=== PATIENT | male | born 1950 | race Caucasian/White ===

== ENCOUNTER 2017-02-22 11:18 | Observation (INO) | payer MEDICARE ==
[2017-02-22] MEDS ORDERED: NITROGLYCERIN SL TABS 0.4 MG TAB SUBLINGUAL PRN ×2 (11:30→20:31)
[2017-02-22] MEDS ORDERED: ASPIRIN 81 MG CHEW PO STA (11:30)
--- NOTE | 2017-02-22 11:31 | ED ---
General Adult HPI - General Chief complaint: Chest Pain Stated complaint: DIZZINESS, CHEST PAIN Time Seen by Provider: 02/22/17 11:29 Source: patient, RN notes reviewed, old records reviewed Mode of arrival: wheelchair Limitations: no limitations - History of Present Illness Initial comments: This is a 67-year-old male yesterday with chest pain. Patient does have a history of chest pain, history of heart disease and history of cardiac disease with stent placement. Patient has high blood pressure cholesterol. Blood pressure severely elevated this morning, patient also has not been feeling well. Patient having chest pain shortness of breath no diaphoresis. Continued chest pain at this time. Testred prior MS. - Related Data Home Medications Medication Instructions Recorded Confirmed Atorvastatin [Lipitor] 40 mg PO HS 02/22/17 02/22/17 Lisinopril [Prinivil] 10 mg PO DAILY 02/22/17 02/22/17 Metoprolol Tartrate [Lopressor] 50 mg PO BID 02/22/17 02/22/17 Minocycline HCl [Minocin] 50 mg PO DAILY 02/22/17 02/22/17 Nitroglycerin Sl Tabs [Nitrostat] 0.4 mg SUBLINGUAL Q5M PRN 02/22/17 02/22/17 traMADol HCL [Ultram] 50 mg PO Q6H PRN 02/22/17 02/22/17 Allergies Allergy/AdvReac Type Severity Reaction Status Date / Time No Known Allergies Allergy Verified 02/22/17 12:09 Review of Systems ROS Statement: Those systems with pertinent positive or pertinent negative responses have been documented in the HPI. ROS Other: All systems not noted in ROS Statement are negative. Past Medical History Past Medical History: Coronary Artery Disease (CAD), Hyperlipidemia, Hypertension History of Any Multi-Drug Resistant Organisms: None Reported Past Surgical History: Cholecystectomy, Coronary Bypass/CABG, Heart Catheterization With Stent Past Psychological History: No Psychological Hx Reported Smoking Status: Never smoker Past Alcohol Use History: Rare Past Drug Use History: None Reported General Exam Limitations: no limitations General appearance: alert, in no apparent distress Head exam: Present: atraumatic, normocephalic, normal inspection Eye exam: Present: normal appearance, PERRL, EOMI. Absent: scleral icterus, conjunctival injection, periorbital swelling ENT exam: Present: normal exam, mucous membranes moist Neck exam: Present: normal inspection. Absent: tenderness, meningismus, lymphadenopathy Respiratory exam: Present: normal lung sounds bilaterally. Absent: respiratory distress, wheezes, rales, rhonchi, stridor Cardiovascular Exam: Present: normal rhythm, bradycardia, normal heart sounds. Absent: systolic murmur, diastolic murmur, rubs, gallop, clicks GI/Abdominal exam: Present: soft, normal bowel sounds. Absent: distended, tenderness, guarding, rebound, rigid Extremities exam: Present: normal inspection, full ROM, normal capillary refill. Absent: tenderness, pedal edema, joint swelling, calf tenderness Back exam: Present: normal inspection Neurological exam: Present: alert, oriented X3, CN II-XII intact Psychiatric exam: Present: normal affect, normal mood Skin exam: Present: warm, dry, intact, normal color. Absent: rash Course Vital Signs 02/22/17 02/22/17 02/22/17 11:20 11:43 12:23 Temperature 98.7 F Pulse Rate 54 L 52 L Pulse Rate [ 565 H Right Radial] Respiratory 18 18 Rate Blood Pressure 207/93 151/72 O2 Sat by Pulse 100 96 Oximetry - Reevaluation(s) Reevaluation #1: 02/22/17 13:03 Patient still with chest pain, vital signs remained bradycardic with mildly elevated blood pressure EKG Findings - EKG Comments: EKG Findings:: EKG shows sinus bradycardia rate of 55, SC 138, QRS 80, QTC 394 Medical Decision Making - Medical Decision Making 67 mL the ER for evaluation of chest pain. History of heart disease with stent placement, patient be admitted for cardiac observation initial EKG and troponin are negative - Lab Data Result diagrams: 02/22/17 11:39 02/22/17 11:42 Lab Results 02/22/17 02/22/17 02/22/17 Range/Units 11:39 11:39 11:39 WBC 5.5 (3.8-10.6) k/uL RBC 5.49 (4.30-5.90) m/uL Hgb 16.8 (13.0-17.5) gm/dL Hct 49.3 (39.0-53.0) % MCV 89.8 (80.0-100.0) fL MCH 30.5 (25.0-35.0) pg MCHC 34.0 (31.0-37.0) g/dL RDW 15.5 (11.5-15.5) % Plt Count 183 (150-450) k/uL Neutrophils % 78 % Lymphocytes % 12 % Monocytes % 6 % Eosinophils % 2 % Basophils % 1 % Neutrophils # 4.3 (1.3-7.7) k/uL Lymphocytes # 0.7 L (1.0-4.8) k/uL Monocytes # 0.4 (0-1.0) k/uL Eosinophils # 0.1 (0-0.7) k/uL Basophils # 0.0 (0-0.2) k/uL PT 10.3 (9.0-12.0) sec INR 1.0 (<1.2) APTT 24.7 (22.0-30.0) sec Sodium (137-145) mmol/L Potassium (3.5-5.1) mmol/L Chloride (98-107) mmol/L Carbon Dioxide (22-30) mmol/L Anion Gap mmol/L BUN (9-20) mg/dL Creatinine (0.66-1.25) mg/dL Est GFR (MDRD) Af Amer (>60 ml/min/1.73 sqM) Est GFR (MDRD) Non-Af (>60 ml/min/1.73 sqM) Glucose (74-99) mg/dL Calcium (8.4-10.2) mg/dL Magnesium (1.6-2.3) mg/dL Total Bilirubin (0.2-1.3) mg/dL AST (17-59) U/L ALT (21-72) U/L Alkaline Phosphatase (38-126) U/L Total Creatine Kinase 114 (55-170) U/L CK-MB (CK-2) 1.1 (0.0-2.4) ng/mL CK-MB (CK-2) Rel Index 1.0 Troponin I <0.012 (0.000-0.034) ng/mL Total Protein (6.3-8.2) g/dL Albumin (3.5-5.0) g/dL 02/22/17 Range/Units 11:42 WBC (3.8-10.6) k/uL RBC (4.30-5.90) m/uL Hgb (13.0-17.5) gm/dL Hct (39.0-53.0) % MCV (80.0-100.0) fL MCH (25.0-35.0) pg MCHC (31.0-37.0) g/dL RDW (11.5-15.5) % Plt Count (150-450) k/uL Neutrophils % % Lymphocytes % % Monocytes % % Eosinophils % % Basophils % % Neutrophils # (1.3-7.7) k/uL Lymphocytes # (1.0-4.8) k/uL Monocytes # (0-1.0) k/uL Eosinophils # (0-0.7) k/uL Basophils # (0-0.2) k/uL PT (9.0-12.0) sec INR (<1.2) APTT (22.0-30.0) sec Sodium 139 (137-145) mmol/L Potassium 4.0 (3.5-5.1) mmol/L Chloride 107 (98-107) mmol/L Carbon Dioxide 21 L (22-30) mmol/L Anion Gap 11 mmol/L BUN 14 (9-20) mg/dL Creatinine 0.94 (0.66-1.25) mg/dL Est GFR (MDRD) Af Amer >60 (>60 ml/min/1.73 sqM) Est GFR (MDRD) Non-Af >60 (>60 ml/min/1.73 sqM) Glucose 124 H (74-99) mg/dL Calcium 8.8 (8.4-10.2) mg/dL Magnesium 2.1 (1.6-2.3) mg/dL Total Bilirubin 0.6 (0.2-1.3) mg/dL AST 26 (17-59) U/L ALT 40 (21-72) U/L Alkaline Phosphatase 77 (38-126) U/L Total Creatine Kinase (55-170) U/L CK-MB (CK-2) (0.0-2.4) ng/mL CK-MB (CK-2) Rel Index Troponin I (0.000-0.034) ng/mL Total Protein 7.4 (6.3-8.2) g/dL Albumin 4.2 (3.5-5.0) g/dL - Radiology Data Radiology results: report reviewed (Chest x-ray is negative for acute disease), image reviewed Critical Care Time Critical Care Time: Yes Total Critical Care Time: 31 Disposition Clinical Impression: Chest pain Disposition: ADMITTED IP TO THIS HOSP Condition: Undetermined Instructions: Chest Pain (ED) Referrals: Nonstaff,Physician [Primary Care Provider] - 1-2 days
[2017-02-22 11:57] LABS: Basophils % (A) 1 %; CH 30.9; CHCM 34.6; Eosinophils # (A) 0.1 k/uL (0-0.7); Eosinophils % (A) 2 %; HCT 49.3 % (39.0-53.0); HDW 2.98; HGB 16.8 gm/dL (13.0-17.5); Luc # (Auto) 0.08; Luc % (Auto) 2; Lymphocytes # (A) 0.7 k/uL (1.0-4.8); Lymphocytes % (A) 12 %; MCH 30.5 pg (25.0-35.0); MCV 89.8 fL (80.0-100.0); Mean Platelet Volume 7.5; Monocytes # (A) 0.4 k/uL (0-1.0); Monocytes % (A) 6 %; Neutrophils # (A) 4.3 k/uL (1.3-7.7); Neutrophils % (A) 78 %; RBC 5.49 m/uL (4.30-5.90); RDW 15.5 % (11.5-15.5); WBC 5.5 k/uL (3.8-10.6); WBC (Perox) 5.45
--- NOTE | 2017-02-22 12:05 | XR ---
EXAMINATION TYPE: XR chest 2V DATE OF EXAM: 02/22/2017 COMPARISON: NONE HISTORY: Shortness of breath TECHNIQUE: Frontal and lateral views of the chest are obtained. FINDINGS: Scattered senescent parenchymal changes noted. Hyperinflation compatible with COPD. No evidence for infiltrate. No evidence for atelectasis. Heart size is stable. Mediastinal structures are stable and grossly unremarkable. No evidence for hilar prominence. Degenerative changes dorsal spine. IMPRESSION: 1. No evidence for acute pulmonary disease.
[2017-02-22 12:06] LABS: ALT 40 U/L (21-72); AST 26 U/L (17-59); Alkaline Phosphatase 77 U/L (38-126); Anion Gap 11 mmol/L; Blood Urea Nitrogen 14 mg/dL (9-20); Calcium 8.8 mg/dL (8.4-10.2); Carbon Dioxide 21 mmol/L (22-30); Chloride 107 mmol/L (98-107); Glucose 124 mg/dL (74-99); Magnesium 2.1 mg/dL (1.6-2.3); Non-African American GFR(MDRD) >60 (>60 ml/min/1.73 sqM); Sodium 139 mmol/L (137-145); Total Bilirubin 0.6 mg/dL (0.2-1.3); Total Protein 7.4 g/dL (6.3-8.2)
[2017-02-22 12:20] LABS: Partial Thromboplastin Time 24.7 sec (22.0-30.0); Prothrombin Time 10.3 sec (9.0-12.0)
[2017-02-22 12:21] LABS: Creatine Kinase 114 U/L (55-170)
[2017-02-22 12:31] LABS: Creatine Kinase MB 1.1 ng/mL (0.0-2.4); Troponin I <0.012 ng/mL (0.000-0.034)
[2017-02-22 16:26] VITALS: BMI 29.8
[2017-02-22 18:48] LABS: Creatine Kinase 98 U/L (55-170)
[2017-02-22 19:01] LABS: Creatine Kinase MB 0.9 ng/mL (0.0-2.4); Troponin I <0.012 ng/mL (0.000-0.034)
[2017-02-22] MEDS ORDERED: traMADol 50 MG TAB PO PRN (20:31)
[2017-02-22] MEDS: MINOCYCLINE 50 MG CAP PO SCH (20:57)
[2017-02-22] MEDS ORDERED: ATORVASTATIN 40 MG TAB PO SCH (21:00)
[2017-02-22] MEDS ORDERED: METOPROLOL TARTRATE 50 MG TAB PO SCH (21:00)
[2017-02-23 00:25] LABS: Creatine Kinase 96 U/L (55-170)
[2017-02-23 00:38] LABS: Creatine Kinase MB 0.9 ng/mL (0.0-2.4); Troponin I <0.012 ng/mL (0.000-0.034)
[2017-02-23 06:10] LABS: Glucose,Whole Blood 110 mg/dL (75-99)
[2017-02-23 06:37] LABS: Cholesterol 208 mg/dL (<200); HDL Cholesterol 31 mg/dL (40-60)
--- NOTE | 2017-02-23 08:34 | P.CRDCN ---
History of Present Illness Consult date: 02/23/17 Requesting physician: Fidel Lopez Consult reason: chest pain Chief complaint: Chest pain History of present illness: This is a pleasant 67-year-old gentleman with history of hypertension , hyperlipidemia, coronary artery disease with prior stent placements, prior myocardial infarction, patient also underwent coronary artery bypass grafting surgery in [facility] in 2010. He has recently moved to this area. Patient presents to the hospital with symptoms of chest tightness with associated diaphoresis and dizziness. He states that he has been dizzy for the past few days, yesterday patient developed a chest tightness with associated diaphoresis. Patient states he did not try sublingual nitroglycerin because it gave him a headache in the past and he did have a headache already. At the time of my examination this morning, he is currently chest pain-free. EKG on arrival here showed a sinus bradycardia with inferior Q waves, anterior repeat EKG this morning shows a sinus bradycardia with inferior Q waves and anterior lateral ST-T wave changes. lateral ST T-wave changes. Chest x-ray does not reveal any evidence of acute pulmonary disease. CBC normal. Potassium 4.0, BUN 14, creatinine 0.9. Troponins have been negative 3. Cholesterol 208, LDL 148, HDL 31, triglycerides 143. I pressure on arrival to the emergency room 207 /93, heart rate in the 50s, 100% on room air. Let pressure this morning 150/80 , heart rate in the 40s to 50s, no orthostatics noted. Patient has not been taking statin or beta regla for approximately 6 weeks. Past Medical History Past Medical History: Coronary Artery Disease (CAD), Hyperlipidemia, Hypertension History of Any Multi-Drug Resistant Organisms: None Reported Past Surgical History: Cholecystectomy, Coronary Bypass/CABG, Heart Catheterization With Stent Date of Last Stent Placement:: 2005/2006? Past Psychological History: No Psychological Hx Reported Smoking Status: Former smoker Past Alcohol Use History: Rare Past Drug Use History: None Reported Medications and Allergies Home Medications Medication Instructions Recorded Confirmed Type Atorvastatin [Lipitor] 40 mg PO HS 02/22/17 02/22/17 History Lisinopril [Prinivil] 10 mg PO DAILY 02/22/17 02/22/17 History Metoprolol Tartrate [Lopressor] 50 mg PO BID 02/22/17 02/22/17 History Minocycline HCl [Minocin] 50 mg PO DAILY 02/22/17 02/22/17 History Nitroglycerin Sl Tabs [Nitrostat] 0.4 mg SUBLINGUAL Q5M PRN 02/22/17 02/22/17 History traMADol HCL [Ultram] 50 mg PO Q6H PRN 02/22/17 02/22/17 History Allergies Allergy/AdvReac Type Severity Reaction Status Date / Time No Known Allergies Allergy Verified 02/22/17 12:09 Physical Exam Vitals: Vital Signs Temp Pulse Pulse Resp BP BP BP 02/23/17 08:15 150/85 148/96 02/23/17 08:00 97.2 F L 45 L 16 02/23/17 04:00 57 L 16 02/23/17 00:00 97.4 F L 50 L 16 02/22/17 20:00 97.9 F 54 L 16 02/22/17 16:37 97.8 F 50 L 16 02/22/17 16:33 50 L 18 02/22/17 16:04 97.6 F 56 L 18 152/75 02/22/17 14:42 52 L 16 174/83 02/22/17 14:00 50 L 18 158/82 02/22/17 13:09 97.8 F 50 L 16 02/22/17 13:00 48 L 18 139/73 02/22/17 12:23 52 L 18 151/72 02/22/17 11:43 565 H 02/22/17 11:20 98.7 F 54 L 18 207/93 BP BP Pulse Ox 02/23/17 08:15 145/74 02/23/17 08:00 145/74 98 02/23/17 04:00 147/81 97 02/23/17 00:00 133/64 99 02/22/17 20:00 151/74 98 02/22/17 16:37 151/77 98 02/22/17 16:33 02/22/17 16:04 96 02/22/17 14:42 97 02/22/17 14:00 97 02/22/17 13:09 151/77 98 02/22/17 13:00 98 02/22/17 12:23 96 02/22/17 11:43 02/22/17 11:20 100 Intake and Output 02/22/17 02/23/17 02/23/17 22:59 06:59 14:59 Intake Total 480 Output Total 200 250 Balance 280 -250 Intake: Oral 480 Output: Urine 200 250 Other: Voiding Method Toilet Toilet # Voids 1 2 1 Weight 80.5 kg PHYSICAL EXAMINATION: HEENT: Head is atraumatic, normocephalic. Pupils equal, round. Neck is supple. There is no elevated jugular venous pressure. HEART EXAMINATION: Heart S1 and S2 with systolic murmur is heard. CHEST EXAMINATION: Lungs are clear to auscultation and precussion. No chest wall tenderness is noted on palpation or with deep breathing. ABDOMEN: Soft, nontender. Bowel sounds are heard. No organomegaly noted. EXTREMITIES: 2+ peripheral pulses with no evidence of peripheral edema and no calf tenderness noted. NEUROLOGIC patient is awake, alert and oriented -3. . Results 02/22/17 11:39 02/22/17 11:42 Cardiac Enzymes 02/22/17 02/22/17 02/22/17 Range/Units 11:39 11:42 18:04 AST 26 (17-59) U/L CK-MB (CK-2) 1.1 0.9 (0.0-2.4) ng/mL Troponin I <0.012 <0.012 (0.000-0.034) ng/mL 02/22/17 Range/Units 23:43 AST (17-59) U/L CK-MB (CK-2) 0.9 (0.0-2.4) ng/mL Troponin I <0.012 (0.000-0.034) ng/mL Coagulation 02/22/17 Range/Units 11:39 PT 10.3 (9.0-12.0) sec APTT 24.7 (22.0-30.0) sec Lipids 02/23/17 Range/Units 05:49 Triglycerides 143 (<150) mg/dL Cholesterol 208 H (<200) mg/dL HDL Cholesterol 31 L (40-60) mg/dL CBC 02/22/17 Range/Units 11:39 WBC 5.5 (3.8-10.6) k/uL RBC 5.49 (4.30-5.90) m/uL Hgb 16.8 (13.0-17.5) gm/dL Hct 49.3 (39.0-53.0) % Plt Count 183 (150-450) k/uL Comprehensive Metabolic Panel 02/22/17 Range/Units 11:42 Sodium 139 (137-145) mmol/L Potassium 4.0 (3.5-5.1) mmol/L Chloride 107 (98-107) mmol/L Carbon Dioxide 21 L (22-30) mmol/L BUN 14 (9-20) mg/dL Creatinine 0.94 (0.66-1.25) mg/dL Glucose 124 H (74-99) mg/dL Calcium 8.8 (8.4-10.2) mg/dL AST 26 (17-59) U/L ALT 40 (21-72) U/L Alkaline Phosphatase 77 (38-126) U/L Total Protein 7.4 (6.3-8.2) g/dL Albumin 4.2 (3.5-5.0) g/dL Current Medications Generic Name Dose Route Start Last Admin Trade Name Freq PRN Reason Stop Dose Admin Aspirin 325 mg 02/23/17 09:00 Aspirin PO DAILY [facility] Atorvastatin Calcium 40 mg 02/22/17 21:00 02/22/17 20:57 Lipitor PO 40 mg HS DEON Administration Lisinopril 10 mg 02/23/17 09:00 Zestril PO DAILY [facility] Metoprolol Tartrate 50 mg 02/22/17 21:00 02/22/17 20:57 Lopressor PO 50 mg BID DEON Administration Minocycline HCl 50 mg 02/22/17 20:45 02/22/17 20:57 Minocin PO 50 mg DAILY DEON Administration Nitroglycerin 0.4 mg 02/22/17 11:30 Nitrostat SUBLINGUAL Q5M PRN Chest Pain Tramadol HCl 50 mg 02/22/17 20:31 Ultram PO Q6H PRN Pain Intake and Output 02/22/17 02/23/17 02/23/17 22:59 06:59 14:59 Intake Total 480 Output Total 200 250 Balance 280 -250 Intake: Oral 480 Output: Urine 200 250 Other: Voiding Method Toilet Toilet # Voids 1 2 1 Weight 80.5 kg 02/22/17 11:39 02/22/17 11:42 EKG Interpretations (text) EKG shows a sinus bradycardia with inferior Q waves and anterior lateral ST-T wave changes Assessment and Plan Plan: Assessment and plan #1 chest tightness with associated diaphoresis and dizziness troponins negative 3. EKG shows a sinus bradycardia with inferior Q waves and anterior lateral/ ST T-wave changes. #2 accelerated hypertension #3 history of hypertension #4 hyperlipidemia #5 prior history of smoking #6 Coronary artery disease with prior stent placements subsequent to that, patient underwent coronary artery bypass grafting surgery in 2010 Plan We will obtain an echocardiogram with Doppler study. We will also obtain records of patient's prior bypass surgery, prior EKG and prior echocardiogram. 's heart rate is noted to be in the 40s to 50s, he was resumed here on metoprolol tartrate 50 twice a day and patient has not taken his beta regla for a minimum of 6 weeks. We will decrease the dose of metoprolol tartrate 12-1 /2 mg one tablet by mouth twice a day. Continue an aspirin daily, and initiate Lipitor 80 mg 1 tablet daily. Obtain free T4 and TSH level. Further recommendations to follow. DNP note has been reviewed, I agree with a documented findings and plan of care. Patient was seen and examined.
[2017-02-23] MEDS: METOPROLOL TARTRATE 12.5 MG TAB PO SCH ×2 (09:53→19:33)
[2017-02-23] MEDS: LISINOPRIL 10 MG TAB PO SCH (09:53)
[2017-02-23] MEDS: ASPIRIN 325 MG TAB PO SCH (09:54)
[2017-02-23] MEDS: MINOCYCLINE 50 MG CAP PO SCH (09:54)
[2017-02-23 11:47] LABS: Glucose,Whole Blood 223 mg/dL (75-99)
[2017-02-23] MEDS: ATORVASTATIN 80 MG TAB PO SCH (19:33)
[2017-02-24 06:14] LABS: Basophils # (A) 0.1 k/uL (0-0.2); Basophils % (A) 1 %; CH 30.7; CHCM 34.2; Eosinophils # (A) 0.4 k/uL (0-0.7); Eosinophils % (A) 6 %; HCT 50.9 % (39.0-53.0); HDW 2.93; HGB 17.1 gm/dL (13.0-17.5); Luc # (Auto) 0.13; Luc % (Auto) 2; Lymphocytes # (A) 0.9 k/uL (1.0-4.8); Lymphocytes % (A) 14 %; MCH 30.3 pg (25.0-35.0); MCHC 33.7 g/dL (31.0-37.0); MCV 90.1 fL (80.0-100.0); Mean Platelet Volume 7.3; Monocytes # (A) 0.4 k/uL (0-1.0); Monocytes % (A) 7 %; Neutrophils # (A) 4.2 k/uL (1.3-7.7); Neutrophils % (A) 70 %; RBC 5.65 m/uL (4.30-5.90); RDW 15.9 % (11.5-15.5); WBC (Perox) 5.88
[2017-02-24 06:32] LABS: Anion Gap 11 mmol/L; Blood Urea Nitrogen 16 mg/dL (9-20); Calcium 8.7 mg/dL (8.4-10.2); Carbon Dioxide 26 mmol/L (22-30); Chloride 104 mmol/L (98-107); Glucose 102 mg/dL (74-99); Non-African American GFR(MDRD) >60 (>60 ml/min/1.73 sqM); Potassium 4.4 mmol/L (3.5-5.1); Sodium 141 mmol/L (137-145)
[2017-02-24] MEDS: LISINOPRIL 10 MG TAB PO SCH (09:02)
[2017-02-24] MEDS: METOPROLOL TARTRATE 12.5 MG TAB PO SCH ×2 (09:02→19:55)
[2017-02-24] MEDS: MINOCYCLINE 50 MG CAP PO SCH (09:02)
[2017-02-24] MEDS: ASPIRIN 325 MG TAB PO SCH (09:02)
--- NOTE | 2017-02-24 10:12 | PN ---
SUBJECTIVE: 67 year old white male admitted with chest pain, echocardiogram has been ordered by superintendent [employer]. Hypertension acceleration with dizziness is improving as we restarted his medications, albeit in lower doses from beta blockers standpoint as he has had bradycardia without beta blockers. Other medicines will be adjusted to home medications. he has been off for six weeks. Vital signs stable as mentioned except for bradycardia into the 40s without beta blockers. Lungs are clear. Psych: Fair mood and affect. Neurological: Alert and oriented times three. GI: Soft. Hematology: Negative Homans. ASSESSMENT: 1. Dizziness secondary to hypertension acceleration. 2. Atypical chest pain. 3. History of coronary artery disease. 4. Obesity. 5. Continue to monitor for bradycardia. Continue risk factor modifications. Await superintendent [employer] is looking at old cardiac cath records from another hospital. Echo will be done in the meantime. DEAN
--- NOTE | 2017-02-24 10:33 | US ---
EXAMINATION TYPE: US carotid duplex BILAT DATE OF EXAM: 02/24/2017 COMPARISON: NONE CLINICAL HISTORY: HYPERLIPIDEMIA-DIZZINESS. Dizziness EXAM MEASUREMENTS: RIGHT: Peak Systolic Velocity (PSV) cm/sec ----- Right CCA: 50.2 ----- Right ICA: 75.4 ----- Right ECA: 85.6 ICA/CCA ratio: 1.5 RIGHT: End Diastole cm/sec ----- Right CCA: 10.2 ----- Right ICA: 19.3 ----- Right ECA: 9.9 LEFT: Peak Systolic Velocity (PSV) cm/sec ----- Left CCA: 56.5 ----- Left ICA: 77.3 ----- Left ECA: 63.9 ICA/CCA ratio: 1.4 LEFT: End Diastole cm/sec ----- Left CCA: 8.7 ----- Left ICA: 16.6 ----- Left ECA: 5.9 VERTEBRALS (direction of flow): Right Vertebral: Antegrade Left Vertebral: Antegrade No elevated velocities, no significant stenosis Left thyroid: 1.3 x 1.0 x 1.4cm nodule seen IMPRESSION: 1. No evidence for hemodynamically significant stenosis. Criteria for Assigning % of Stenosis / Diameter reduction (Estimation based on the indirect measurements of the internal carotid artery velocities (ICA PSV). 1. Normal (no stenosis)=ICA PSV < 125 cm/s: ratio < 2.0: ICA EDV<40 cm/s. 2. Less than 50% stenosis=ICA PSV < 125 cm/s: ratio < 2.0: ICA EDV<40 cm/s. 3. 50 to 69% stenosis=ICA PSV of 125 to 230 cm/s: ration 2.0 ? 4.0: ICA EDV 40-100 cm/s. 4. Greater than 70% stenosis to near occlusion= ICA PSV > 230 cm/s: ratio > 4.0: ICA EDV > 100 cm/s. 5. Near occlusion= ICA PSV velocities may be low or undetectable: variable ratio and ICA EDV. 6. Total occlusion=unable to detect flow.
[2017-02-24] MEDS: ATORVASTATIN 80 MG TAB PO SCH (19:56)
[2017-02-25] MEDS ORDERED: REGADENOSON 0.4 MG/5 ML SYRINGE IV ONE (05:00)
[2017-02-25] MEDS ORDERED: AMINOPHYLLINE 500 MG/20 ML VIAL IV PRN (05:00)
[2017-02-25 06:51] LABS: CH 30.4; CHCM 33.8; HCT 51.6 % (39.0-53.0); HGB 17.2 gm/dL (13.0-17.5); MCH 30.1 pg (25.0-35.0); MCHC 33.3 g/dL (31.0-37.0); MCV 90.5 fL (80.0-100.0); Mean Platelet Volume 7.6; RDW 15.4 % (11.5-15.5); WBC 6.8 k/uL (3.8-10.6)
[2017-02-25 07:13] LABS: Anion Gap 10 mmol/L; Blood Urea Nitrogen 13 mg/dL (9-20); Calcium 8.7 mg/dL (8.4-10.2); Carbon Dioxide 24 mmol/L (22-30); Chloride 106 mmol/L (98-107); Glucose 92 mg/dL (74-99); Non-African American GFR(MDRD) >60 (>60 ml/min/1.73 sqM); Potassium 4.3 mmol/L (3.5-5.1); Sodium 140 mmol/L (137-145)
--- NOTE | 2017-02-25 08:00 | ECHOF ---
Referral Reason:chest pain MEASUREMENTS -------- HEIGHT: 167.6 cm WEIGHT: 80.3 kg BP: 145/74 RVIDd: 3.4 cm (< 3.3) IVSd: 1.4 cm (0.6 - 1.1) LVIDd: 4.5 cm (3.9 - 5.3) LVPWd: 1.5 cm (0.6 - 1.1) IVSs: 1.7 cm LVIDs: 3.4 cm LVPWs: 2.0 cm LA Diam: 4.4 cm (2.7 - 3.8) LAESV Index (A-L): 30.26 ml/m Ao Diam: 4.0 cm (2.0 - 3.7) AV Cusp: 2.5 cm (1.5 - 2.6) MV EXCURSION: 12.842 mm (> 18.000) MV EF SLOPE: 40 mm/s (70 - 150) EPSS: 0.9 cm MV E Ezra: 0.77 m/s MV DecT: 293 ms MV A Ezra: 0.63 m/s MV E/A Ratio: 1.23 AR PHT: 818 ms FINDINGS -------- Resting bradycardia (HR<60bpm). This was a technically good study. The left ventricular size is normal. There is moderate concentric left ventricular hypertrophy. Overall left ventricular systolic function is normal with, an EF between 55 - 60 %. The right ventricle is mildly enlarged. LA is midly dilated 29-33ml/m2. The right atrium is normal in size. The aortic valve is trileaflet and appears structurally normal. There is mild aortic regurgitation. Mild mitral annular calcification present. The tricuspid valve appears structurally normal. Trace/mild (physiologic) pulmonic regurgitation. 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 The inferior vena cava is mildly dilated. There is no pericardial effusion. CONCLUSIONS -------- 1. Resting bradycardia (HR<60bpm). 2. There is mild aortic regurgitation. 3. Mild mitral annular calcification present. 4. The tricuspid valve appears structurally normal. 5. Trace/mild (physiologic) pulmonic regurgitation. 6. 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 7. The inferior vena cava is mildly dilated. 8. There is no pericardial effusion. 9. This was a technically good study. 10. The left ventricular size is normal. 11. There is moderate concentric left ventricular hypertrophy. 12. Overall left ventricular systolic function is normal with, an EF between 55 - 60 %. 13. The right ventricle is mildly enlarged. 14. LA is midly dilated 29-33ml/m2. 15. The right atrium is normal in size. 16. The aortic valve is trileaflet and appears structurally normal. VENUE ATTENDANT: Lluvia Nguyen RDCS
[2017-02-25 09:18] VITALS: RESP 16
[2017-02-25] MEDS: METOPROLOL TARTRATE 12.5 MG TAB PO SCH (10:12)
[2017-02-25] MEDS: LISINOPRIL 10 MG TAB PO SCH (10:13)
[2017-02-25] MEDS: ASPIRIN 325 MG TAB PO SCH (10:13)
[2017-02-25] MEDS: MINOCYCLINE 50 MG CAP PO SCH (10:13)
--- NOTE | 2017-02-25 11:28 | PN ---
Mr. Moody is a 67-year-old gentleman with history of hypertension, hyperlipidemia, coronary artery disease with a prior stent placement and also myocardial infarction and previous bypass surgery who moved recently to this area. The patient is admitted to the hospital with chest tightness, dizziness and also diaphoresis. The patient's blood pressure has been running high. Since admission the patient's blood pressure has been stable. His blood pressure today is 120-140/69. Pulse rate is 60's, respirations 16. Patient is feeling better. His troponin values are negative. We are still awaiting the reports from [facility] regarding his previous history. He is being scheduled for a stress test tomorrow. If there is no inducible ischemia the patient could be discharged home. PHYSICAL EXAMINATION: Reveals a gentleman who is alert and oriented, does not appear in acute distress. LUNGS: Clear. HEART: Regular. No JVD, no peripheral edema. His lab values today show normal electrolytes. His CBCs are normal. His cholesterol level is 208, HDL is 31, LDL is 148. The patient has been taking lipid lowering agents. FINAL IMPRESSION: 1. Chest pain, rule out unstable angina. 2. Uncontrolled hypertension. 3. Dizziness has resolved. PLAN: Nuclear stress test tomorrow. If that is negative patient could be discharged home. If it is positive the patient may need cardiac catheterization. DEAN
--- NOTE | 2017-02-25 11:38 | NM ---
EXAMINATION TYPE: NM stress lexiscan cardiolite DATE OF EXAM: 02/25/2017 COMPARISON: NONE HISTORY: History of hypertension, tobacco use quit 1997, family history of heart attack, hypercholest eremia, prior heart attack, and prior angioplasty as well as three-vessel CABG procedure presents wit h chest pain. TECHNIQUE: After the intravenous administration of 11 mCi Tc 99m Sestamibi - Cardiolite resting SPEC T images acquired 40 minutes post injection. The patient received 0.4mg Lexiscan, 27.3 mCi Tc 99m Sestamibi - Stress images obtained [address] injection FINDINGS: Review of stress and rest SPECT images demonstrates no distinct perfusion abnormality. Gated analysi s shows normal wall motion with an estimated left ventricular ejection fraction of 52 %. IMPRESSION: No scintigraphic evidence for reversible ischemia.
--- NOTE | 2017-02-25 12:18 | PN ---
67 -year-old white male admitted to the hospital with atypical chest pain. He will have a stress test tomorrow. His blood pressure and dizziness are improved as he has been off his blood pressure medications for six weeks. He will have a stress test tomorrow and he will be discharged home afterwards. Cardiovascular: S1, S2. Lungs are clear. GI: Soft. Hematological: Negative Homans. Psych: Fair mood and affect. ASSESSMENT: 1. Hypertension acceleration. 2. Dizziness secondary to hypertension acceleration. 3. Atypical chest pain. 4. History of coronary artery disease. Continue current medical therapy, including blood pressure control, stress thallium in the morning and then discharge if clear. MTDD
[2017-02-25 13:03] VITALS: BP 141/75; PULSE 64; TEMP 98.1
--- NOTE | 2017-02-25 15:08 | P.PN ---
Subjective This is a pleasant 67-year-old gentleman with history of hypertension , hyperlipidemia, coronary artery disease with prior stent placements, prior myocardial infarction, patient also underwent coronary artery bypass grafting surgery in [facility] in 2010. He has recently moved to this area. Patient presents to the hospital with symptoms of chest tightness with associated diaphoresis and dizziness. He states that he has been dizzy for the past few days, yesterday patient developed a chest tightness with associated diaphoresis. Patient states he did not try sublingual nitroglycerin because it gave him a headache in the past and he did have a headache already. At the time of my examination this morning, he is currently chest pain-free. EKG on arrival here showed a sinus bradycardia with inferior Q waves, anterior repeat EKG this morning shows a sinus bradycardia with inferior Q waves and anterior lateral ST-T wave changes. lateral ST T-wave changes. 02/25/2017 Lexiscan stress test today that was negative for any reversible ischemia. He has been up ambulating in the hallway without any difficulty, denies chest pain. Echocardiogram with Doppler study was performed which revealed an ejection fraction of 55-60%. From cardiology's perspective he may be able to be discharged home today. We will make him a follow-up appointment in the office post discharge. Objective - Vital Signs Vital signs: Vital Signs Temp 98.1 F 02/25/17 12:00 Pulse 64 02/25/17 12:00 Resp 16 02/25/17 12:00 BP 141/75 02/25/17 12:00 Pulse Ox 98 02/25/17 12:00 Intake & Output 02/24/17 02/25/17 02/25/17 18:59 06:59 18:59 Intake Total 1120 480 180 Output Total 800 750 Balance 320 -270 180 Weight 80.5 kg Intake: Oral 1120 480 180 Output: Urine 800 750 Other: Voiding Method Toilet Toilet # Voids 1 1 # Bowel Movements 1 - Exam PHYSICAL EXAMINATION: HEENT: Head is atraumatic, normocephalic. Pupils equal, round. Neck is supple. There is no elevated jugular venous pressure. HEART EXAMINATION: Heart S1 and S2 with systolic murmur is heard. CHEST EXAMINATION: Lungs are clear to auscultation and precussion. No chest wall tenderness is noted on palpation or with deep breathing. ABDOMEN: Soft, nontender. Bowel sounds are heard. No organomegaly noted. EXTREMITIES: 2+ peripheral pulses with no evidence of peripheral edema and no calf tenderness noted. NEUROLOGIC patient is awake, alert and oriented -3. . - Labs CBC & Chem 7: 02/25/17 06:02 02/25/17 06:02 Assessment and Plan Plan: Assessment and plan #1 chest tightness with associated diaphoresis and dizziness troponins negative 3. EKG shows a sinus bradycardia with inferior Q waves and anterior lateral/ ST T-wave changes. Ashtyn scan stress test negative for any reversible ischemia. Echocardiogram with Doppler study reveals an ejection fraction of 55-60%. #2 accelerated hypertension #3 history of hypertension #4 hyperlipidemia #5 prior history of smoking #6 Coronary artery disease with prior stent placements subsequent to that, patient underwent coronary artery bypass grafting surgery in 2010 Plan Cardiology's perspective, patient may be able to be discharged home today. We will make him a follow-up appointment in the office post discharge. DNP note has been reviewed, I agree with a documented findings and plan of care. Patient was seen and examined.
--- NOTE | 2017-02-26 14:31 | EST ---
DATE OF SERVICE: 02/25/2017 LEXISCAN CARDIOLITE STUDY INDICATION: Chest pain. BASELINE HEART RATE: 61 BASELINE BLOOD PRESSURE: 135/75 MAXIMUM HEART RATE: 75 MAXIMUM BLOOD PRESSURE: 139/75 85% MPHR: 130 100% MPHR: 153 METS: - MAXIMUM STAGE REACHED: - TOTAL EXERCISE TIME: - Patient was given Lexiscan injection over a period of 15 seconds. A peak heart rate of 75 was achieved. Maximum blood pressure of 139/75 mmHg was noted. Resting EKG shows normal sinus rhythm with normal GA interval and QRS duration and normal ST-T waves. No ST segment depression suggestive of ischemia was noted. The results of the nuclear study will follow. [facility]
== END 2017-02-25 15:14 | disposition home or self-care (01) ==
LOC: EC 11:18 → 3OBS 11:30 → 6SEL 16:09
PROVIDERS: ADMIT Family Medicine; ATTEND Family Medicine
DX: R07.89 Other chest pain (principal); R61 Generalized hyperhidrosis; R06.02 Shortness of breath; R00.1 Bradycardia, unspecified; I10 Essential (primary) hypertension; E78.5 Hyperlipidemia, unspecified; E66.9 Obesity, unspecified; I25.10 Atherosclerotic heart disease of native coronary artery without angina pectoris; I25.2 Old myocardial infarction; Z79.899 Other long term (current) drug therapy; Z95.1 Presence of aortocoronary bypass graft; Z95.5 Presence of coronary angioplasty implant and graft; Z87.891 Personal history of nicotine dependence; Z79.2 Long term (current) use of antibiotics
CPT/HCPCS: 99291; 36415; 93005; 93017; 93306; 84439; 84481; 80061; 80053; 80048 ×2; 84443; 82550; 82553; 83735; 84484; 85025 ×2; 85027; 85610; 85730; 71020; 93880; 78452; G0378 ×4; A9500; J2785

== ENCOUNTER → 2017-08-22 | Outpatient (CLI) | payer MEDICARE, OTHER ==
--- NOTE | 2017-08-22 09:00 | US ---
EXAMINATION TYPE: US thyroid st tissue head/neck DATE OF EXAM: 08/22/2017 COMPARISON: Carotid US 02/24/2017 CLINICAL HISTORY: 67-year-old male E04.1 THYROID NODULE. Follow up thyroid nodule from previous ultra sound TECHNIQUE: Multiple sonographic images of the thyroid gland are obtained. FINDINGS: Right Lobe: 4.3 x 1.7 x 1.7 cm Overall Parenchyma: heterogenous Left Lobe: 3.8 x 1.6 x 1.9 cm Overall Parenchyma: heterogeneous Isthmus Thickness: 0.6 cm NODULES RIGHT: # of nodules measured on right: 3 1. 0.8 X 0.7 x 0.7 cm cyst at the mid pole with well-defined margins. This nodule is wider than usha l and shows no intranodular vascularity. Prior size: no previous 2. 1.2 X 0.6 x 1.1 cm mixed solid cystic nodule at the mid pole with well-defined margins. This nodu le is wider than tall and shows no intranodular vascularity. Prior size: no previous 3. 0.5 X 0.4 x 0.5 cm hypoechoic solid nodule at the posterior mid pole with well-defined margins. T his nodule is wider than tall and shows no intranodular vascularity. Prior size: no previous LEFT: # of nodules measured on left: 1 1. 1.2 X 0.8 x 1.4 cm isoechoic solid nodule at the lower pole with well-defined margins. This nodu le is wider than tall and shows . Prior size: 1.3 x 1.0 x 1.4 cm by previous carotid ultrasound ISTHMUS: # of nodules measured in the isthmus: 1 1. 0.6 X 0.5 x 0.8 cm calcified nodule at the mid portion of the isthmus. This nodule is wider than tall and shows no intranodular vascularity. Prior size: no previous Bilateral neck scanned, no evidence of lymphadenopathy. IMPRESSION: 1. 3 nodules on the right, one in the isthmus and one on the left. 2. The dominant nodule is solid measuring 1.4 cm on the left, relatively unchanged from 02/24/2017. 3. The second dominant nodule is mixed solid and cystic measuring 1.2 cm at the right midpole. 4. FNA can be considered.
== END | disposition home or self-care (01) ==
LOC: RADUSWWP 08:14
PROVIDERS: ATTEND Internal Medicine Geriatric Medicine
DX: E04.2 Nontoxic multinodular goiter (principal)
CPT/HCPCS: 76536

== ENCOUNTER 2017-10-01 12:16 | Day surgery (SDC) | payer MEDICARE, OTHER ==
[2017-10-01 12:34] VITALS: RESP 20; TEMP 99
[2017-10-01 13:08] VITALS: BP 136/77; PULSE 71
--- NOTE | 2017-10-01 13:43 | US ---
ULTRASOUND GUIDED FNA THYROID BIOPSY: CLINICAL HISTORY: Request for FNA of a right thyroid nodule which is mixed measuring 1.2 cm on the pr evious exam. FINDINGS: The procedure was explained to the patient. The risks, complications, benefits and alternatives were discussed and any questions were answered. Informed consent was obtained. Patient was placed supin e on the ultrasound table and prepped and draped in the usual sterile fashion. Utilizing a 25 gauge needle, five passes were made into the requested right thyroid nodule. Patient was stable throughout the procedure. Pathology is pending. All elements of maximal barrier technique were utilized. IMPRESSION: 1. Successful ultrasound guided FNA thyroid biopsy.
== END 2017-10-01 13:40 | disposition home or self-care (01) ==
LOC: RADPROMAIN 12:16
PROVIDERS: ATTEND Internal Medicine Geriatric Medicine
DX: E04.1 Nontoxic single thyroid nodule (principal)
CPT/HCPCS: 10022; 76942; 88173; 88305

== ENCOUNTER 2017-10-27 10:31 | Observation (INO) | payer MEDICARE, OTHER ==
[2017-10-27] MEDS ORDERED: ASPIRIN 81 MG PO STA (11:01)
[2017-10-27] MEDS ORDERED: NITROGLYCERIN OINT 1 INCH/GM PACKET TOPICAL STA (11:01)
--- NOTE | 2017-10-27 11:09 | ED ---
General Adult HPI - General Chief complaint: Chest Pain Stated complaint: Chest pain Time Seen by Provider: 10/27/17 10:35 Source: patient, RN notes reviewed Mode of arrival: ambulatory Limitations: no limitations - History of Present Illness Initial comments: This is a 67-year-old male who presents emergency Department complaining of chest pain since 1019. Patient states the pain was in the left side of his chest that radiated to his back. Patient states this is a same type of pain he had when he had a heart attack in the past. Patient's had multiple stents and bypass surgery in the past. Patient states he is a diabetic does have high blood pressure high cholesterol. Patient denies any smoking. Patient states he took a couple nitroglycerin over did not help but the pain has since subsided. Patient states she was mildly short of breath denies any sweating or nausea. - Related Data Home Medications Medication Instructions Recorded Confirmed Lisinopril [Prinivil] 10 mg PO DAILY 02/22/17 10/27/17 Minocycline HCl [Minocin] 50 mg PO HS 02/22/17 10/27/17 Nitroglycerin Sl Tabs [Nitrostat] 0.4 mg SUBLINGUAL Q5M PRN 02/22/17 10/27/17 traMADol HCL [Ultram] 50 mg PO Q6H PRN 02/22/17 10/27/17 ALPRAZolam [Xanax] 0.25 mg PO DAILY PRN 09/05/17 10/27/17 Metoprolol Tartrate [Lopressor] 50 mg PO BID 09/05/17 10/27/17 Atorvastatin [Lipitor] 40 mg PO HS 10/27/17 10/27/17 Allergies Allergy/AdvReac Type Severity Reaction Status Date / Time No Known Allergies Allergy Verified 10/27/17 11:42 Review of Systems ROS Statement: Those systems with pertinent positive or pertinent negative responses have been documented in the HPI. ROS Other: All systems not noted in ROS Statement are negative. Past Medical History Past Medical History: Coronary Artery Disease (CAD), Hyperlipidemia, Hypertension, Skin Disorder, Thyroid Disorder Additional Past Medical History / Comment(s): rosacea, thyroid nodules History of Any Multi-Drug Resistant Organisms: None Reported Past Surgical History: Cholecystectomy, Coronary Bypass/CABG, Heart Catheterization With Stent Additional Past Surgical History / Comment(s): CABG 2010 Past Anesthesia/Blood Transfusion Reactions: No Reported Reaction Additional Past Anesthesia/Blood Transfusion Reaction / Comment(s): no previous blood transfusions Date of Last Stent Placement:: 2005/2006? Past Psychological History: Anxiety Smoking Status: Former smoker Past Alcohol Use History: Rare Past Drug Use History: None Reported General Exam - General Exam Comments Initial Comments: GENERAL: Patient is well-developed and well-nourished. Patient is nontoxic and well- hydrated and is in mild distress. ENT: Neck is soft and supple. No significant lymphadenopathy is noted. Oropharynx is clear. Moist mucous membranes. Neck has full range of motion without eliciting any pain. EYES: The sclera were anicteric and conjunctiva were pink and moist. Extraocular movements were intact and pupils were equal round and reactive to light. Eyelids were unremarkable. PULMONARY: Unlabored respirations. Good breath sounds bilaterally. No audible rales rhonchi or wheezing was noted. CARDIOVASCULAR: There is a regular rate and rhythm without any murmurs gallops or rubs. ABDOMEN: Soft and nontender with normal bowel sounds. No palpable organomegaly was noted. There is no palpable pulsatile mass. SKIN: Skin is clear with no lesions or rashes and otherwise unremarkable. NEUROLOGIC: Patient is alert and oriented x3. Cranial nerves II through XII are grossly intact. Motor and sensory are also intact. Normal speech, volume and content. Symmetrical smile. MUSCULOSKELETAL: Normal extremities with adequate strength and full range of motion. LYMPHATICS: No significant lymphadenopathy is noted PSYCHIATRIC: Normal psychiatric evaluation. Limitations: no limitations Course Vital Signs 10/27/17 10/27/17 10:34 11:25 Temperature 99.1 F Pulse Rate 96 69 Respiratory 24 18 Rate Blood Pressure 139/79 124/72 O2 Sat by Pulse 98 98 Oximetry Medical Decision Making - Medical Decision Making EKG shows normal sinus rhythm at 84 bpm MT interval is 158 QRSs 82 QT interval 350 QTC is 423 per patient's EKG shows Q waves in the inferior leads. No ST segment elevation or depression were noted. Chest x-ray shows no acute abnormality. Because the symptoms were similar to his previous symptoms when he had an OH. I started the patient on heparin. I spoke with and admitted the patient and wrote admitting orders consult cardiology continue the heparin Nitropaste and aspirin floor [facility] - Lab Data Result diagrams: 10/27/17 11:15 10/27/17 11:15 Lab Results 10/27/17 10/27/17 10/27/17 Range/Units 11:15 11:15 11:15 WBC 6.7 (3.8-10.6) k/uL RBC 5.36 (4.30-5.90) m/uL Hgb 15.7 (13.0-17.5) gm/dL Hct 44.5 (39.0-53.0) % MCV 83.0 (80.0-100.0) fL MCH 29.4 (25.0-35.0) pg MCHC 35.3 (31.0-37.0) g/dL RDW 14.4 (11.5-15.5) % Plt Count 216 (150-450) k/uL Neutrophils % 77 % Lymphocytes % 14 % Monocytes % 4 % Eosinophils % 3 % Basophils % 1 % Neutrophils # 5.1 (1.3-7.7) k/uL Lymphocytes # 1.0 (1.0-4.8) k/uL Monocytes # 0.3 (0-1.0) k/uL Eosinophils # 0.2 (0-0.7) k/uL Basophils # 0.0 (0-0.2) k/uL PT (9.0-12.0) sec INR (<1.2) APTT (22.0-30.0) sec Sodium 140 (137-145) mmol/L Potassium 4.0 (3.5-5.1) mmol/L Chloride 104 (98-107) mmol/L Carbon Dioxide 23 (22-30) mmol/L Anion Gap 13 mmol/L BUN 12 (9-20) mg/dL Creatinine 0.87 (0.66-1.25) mg/dL Est GFR (CKD-EPI)AfAm >90 (>60 ml/min/1.73 sqM) Est GFR (CKD-EPI)NonAf 90 (>60 ml/min/1.73 sqM) Glucose 129 H (74-99) mg/dL Calcium 8.8 (8.4-10.2) mg/dL Magnesium 2.0 (1.6-2.3) mg/dL Total Bilirubin 0.8 (0.2-1.3) mg/dL AST 22 (17-59) U/L ALT 31 (21-72) U/L Alkaline Phosphatase 126 (38-126) U/L Total Creatine Kinase 100 (55-170) U/L CK-MB (CK-2) 0.9 (0.0-2.4) ng/mL CK-MB (CK-2) Rel Index 0.9 Troponin I <0.012 (0.000-0.034) ng/mL Total Protein 6.7 (6.3-8.2) g/dL Albumin 3.6 (3.5-5.0) g/dL 10/27/17 Range/Units 11:15 WBC (3.8-10.6) k/uL RBC (4.30-5.90) m/uL Hgb (13.0-17.5) gm/dL Hct (39.0-53.0) % MCV (80.0-100.0) fL MCH (25.0-35.0) pg MCHC (31.0-37.0) g/dL RDW (11.5-15.5) % Plt Count (150-450) k/uL Neutrophils % % Lymphocytes % % Monocytes % % Eosinophils % % Basophils % % Neutrophils # (1.3-7.7) k/uL Lymphocytes # (1.0-4.8) k/uL Monocytes # (0-1.0) k/uL Eosinophils # (0-0.7) k/uL Basophils # (0-0.2) k/uL PT 10.6 (9.0-12.0) sec INR 1.1 (<1.2) APTT 24.9 (22.0-30.0) sec Sodium (137-145) mmol/L Potassium (3.5-5.1) mmol/L Chloride (98-107) mmol/L Carbon Dioxide (22-30) mmol/L Anion Gap mmol/L BUN (9-20) mg/dL Creatinine (0.66-1.25) mg/dL Est GFR (CKD-EPI)AfAm (>60 ml/min/1.73 sqM) Est GFR (CKD-EPI)NonAf (>60 ml/min/1.73 sqM) Glucose (74-99) mg/dL Calcium (8.4-10.2) mg/dL Magnesium (1.6-2.3) mg/dL Total Bilirubin (0.2-1.3) mg/dL AST (17-59) U/L ALT (21-72) U/L Alkaline Phosphatase (38-126) U/L Total Creatine Kinase (55-170) U/L CK-MB (CK-2) (0.0-2.4) ng/mL CK-MB (CK-2) Rel Index Troponin I (0.000-0.034) ng/mL Total Protein (6.3-8.2) g/dL Albumin (3.5-5.0) g/dL Disposition Clinical Impression: Unstable angina pectoris Disposition: ADMITTED IP TO THIS HOSP Referrals: Sabine Cavazos MD [Primary Care Provider] - 1-2 days Time of Disposition: 12:08
[2017-10-27 11:24] LABS: Basophils % (A) 1 %; Eosinophils # (A) 0.2 k/uL (0-0.7); Eosinophils % (A) 3 %; HCT 44.5 % (39.0-53.0); HGB 15.7 gm/dL (13.0-17.5); Lymphocytes % (A) 14 %; MCH 29.4 pg (25.0-35.0); MCHC 35.3 g/dL (31.0-37.0); Mean Platelet Volume 6.5; Monocytes # (A) 0.3 k/uL (0-1.0); Monocytes % (A) 4 %; Neutrophils # (A) 5.1 k/uL (1.3-7.7); Neutrophils % (A) 77 %; Platelet Count 216 k/uL (150-450); RBC 5.36 m/uL (4.30-5.90); RDW 14.4 % (11.5-15.5); WBC 6.7 k/uL (3.8-10.6)
[2017-10-27 11:43] LABS: INR 1.1 (<1.2); Partial Thromboplastin Time 24.9 sec (22.0-30.0); Prothrombin Time 10.6 sec (9.0-12.0)
[2017-10-27 11:45] LABS: ALT 31 U/L (21-72); AST 22 U/L (17-59); Albumin 3.6 g/dL (3.5-5.0); Alkaline Phosphatase 126 U/L (38-126); Anion Gap 13 mmol/L; Blood Urea Nitrogen 12 mg/dL (9-20); Calcium 8.8 mg/dL (8.4-10.2); Carbon Dioxide 23 mmol/L (22-30); Chloride 104 mmol/L (98-107); Glucose 129 mg/dL (74-99); Sodium 140 mmol/L (137-145); Total Bilirubin 0.8 mg/dL (0.2-1.3); Total Protein 6.7 g/dL (6.3-8.2)
[2017-10-27 11:47] LABS: Creatine Kinase 100 U/L (55-170)
--- NOTE | 2017-10-27 11:50 | XR ---
EXAMINATION TYPE: XR chest 2V DATE OF EXAM: 10/27/2017 HISTORY: Chest Pain. REFERENCE: Previous study dated 02/22/2017. FINDINGS: There has been a midline sternotomy. The lungs are clear. Pleural space are clear. The heart is not enlarged. IMPRESSION: NO ACUTE INTRATHORACIC ABNORMALITY.
[2017-10-27 12:00] LABS: Creatine Kinase MB 0.9 ng/mL (0.0-2.4); Troponin I <0.012 ng/mL (0.000-0.034)
[2017-10-27] MEDS ORDERED: HEPARIN SODIUM,PORCINE 5,000 UNIT/ML 1 ML VIAL IV ONE (12:06)
[2017-10-27] MEDS ORDERED: NITROGLYCERIN SL TABS 0.4 MG TAB SUBLINGUAL PRN ×2 (12:09→16:13)
[2017-10-27] MEDS ORDERED: HEPARIN SOD,PORK IN 0.45% NACL 25,000 UNIT in 0.45% NACL 1 500ML.BAG IV SCH (12:15)
--- NOTE | 2017-10-27 15:37 | CONS ---
CONSULTATION CHIEF COMPLAINT: Chest pain. HISTORY OF PRESENT ILLNESS: This is a 67-year-old gentleman with history of coronary artery disease, status post CABG in 2010, who has moved to [place] from another part of [facility] last year and his was quite sick who he lost her in July. He comes in complaining of chest pain. He describes it as a sharp precordial pain unrelated to exertion associated with diaphoresis. The patient was in the hospital in February of last year and at that time underwent a stress test that revealed a normal myocardial perfusion function with an ejection fraction of 50%. He was supposed to follow up with Dr. Butler who had seen him at that time, but never did. The patient had an echocardiogram that revealed normal LV function with mildly dilated aortic root. At the time of my evaluation, patient appears comfortable at rest and is free of symptoms. He had one set of troponin that is negative. EKG shows sinus rhythm with evidence of prior inferior wall myocardial infarction. PAST MEDICAL HISTORY: Significant for coronary artery disease, status post CABG, hypertension, dyslipidemia. CURRENT MEDICATIONS: Include Lopressor 50 b.i.d., Prinivil 10 daily, Lipitor and Xanax. ALLERGIES: There are no known drug allergies. FAMILY HISTORY: Negative for premature coronary artery disease. SOCIAL HISTORY: Negative for smoking, EtOH abuse, or drug abuse. REVIEW OF SYSTEMS: HEENT is unremarkable. Cardiac as described above. Respiratory negative. GI negative. negative. Allergy/Immunology: Negative. Musculoskeletal: Significant for arthritis. Psychosocial: Negative. Endocrine: Negative. Derm: Negative. Constitutional: Negative. Oncological negative. Rest of the system review is not relevant. PHYSICAL EXAM: Comfortable at rest. Vital signs are stable. There is no jugular venous distention. Carotid upstroke is normal. There is no bruit. Chest exam reveals good air entry bilaterally. Heart exam reveals first and second heart sounds. No gallop. No murmur. No rub. Abdomen is soft, nontender. Exam of the extremities did not reveal edema. Peripheral pulses are felt. LABORATORY: Hemoglobin of 15.7. Potassium is 4, creatinine is 0.8. Troponin is normal. ASSESSMENT: 1. Precardial chest pain. 2. Coronary artery disease, status post coronary artery bypass grafting. 3. Hypertension. PLAN: We will obtain serial CPKs and EKGs. Rule out myocardial infarction. Once the MN is ruled out, I will obtain a dobutamine echo on him tomorrow. If this is abnormal, he will need a cardiac catheterization. If not, he can be discharged home and outpatient followup arranged. JENNY / TORSTEN: [id number] /
[2017-10-27] MEDS ORDERED: traMADol 50 MG TAB PO PRN (16:13)
--- NOTE | 2017-10-27 16:33 | P.HPIM ---
History of Present Illness H&P Date: 10/27/17 67 years old male patient of Dr. johnson with past history hypertension , hyperlipidemia, coronary artery disease with prior stent placement with history of myocardial infarction status post coronary artery bypass grafting surgery in [facility] in 2010. Patient was admitted last with similar presentation of chest pain in February 2017, underwent Lexiscan stress test which was negative for any reversible extremity. Patient was last seen by me in July as his was admitted in the hospital and eventually on hospice. Patient has been under a lot of stress and is experiencing grief. He comes in today to the emergency department with acute chest pain that started after patient went for walk. He was sitting when he was experiencing chest pain that was radiating to his back. Since the patient's chest pain persisted and it felt like previous heart attacks patient decided to come to the ER. EKG negative for any ST or T-wave changes but patient does have Q waves in the lead 3 and a vf , and interior leads. No previous EKGs to compare Troponin 3 negative patient initiated on heparin drip will be evaluated by cardiology. Echo ordered. Review of Systems Constitutional: Denies chills, Denies fever, Denies lethargy, Denies malaise, Denies poor appetite, Denies weakness, Denies weight loss Eyes: denies decreased vision, denies diplopia, denies discharge, denies pain Ears: deny: decreased hearing Ears, nose, mouth and throat: Denies dental pain, Denies headache, Denies nasal discharge, Denies nose pain Cardiovascular: endorses chest pain, Denies decreased exercise tolerance, Denies edema, Denies high blood pressure, Denies irregular heart beat, Denies palpitations, Denies paroxysmal nocturnal dyspnea, Denies rapid heart beat, Denies shortness of breath Respiratory: Denies congestion, Denies cough, Denies cough with sputum, Denies dyspnea, Denies home oxygen, Denies wheezing Gastrointestinal: Denies abdominal pain, Denies change in bowel habits, Denies coffee ground emesis, Denies early satiety, Denies excessive gas, Denies heartburn, Denies hematemesis, Denies hematochezia, Denies loss of appetite, Denies nausea, Denies vomiting Genitourinary: Denies dysuria, Denies flank pain, Denies kidney stones, Denies menorrhagia, Denies urgency, Denies urinary frequency Musculoskeletal: Denies gait dysfunction, Denies limitation of motion, Denies morning stiffness, Denies muscle cramps Integumentary: Denies rash, Denies wounds, Denies brittle nails, Denies change in hair/nails, Denies darkening of skin Neurological: Denies balance difficulties, Denies change in speech, Denies double vision, Denies gait dysfunction, Denies loss of vision, Denies motor disturbance, Denies numbness, Denies paralysis, Denies paresthesias, Denies seizures Psychiatric: Denies anxiety, Denies depression Endocrine: Denies excessive sweating, Denies excessive thirst, Denies high blood sugars, Denies palpitations Hematologic/Lymphatic: Denies easy bruising, Denies lymphadenopathy Past Medical History Past Medical History: Coronary Artery Disease (CAD), Hyperlipidemia, Hypertension, Skin Disorder, Thyroid Disorder Additional Past Medical History / Comment(s): rosacea, thyroid nodules History of Any Multi-Drug Resistant Organisms: None Reported Past Surgical History: Cholecystectomy, Coronary Bypass/CABG, Heart Catheterization With Stent Additional Past Surgical History / Comment(s): CABG 2010 Past Anesthesia/Blood Transfusion Reactions: No Reported Reaction Additional Past Anesthesia/Blood Transfusion Reaction / Comment(s): no previous blood transfusions Date of Last Stent Placement:: ? Past Psychological History: Anxiety Smoking Status: Former smoker Past Alcohol Use History: Rare Past Drug Use History: None Reported Additional Drug Use History / Comment(s): smoked1 ppd for 30 years - Past Family History Mother Family Medical History: Coronary Artery Disease (CAD), Diabetes Mellitus Father Family Medical History: No Reported History Sister(s) Family Medical History: Coronary Artery Disease (CAD), Diabetes Mellitus Medications and Allergies Home Medications Medication Instructions Recorded Confirmed Type Lisinopril [Prinivil] 10 mg PO DAILY 02/22/17 10/27/17 History Minocycline HCl [Minocin] 50 mg PO HS 02/22/17 10/27/17 History Nitroglycerin Sl Tabs [Nitrostat] 0.4 mg SUBLINGUAL Q5M PRN 02/22/17 10/27/17 History traMADol HCL [Ultram] 50 mg PO Q6H PRN 02/22/17 10/27/17 History ALPRAZolam [Xanax] 0.25 mg PO DAILY PRN 09/05/17 10/27/17 History Metoprolol Tartrate [Lopressor] 50 mg PO BID 09/05/17 10/27/17 History Atorvastatin [Lipitor] 40 mg PO HS 10/27/17 10/27/17 History Allergies Allergy/AdvReac Type Severity Reaction Status Date / Time No Known Allergies Allergy Verified 10/27/17 11:42 Physical Exam Vitals: Vital Signs Temp Pulse Pulse Resp BP BP Pulse Ox 10/27/17 13:05 98.0 F 62 16 138/71 99 10/27/17 12:51 98.5 F 63 16 119/72 98 10/27/17 12:09 95 10/27/17 11:25 69 18 124/72 98 10/27/17 10:34 99.1 F 96 24 139/79 98 Intake and Output 10/27/17 10/27/17 10/27/17 06:59 14:59 22:59 Other: Weight 79.7 kg - Constitutional General appearance: cooperative, no acute distress, obese - EENT Eyes: anicteric sclerae, PERRLA, normal appearance ENT: hearing grossly normal - Neck Neck: no lymphadenopathy, normal ROM, no other, no rigidity, no stridor, no thyromegaly - Respiratory Respiratory: bilateral: CTA, negative: diminished, dullness, rales, rhonchi - Cardiovascular Rhythm: regular Heart sounds: normal: S1, S2 Abnormal Heart Sounds: no systolic murmur, no diastolic murmur, no rub, no S3 Gallop, no S4 Gallop, no click, no other - Gastrointestinal General gastrointestinal: normal bowel sounds, soft - Integumentary Integumentary: no rash - Neurologic Neurologic: CNII-XII intact - Musculoskeletal Musculoskeletal: gait normal, strength equal bilaterally - Psychiatric Psychiatric: A&O x's 3, appears depressed due to loss of his Results CBC & Chem 7: 10/27/17 11:15 10/27/17 11:15 Labs: Abnormal Lab Results - Last 24 Hours (Table) 10/27/17 Range/Units 11:15 Glucose 129 H (74-99) mg/dL Thrombosis Risk Factor Assmnt - DVT/VTE Prophylaxis DVT/VTE Prophylaxis: Pharmacologic Prophylaxis ordered - Choose All That Apply Each Risk Factor Represents 2 Points: Age 61-74 years Thrombosis Risk Factor Assessment Total Risk Factor Score: 2 Thrombosis Risk Factor Assessment Level: Low Risk Assessment and Plan Plan: #1 acute chest pain with history of coronary artery disease status post coronary artery bypass graft in 2010. Patient is currently not on aspirin and was discharged on aspirin and the previous admission. Continue metoprolol, lisinopril, and Lipitor. Echo to be obtained. Continue heparin drip. EKG in a.m. stop cardiology evaluation pending #2 hypertension continue metoprolol and lisinopril #3 Anxiety/ depression - Patient is teary during conversationa nd is having hard time coping with his . It is been 3 months since she and patient feels depressed, with loss of appetitie, denies suicidal ideation or loss of weight. Will initiate patient celexa for depression at 10 mg po daily . #4 DVT prophylaxis on heparin drip #5 disposition. discharge tomorrow post Cardiology evaluation
[2017-10-27] MEDS: NITROGLYCERIN OINT 1 INCH/GM PACKET TOPICAL SCH (17:37)
[2017-10-27 18:33] LABS: Creatine Kinase 94 U/L (55-170)
[2017-10-27 18:45] LABS: Creatine Kinase MB 0.9 ng/mL (0.0-2.4); Troponin I <0.012 ng/mL (0.000-0.034)
[2017-10-27] MEDS: METOPROLOL TARTRATE 50 MG TAB PO SCH (20:05)
[2017-10-27] MEDS: ALPRAZolam 0.25 MG TAB PO SCH (20:05)
[2017-10-27] MEDS ORDERED: MINOCYCLINE 50 MG CAP PO SCH (21:00)
[2017-10-27] MEDS ORDERED: ATORVASTATIN 40 MG TAB PO SCH (21:00)
[2017-10-27 23:42] LABS: Creatine Kinase 86 U/L (55-170)
[2017-10-27 23:53] LABS: Creatine Kinase MB 0.9 ng/mL (0.0-2.4); Troponin I <0.012 ng/mL (0.000-0.034)
[2017-10-28] MEDS: NITROGLYCERIN OINT 1 INCH/GM PACKET TOPICAL SCH ×2 (01:36→05:00)
[2017-10-28 07:25] LABS: Basophils # (A) 0.1 k/uL (0-0.2); Basophils % (A) 1 %; Eosinophils # (A) 0.2 k/uL (0-0.7); Eosinophils % (A) 3 %; HCT 45.5 % (39.0-53.0); HGB 14.3 gm/dL (13.0-17.5); Lymphocytes % (A) 13 %; MCHC 31.5 g/dL (31.0-37.0); MCV 85.7 fL (80.0-100.0); Mean Platelet Volume 6.9; Monocytes # (A) 0.5 k/uL (0-1.0); Monocytes % (A) 6 %; Neutrophils # (A) 5.7 k/uL (1.3-7.7); Neutrophils % (A) 76 %; Platelet Count 221 k/uL (150-450); RDW 14.6 % (11.5-15.5); WBC 7.5 k/uL (3.8-10.6)
[2017-10-28 07:51] LABS: ALT 30 U/L (21-72); AST 21 U/L (17-59); Albumin 3.5 g/dL (3.5-5.0); Alkaline Phosphatase 118 U/L (38-126); Anion Gap 9 mmol/L; Calcium 8.9 mg/dL (8.4-10.2); Carbon Dioxide 27 mmol/L (22-30); Chloride 104 mmol/L (98-107); Cholesterol 89 mg/dL (<200); HDL Cholesterol 31 mg/dL (40-60); LDL Cholesterol,Calculated 42 mg/dL (0-99); Potassium 4.1 mmol/L (3.5-5.1); Sodium 140 mmol/L (137-145); Total Bilirubin 0.5 mg/dL (0.2-1.3); Total Protein 6.5 g/dL (6.3-8.2); Triglycerides 78 mg/dL (<150)
[2017-10-28 08:08] LABS: Blood Urea Nitrogen 14 mg/dL (9-20); Glucose 100 mg/dL (74-99)
[2017-10-28] MEDS ORDERED: DOBUTamine DRIP for NUC MED 250 MG in DEXTROSE/WATER 1 250ML.BAG IV ONE (08:08)
[2017-10-28] MEDS ORDERED: LISINOPRIL 10 MG TAB PO SCH (09:00)
[2017-10-28] MEDS ORDERED: ASPIRIN 325 MG TAB PO SCH (09:00)
[2017-10-28] MEDS ORDERED: ASPIRIN 81 MG PO SCH (10:06)
--- NOTE | 2017-10-28 10:10 | P.PN ---
Subjective Progress Note Date: 10/28/17 Mr. Moody is seen and examined this morning. He is resting comfortably in bed in no acute distress. He denies having any further symptoms of chest pain since admission. Cardiac enzymes are negative x3. Blood pressure 133/76 with heart rate 58. Sodium 140, potassium 4.1, LDL 42. Telemetry tracings have been unremarkable. Objective - Vital Signs Vital signs: Vital Signs Temp 98 F 10/28/17 08:00 Pulse 58 L 10/28/17 08:00 Resp 16 10/28/17 08:00 BP 133/76 10/28/17 08:00 Pulse Ox 97 10/28/17 08:00 Intake & Output 10/27/17 10/28/17 10/28/17 18:59 06:59 18:59 Weight 79.7 kg Other: Voiding Method Toilet Toilet # Voids 3 - Exam GENERAL: Well-appearing, well-nourished and in no acute distress. NECK: Supple without JVD or thyromegaly. LUNGS: Breath sounds clear to auscultation bilaterally. Respiration equal and unlabored. No wheezes, rales or rhonchi. HEART: Regular rate and rhythm without murmurs, rubs or gallops. S1 and S2 heard. EXTREMITIES: Normal range of motion, no edema. No clubbing or cyanosis. Peripheral pulses intact and strong. - Labs CBC & Chem 7: 10/28/17 06:51 10/28/17 06:51 Labs: Abnormal Lab Results - Last 24 Hours (Table) 10/27/17 10/27/17 10/28/17 Range/Units 11:15 20:47 06:51 APTT 48.5 H (22.0-30.0) sec Glucose 129 H 100 H (74-99) mg/dL HDL Cholesterol 31 L (40-60) mg/dL 10/28/17 Range/Units 06:51 APTT 50.8 H (22.0-30.0) sec Glucose (74-99) mg/dL HDL Cholesterol (40-60) mg/dL Assessment and Plan Assessment: ASSESSMENT 1. Precordial chest pain, an acute coronary event has been ruled out with negative cardiac enzymes. 2. History of coronary artery disease s/p bypass grafting 3. Hypertension 4. Dyslipidemia PLAN Proceed with dobutamine stress echocardiogram as recommended per Dr. Rosado. If stress test is negative he is stable from cardiac perspective to follow-up with Dr. Rosado in 2-3 weeks. Nurse Practitioner note has been reviewed, I agree with a documented findings and plan of care. Patient was seen and examined.
[2017-10-28 12:17] VITALS: BP 147/70; PULSE 73; RESP 17; TEMP 98.2
[2017-10-28] MEDS: ALPRAZolam 0.25 MG TAB PO SCH (12:20)
[2017-10-28] MEDS: METOPROLOL TARTRATE 50 MG TAB PO SCH (12:20)
--- NOTE | 2017-10-28 12:33 | ECHOF ---
Referral Reason:chest pain MEASUREMENTS -------- HEIGHT: 167.6 cm WEIGHT: 79.4 kg BP: 133/76 IVSd: 1.3 cm (0.6 - 1.1) LVIDd: 4.7 cm (3.9 - 5.3) LVPWd: 1.3 cm (0.6 - 1.1) IVSs: 1.8 cm LVIDs: 2.9 cm LVPWs: 2.4 cm LAESV Index (A-L): 23.09 ml/m Ao Diam: 3.1 cm (2.0 - 3.7) AV Cusp: 2.1 cm (1.5 - 2.6) LA Diam: 4.6 cm (2.7 - 3.8) MV EXCURSION: 16.659 mm (> 18.000) MV EF SLOPE: 39 mm/s (70 - 150) EPSS: 0.9 cm MV E Ezra: 0.60 m/s MV DecT: 228 ms MV A Ezra: 0.79 m/s MV E/A Ratio: 0.76 AR PHT: 546 ms RAP: 5.00 mmHg RVSP: 22.91 mmHg FINDINGS -------- Sinus rhythm. This was a technically good study. The left ventricular size is normal. There is mild concentric left ventricular hypertrophy. Overa ll left ventricular systolic function is normal with, an EF between 55 - 60 %. There is paradoxical /dysynergic septal motion consistent with post-operative status. The right ventricle is normal in size and function. The left atrium is mildly dilated. The right atrium is normal in size. There is mild aortic regurgitation. The mitral valve leaflets are mildly thickened. Mild mitral annular calcification present. There is trace mitral regurgitation. Mild tricuspid regurgitation present. The right ventricular systolic pressure, as measured by Doppl er, is 22.91mmHg. Pulmonic valve appears structurally normal. The aortic root size is normal. The pericardium is normal. CONCLUSIONS -------- 1. Sinus rhythm. 2. This was a technically good study. 3. The left ventricular size is normal. 4. There is mild concentric left ventricular hypertrophy. 5. Overall left ventricular systolic function is normal with, an EF between 55 - 60 %. 6. There is paradoxical/dysynergic septal motion consistent with post-operative status. 7. The right ventricle is normal in size and function. 8. The left atrium is mildly dilated. 9. The right atrium is normal in size. 10. There is mild aortic regurgitation. 11. The mitral valve leaflets are mildly thickened. 12. Mild mitral annular calcification present. 13. There is trace mitral regurgitation. 14. Mild tricuspid regurgitation present. 15. The right ventricular systolic pressure, as measured by Doppler, is 22.91mmHg. 16. Pulmonic valve appears structurally normal. 17. The aortic root size is normal. 18. The pericardium is normal. SUPERVISOR BILLPOSTING: Amada Clemons RDCS
--- NOTE | 2017-10-28 13:35 | ECHOS ---
STRESS ECHOCARDIOGRAM DATE OF SERVICE: 10/28/2017 DOBUTAMINE ECHO INDICATIONS: Chest pain. MEDICATIONS: BASELINE HEART RATE: 56 BASELINE BLOOD PRESSURE: 112/52 MAXIMUM HEART RATE: 130 MAXIMUM BLOOD PRESSURE: 191/75 85% MPHR: 130 100% MPHR: 153 METS: MAXIMUM STAGE REACHED: TOTAL EXERCISE TIME: CLINICAL INFORMATION: Baseline EKG revealed normal sinus rhythm with evidence of poor R-wave progression and some baseline artifact. The patient was administered dobutamine as per protocol. With the dobutamine administration his heart rate went up to 130 beats per minute which is 85% of predicted maximal. EKG remained inconclusive because of some resting EKG changes. There was no angina or arrhythmia. Baseline echo images revealed normal wall motion and wall thickening with atypical septal motion. With the dobutamine administration, the quality of images were suboptimal. However, there is no clear-cut evidence to suggest ischemia on this dobutamine echocardiogram which demonstrates increased wall motion and wall thickening of all segments. IMPRESSION: 1. By EKG criteria, this is an inconclusive dobutamine stress test because of resting EKG changes. 2. The dobutamine echo was technically difficult and suboptimal with somewhat inadequate images, but grossly no evidence to suggest ischemia on this study. MMODL / IJN: [id number] /
--- NOTE | 2017-10-28 16:42 | P.DS ---
Providers Date of admission: 10/27/17 12:11 Attending physician: Mike Madrigal MD Consults: 10/27/17 12:09 Consult Physician Urgent Consulting Provider: [facility] Consult Reason/Comments: Unstable angina Do you want consulting provider notified?: Yes Primary care physician: Sabine Cavazos Hospital Course: 67 years old male patient of Dr. cavazos with past history hypertension , hyperlipidemia, coronary artery disease with prior stent placement with history of myocardial infarction status post coronary artery bypass grafting surgery in [facility] in 2010. Patient was admitted last with similar presentation of chest pain in February 2017, underwent Lexiscan stress test which was negative for any reversible extremity. Patient was last seen by me in July as his was admitted in the hospital and eventually on hospice. Patient has been under a lot of stress and is experiencing grief. He comes in today to the emergency department with acute chest pain that started after patient went for walk. He was sitting when he was experiencing chest pain that was radiating to his back. Since the patient's chest pain persisted and it felt like previous heart attacks patient decided to come to the ER. EKG negative for any ST or T-wave changes but patient does have Q waves in the lead 3 and a vf , and interior leads. No previous EKGs to compare Troponin 3 negative patient initiated on heparin drip will be evaluated by cardiology. Echo ordered. 10/28 patient is chest pain-free. Underwent stress test which was negative for acute coronary syndrome. Patient will follow with cardiology as outpatient and will initiate patient on Celexa for depression Discharge diagnoses #1 acute atypical chest pain with history of coronary artery disease status post coronary artery bypass graft in 2010 #2 hypertension #3 Anxiety/ depression Disposition with home with self-care CC a copy of discharge to Dr. cavazos Plan - Discharge Summary Discharge Rx Participant: No New Discharge Prescriptions: New Aspirin 81 mg PO DAILY #30 chew Citalopram Hydrobromide [CeleXA] 10 mg PO DAILY #30 tab Continue Nitroglycerin Sl Tabs [Nitrostat] 0.4 mg SUBLINGUAL Q5M PRN PRN Reason: Chest Pain traMADol HCL [Ultram] 50 mg PO Q6H PRN PRN Reason: Pain Minocycline HCl [Minocin] 50 mg PO HS Lisinopril [Prinivil] 10 mg PO DAILY Metoprolol Tartrate [Lopressor] 50 mg PO BID ALPRAZolam [Xanax] 0.25 mg PO DAILY PRN PRN Reason: Anxiety Atorvastatin [Lipitor] 40 mg PO HS Discharge Medication List Lisinopril [Prinivil] 10 mg PO DAILY 02/22/17 [History] Minocycline HCl [Minocin] 50 mg PO HS 02/22/17 [History] Nitroglycerin Sl Tabs [Nitrostat] 0.4 mg SUBLINGUAL Q5M PRN 02/22/17 [History] traMADol HCL [Ultram] 50 mg PO Q6H PRN 02/22/17 [History] ALPRAZolam [Xanax] 0.25 mg PO DAILY PRN 09/05/17 [History] Metoprolol Tartrate [Lopressor] 50 mg PO BID 09/05/17 [History] Atorvastatin [Lipitor] 40 mg PO HS 10/27/17 [History] Aspirin 81 mg PO DAILY #30 chew 10/28/17 [Rx] Citalopram Hydrobromide [CeleXA] 10 mg PO DAILY #30 tab 10/28/17 [Rx] Follow up Appointment(s)/Referral(s): Leny Ng MD [STAFF PHYSICIAN] - 1 Week (office will call patient with appointment ) Sabine Cavazos MD [Primary Care Provider] - 1-2 days Discharge Disposition: HOME SELF-CARE
== END 2017-10-28 15:30 | disposition home or self-care (01) ==
LOC: EC 10:31 → 3SUR 12:11 → 3OBS 10-28 07:16
PROVIDERS: ADMIT Internal Medicine; ATTEND Internal Medicine
DX: R07.89 Other chest pain (principal); R07.2 Precordial pain; R06.02 Shortness of breath; R61 Generalized hyperhidrosis; E11.9 Type 2 diabetes mellitus without complications; I10 Essential (primary) hypertension; F32.9 Major depressive disorder, single episode, unspecified; F41.9 Anxiety disorder, unspecified; E78.00 Pure hypercholesterolemia, unspecified; E78.5 Hyperlipidemia, unspecified; L71.9 Rosacea, unspecified; E04.1 Nontoxic single thyroid nodule; I25.10 Atherosclerotic heart disease of native coronary artery without angina pectoris; Z79.899 Other long term (current) drug therapy; Z79.2 Long term (current) use of antibiotics; Z95.5 Presence of coronary angioplasty implant and graft; Z95.1 Presence of aortocoronary bypass graft; Z87.891 Personal history of nicotine dependence; I25.2 Old myocardial infarction
CPT/HCPCS: 99285; 96376; 96365; 36415; 93017; 93306; 80061; 80053 ×2; 82550; 82553; 83735; 84484; 85025 ×2; 85610; 85730 ×2; 71046; G0378 ×2; C8928; J1644 ×2; Q9950; J1250; 93350; 96366

== ENCOUNTER 2017-11-18 12:52 | Observation (INO) | payer MEDICARE, OTHER ==
--- NOTE | 2017-11-18 13:42 | XR ---
EXAMINATION TYPE: XR chest 2V DATE OF EXAM: 11/18/2017 COMPARISON: Prior chest x-ray October 27, 2017. HISTORY: Chest pain. TECHNIQUE: Frontal and lateral views of the chest are obtained. FINDINGS: Sternal wires and mediastinal clips are redemonstrated. Some eventration anterior aspect ri ght hemidiaphragm is again seen. There is no focal air space opacity, pleural effusion, or pneumotho rax seen. The cardiac silhouette size is within normal limits. The osseous structures are intact. IMPRESSION: No acute cardiopulmonary process. No significant change from prior.
[2017-11-18 13:54] LABS: Basophils % (A) 0 %; Eosinophils # (A) 0.1 k/uL (0-0.7); Eosinophils % (A) 1 %; HCT 47.1 % (39.0-53.0); HGB 15.6 gm/dL (13.0-17.5); Lymphocytes # (A) 0.8 k/uL (1.0-4.8); Lymphocytes % (A) 10 %; MCH 27.7 pg (25.0-35.0); MCHC 33.1 g/dL (31.0-37.0); MCV 83.7 fL (80.0-100.0); Mean Platelet Volume 6.7; Monocytes # (A) 0.4 k/uL (0-1.0); Monocytes % (A) 5 %; Neutrophils # (A) 6.4 k/uL (1.3-7.7); Neutrophils % (A) 82 %; Platelet Count 214 k/uL (150-450); RBC 5.63 m/uL (4.30-5.90); RDW 14.7 % (11.5-15.5); WBC 7.8 k/uL (3.8-10.6)
[2017-11-18 14:06] LABS: Partial Thromboplastin Time 24.8 sec (22.0-30.0); Prothrombin Time 9.8 sec (9.0-12.0)
[2017-11-18 14:13] LABS: ALT 52 U/L (21-72); AST 30 U/L (17-59); Albumin 3.9 g/dL (3.5-5.0); Alkaline Phosphatase 123 U/L (38-126); Anion Gap 14 mmol/L; Blood Urea Nitrogen 12 mg/dL (9-20); Carbon Dioxide 23 mmol/L (22-30); Chloride 100 mmol/L (98-107); Glucose 102 mg/dL (74-99); Potassium 4.2 mmol/L (3.5-5.1); Sodium 137 mmol/L (137-145); Total Bilirubin 0.5 mg/dL (0.2-1.3); Total Protein 6.8 g/dL (6.3-8.2)
--- NOTE | 2017-11-18 14:13 | ED ---
General Adult HPI - General Chief complaint: Chest Pain Stated complaint: chest pain Time Seen by Provider: 11/18/17 13:59 Source: patient, RN notes reviewed, old records reviewed Mode of arrival: wheelchair Limitations: no limitations - History of Present Illness Initial comments: This is a 67-year-old male to the ER for evaluation. Patient presents today for evaluation regards to chest pain. Patient has history of chest pain history of heart disease. Patient states he started with nausea and chest pain last night, pressure is chest and abdomen area. Patient has no recent cardiac catheterization or evaluation. Patient states he did take nitro last night 2 with mild help. Nausea persists or shortness of breath. No significant diaphoresis. Patient currently sober chest pain - Related Data Home Medications Medication Instructions Recorded Confirmed Lisinopril [Prinivil] 10 mg PO DAILY 02/22/17 10/27/17 Minocycline HCl [Minocin] 50 mg PO HS 02/22/17 10/27/17 Nitroglycerin Sl Tabs [Nitrostat] 0.4 mg SUBLINGUAL Q5M PRN 02/22/17 10/27/17 traMADol HCL [Ultram] 50 mg PO Q6H PRN 02/22/17 10/27/17 ALPRAZolam [Xanax] 0.25 mg PO DAILY PRN 09/05/17 10/27/17 Metoprolol Tartrate [Lopressor] 50 mg PO BID 09/05/17 10/27/17 Atorvastatin [Lipitor] 40 mg PO HS 10/27/17 10/27/17 Previous Rx's Medication Instructions Recorded Aspirin 81 mg PO DAILY #30 chew 10/28/17 Citalopram Hydrobromide [CeleXA] 10 mg PO DAILY #30 tab 10/28/17 Allergies Allergy/AdvReac Type Severity Reaction Status Date / Time No Known Allergies Allergy Verified 11/18/17 13:06 Review of Systems ROS Statement: Those systems with pertinent positive or pertinent negative responses have been documented in the HPI. ROS Other: All systems not noted in ROS Statement are negative. Past Medical History Past Medical History: Coronary Artery Disease (CAD), Hyperlipidemia, Hypertension, Skin Disorder, Thyroid Disorder Additional Past Medical History / Comment(s): rosacea, thyroid nodules History of Any Multi-Drug Resistant Organisms: None Reported Past Surgical History: Cholecystectomy, Coronary Bypass/CABG, Heart Catheterization With Stent Additional Past Surgical History / Comment(s): CABG 2010 Past Anesthesia/Blood Transfusion Reactions: No Reported Reaction Additional Past Anesthesia/Blood Transfusion Reaction / Comment(s): no previous blood transfusions Date of Last Stent Placement:: ? Past Psychological History: Anxiety Smoking Status: Former smoker Past Alcohol Use History: Rare Past Drug Use History: None Reported - Past Family History Mother Family Medical History: Coronary Artery Disease (CAD), Diabetes Mellitus Father Family Medical History: No Reported History Sister(s) Family Medical History: Coronary Artery Disease (CAD), Diabetes Mellitus General Exam Limitations: no limitations General appearance: alert, in no apparent distress Head exam: Present: atraumatic, normocephalic, normal inspection Eye exam: Present: normal appearance, PERRL, EOMI. Absent: scleral icterus, conjunctival injection, periorbital swelling ENT exam: Present: normal exam, mucous membranes moist Neck exam: Present: normal inspection. Absent: tenderness, meningismus, lymphadenopathy Respiratory exam: Present: normal lung sounds bilaterally. Absent: respiratory distress, wheezes, rales, rhonchi, stridor Cardiovascular Exam: Present: regular rate, normal rhythm, normal heart sounds. Absent: systolic murmur, diastolic murmur, rubs, gallop, clicks GI/Abdominal exam: Present: soft, normal bowel sounds. Absent: distended, tenderness, guarding, rebound, rigid Extremities exam: Present: normal inspection, full ROM, normal capillary refill. Absent: tenderness, pedal edema, joint swelling, calf tenderness Back exam: Present: normal inspection Neurological exam: Present: alert, oriented X3, CN II-XII intact Psychiatric exam: Present: normal affect, normal mood Skin exam: Present: warm, dry, intact, normal color. Absent: rash Course Vital Signs 11/18/17 11/18/17 13:03 14:24 Temperature 99.7 F H Pulse Rate 73 59 L Respiratory 18 18 Rate Blood Pressure 121/65 140/63 O2 Sat by Pulse 99 98 Oximetry - Reevaluation(s) Reevaluation #1: 11/18/17 14:32 Patient has persistent chest pain Medical Decision Making - Medical Decision Making 67 male the ER for evasive chest pain nausea shortness of breath. History of significant heart disease. Patient to be admitted for cardiac observation, anticoagulation telemetry and 0 troponins - Lab Data Result diagrams: 11/18/17 13:31 11/18/17 13:31 Lab Results 11/18/17 11/18/17 11/18/17 Range/Units 13:31 13:31 13:31 WBC 7.8 (3.8-10.6) k/uL RBC 5.63 (4.30-5.90) m/uL Hgb 15.6 (13.0-17.5) gm/dL Hct 47.1 (39.0-53.0) % MCV 83.7 (80.0-100.0) fL MCH 27.7 (25.0-35.0) pg MCHC 33.1 (31.0-37.0) g/dL RDW 14.7 (11.5-15.5) % Plt Count 214 (150-450) k/uL Neutrophils % 82 % Lymphocytes % 10 % Monocytes % 5 % Eosinophils % 1 % Basophils % 0 % Neutrophils # 6.4 (1.3-7.7) k/uL Lymphocytes # 0.8 L (1.0-4.8) k/uL Monocytes # 0.4 (0-1.0) k/uL Eosinophils # 0.1 (0-0.7) k/uL Basophils # 0.0 (0-0.2) k/uL PT 9.8 (9.0-12.0) sec INR 1.0 (<1.2) APTT 24.8 (22.0-30.0) sec Sodium 137 (137-145) mmol/L Potassium 4.2 (3.5-5.1) mmol/L Chloride 100 (98-107) mmol/L Carbon Dioxide 23 (22-30) mmol/L Anion Gap 14 mmol/L BUN 12 (9-20) mg/dL Creatinine 0.92 (0.66-1.25) mg/dL Est GFR (CKD-EPI)AfAm >90 (>60 ml/min/1.73 sqM) Est GFR (CKD-EPI)NonAf 86 (>60 ml/min/1.73 sqM) Glucose 102 H (74-99) mg/dL Calcium 9.0 (8.4-10.2) mg/dL Magnesium 2.0 (1.6-2.3) mg/dL Total Bilirubin 0.5 (0.2-1.3) mg/dL AST 30 (17-59) U/L ALT 52 (21-72) U/L Alkaline Phosphatase 123 (38-126) U/L Total Protein 6.8 (6.3-8.2) g/dL Albumin 3.9 (3.5-5.0) g/dL - Radiology Data Radiology results: report reviewed (Chest x-rays negative), image reviewed Critical Care Time Critical Care Time: Yes Total Critical Care Time: 31 Disposition Clinical Impression: Chest pain, Unstable angina pectoris Disposition: ADMITTED IP TO THIS [facility] Condition: Undetermined Is patient prescribed a controlled substance at discharge?: No If prescribed controlled substance>3 days was MAPS reviewed?: No When asked, does pt state using other controlled substances?: Yes Referrals: Sabine Cavazos MD [Primary Care Provider] - 1-2 days
[2017-11-18 14:18] LABS: Creatine Kinase 85 U/L (55-170)
[2017-11-18] MEDS ORDERED: HEPARIN SODIUM,PORCINE 5,000 UNIT/ML 1 ML VIAL IV ONE (14:31)
[2017-11-18] MEDS ORDERED: HEPARIN SODIUM,PORCINE 5,000 UNIT/ML 1 ML VIAL IV PRN (14:31)
[2017-11-18] MEDS ORDERED: ASPIRIN 81 MG PO STA (14:31)
[2017-11-18] MEDS ORDERED: NITROGLYCERIN SL TABS 0.4 MG TAB SUBLINGUAL PRN (14:31)
[2017-11-18 14:32] LABS: Creatine Kinase MB 0.9 ng/mL (0.0-2.4); Troponin I <0.012 ng/mL (0.000-0.034)
[2017-11-18] MEDS ORDERED: HEPARIN SOD,PORK IN 0.45% NACL 25,000 UNIT in 0.45% NACL 1 500ML.BAG IV SCH (14:45)
[2017-11-18] MEDS ORDERED: SODIUM CHLORIDE 0.9% 1,000 ML IV SCH (14:45)
--- NOTE | 2017-11-18 17:56 | P.HPIM ---
History of Present Illness H&P Date: 11/18/17 Chief Complaint: Heat Sensation anterior posterior chest, anteroposterior thighs 67 years old male patient one of my patient and Dr. JINA Ng with past history hypertension, hyperlipidemia, coronary artery disease with prior stent placement with history of myocardial infarction status post coronary artery bypass grafting surgery in [facility] in 2010. Patient was admitted last with similar presentation of chest pain in February 2017, underwent Lexiscan stress test which was negative for any reversible ischemia. Patient was recently admitted and discharged 10/27/2017, after chest discomfort episode , and patient underwent a stress dobutamine at that time which was inconclusive secondary to abnormal EKG at baseline, it was a technically difficult dobutamine echo with suboptimal images, however there is no gross evidence to suggest ischemia. Patient was discharged to home with outpatient follow-up, he was started on Ciprolipram 10 mg daily 4 acute grief persistent anxiety, and aspirin 81 mg daily. He presents to the emergency room with 12 hour episode of heat sensation in anterior and posterior chest, as well as heat sensation in the anterior and posterior thigh area, occurred at resting as the patient was getting ready to lay down in bed last night., patient is not sclerosis as chest pressure or chest discomfort, he mentions that this is clammy also, patient was concerned that this might be an angina issue, patient took some nitroglycerin which did not relieve the pain. Patient woke up this morning, and was walking the dog he did fine, when he went home and rested reading a book, the discomfort again started, again with heat sensation anteroposterior, and anteroposterior thigh as well. This is described as a burning sensation without paresthesias, at lunchtime, patient had another episode, subsequent to that, patient decided to go to emergency room. He denies any dyspepsia [place] Some nausea, no hematuria no melena, patient does not have any headache, she does have some local eye pain without any significant worsening of blurred vision he does have some local blurred vision. Next On my examination, in the emergency room he does have hyperactive DTRs, concerning for a possibly multiple sclerosis, he was admitted for 23 hour observation for unstable angina with cardiology consultation. Emergency room labs include INR of 1.0, hematology is normal, glucose of 102, liver function test is normal, troponin is negative at 0.012 and below, normal albumin, LDL 42 Patient mentions that when he had his last cardiac stents several years ago, this is his presentation at that time with heat sensation rather than chest pressure he required 2 stents with cardiac catheterization Review of Systems Constitutional: Reports as per HPI, Denies anorexia, Denies chills, Denies chronic headaches, Denies chronic pain, Denies daytime sleepiness, Denies fatigue, Denies fever, Denies lethargy, Denies malaise, Denies night sweats, Denies poor appetite, Denies sweats, Denies weakness, Denies weight gain, Denies weight loss Ears, nose, mouth and throat: Reports as per HPI, Denies ant. neck pain, Denies bleeding gums, Denies dental pain, Denies dysphagia, Denies epistaxis, Denies headache, Denies hoarseness, Denies mouth pain, Denies nasal congestion, Denies nasal discharge, Denies neck fullness/pressure, Denies neck lump, Denies nose pain, Denies odynophagia, Denies post-nasal drip, Denies sinus pain, Denies sinus pressure, Denies swelling in mouth, Denies swelling in throat, Denies sore throat, Denies vertigo, Denies voice changes Cardiovascular: Reports as per HPI, Denies chest pain, Denies claudication, Denies decreased exercise tolerance, Denies dyspnea on exertion, Denies edema, Denies high blood pressure, Denies irregular heart beat, Denies leg edema, Denies lightheadedness, Denies orthopnea, Denies palpitations, Denies paroxysmal nocturnal dyspnea, Denies phlebitis, Denies rapid heart beat, Denies shortness of breath, Denies syncope Respiratory: Reports as per HPI, Denies congestion, Denies cough, Denies cough with sputum, Denies dyspnea, Denies excessive sputum, Denies hemoptysis, Denies home oxygen, Denies pain, Denies pain on inspiration, Denies pleurisy, Denies respiratory infections, Denies sleep apnea, Denies snoring, Denies wheezing Gastrointestinal: Reports as per HPI, Denies abdominal pain, Denies belching, Denies bloating, Denies BRBPR, Denies change in bowel habits, Denies coffee ground emesis, Denies constipation, Denies diarrhea, Denies dyspepsia, Denies early satiety, Denies excessive gas, Denies heartburn, Denies hematemesis, Denies hematochezia, Denies indigestion, Denies jaundice, Denies lactose intolerance, Denies loss of appetite, Denies melena, Denies nausea, Denies vomiting Genitourinary: Reports as per HPI, Denies decreased libido, Denies difficulties fathering child, Denies discharge, Denies dysuria, Denies erectile dysfunction, Denies flank pain, Denies genital pain, Denies genital sores, Denies hematuria, Denies impotence, Denies incontinence, Denies kidney stones, Denies nocturia, Denies polyuria, Denies testicular lump, Denies testicular pain, Denies urinary frequency, Denies urinary hesitancy, Denies urinary retention Musculoskeletal: Reports as per HPI, Denies arm numbness/tingling, Denies atrophy, Denies fractures, Denies frequent falls, Denies gait dysfunction, Denies hot joints, Denies leg numbness/tingling, Denies limitation of motion, Denies loss of height, Denies low back pain, Denies morning stiffness, Denies muscle cramps, Denies muscle weakness, Denies myalgias, Denies neck pain, Denies neck stiffness, Denies prior amputations, Denies redness of joints, Denies shooting arm pain, Denies shooting leg pain Integumentary: Reports as per HPI, Denies acne, Denies boils, Denies brittle nails, Denies change in hair/nails, Denies color changes, Denies darkening of skin, Denies depigmentation, Denies dryness, Denies foot/leg ulcers, Denies growths, Denies hirsutism, Denies lesions, Denies onychomycosis, Denies pruritus , Denies rash, Denies sores, Denies striae, Denies unusual bruising, Denies wounds Neurological: Reports as per HPI, Denies aphasia, Denies ataxia, Denies balance difficulties, Denies burning pain, Denies change in mentation, Denies change in smell/taste, Denies change in speech, Denies confusion, Denies convulsions, Denies double vision, Denies gait dysfunction, Denies head injury, Denies headaches, Denies hearing difficulties, Denies lack of coordination, Denies loss of vision, Denies memory loss, Denies migraines, Denies motor disturbance, Denies numbness, Denies paralysis, Denies paresthesias, Denies seizures, Denies sensory deficit, Denies spasticity, Denies syncope, Denies tic, Denies tingling , Denies transient paralysis, Denies tremors, Denies vertigo, Denies weakness, Denies visual changes Psychiatric: Reports as per HPI, Denies anhedonia, Denies anxiety, Denies anxiety attacks, Denies change in appetite, Denies change in libido, Denies change in sleep habits, Denies confusion, Denies depression, Denies difficulty concentrating, Denies disorientation, Denies hallucinations, Denies hopelessness , Denies hypersomnia, Denies insomnia, Denies irritability, Denies memory loss, Denies mood swings, Denies paranoia, Denies sadness/tearfulness, Denies sleep disturbances, Denies suicidal ideation Endocrine: Reports as per HPI, Denies cold intolerance, Denies deepening of the voice, Denies excessive sweating, Denies excessive thirst, Denies fatigue, Denies flushing, Denies heat intolerance, Denies high blood sugars, Denies increase in ring/shoe/hat size, Denies low blood sugars, Denies nocturia, Denies palpitations, Denies polydipsia, Denies polyphagia, Denies polyuria, Denies proptosis, Denies recent glucocorticoid use, Denies thyroid mass, Denies weight change Hematologic/Lymphatic: Reports as per HPI, Denies easy bleeding, Denies easy bruising, Denies lymphadenopathy, Denies lymphedema, Denies thrombophilia Past Medical History Past Medical History: Coronary Artery Disease (CAD), Hyperlipidemia, Hypertension, Skin Disorder, Thyroid Disorder Additional Past Medical History / Comment(s): rosacea, thyroid nodules History of Any Multi-Drug Resistant Organisms: None Reported Past Surgical History: Cholecystectomy, Coronary Bypass/CABG, Heart Catheterization With Stent Additional Past Surgical History / Comment(s): CABG 2010 Past Anesthesia/Blood Transfusion Reactions: No Reported Reaction Additional Past Anesthesia/Blood Transfusion Reaction / Comment(s): no previous blood transfusions Date of Last Stent Placement:: 2005/2006? Past Psychological History: Anxiety Smoking Status: Former smoker Past Alcohol Use History: Rare Past Drug Use History: None Reported - Past Family History Mother Family Medical History: Coronary Artery Disease (CAD), Diabetes Mellitus Father Family Medical History: No Reported History Sister(s) Family Medical History: Coronary Artery Disease (CAD), Diabetes Mellitus Medications and Allergies Home Medications Medication Instructions Recorded Confirmed Type Lisinopril [Prinivil] 10 mg PO DAILY 02/22/17 11/18/17 History Minocycline HCl [Minocin] 50 mg PO HS 02/22/17 11/18/17 History Nitroglycerin Sl Tabs [Nitrostat] 0.4 mg SUBLINGUAL Q5M PRN 02/22/17 11/18/17 History traMADol HCL [Ultram] 50 mg PO Q6H PRN 02/22/17 11/18/17 History ALPRAZolam [Xanax] 0.25 mg PO DAILY PRN 09/05/17 11/18/17 History Metoprolol Tartrate [Lopressor] 50 mg PO BID 09/05/17 11/18/17 History Aspirin 81 mg PO DAILY #30 chew 10/28/17 11/18/17 Rx Citalopram Hydrobromide [CeleXA] 10 mg PO DAILY #30 tab 10/28/17 11/18/17 Rx Atorvastatin [Lipitor] 80 mg PO HS 11/18/17 11/18/17 History Allergies Allergy/AdvReac Type Severity Reaction Status Date / Time No Known Allergies Allergy Verified 11/18/17 14:38 Physical Exam Vitals: Vital Signs Temp Pulse Resp BP Pulse Ox 11/18/17 16:30 61 18 140/79 98 11/18/17 15:41 61 16 139/78 98 11/18/17 14:24 59 L 18 140/63 98 11/18/17 13:03 99.7 F H 73 18 121/65 99 Intake and Output 11/18/17 11/18/17 11/18/17 06:59 14:59 22:59 Other: Weight 79.379 kg - Constitutional General appearance: average body habitus, cooperative - EENT Eyes: anicteric sclerae, PERRLA, dentition normal ENT: NA/AT, normal oropharynx - Neck Neck: normal ROM - Respiratory Respiratory: bilateral: CTA - Cardiovascular Rhythm: regular Heart sounds: normal: S1, S2 Abnormal Heart Sounds: no systolic murmur, no diastolic murmur, no rub, no S3 Gallop, no S4 Gallop, no click, no other - Gastrointestinal General gastrointestinal: soft - Integumentary Integumentary: decreased turgor, normal - Neurologic Neurologic: CNII-XII intact - Musculoskeletal Musculoskeletal: gait normal, no generalized weakness, strength equal bilaterally, no right sided weakness, no left sided weakness - Psychiatric Psychiatric: A&O x's 3, appropriate affect, intact judgment & insight Results CBC & Chem 7: 11/18/17 13:31 11/18/17 13:31 Labs: Abnormal Lab Results - Last 24 Hours (Table) 11/18/17 11/18/17 Range/Units 13: 13:31 Lymphocytes # 0.8 L (1.0-4.8) k/uL Glucose 102 H (74-99) mg/dL Laboratory Results WBC 7.8 k/uL (3.8-10.6) 11/18/17 13:31 RBC 5.63 m/uL (4.30-5.90) 11/18/17 13:31 Hgb 15.6 gm/dL (13.0-17.5) 11/18/17 13:31 Hct 47.1 % (39.0-53.0) 11/18/17 13:31 MCV 83.7 fL (80.0-100.0) 11/18/17 13:31 MCH 27.7 pg (25.0-35.0) 11/18/17 13:31 MCHC 33.1 g/dL (31.0-37.0) 11/18/17 13:31 RDW 14.7 % (11.5-15.5) 11/18/17 13:31 Plt Count 214 k/uL (150-450) 11/18/17 13:31 Neutrophils % 82 % 11/18/17 13:31 Lymphocytes % 10 % 11/18/17 13:31 Monocytes % 5 % 11/18/17 13:31 Eosinophils % 1 % 11/18/17 13:31 Basophils % 0 % 11/18/17 13:31 Neutrophils # 6.4 k/uL (1.3-7.7) 11/18/17 13:31 Lymphocytes # 0.8 k/uL (1.0-4.8) L 11/18/17 13:31 Monocytes # 0.4 k/uL (0-1.0) 11/18/17 13:31 Eosinophils # 0.1 k/uL (0-0.7) 11/18/17 13:31 Basophils # 0.0 k/uL (0-0.2) 11/18/17 13:31 PT 9.8 sec (9.0-12.0) 11/18/17 13:31 INR 1.0 (<1.2) 11/18/17 13:31 APTT 24.8 sec (22.0-30.0) 11/18/17 13:31 Sodium 137 mmol/L (137-145) 11/18/17 13:31 Potassium 4.2 mmol/L (3.5-5.1) 11/18/17 13:31 Chloride 100 mmol/L (98-107) 11/18/17 13:31 Carbon Dioxide 23 mmol/L (22-30) 11/18/17 13:31 Anion Gap 14 mmol/L 11/18/17 13:31 BUN 12 mg/dL (9-20) 11/18/17 13:31 Creatinine 0.92 mg/dL (0.66-1.25) 11/18/17 13:31 Est GFR (CKD-EPI)AfAm >90 (>60 ml/min/1.73 sqM) 11/18/17 13:31 Est GFR (CKD-EPI)NonAf 86 (>60 ml/min/1.73 sqM) 11/18/17 13:31 Glucose 102 mg/dL (74-99) H 11/18/17 13:31 Calcium 9.0 mg/dL (8.4-10.2) 11/18/17 13:31 Magnesium 2.0 mg/dL (1.6-2.3) 11/18/17 13:31 Total Bilirubin 0.5 mg/dL (0.2-1.3) 11/18/17 13:31 AST 30 U/L (17-59) 11/18/17 13:31 ALT 52 U/L (21-72) 11/18/17 13:31 Alkaline Phosphatase 123 U/L (38-126) 11/18/17 13:31 Total Creatine Kinase 85 U/L (55-170) 11/18/17 13:31 CK-MB (CK-2) 0.9 ng/mL (0.0-2.4) 11/18/17 13:31 CK-MB (CK-2) Rel Index 1.1 11/18/17 13:31 Troponin I <0.012 ng/mL (0.000-0.034) 11/18/17 13:31 Total Protein 6.8 g/dL (6.3-8.2) 11/18/17 13:31 Albumin 3.9 g/dL (3.5-5.0) 11/18/17 13:31 Thrombosis Risk Factor Assmnt - DVT/VTE Prophylaxis DVT/VTE Prophylaxis: Mechanical Prophylaxis ordered - Choose All That Apply Each Factor Represents 1 point: Obesity (BMI >25) Each Risk Factor Represents 2 Points: Age 61-74 years Thrombosis Risk Factor Assessment Total Risk Factor Score: 3 Thrombosis Risk Factor Assessment Level: Moderate Risk Assessment and Plan Plan: 1 sensory perception of heat or burning sensation {Disturbance in skin condition} Dysesthesia, anterior posterior chest and bilateral thighs, with hyperactive DTRs, rule out the possibility off the demyelinating iseases, patient would have an MRI of the brain with and without contrast., this could be done either inpatient or outpatient, CATRACHITO to be done as well as serum protein electrophoresis, sed rate CRP hemoglobin A1c vitamin B12 levels TSH 2 hypertensive cardiovascular disease with prior history of cardiac stents, recent dobutamine stress test is inconclusive secondary to suboptimal images, and baseline EKG changes ontinue metoprolol and lisinopril cardiology is on consult and monitor for troponins, patient had recently had blood work and laboratory workup, 10/27/2017 3 Anxiety/ depression - Stable, with good coping skills, citalopram 10 mg continued 4. Hyperlipidemia, on Lipitor 80 5. Rosacea, stable on maintenance doxycycline 50 mg daily 6. Thyroid nodule stable GI prophylaxis DVT prophylaxis 5.
[2017-11-18] MEDS: methylPREDNISolone SOD SUCCI 125 MG/2 ML VIAL IV SCH ×2 (18:49→23:36)
[2017-11-18] MEDS ORDERED: ALPRAZolam 0.25 MG TAB PO PRN (19:04)
[2017-11-18] MEDS ORDERED: traMADol 50 MG TAB PO PRN (19:04)
[2017-11-18] MEDS: METOPROLOL TARTRATE 50 MG TAB PO SCH (20:42)
[2017-11-18 20:45] LABS: Glucose,Whole Blood 107 mg/dL (75-99)
[2017-11-18] MEDS ORDERED: METOPROLOL TARTRATE 25 MG TAB PO SCH (21:00)
[2017-11-18] MEDS ORDERED: MINOCYCLINE 50 MG CAP PO SCH (21:00)
[2017-11-18 21:26] LABS: Creatine Kinase 82 U/L (55-170)
[2017-11-18 21:37] LABS: Creatine Kinase MB 0.9 ng/mL (0.0-2.4); Troponin I <0.012 ng/mL (0.000-0.034)
[2017-11-19 01:43] LABS: Mean Platelet Volume 6.3; Platelet Count 192 k/uL (150-450)
[2017-11-19 02:11] LABS: Creatine Kinase 78 U/L (55-170)
[2017-11-19 02:22] LABS: Creatine Kinase MB 0.8 ng/mL (0.0-2.4); Troponin I <0.012 ng/mL (0.000-0.034)
[2017-11-19 03:36] LABS: Hemoglobin A1C 5.9 % (4.0-6.0)
[2017-11-19 04:17] VITALS: PULSE 66
[2017-11-19 07:01] LABS: Glucose,Whole Blood 134 mg/dL (75-99)
[2017-11-19 07:51] VITALS: RESP 18
[2017-11-19] MEDS ORDERED: ASPIRIN 81 MG PO SCH (09:00)
[2017-11-19] MEDS ORDERED: ATORVASTATIN 80 MG TAB PO SCH (09:00)
[2017-11-19] MEDS ORDERED: LISINOPRIL 10 MG TAB PO SCH (09:00)
[2017-11-19] MEDS ORDERED: ASPIRIN 325 MG TAB PO SCH (09:00)
[2017-11-19] MEDS ORDERED: CITALOPRAM HYDROBROMIDE 10 MG TAB PO SCH (09:00)
[2017-11-19 11:14] LABS: Protein, Total 6.6 g/dL (6.2-8.2)
[2017-11-19] MEDS: methylPREDNISolone SOD SUCCI 125 MG/2 ML VIAL IV SCH (11:22)
[2017-11-19] MEDS: METOPROLOL TARTRATE 50 MG TAB PO SCH (11:23)
[2017-11-19 11:33] VITALS: BP 145/78; TEMP 98.5
--- NOTE | 2017-11-19 11:43 | MR ---
EXAMINATION TYPE: MR brain wo/w con DATE OF EXAM: 11/19/2017 COMPARISON: NONE HISTORY: dysesthesia, r/o demyelinating dse TECHNIQUE: Multiplanar, multisequence images of the brain and brainstem is performed without and with IV contras t, utilizing 7.5 mL intravenous Gadavist . FINDINGS: Diffusion weighted images demonstrate no evidence of a recent infarct or other diffusion ab normality. There is no extra-axial fluid collection. The ventricular system and cisternal spaces ar e normal in size and appearance. The brain volume is age appropriate. Scattered hyperintensities are present on inversion recovery and T2-weighted sequences within the per icallosal, periventricular, subclavian juxtacortical brain. There are approximately greater than 50 l esions present. The largest in the left frontal region measures approximately 8 mm in greatest dimens ion on sagittal image 16, axial image 21 of the inversion recovery dataset, largest on the right fron usha region measures approximately 9 mm on the sagittal image 27, axial image 18. Possible confluent a bnormal signal in the external capsule on the left measures approximately 19 mm in anterior to metal casket maker ior dimension on axial image 17, 7 mm the craniocaudal dimension on sagittal image 13 and 4 mm in tra nsverse dimension Corresponding hypointensity present on T1-weighted images. There is no significant enhancement following contrast administration. Midline structures demonstrate normal morphology. The craniocervical junction appears within normal limits. The dural venous sinuses appear patent. The visualized sinuses are remarkable for mucoperios teal thickening within the maxillary sinuses, ethmoid air cells and the globes are intact. IMPRESSION: Extensive demyelination present within the brain is described, correlate for possible mul tiple sclerosis, chronic small vessel ischemic change.
--- NOTE | 2017-11-19 12:14 | P.CRDCN ---
History of Present Illness Consult date: 11/19/17 History of present illness: Mr. Moody is a pleasant 67-year-old male past medical history significant for coronary artery disease s/p 3-vessel bypass grafting 2010, hypertension, dyslipidemia and former tobacco use. He underwent his cardiac care in [place] and then moved to [place] where he followed with someone as well. Since moving to [place] last year he has not seen a insurance actuary other than in the hospital. We have been asked to see him in consultation for chest pain. He states he has had a warm sensation across his chest from shoulder to shoulder associated with clammy warm sensation in his lower legs as well. He states he first noticed this on Saturday night while laying in bed getting ready to sleep. It came on all of a sudden with no specific aggravating factor. He took a sublingual nitroglycerin and felt some relief so he went to sleep. Woke up in the morning chest pain free and proceeded with his typical daily tasks. While he was sitting down doing a puzzle he felt the same sensation again that was a warm across his chest with b/l lower extremity clammy feeling. He again took another nitro and achieved mild relief. About 2 hours later while making lunch he felt the same feeling again only this time he felt mildly nauseated and his legs were not hot not just clammy. At this time he decided to take another nitro and come to the hospital for evaluation. He denies symptoms of shortness of breath, palpitations, vomiting or dizziness. He also denies cough, fever/ chills, PND or orthopnea. He has been seen in the hospital twice for chest pain in the last 9 months and has had a negative Lexiscan stress test in 02/2017 and a negative dobutamine stress test 10/2017. He has been recommended to follow up with Dr. Ng and has yet to do so. EKG reveals sinus mechanism with poor R-wave progression. No acute ST or T-wave abnormalities noted when compared to previous EKG's. Chest xray is negative for an acute cardiopulmonary process. Laboratory data reviewed, hgb 15.6, platelets 192, potassium 4.2, magnesium 2.0 , creatinine 0.92, cardiac enzymes negative 3, HDL 39, LDL 45, TSH 2.92 with a free T4 of 1.00. Current cardiac medications include aspirin 81 mg daily, atorvastatin 80 mg daily, lisinopril 10 mg daily, Lopressor 50 mg twice a day. Most recent echocardiogram performed October 2017 reveals preserved left ventricular systolic function with ejection fraction 55-60%, mildly dilated left atrium and mild aortic regurgitation. Review of Systems At this time my exam: CONSTITUTIONAL: Denies fever. Denies chills. EYES: Denies blurred vision. Denies vision changes. Denies eye pain. EARS, NOSE, MOUTH & THROAT: Denies headache. Denies sore throat. Denies ear pain. CARDIOVASCULAR: Denies chest pain. Denies shortness of breath. Denies orthopnea. Denies PND. Denies palpitations. RESPIRATORY: Denies cough. GASTROINTESTINAL: Denies abdominal pain. Denies diarrhea. Denies constipation. Denies nausea. Denies vomiting. MUSCULOSKELETAL: Denies myalgias. INTEGUMENTARY: Denies pruitis. Denies rash. NEUROLOGIC: Denies numbness. Denies tingling. Denies weakness. PSYCHIATRIC: Denies anxiety. Denies depression. ENDOCRINE: Denies fatigue. Denies weight change. Denies polydipsia. Denies polyurina. GENITOURINARY: Denies burning, hematuria or urgency with micturation. HEMATOLOGIC: Denies history of anemia. Denies bleeding. Past Medical History Past Medical History: Coronary Artery Disease (CAD), Chest Pain / Angina, Hyperlipidemia, Hypertension, Myocardial Infarction ([place]), Skin Disorder, Thyroid Disorder Additional Past Medical History / Comment(s): rosacea, thyroid nodules-bx neg, stress test october 2017. stated he had a pne vaccine approx 2 years ago-unable to verify date w/ dr office at time of admit. Last Myocardial Infarction Date:: 1997 History of Any Multi-Drug Resistant Organisms: None Reported Past Surgical History: Cholecystectomy, Coronary Bypass/CABG, Heart Catheterization With Stent Additional Past Surgical History / Comment(s): pt thinks he's had 3 heart caths and 6 stents then in 2010 triple vessel CABG (done in [place]). thyroid bx Past Anesthesia/Blood Transfusion Reactions: No Reported Reaction Additional Past Anesthesia/Blood Transfusion Reaction / Comment(s): no previous blood transfusions that he is aware of. hx of clausterphobia. Date of Last Stent Placement:: 2005/2006? Smoking Status: Former smoker - Past Family History Mother Family Medical History: Coronary Artery Disease (CAD), Diabetes Mellitus Father Family Medical History: No Reported History Sister(s) Family Medical History: Coronary Artery Disease (CAD), Diabetes Mellitus Medications and Allergies Home Medications Medication Instructions Recorded Confirmed Type Lisinopril [Prinivil] 10 mg PO DAILY 02/22/17 11/18/17 History Minocycline HCl [Minocin] 50 mg PO HS 02/22/17 11/18/17 History Nitroglycerin Sl Tabs [Nitrostat] 0.4 mg SUBLINGUAL Q5M PRN 02/22/17 11/18/17 History traMADol HCL [Ultram] 50 mg PO Q6H PRN 02/22/17 11/18/17 History ALPRAZolam [Xanax] 0.25 mg PO DAILY PRN 09/05/17 11/18/17 History Metoprolol Tartrate [Lopressor] 50 mg PO BID 09/05/17 11/18/17 History Aspirin 81 mg PO DAILY #30 chew 10/28/17 11/18/17 Rx Citalopram Hydrobromide [CeleXA] 10 mg PO DAILY #30 tab 10/28/17 11/18/17 Rx Atorvastatin [Lipitor] 80 mg PO HS 11/18/17 11/18/17 History predniSONE 20 mg PO DAILY #31 tab 11/19/17 Rx Allergies Allergy/AdvReac Type Severity Reaction Status Date / Time No Known Allergies Allergy Verified 11/18/17 14:38 Physical Exam Vitals: Vital Signs Temp Pulse Pulse Resp BP BP BP 11/19/17 07:20 98.2 F 66 18 117/67 11/19/17 04:00 97.9 F 66 16 136/76 11/19/17 03:49 61 16 11/18/17 23:40 98.4 F 60 16 134/71 11/18/17 23:30 82 16 11/18/17 20:00 68 16 11/18/17 18:34 98 F 71 16 172/81 11/18/17 17:31 98.7 F 61 18 137/79 11/18/17 16:30 61 18 140/79 11/18/17 15:41 61 16 139/78 11/18/17 14:24 59 L 18 140/63 11/18/17 13:03 99.7 F H 73 18 121/65 Pulse Ox 11/19/17 07:20 97 04/17/18 04:00 98 11/19/17 03:49 11/18/17 23:40 97 11/18/17 23:30 11/18/17 20:00 11/18/17 18:34 99 11/18/17 17:31 98 11/18/17 16:30 98 11/18/17 15:41 98 11/18/17 14:24 98 11/18/17 13:03 99 Intake and Output 11/18/17 11/19/17 11/19/17 22:59 06:59 14:59 Other: # Voids 2 Weight 79.379 kg Blood pressure 117/67 heart rate 66 afebrile maintaining oxygen saturation on room air GENERAL: This is a 67-year-old female in no apparent distress at the time of my examination. HEENT: Head is atraumatic, normocephalic. Pupils are equal, round. Sclerae anicteric. Conjunctivae are clear. Mucous membranes of the mouth are moist. Neck is supple. There is no jugular venous distention. No carotid bruit is heard. LUNGS: Clear to auscultation no wheezes, rales or rhonchi. No chest wall tenderness is noted on palpation or with deep breathing. HEART: Regular rate and rhythm without murmurs, rubs or gallops. S1 and S2 heard. ABDOMEN: Soft, nontender. Bowel sounds are heard. No organomegaly noted. EXTREMITIES: No evidence of peripheral edema and no calf tenderness noted. VASCULAR: Radial and dorsalis pedis pulses palpated, no evidence of clubbing. NEUROLOGIC: Patient is awake, alert and oriented x3. Results 11/18/17 13:31 11/18/17 13:31 Cardiac Enzymes 11/18/17 11/18/17 11/18/17 Range/Units 13:31 13:31 20:26 AST 30 (17-59) U/L CK-MB (CK-2) 0.9 0.9 (0.0-2.4) ng/mL Troponin I <0.012 <0.012 (0.000-0.034) ng/mL 11/19/17 Range/Units 01:28 AST (17-59) U/L CK-MB (CK-2) 0.8 (0.0-2.4) ng/mL Troponin I <0.012 (0.000-0.034) ng/mL Coagulation 11/18/17 11/18/17 11/19/17 Range/Units 13:31 20:26 06:16 PT 9.8 (9.0-12.0) sec APTT 24.8 48.3 H 50.2 H (22.0-30.0) sec Lipids 11/19/17 Range/Units 06:00 Triglycerides 41 (<150) mg/dL Cholesterol 92 (<200) mg/dL HDL Cholesterol 39 L (40-60) mg/dL CBC 11/18/17 11/19/17 Range/Units 13:31 01:28 WBC 7.8 (3.8-10.6) k/uL RBC 5.63 (4.30-5.90) m/uL Hgb 15.6 (13.0-17.5) gm/dL Hct 47.1 (39.0-53.0) % Plt Count 214 192 (150-450) k/uL Comprehensive Metabolic Panel 11/18/17 Range/Units 13:31 Sodium 137 (137-145) mmol/L Potassium 4.2 (3.5-5.1) mmol/L Chloride 100 (98-107) mmol/L Carbon Dioxide 23 (22-30) mmol/L BUN 12 (9-20) mg/dL Creatinine 0.92 (0.66-1.25) mg/dL Glucose 102 H (74-99) mg/dL Calcium 9.0 (8.4-10.2) mg/dL AST 30 (17-59) U/L ALT 52 (21-72) U/L Alkaline Phosphatase 123 (38-126) U/L Total Protein 6.8 (6.3-8.2) g/dL Albumin 3.9 (3.5-5.0) g/dL Current Medications Generic Name Dose Route Start Last Admin Trade Name Freq PRN Reason Stop Dose Admin Alprazolam 0.25 mg 11/18/17 19:04 Xanax PO DAILY PRN Anxiety Aspirin 81 mg 11/19/17 09:00 Aspirin PO DAILY [facility] Atorvastatin Calcium 80 mg 11/19/17 09:00 Lipitor PO DAILY [facility] Citalopram Hydrobromide 10 mg 11/19/17 09:00 Celexa PO DAILY [facility]ON Heparin Sodium (Porcine) 0 unit 11/18/17 14:31 Heparin IV Q6HR PRN Low PTT Protocol Heparin Sodium/Sodium Chloride 500 mls @ 19.05 mls/hr 11/18/17 14:45 15:34 25,000 unit/ Sodium Chloride IV 12 units/kg/hr .Q24H DEON 19.05 mls/hr Protocol Administration 12 UNITS/KG/HR Sodium Chloride 1,000 mls @ 20 mls/hr 11/18/17 14:45 11/18/17 15:28 Saline 0.9% IV 20 mls/hr .Q24H DEON Administration Lisinopril 10 mg 11/19/17 09:00 Zestril PO DAILY [facility] Methylprednisolone Sodium Succinate 125 mg 11/18/17 18:15 11/18/17 23:36 Solu-Medrol IV 125 mg Q8HR DEON Administration Metoprolol Tartrate 50 mg 11/18/17 21:00 11/18/17 20:42 Lopressor PO 50 mg BID [facility]ON Administration Minocycline HCl 50 mg 11/18/17 21:00 11/18/17 20:42 Minocin PO 50 mg HS DEON Administration Nitroglycerin 0.4 mg 11/18/17 14:31 Nitrostat SUBLINGUAL Q5M PRN Chest Pain Tramadol HCl 50 mg 11/18/17 19:04 Ultram PO Q6H PRN Pain Intake and Output 11/18/17 11/19/17 11/19/17 22:59 06:59 14:59 Other: # Voids 2 Weight 79.379 kg 11/19/17 01:28 11/18/17 13:31 Assessment and Plan Assessment: ASSESSMENT 1. Precordial chest pain, atypical for angina. An acute coronary event has been ruled out. 2. History of coronary artery disease s/p bypass grafting 2010 in [place], does not follow with any insurance actuary for the last year since moving to [place] and losing his . 3. Hypertension 4. Dyslipidemia 5. Former tobacco use, quit 1996 6. History of non-compliance PLAN An acute coronary event has been ruled out. Pain is very atypical for cardiac etiology with 2 negative stress tests in the last 9 months. Medication compliance discussed. Continue with ongoing medical management and work-up. Follow up with Dr. JINA Ng in 2 weeks. Thank you kindly for this consultation. Nurse Practitioner note has been reviewed, I agree with a documented findings and plan of care. Patient was seen and examined.
--- NOTE | 2017-11-19 14:14 | P.DS ---
Providers Date of admission: 11/18/17 14:31 Attending physician: Sabine Cavazos Consults: 11/18/17 14:31 Consult Physician Urgent Consulting Provider: Yanelis Charles Consult Reason/Comments: cp Do you want consulting provider notified?: Yes Primary care physician: Sabine Cavazos [facility] Hospital Course: 67 years old male patient one of my patient and Dr. JINA Ng with past history hypertension, hyperlipidemia, coronary artery disease with prior stent placement with history of myocardial infarction status post coronary artery bypass grafting surgery in [facility] in 2010. Patient was admitted last with similar presentation of chest pain in February 2017, underwent Lexiscan stress test which was negative for any reversible ischemia. Patient was recently admitted and discharged 10/27/2017, after chest discomfort episode , and patient underwent a stress dobutamine at that time which was inconclusive secondary to abnormal EKG at baseline, it was a technically difficult dobutamine echo with suboptimal images, however there is no gross evidence to suggest ischemia. Patient was discharged to home with outpatient follow-up, he was started on Ciprolipram 10 mg daily 4 acute grief persistent anxiety, and aspirin 81 mg daily. He presents to the emergency room with 12 hour episode of heat sensation in anterior and posterior chest, as well as heat sensation in the anterior and posterior thigh area, occurred at resting as the patient was getting ready to lay down in bed last night., patient is not sclerosis as chest pressure or chest discomfort, he mentions that this is clammy also, patient was concerned that this might be an angina issue, patient took some nitroglycerin which did not relieve the pain. Patient woke up this morning, and was walking the dog he did fine, when he went home and rested reading a book, the discomfort again started, again with heat sensation anteroposterior, and anteroposterior thigh as well. This is described as a burning sensation without paresthesias, at lunchtime, patient had another episode, subsequent to that, patient decided to go to emergency room. He denies any dyspepsia or nausea, no hematuria no melena , patient does not have any headache, she does have some local eye pain without any significant worsening of blurred vision he does have some local blurred vision. On my examination, in the emergency room he does have hyperactive DTRs, concerning for a possibly multiple sclerosis, he was admitted for 23 hour observation for unstable angina with cardiology consultation. Emergency room labs include INR of 1.0, hematology is normal, glucose of 102, liver function test is normal, troponin is negative at 0.012 and below, normal albumin, LDL 42 Patient mentions that when he had his last cardiac stents several years ago, this is his presentation at that time with heat sensation rather than chest pressure he required 2 stents with cardiac catheterization 11/19: Patient was evaluated today, reports he has not had any further episodes of feeling a heat sensation. He denies any dizziness, he was cleared by cardiology acute coronary event has been ruled out. Patient did undergo a MRI of the brain showed extensive demyelination within the brain, concerning for multiple sclerosis. His also noted to have small chronic small vessel ischemic changes. Patient will be discharged on a prednisone taper, he'll need follow- up with neurology and cardiology as outpatient. Discharge diagnoses 1 sensory perception of heat or burning sensation, Dysesthesia, MRI showed extensive demyelination within the brain. 2 hypertensive cardiovascular disease 3 Anxiety/ depression 4. Hyperlipidemia 5. Rosacea 6. Thyroid nodule stable The above impression and plan of care have been discussed and directed by signing physician. Karine Cruz nurse practitioner acting as scribe for signing physician. Patient Condition at Discharge: Fair Plan - Discharge Summary Discharge Rx Participant: Yes New Discharge Prescriptions: New predniSONE 20 mg PO DAILY #31 tab Continue Nitroglycerin Sl Tabs [Nitrostat] 0.4 mg SUBLINGUAL Q5M PRN PRN Reason: Chest Pain traMADol HCL [Ultram] 50 mg PO Q6H PRN PRN Reason: Pain Minocycline HCl [Minocin] 50 mg PO HS Lisinopril [Prinivil] 10 mg PO DAILY Metoprolol Tartrate [Lopressor] 50 mg PO BID ALPRAZolam [Xanax] 0.25 mg PO DAILY PRN PRN Reason: Anxiety Aspirin 81 mg PO DAILY #30 chew Citalopram Hydrobromide [CeleXA] 10 mg PO DAILY #30 tab Atorvastatin [Lipitor] 80 mg PO HS Discharge Medication List Lisinopril [Prinivil] 10 mg PO DAILY 02/22/17 [History] Minocycline HCl [Minocin] 50 mg PO HS 02/22/17 [History] Nitroglycerin Sl Tabs [Nitrostat] 0.4 mg SUBLINGUAL Q5M PRN 02/22/17 [History] traMADol HCL [Ultram] 50 mg PO Q6H PRN 02/22/17 [History] ALPRAZolam [Xanax] 0.25 mg PO DAILY PRN 09/05/17 [History] Metoprolol Tartrate [Lopressor] 50 mg PO BID 09/05/17 [History] Aspirin 81 mg PO DAILY #30 chew 10/28/17 [Rx] Citalopram Hydrobromide [CeleXA] 10 mg PO DAILY #30 tab 10/28/17 [Rx] Atorvastatin [Lipitor] 80 mg PO HS 11/18/17 [History] predniSONE 20 mg PO DAILY #31 tab 11/19/17 [Rx] Follow up Appointment(s)/Referral(s): Leny Ng MD [STAFF PHYSICIAN] - 1 Week (office will call you at home.) Sabine Cavazos MD [Primary Care Provider] - 1 Week Richard Sethi MD [STAFF PHYSICIAN] - 1 Week (Appointment made for @ 9:30am.) Patient Instructions/Handouts: Chest Pain (DC) Discharge Disposition: HOME SELF-CARE
[2017-11-21 07:28] LABS: Albumin 3.89 g/dL (3.80-4.90); Gamma Globulin 1.03 g/dL (0.70-1.50)
== END 2017-11-19 13:05 | disposition home or self-care (01) ==
LOC: EC 12:52 → 3OBS 14:31
PROVIDERS: ADMIT Family Medicine; ATTEND Family Medicine
DX: R20.8 Other disturbances of skin sensation (principal); R07.89 Other chest pain; I11.9 Hypertensive heart disease without heart failure; F41.8 Other specified anxiety disorders; F32.9 Major depressive disorder, single episode, unspecified; E78.5 Hyperlipidemia, unspecified; L71.9 Rosacea, unspecified; E04.1 Nontoxic single thyroid nodule; I25.10 Atherosclerotic heart disease of native coronary artery without angina pectoris; R11.0 Nausea; R07.2 Precordial pain; R06.02 Shortness of breath; E66.9 Obesity, unspecified; Z68.28 Body mass index [BMI] 28.0-28.9, adult; H57.10 Ocular pain, unspecified eye; I25.2 Old myocardial infarction; Z79.899 Other long term (current) drug therapy; Z79.2 Long term (current) use of antibiotics; Z79.82 Long term (current) use of aspirin; Z79.52 Long term (current) use of systemic steroids; Z95.1 Presence of aortocoronary bypass graft; Z95.5 Presence of coronary angioplasty implant and graft; Z87.891 Personal history of nicotine dependence; Z83.3 Family history of diabetes mellitus; Z91.19 Patient's noncompliance with other medical treatment and regimen
CPT/HCPCS: 96365 ×2; 96366 ×4; 96376 ×4; 93005 ×2; 96375; 99291; 36415; 84207; 85379; 84439; 80061; 80053; 85652; 84443; 82607; 82550 ×2; 82553 ×2; 83735; 84484 ×2; 85025; 85049; 85610; 85730 ×2; 86140; 84165; 86038; 83036; 71046; 70553; G0378 ×2; J1644 ×2; J2930 ×2; A9581

== ENCOUNTER 2017-11-22 09:22 | Inpatient (IN) | payer MEDICARE, OTHER ==
[2017-11-22] MEDS ORDERED: ASPIRIN 81 MG PO STA (09:57)
[2017-11-22] MEDS ORDERED: NITROGLYCERIN OINT 1 INCH/GM PACKET TOPICAL STA (09:57)
[2017-11-22] MEDS ORDERED: ONDANSETRON 4 MG/2 ML VIAL IVP STA (10:00)
[2017-11-22] MEDS ORDERED: ACETAMINOPHEN TAB 500 MG TAB PO STA (10:00)
--- NOTE | 2017-11-22 10:00 | ED ---
General Adult HPI - General Chief complaint: Chest Pain Stated complaint: Chest Pain Time Seen by Provider: 11/22/17 09:25 Source: patient, family, RN notes reviewed Mode of arrival: wheelchair Limitations: no limitations - History of Present Illness Initial comments: This is a 67-year-old male who presents to the emergency department complaining of chest pain patient states it happened just he took a nitroglycerin it went away. Patient states that again occurred last evening. Symmetrical when away. Patient states he got this morning and he continued to have chest pain and he decided come in because of his previous history. Patient has had a stent in the past bypass in the past and has high blood pressure high cholesterol. Patient used to be a smoker. Patient states currently he is not having chest pain but he is feeling little nauseated. Patient states this is reminiscent of his chest pain when he had a heart attack. Patient denies any significant cough or fever recently. - Related Data Home Medications Medication Instructions Recorded Confirmed Lisinopril [Prinivil] 10 mg PO DAILY 02/22/17 11/22/17 Minocycline HCl [Minocin] 50 mg PO HS 02/22/17 11/22/17 Nitroglycerin Sl Tabs [Nitrostat] 0.4 mg SUBLINGUAL Q5M PRN 02/22/17 11/22/17 traMADol HCL [Ultram] 50 mg PO Q6H PRN 02/22/17 11/22/17 ALPRAZolam [Xanax] 0.25 mg PO DAILY PRN 09/05/17 11/22/17 Metoprolol Tartrate [Lopressor] 50 mg PO BID 09/05/17 11/22/17 Atorvastatin [Lipitor] 80 mg PO HS 11/18/17 11/22/17 Previous Rx's Medication Instructions Recorded Aspirin 81 mg PO DAILY #30 chew 10/28/17 Citalopram Hydrobromide [CeleXA] 10 mg PO DAILY #30 tab 10/28/17 predniSONE 20 mg PO DAILY #31 tab 11/19/17 Allergies Allergy/AdvReac Type Severity Reaction Status Date / Time No Known Allergies Allergy Verified 11/22/17 09:51 Review of Systems ROS Statement: Those systems with pertinent positive or pertinent negative responses have been documented in the HPI. ROS Other: All systems not noted in ROS Statement are negative. Past Medical History Past Medical History: Coronary Artery Disease (CAD), Chest Pain / Angina, Hyperlipidemia, Hypertension, Myocardial Infarction ([place]), Skin Disorder, Thyroid Disorder Additional Past Medical History / Comment(s): rosacea, thyroid nodules-bx neg, stress test october 2017. stated he had a pne vaccine approx 2 years ago-unable to verify date w/ dr office at time of admit. Last Myocardial Infarction Date:: 1997 History of Any Multi-Drug Resistant Organisms: None Reported Past Surgical History: Cholecystectomy, Coronary Bypass/CABG, Heart Catheterization With Stent Additional Past Surgical History / Comment(s): pt thinks he's had 3 heart caths and 6 stents then in 2010 triple vessel CABG (done in [place]). thyroid bx Past Anesthesia/Blood Transfusion Reactions: No Reported Reaction Additional Past Anesthesia/Blood Transfusion Reaction / Comment(s): no previous blood transfusions that he is aware of. hx of clausterphobia. Date of Last Stent Placement:: 2005/2006? Past Psychological History: Anxiety Smoking Status: Former smoker Past Alcohol Use History: None Reported Past Drug Use History: None Reported - Past Family History Mother Family Medical History: Coronary Artery Disease (CAD), Diabetes Mellitus Father Family Medical History: No Reported History Sister(s) Family Medical History: Coronary Artery Disease (CAD), Diabetes Mellitus General Exam - General Exam Comments Initial Comments: GENERAL: Patient is well-developed and well-nourished. Patient is nontoxic and well- hydrated and is in mild distress. ENT: Neck is soft and supple. No significant lymphadenopathy is noted. Oropharynx is clear. Moist mucous membranes. Neck has full range of motion without eliciting any pain. EYES: The sclera were anicteric and conjunctiva were pink and moist. Extraocular movements were intact and pupils were equal round and reactive to light. Eyelids were unremarkable. PULMONARY: Unlabored respirations. Good breath sounds bilaterally. No audible rales rhonchi or wheezing was noted. CARDIOVASCULAR: There is a regular rate and rhythm without any murmurs gallops or rubs. ABDOMEN: Soft and nontender with normal bowel sounds. SKIN: Skin is clear with no lesions or rashes and otherwise unremarkable. NEUROLOGIC: Patient is alert and oriented x3. Cranial nerves II through XII are grossly intact. Motor and sensory are also intact. Normal speech, volume and content. Symmetrical smile. MUSCULOSKELETAL: Normal extremities with adequate strength and full range of motion. No lower extremity swelling or edema. No calf tenderness. LYMPHATICS: No significant lymphadenopathy is noted PSYCHIATRIC: Normal psychiatric evaluation. Limitations: no limitations Course Vital Signs 11/22/17 11/22/17 11/22/17 09:24 11:45 12:08 Temperature 99.4 F 98.5 F Pulse Rate 78 66 Respiratory 20 18 Rate Blood Pressure 182/90 160/81 O2 Sat by Pulse 100 96 Oximetry 11/22/17 12:13 Temperature Pulse Rate 61 Respiratory 20 Rate Blood Pressure 141/80 O2 Sat by Pulse 99 Oximetry Medical Decision Making - Medical Decision Making EKG shows normal sinus rhythm at [address] interval is on a 64 tresses 84 QT interval 36 QTC is 419. Patient's EKG shows no ST segment elevation or depression or T wave abnormalities are noted. Chest x-ray shows no acute abnormality. If I spoke with Dr. Cavazos she agreed to admit the patient admitted the patient wrote admitting orders. I wrote admitting orders I consult to cardiology I started the patient on heparin and continue the heparin Nitropaste and aspirin on the floor. - Lab Data Result diagrams: 11/22/17 10:05 11/22/17 10:05 Lab Results 11/22/17 11/22/17 11/22/17 Range/Units 10:05 10:05 10:05 WBC 8.1 (3.8-10.6) k/uL RBC 5.45 (4.30-5.90) m/uL Hgb 15.2 (13.0-17.5) gm/dL Hct 45.6 (39.0-53.0) % MCV 83.6 (80.0-100.0) fL MCH 28.0 (25.0-35.0) pg MCHC 33.5 (31.0-37.0) g/dL RDW 14.7 (11.5-15.5) % Plt Count 214 (150-450) k/uL Neutrophils % 72 % Lymphocytes % 17 % Monocytes % 8 % Eosinophils % 1 % Basophils % 0 % Neutrophils # 5.8 (1.3-7.7) k/uL Lymphocytes # 1.4 (1.0-4.8) k/uL Monocytes # 0.7 (0-1.0) k/uL Eosinophils # 0.1 (0-0.7) k/uL Basophils # 0.0 (0-0.2) k/uL PT (9.0-12.0) sec INR (<1.2) APTT (22.0-30.0) sec Sodium 136 L (137-145) mmol/L Potassium 3.8 (3.5-5.1) mmol/L Chloride 100 (98-107) mmol/L Carbon Dioxide 22 (22-30) mmol/L Anion Gap 14 mmol/L BUN 18 (9-20) mg/dL Creatinine 0.90 (0.66-1.25) mg/dL Est GFR (CKD-EPI)AfAm >90 (>60 ml/min/1.73 sqM) Est GFR (CKD-EPI)NonAf 88 (>60 ml/min/1.73 sqM) Glucose 133 H (74-99) mg/dL Plasma Lactic Acid Gomez (0.7-2.0) mmol/L Calcium 9.0 (8.4-10.2) mg/dL Magnesium 2.0 (1.6-2.3) mg/dL Total Bilirubin 0.7 (0.2-1.3) mg/dL AST 28 (17-59) U/L ALT 49 (21-72) U/L Alkaline Phosphatase 101 (38-126) U/L Total Creatine Kinase 112 (55-170) U/L CK-MB (CK-2) 0.7 (0.0-2.4) ng/mL CK-MB (CK-2) Rel Index 0.6 Troponin I <0.012 (0.000-0.034) ng/mL Total Protein 6.5 (6.3-8.2) g/dL Albumin 3.9 (3.5-5.0) g/dL Urine Color Urine Appearance (Clear) Urine pH (5.0-8.0) Ur Specific [place] (1.001-1.035) Urine Protein (Negative) Urine Glucose (UA) (Negative) Urine Ketones (Negative) Urine Blood (Negative) Urine Nitrite (Negative) Urine Bilirubin (Negative) Urine Urobilinogen (<2.0) mg/dL Ur Leukocyte Esterase (Negative) Urine RBC (0-5) /hpf Urine WBC (0-5) /hpf Amorphous Sediment (None) /hpf Urine Mucus (None) /hpf Influenza Type A RNA (Not Detectd) Influenza Type B (PCR) (Not Detectd) 11/22/17 11/22/17 11/22/17 Range/Units 10:05 10:05 10:05 WBC (3.8-10.6) k/uL RBC (4.30-5.90) m/uL Hgb (13.0-17.5) gm/dL Hct (39.0-53.0) % MCV (80.0-100.0) fL MCH (25.0-35.0) pg MCHC (31.0-37.0) g/dL RDW (11.5-15.5) % Plt Count (150-450) k/uL Neutrophils % % Lymphocytes % % Monocytes % % Eosinophils % % Basophils % % Neutrophils # (1.3-7.7) k/uL Lymphocytes # (1.0-4.8) k/uL Monocytes # (0-1.0) k/uL Eosinophils # (0-0.7) k/uL Basophils # (0-0.2) k/uL PT 9.9 (9.0-12.0) sec INR 1.0 (<1.2) APTT 23.3 (22.0-30.0) sec Sodium (137-145) mmol/L Potassium (3.5-5.1) mmol/L Chloride (98-107) mmol/L Carbon Dioxide (22-30) mmol/L Anion Gap mmol/L BUN (9-20) mg/dL Creatinine (0.66-1.25) mg/dL Est GFR (CKD-EPI)AfAm (>60 ml/min/1.73 sqM) Est GFR (CKD-EPI)NonAf (>60 ml/min/1.73 sqM) Glucose (74-99) mg/dL Plasma Lactic Acid Gomez 1.3 (0.7-2.0) mmol/L Calcium (8.4-10.2) mg/dL Magnesium (1.6-2.3) mg/dL Total Bilirubin (0.2-1.3) mg/dL AST (17-59) U/L ALT (21-72) U/L Alkaline Phosphatase (38-126) U/L Total Creatine Kinase (55-170) U/L CK-MB (CK-2) (0.0-2.4) ng/mL CK-MB (CK-2) Rel Index Troponin I (0.000-0.034) ng/mL Total Protein (6.3-8.2) g/dL Albumin (3.5-5.0) g/dL Urine Color Urine Appearance (Clear) Urine pH (5.0-8.0) Ur Specific [place] (1.001-1.035) Urine Protein (Negative) Urine Glucose (UA) (Negative) Urine Ketones (Negative) Urine Blood (Negative) Urine Nitrite (Negative) Urine Bilirubin (Negative) Urine Urobilinogen (<2.0) mg/dL Ur Leukocyte Esterase (Negative) Urine RBC (0-5) /hpf Urine WBC (0-5) /hpf Amorphous Sediment (None) /hpf Urine Mucus (None) /hpf Influenza Type A RNA Not Detected (Not Detectd) Influenza Type B (PCR) Not Detected (Not Detectd) 11/22/17 Range/Units 10:05 WBC (3.8-10.6) k/uL RBC (4.30-5.90) m/uL Hgb (13.0-17.5) gm/dL Hct (39.0-53.0) % MCV (80.0-100.0) fL MCH (25.0-35.0) pg MCHC (31.0-37.0) g/dL RDW (11.5-15.5) % Plt Count (150-450) k/uL Neutrophils % % Lymphocytes % % Monocytes % % Eosinophils % % Basophils % % Neutrophils # (1.3-7.7) k/uL Lymphocytes # (1.0-4.8) k/uL Monocytes # (0-1.0) k/uL Eosinophils # (0-0.7) k/uL Basophils # (0-0.2) k/uL PT (9.0-12.0) sec INR (<1.2) APTT (22.0-30.0) sec Sodium (137-145) mmol/L Potassium (3.5-5.1) mmol/L Chloride (98-107) mmol/L Carbon Dioxide (22-30) mmol/L Anion Gap mmol/L BUN (9-20) mg/dL Creatinine (0.66-1.25) mg/dL Est GFR (CKD-EPI)AfAm (>60 ml/min/1.73 sqM) Est GFR (CKD-EPI)NonAf (>60 ml/min/1.73 sqM) Glucose (74-99) mg/dL Plasma Lactic Acid Gomez (0.7-2.0) mmol/L Calcium (8.4-10.2) mg/dL Magnesium (1.6-2.3) mg/dL Total Bilirubin (0.2-1.3) mg/dL AST (17-59) U/L ALT (21-72) U/L Alkaline Phosphatase (38-126) U/L Total Creatine Kinase (55-170) U/L CK-MB (CK-2) (0.0-2.4) ng/mL CK-MB (CK-2) Rel Index Troponin I (0.000-0.034) ng/mL Total Protein (6.3-8.2) g/dL Albumin (3.5-5.0) g/dL Urine Color Yellow Urine Appearance Cloudy (Clear) Urine pH 6.5 (5.0-8.0) Ur Specific [place] 1.020 (1.001-1.035) Urine Protein 1+ H (Negative) Urine Glucose (UA) Negative (Negative) Urine Ketones Negative (Negative) Urine Blood Negative (Negative) Urine Nitrite Negative (Negative) Urine Bilirubin Negative (Negative) Urine Urobilinogen <2.0 (<2.0) mg/dL Ur Leukocyte Esterase Negative (Negative) Urine RBC 3 (0-5) /hpf Urine WBC <1 (0-5) /hpf Amorphous Sediment Rare H (None) /hpf Urine Mucus Occasional H (None) /hpf Influenza Type A RNA (Not Detectd) Influenza Type B (PCR) (Not Detectd) Critical Care Time Critical Care Time: Yes Total Critical Care Time: 35 Disposition Clinical Impression: Unstable angina pectoris Disposition: ADMITTED IP TO THIS HOSP Is patient prescribed a controlled substance at d/c from ED?: No Time of Disposition: 11:40
[2017-11-22 10:15] LABS: Basophils % (A) 0 %; Eosinophils # (A) 0.1 k/uL (0-0.7); Eosinophils % (A) 1 %; HCT 45.6 % (39.0-53.0); HGB 15.2 gm/dL (13.0-17.5); Lymphocytes # (A) 1.4 k/uL (1.0-4.8); Lymphocytes % (A) 17 %; MCHC 33.5 g/dL (31.0-37.0); MCV 83.6 fL (80.0-100.0); Mean Platelet Volume 7.2; Monocytes # (A) 0.7 k/uL (0-1.0); Monocytes % (A) 8 %; Neutrophils # (A) 5.8 k/uL (1.3-7.7); Neutrophils % (A) 72 %; Platelet Count 214 k/uL (150-450); RBC 5.45 m/uL (4.30-5.90); RDW 14.7 % (11.5-15.5); WBC 8.1 k/uL (3.8-10.6)
[2017-11-22 10:23] LABS: Partial Thromboplastin Time 23.3 sec (22.0-30.0); Prothrombin Time 9.9 sec (9.0-12.0)
[2017-11-22 10:27] LABS: ALT 49 U/L (21-72); AST 28 U/L (17-59); Albumin 3.9 g/dL (3.5-5.0); Alkaline Phosphatase 101 U/L (38-126); Anion Gap 14 mmol/L; Blood Urea Nitrogen 18 mg/dL (9-20); Carbon Dioxide 22 mmol/L (22-30); Chloride 100 mmol/L (98-107); Glucose 133 mg/dL (74-99); Potassium 3.8 mmol/L (3.5-5.1); Sodium 136 mmol/L (137-145); Total Bilirubin 0.7 mg/dL (0.2-1.3); Total Protein 6.5 g/dL (6.3-8.2)
--- NOTE | 2017-11-22 10:41 | XR ---
EXAMINATION TYPE: XR chest 2V DATE OF EXAM: 11/22/2017 COMPARISON: 11/18/2017 HISTORY: Shortness of breath TECHNIQUE: Frontal and lateral views of the chest are obtained. FINDINGS: Scattered senescent parenchymal changes noted. No evidence for infiltrate. No evidence for atelectasis. Heart size is stable. Mediastinal structures are stable and grossly unremarkable. No evidence for hilar prominence. Degenerative changes dorsal spine. IMPRESSION: 1. No evidence for acute pulmonary disease.
[2017-11-22 10:46] LABS: Creatine Kinase 112 U/L (55-170)
[2017-11-22 10:59] LABS: Creatine Kinase MB 0.7 ng/mL (0.0-2.4); Troponin I <0.012 ng/mL (0.000-0.034)
[2017-11-22 11:27] LABS: Amorphous Sediment,Urine Rare /hpf; Appearance,Urine Cloudy (Clear); Bilirubin,Urine Negative (Negative); Blood,Urine Negative (Negative); Color,Urine Yellow; Glucose,Urine (UA) Negative (Negative); Ketones,Urine Negative (Negative); Leukocyte Esterase,Urine Negative (Negative); Mucus,Urine Occasional /hpf; Nitrite,Urine Negative (Negative); PH, Urine 6.5 (5.0-8.0); Protein,Urine 1+ (Negative); RBC,Urine 3 /hpf (0-5); Urobilinogen,Urine <2.0 mg/dL (<2.0); WBC,Urine <1 /hpf (0-5)
[2017-11-22] MEDS ORDERED: HEPARIN SODIUM,PORCINE 5,000 UNIT/ML 1 ML VIAL IV ONE (11:39)
[2017-11-22] MEDS ORDERED: NITROGLYCERIN SL TABS 0.4 MG TAB SUBLINGUAL PRN ×2 (11:41→14:11)
[2017-11-22] MEDS: HEPARIN SOD,PORK IN 0.45% NACL 25,000 UNIT in 0.45% NACL 1 500ML.BAG IV SCH (12:12)
[2017-11-22] MEDS ORDERED: ALPRAZolam 0.25 MG TAB PO PRN (14:11)
[2017-11-22] MEDS ORDERED: traMADol 50 MG TAB PO PRN (14:11)
[2017-11-22] MEDS ORDERED: RX INFO: IV CONTRAST WAS GIVEN 1 EACH MISC MISCELLANE PRN (14:49)
[2017-11-22] MEDS ORDERED: SODIUM CHLORIDE 0.9% 1,000 ML in EMPTY BAG 1 BAG IV ONE (15:08)
--- NOTE | 2017-11-22 15:18 | P.CRDCN ---
History of Present Illness Consult date: 11/22/17 History of present illness: Mr. Moody is a pleasant 67-year-old male past medical history significant for coronary artery disease s/p 3-vessel bypass grafting 2010, hypertension, dyslipidemia and former tobacco use. He underwent his cardiac care in [place] and then moved to [place] where he followed with someone as well. 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 We have been asked to see him in consultation for chest pain. He was here earlier in the week with atypical chest pain and ruled out for an acute coronary event. He developed a sharp chest pain across his chest yesterday while resting that was associated with nausea and dizziness. The pain remained localized to the anterior chest. He took a SL nitroglycerin and the pain subsided. Last night while he was getting ready for bed be became acutely diaphoretic with no pain or associated symptoms. This morning when he woke up he took his dog outside and when he came in the house he started with this same pain in the anterior chest from shoulder to shoulder described as sharp. This time the pain radiated through to his back on the left side near the flank. He again was dizzy and mildy nauseated. He again took another nitro and achieved partial relief. He now describes feeling a warm sensation across his chest that has been ongoing since this morning after the sharp pain subsided. He states that each time he has had a coronary event his symptoms have been very non- specific and associated with diaphoresis and a warm sensation in his chest that he is currently experiencing. He had a negative Lexiscan stress test in 02/2017 and a negative dobutamine stress test 10/2017. He has been recommended to follow up with Dr. Ng and has yet to do so. EKG reveals sinus mechanism with poor R-wave progression. No acute ST or T-wave abnormalities noted when compared to previous EKG's. Chest xray is negative for an acute cardiopulmonary process. Laboratory data reviewed, hemoglobin 15.2, platelets 214, sodium 136, potassium 3.8, magnesium 2.0, creatinine 0.9, GFR 88, cardiac enzymes negative 1. Current cardiac medications include aspirin 81 mg daily, atorvastatin 80 mg daily, lisinopril 10 mg daily, Lopressor 50 mg twice a day. Most recent echocardiogram performed October 2017 reveals preserved left ventricular systolic function with ejection fraction 55-60%, mildly dilated left atrium and mild aortic regurgitation. Review of Systems At the time of my exam: CONSTITUTIONAL: Denies fever. Denies chills. EYES: Denies blurred vision. Denies vision changes. Denies eye pain. EARS, NOSE, MOUTH & THROAT: Denies headache. Denies sore throat. Denies ear pain. CARDIOVASCULAR: Complains of warm sensation across chest. Denies shortness of breath. Denies orthopnea. Denies PND. Denies palpitations. RESPIRATORY: Denies cough. GASTROINTESTINAL: Denies abdominal pain. Denies diarrhea. Denies constipation. Denies nausea. Denies vomiting. MUSCULOSKELETAL: Denies myalgias. INTEGUMENTARY: Denies pruitis. Denies rash. NEUROLOGIC: Denies numbness. Denies tingling. Denies weakness. PSYCHIATRIC: Denies anxiety. Denies depression. ENDOCRINE: Denies fatigue. Denies weight change. Denies polydipsia. Denies polyurina. GENITOURINARY: Denies burning, hematuria or urgency with micturation. HEMATOLOGIC: Denies history of anemia. Denies bleeding. Past Medical History Past Medical History: Coronary Artery Disease (CAD), Chest Pain / Angina, GERD/ Reflux, Hyperlipidemia, Hypertension, Myocardial Infarction ([place]), Skin Disorder , Thyroid Disorder Additional Past Medical History / Comment(s): Pt recently admitted to [facility] on with heat sensation anterior/posterior chest. Other hx: Stable thyroid nodule, rosacia, past shingelles. Last Myocardial Infarction Date:: 1997 History of Any Multi-Drug Resistant Organisms: None Reported Past Surgical History: Cholecystectomy, Coronary Bypass/CABG, Heart Catheterization With Stent Additional Past Surgical History / Comment(s): Pt thinks he's had 3 heart caths and 6 stents then in 2010 triple vessel CABG (done in [place]), thyroid bx Past Anesthesia/Blood Transfusion Reactions: No Reported Reaction Additional Past Anesthesia/Blood Transfusion Reaction / Comment(s): No previous blood transfusions that he is aware of. Hx of clausterphobia. Date of Last Stent Placement:: ? Smoking Status: Former smoker - Past Family History Mother Family Medical History: Coronary Artery Disease (CAD), Diabetes Mellitus Father Family Medical History: No Reported History Sister(s) Family Medical History: Coronary Artery Disease (CAD), Diabetes Mellitus Medications and Allergies Home Medications Medication Instructions Recorded Confirmed Type Lisinopril [Prinivil] 10 mg PO DAILY 02/22/17 11/22/17 History Minocycline HCl [Minocin] 50 mg PO HS 02/22/17 11/22/17 History Nitroglycerin Sl Tabs [Nitrostat] 0.4 mg SUBLINGUAL Q5M PRN 02/22/17 11/22/17 History traMADol HCL [Ultram] 50 mg PO Q6H PRN 02/22/17 11/22/17 History ALPRAZolam [Xanax] 0.25 mg PO DAILY PRN 09/05/17 11/22/17 History Metoprolol Tartrate [Lopressor] 50 mg PO BID 09/05/17 11/22/17 History Aspirin 81 mg PO DAILY #30 chew 10/28/17 11/22/17 Rx Citalopram Hydrobromide [CeleXA] 10 mg PO DAILY #30 tab 10/28/17 11/22/17 Rx Atorvastatin [Lipitor] 80 mg PO HS 11/18/17 11/22/17 History predniSONE 20 mg PO DAILY #31 tab 11/19/17 11/22/17 Rx Allergies Allergy/AdvReac Type Severity Reaction Status Date / Time No Known Allergies Allergy Verified 11/22/17 09:51 Physical Exam Vitals: Vital Signs Temp Pulse Pulse Resp BP BP Pulse Ox 11/22/17 13:15 98.6 F 66 18 143/82 96 11/22/17 12:13 61 20 141/80 99 11/22/17 12:08 98.5 F 11/22/17 11:45 66 18 160/81 96 11/22/17 09:24 99.4 F 78 20 182/90 100 Intake and Output 11/21/17 11/22/17 11/22/17 22:59 06:59 14:59 Other: Weight 78.6 kg Blood pressure 143/82 heart rate 66 afebrile maintaining oxygen saturation on room air GENERAL: This is a 67-year-old male in no apparent distress at the time of my examination. HEENT: Head is atraumatic, normocephalic. Pupils are equal, round. Sclerae anicteric. Conjunctivae are clear. Mucous membranes of the mouth are moist. Neck is supple. There is no jugular venous distention. No carotid bruit is heard. LUNGS: Clear to auscultation no wheezes, rales or rhonchi. No chest wall tenderness is noted on palpation or with deep breathing. HEART: Regular rate and rhythm without murmurs, rubs or gallops. S1 and S2 heard. ABDOMEN: Soft, nontender. Bowel sounds are heard. No organomegaly noted. EXTREMITIES: No evidence of peripheral edema and no calf tenderness noted. VASCULAR: Radial and dorsalis pedis pulses palpated, no evidence of clubbing. NEUROLOGIC: Patient is awake, alert and oriented x3. Results 11/22/17 10:05 11/22/17 10:05 Cardiac Enzymes 11/22/17 11/22/17 Range/Units 10:05 10:05 AST 28 (17-59) U/L CK-MB (CK-2) 0.7 (0.0-2.4) ng/mL Troponin I <0.012 (0.000-0.034) ng/mL Coagulation 11/22/17 Range/Units 10:05 PT 9.9 (9.0-12.0) sec APTT 23.3 (22.0-30.0) sec CBC 11/22/17 Range/Units 10:05 WBC 8.1 (3.8-10.6) k/uL RBC 5.45 (4.30-5.90) m/uL Hgb 15.2 (13.0-17.5) gm/dL Hct 45.6 (39.0-53.0) % Plt Count 214 (150-450) k/uL Comprehensive Metabolic Panel 11/22/17 Range/Units 10:05 Sodium 136 L (137-145) mmol/L Potassium 3.8 (3.5-5.1) mmol/L Chloride 100 (98-107) mmol/L Carbon Dioxide 22 (22-30) mmol/L BUN 18 (9-20) mg/dL Creatinine 0.90 (0.66-1.25) mg/dL Glucose 133 H (74-99) mg/dL Calcium 9.0 (8.4-10.2) mg/dL AST 28 (17-59) U/L ALT 49 (21-72) U/L Alkaline Phosphatase 101 (38-126) U/L Total Protein 6.5 (6.3-8.2) g/dL Albumin 3.9 (3.5-5.0) g/dL Current Medications Generic Name Dose Route Start Last Admin Trade Name Freq PRN Reason Stop Dose Admin Alprazolam 0.25 mg 11/22/17 14:11 Xanax PO DAILY PRN Anxiety Aspirin 81 mg 11/23/17 09:00 Aspirin PO DAILY [facility] Atorvastatin Calcium 80 mg 11/22/17 21:00 Lipitor PO HS [facility] Citalopram Hydrobromide 10 mg 11/23/17 09:00 Celexa PO DAILY [facility] Clotrimazole 10 mg 11/22/17 16:00 Mycelex Whitney MUCOUS MEM 5XD [facility] Heparin Sodium/Sodium Chloride 500 mls @ 19.05 mls/hr 11/22/17 11:45 12:12 25,000 unit/ Sodium Chloride IV 12 units/kg/hr .Q24H DEON 19.05 mls/hr Protocol Administration 12 UNITS/KG/HR Lisinopril 10 mg 11/23/17 09:00 Zestril PO DAILY [facility] Metoprolol Tartrate 50 mg 11/22/17 21:00 Lopressor PO BID [facility] Minocycline HCl 50 mg 11/22/17 21:00 Minocin PO HS [facility] Nitroglycerin 1 inch 11/22/17 18:00 Nitro-Bid Oint TOPICAL Q6HR [facility] Nitroglycerin 0.4 mg 11/22/17 11:41 Nitrostat SUBLINGUAL Q5M PRN Chest Pain Nitroglycerin 0.4 mg 11/22/17 14:11 Nitrostat SUBLINGUAL Q5M PRN Chest Pain Pantoprazole Sodium 40 mg 11/22/17 14:30 Protonix PO AC-BRKFST [facility] Prednisone 20 mg 11/23/17 09:00 PO DAILY [facility] Tramadol HCl 50 mg 11/22/17 14:11 Ultram PO Q6H PRN Pain Intake and Output 11/21/17 11/22/17 11/22/17 22:59 06:59 14:59 Other: Weight 78.6 kg Patient Weight 11/23/17 06:59 Weight 78.6 kg 11/22/17 10:05 11/22/17 10:05 Assessment and Plan Assessment: ASSESSMENT 1. Unstable angina 2. History of coronary artery disease s/p bypass grafting 3. Hypertension 4. Dyslipidemia 5. Former tobacco use, quit 1997 PLAN Continue to obtain serial cardiac enzymes and repeat EKG in the morning as well as PRN if he is having acute chest pain. Obtain CT angio of his chest to assess aorta and for PE. Repeat BMP in the morning to check renal function after CT. Obtain records of his prior heart catheterizations and bypass surgery if possible. With his ongoing symptoms of chest pain we have recommended he proceed with cardiac catheterization. I have discussed the risks, benefits and alternative therapies for the above-mentioned procedure and for both sedation/analgesia as well as necessary blood product administration, if indicated, as they pertain to this patient. The patient has indicated understanding and acceptance of the risks and procedures discussed. Questions have been answered appropriately and he is agreeable to proceed with above stated procedure. This will take place Saturday. NPO after midnight Saturday. Continue with aspirin 81 mg daily, atorvastatin 80 mg daily, lisinopril 10 mg daily, lopressor 50 mg BID, heparin infusion and nitropaste. The above impression and plan of care have been discussed and directed by the signing physician. Koki Arevalo, nurse practitioner, acting as scribe for signing physician.
[2017-11-22 16:32] LABS: Creatine Kinase 85 U/L (55-170)
[2017-11-22 16:45] LABS: Creatine Kinase MB 0.6 ng/mL (0.0-2.4); Troponin I <0.012 ng/mL (0.000-0.034)
--- NOTE | 2017-11-22 17:26 | P.HPIM ---
History of Present Illness H&P Date: 11/22/17 Chief Complaint: Chest pain or chest pressure 67 years old male patient one of my patient and Dr. JINA Ng with past history hypertension, hyperlipidemia, coronary artery disease with prior stent placement with history of myocardial infarction status post coronary artery bypass grafting surgery in [facility] in 2010. Patient was admitted last with similar presentation of chest pain in February 2017, underwent Lexiscan stress test which was negative for any reversible ischemia. Patient was recently admitted and discharged 10/27/2017, after chest discomfort episode , and patient underwent a stress dobutamine at that time which was inconclusive secondary to abnormal EKG at baseline, it was a technically difficult dobutamine echo with suboptimal images, however there is no gross evidence to suggest ischemia. Patient was discharged to home with outpatient follow-up, he was started on Citalopram 10 mg daily 4 acute grief persistent anxiety, and aspirin 81 mg daily. During his last admission On 11/18/2017 He presents to the emergency room with 12 hour episode of heat sensation in anterior and posterior chest, as well as heat sensation in the anterior and posterior thigh area, occurred at resting as the patient was getting ready to lay down in bed last night., No chest pressure or chest discomfort, he mentions that this is clammy also, patient was concerned that this might be an angina issue, patient took some nitroglycerin which did not relieve the pain. Patient woke up this morning, and was walking the dog he did fine, when he went home and rested reading a book, the discomfort again started, again with heat sensation anteroposterior, and anteroposterior thigh as well. This is described as a burning sensation without paresthesias, at lunchtime, patient had another episode, subsequent to that, patient decided to go to emergency room. He denies any dyspepsia Ronak Some nausea, no hematuria no melena, patient does not have any headache, she does have some local eye pain without any significant worsening of blurred vision he does have some local blurred vision. Exam significant for hyperactive DTRs, concerning for a possibly multiple sclerosis, he was admitted for 23 hour observation for unstable angina with cardiology consultation. Pertinent imaging studies last time included an MRI of the brain showing extensive demyelination present within the brain, correlate for possible MS chronic small vessel disease, patient was scheduled to see Dr. Vickers outpatient , he was given Solu-Medrol 125 mg every 6 hours during his last admission with tapering oral prednisone starting at 60 mg 3 day taper. Patient currently is on oral prednisone 60 mg Patient mentions that when he had his last cardiac stents several years ago, this is his presentation at that time with heat sensation rather than chest pressure he required 2 stents with cardiac catheterization Patient returns again to the emergency room today November 22, with 4 episodes of sharp pain in the chest, always resting in nature nocturnally by nitroglycerin in, recurrent episodes, he feels right-sided neck pain no dysphagia , similar presentation for his previous MO, other symptoms including leg burning sensation is there however is minimized, patient denies any burning sensation at chest this time. Fire Sprink[employer] consult, as is a recurrent episode for his discomfort, and a stress test that was inconclusive 10/28/2017 secondary to suboptimal views, cardiology to see with possibility of cardiac cath this admission. Review of Systems Constitutional: Reports as per HPI Ears, nose, mouth and throat: Reports as per HPI Cardiovascular: Reports as per HPI, Reports chest pain Respiratory: Reports as per HPI, Denies congestion, Denies cough, Denies cough with sputum, Denies dyspnea, Denies excessive sputum, Denies hemoptysis, Denies home oxygen, Denies pain, Denies pain on inspiration, Denies pleurisy, Denies respiratory infections, Denies sleep apnea, Denies snoring, Denies wheezing Gastrointestinal: Reports as per HPI, Denies abdominal pain, Denies belching, Denies bloating, Denies BRBPR, Denies change in bowel habits, Denies coffee ground emesis, Denies constipation, Denies diarrhea, Denies dyspepsia, Denies early satiety, Denies excessive gas, Denies heartburn, Denies hematemesis, Denies hematochezia, Denies indigestion, Denies jaundice, Denies lactose intolerance, Denies loss of appetite, Denies melena, Denies nausea, Denies vomiting Genitourinary: Reports as per HPI, Denies decreased libido, Denies difficulties fathering child, Denies discharge, Denies dysuria, Denies erectile dysfunction, Denies flank pain, Denies genital pain, Denies genital sores, Denies hematuria, Denies impotence, Denies incontinence, Denies kidney stones, Denies nocturia, Denies polyuria, Denies testicular lump, Denies testicular pain, Denies urinary frequency, Denies urinary hesitancy, Denies urinary retention Musculoskeletal: Reports as per HPI, Denies arm numbness/tingling, Denies atrophy, Denies fractures, Denies frequent falls, Denies gait dysfunction, Denies hot joints, Denies leg numbness/tingling, Denies limitation of motion, Denies loss of height, Denies low back pain, Denies morning stiffness, Denies muscle cramps, Denies muscle weakness, Denies myalgias, Denies neck pain, Denies neck stiffness, Denies prior amputations, Denies redness of joints, Denies shooting arm pain, Denies shooting leg pain Integumentary: Reports as per HPI, Denies acne, Denies boils, Denies brittle nails, Denies change in hair/nails, Denies color changes, Denies darkening of skin, Denies depigmentation, Denies dryness, Denies foot/leg ulcers, Denies growths, Denies hirsutism, Denies lesions, Denies onychomycosis, Denies pruritus , Denies rash, Denies sores, Denies striae, Denies unusual bruising, Denies wounds Neurological: Reports as per HPI, Denies aphasia, Denies ataxia, Denies balance difficulties, Denies burning pain, Denies change in mentation, Denies change in smell/taste, Denies change in speech, Denies confusion, Denies convulsions, Denies double vision, Denies gait dysfunction, Denies head injury, Denies headaches, Denies hearing difficulties, Denies lack of coordination, Denies loss of vision, Denies memory loss, Denies migraines, Denies motor disturbance, Denies numbness, Denies paralysis, Denies paresthesias, Denies seizures, Denies sensory deficit, Denies spasticity, Denies syncope, Denies tic, Denies tingling , Denies transient paralysis, Denies tremors, Denies vertigo, Denies weakness, Denies visual changes Psychiatric: Reports as per HPI, Denies anhedonia, Denies anxiety, Denies anxiety attacks, Denies change in appetite, Denies change in libido, Denies change in sleep habits, Denies confusion, Denies depression, Denies difficulty concentrating, Denies disorientation, Denies hallucinations, Denies hopelessness , Denies hypersomnia, Denies insomnia, Denies irritability, Denies memory loss, Denies mood swings, Denies paranoia, Denies sadness/tearfulness, Denies sleep disturbances, Denies suicidal ideation Endocrine: Reports as per HPI, Denies cold intolerance, Denies deepening of the voice, Denies excessive sweating, Denies excessive thirst, Denies fatigue, Denies flushing, Denies heat intolerance, Denies high blood sugars, Denies increase in ring/shoe/hat size, Denies low blood sugars, Denies nocturia, Denies palpitations, Denies polydipsia, Denies polyphagia, Denies polyuria, Denies proptosis, Denies recent glucocorticoid use, Denies thyroid mass, Denies weight change Hematologic/Lymphatic: Reports as per HPI, Denies easy bleeding, Denies easy bruising, Denies lymphadenopathy, Denies lymphedema, Denies thrombophilia Allergic/Immunologic: Reports as per HPI Past Medical History Past Medical History: Coronary Artery Disease (CAD), Chest Pain / Angina, GERD/ Reflux, Hyperlipidemia, Hypertension, Myocardial Infarction (MO), Skin Disorder , Thyroid Disorder Additional Past Medical History / Comment(s): Pt recently admitted to [facility] on with heat sensation anterior/posterior chest. Other hx: Stable thyroid nodule, rosacia, past shingelles. Last Myocardial Infarction Date:: 1997 History of Any Multi-Drug Resistant Organisms: None Reported Past Surgical History: Cholecystectomy, Coronary Bypass/CABG, Heart Catheterization With Stent Additional Past Surgical History / Comment(s): Pt thinks he's had 3 heart caths and 6 stents then in 2010 triple vessel CABG (done in [place]), thyroid bx Past Anesthesia/Blood Transfusion Reactions: No Reported Reaction Additional Past Anesthesia/Blood Transfusion Reaction / Comment(s): No previous blood transfusions that he is aware of. Hx of clausterphobia. Date of Last Stent Placement:: ? Smoking Status: Former smoker - Past Family History Mother Family Medical History: Coronary Artery Disease (CAD), Diabetes Mellitus Father Family Medical History: No Reported History Sister(s) Family Medical History: Coronary Artery Disease (CAD), Diabetes Mellitus Medications and Allergies Home Medications Medication Instructions Recorded Confirmed Type Lisinopril [Prinivil] 10 mg PO DAILY 02/22/17 11/22/17 History Minocycline HCl [Minocin] 50 mg PO HS 02/22/17 11/22/17 History Nitroglycerin Sl Tabs [Nitrostat] 0.4 mg SUBLINGUAL Q5M PRN 02/22/17 11/22/17 History traMADol HCL [Ultram] 50 mg PO Q6H PRN 02/22/17 11/22/17 History ALPRAZolam [Xanax] 0.25 mg PO DAILY PRN 09/05/17 11/22/17 History Metoprolol Tartrate [Lopressor] 50 mg PO BID 09/05/17 11/22/17 History Aspirin 81 mg PO DAILY #30 chew 10/28/17 11/22/17 Rx Citalopram Hydrobromide [CeleXA] 10 mg PO DAILY #30 tab 10/28/17 11/22/17 Rx Atorvastatin [Lipitor] 80 mg PO HS 11/18/17 11/22/17 History predniSONE 20 mg PO DAILY #31 tab 11/19/17 11/22/17 Rx Allergies Allergy/AdvReac Type Severity Reaction Status Date / Time No Known Allergies Allergy Verified 11/22/17 09:51 Physical Exam Vitals: Vital Signs Temp Pulse Pulse Resp BP BP Pulse Ox 11/22/17 13:15 98.6 F 66 18 143/82 96 11/22/17 12:13 61 20 141/80 99 11/22/17 12:08 98.5 F 11/22/17 11:45 66 18 160/81 96 11/22/17 09:24 99.4 F 78 20 182/90 100 Intake and Output 11/22/17 11/22/17 11/22/17 06:59 14:59 22:59 Other: Weight 78.6 kg - Constitutional General appearance: average body habitus, cooperative, no acute distress, obese - EENT Eyes: anicteric sclerae, EOMI, dentition normal, normal appearance ENT: NA/AT, normal oropharynx - Neck Neck: normal ROM - Respiratory Respiratory: bilateral: CTA, negative: diminished, dullness, rales, rhonchi - Cardiovascular Rhythm: regular Abnormal Heart Sounds: no systolic murmur, no diastolic murmur, no rub, no S3 Gallop, no S4 Gallop, no click, no other - Gastrointestinal General gastrointestinal: normal bowel sounds, soft - Integumentary Integumentary: normal, normal turgor - Neurologic Hyperactive DTRs mo tor Strength bilateral normal no focal motor deficits Neurologic: CNII-XII intact - Musculoskeletal Musculoskeletal: gait normal, strength equal bilaterally - Psychiatric Psychiatric: A&O x's 3, intact judgment & insight Results CBC & Chem 7: 11/22/17 10:05 11/22/17 10:05 Labs: Abnormal Lab Results - Last 24 Hours (Table) 11/22/17 11/22/17 Range/Units 10:05 10:05 Sodium 136 L (137-145) mmol/L Glucose 133 H (74-99) mg/dL Urine Protein 1+ H (Negative) Amorphous Sediment Rare H (None) /hpf Urine Mucus Occasional H (None) /hpf Laboratory Results WBC 8.1 k/uL (3.8-10.6) 11/22/17 10:05 RBC 5.45 m/uL (4.30-5.90) 11/22/17 10:05 Hgb 15.2 gm/dL (13.0-17.5) 11/22/17 10:05 Hct 45.6 % (39.0-53.0) 11/22/17 10:05 MCV 83.6 fL (80.0-100.0) 11/22/17 10:05 MCH 28.0 pg (25.0-35.0) 11/22/17 10:05 MCHC 33.5 g/dL (31.0-37.0) 11/22/17 10:05 RDW 14.7 % (11.5-15.5) 11/22/17 10:05 Plt Count 214 k/uL (150-450) 11/22/17 10:05 Neutrophils % 72 % 11/22/17 10:05 Lymphocytes % 17 % 11/22/17 10:05 Monocytes % 8 % 11/22/17 10:05 Eosinophils % 1 % 11/22/17 10:05 Basophils % 0 % 11/22/17 10:05 Neutrophils # 5.8 k/uL (1.3-7.7) 11/22/17 10:05 Lymphocytes # 1.4 k/uL (1.0-4.8) 11/22/17 10:05 Monocytes # 0.7 k/uL (0-1.0) 11/22/17 10:05 Eosinophils # 0.1 k/uL (0-0.7) 11/22/17 10:05 Basophils # 0.0 k/uL (0-0.2) 11/22/17 10:05 PT 9.9 sec (9.0-12.0) 11/22/17 10:05 INR 1.0 (<1.2) 11/22/17 10:05 APTT 23.3 sec (22.0-30.0) 11/22/17 10:05 Sodium 136 mmol/L (137-145) L 11/22/17 10:05 Potassium 3.8 mmol/L (3.5-5.1) 11/22/17 10:05 Chloride 100 mmol/L (98-107) 11/22/17 10:05 Carbon Dioxide 22 mmol/L (22-30) 11/22/17 10:05 Anion Gap 14 mmol/L 11/22/17 10:05 BUN 18 mg/dL (9-20) 11/22/17 10:05 Creatinine 0.90 mg/dL (0.66-1.25) 11/22/17 10:05 Est GFR (CKD-EPI)AfAm >90 (>60 ml/min/1.73 sqM) 11/22/17 10:05 Est GFR (CKD-EPI)NonAf 88 (>60 ml/min/1.73 sqM) 11/22/17 10:05 Glucose 133 mg/dL (74-99) H 11/22/17 10:05 Plasma Lactic Acid Gomez 1.3 mmol/L (0.7-2.0) 11/22/17 10:05 Calcium 9.0 mg/dL (8.4-10.2) 11/22/17 10:05 Magnesium 2.0 mg/dL (1.6-2.3) 11/22/17 10:05 Total Bilirubin 0.7 mg/dL (0.2-1.3) 11/22/17 10:05 AST 28 U/L (17-59) 11/22/17 10:05 ALT 49 U/L (21-72) 11/22/17 10:05 Alkaline Phosphatase 101 U/L (38-126) 11/22/17 10:05 Total Creatine Kinase 85 U/L (55-170) 11/22/17 15:46 CK-MB (CK-2) 0.6 ng/mL (0.0-2.4) 11/22/17 15:46 CK-MB (CK-2) Rel Index 0.7 11/22/17 15:46 Troponin I <0.012 ng/mL (0.000-0.034) 11/22/17 15:46 Total Protein 6.5 g/dL (6.3-8.2) 11/22/17 10:05 Albumin 3.9 g/dL (3.5-5.0) 11/22/17 10:05 Urine Color Yellow 11/22/17 10:05 Urine Appearance Cloudy (Clear) 11/22/17 10:05 Urine pH 6.5 (5.0-8.0) 11/22/17 10:05 Ur Specific [place] 1.020 (1.001-1.035) 11/22/17 10:05 Urine Protein 1+ (Negative) H 11/22/17 10:05 Urine Glucose (UA) Negative (Negative) 11/22/17 10:05 Urine Ketones Negative (Negative) 11/22/17 10:05 Urine Blood Negative (Negative) 11/22/17 10:05 Urine Nitrite Negative (Negative) 11/22/17 10:05 Urine Bilirubin Negative (Negative) 11/22/17 10:05 Urine Urobilinogen <2.0 mg/dL (<2.0) 11/22/17 10:05 Ur Leukocyte Esterase Negative (Negative) 11/22/17 10:05 Urine RBC 3 /hpf (0-5) 11/22/17 10:05 Urine WBC <1 /hpf (0-5) 11/22/17 10:05 Amorphous Sediment Rare /hpf (None) H 11/22/17 10:05 Urine Mucus Occasional /hpf (None) H 11/22/17 10:05 Influenza Type A RNA Not Detected (Not Detectd) 11/22/17 10:05 Influenza Type B (PCR) Not Detected (Not Detectd) 11/22/17 10:05 Thrombosis Risk Factor Assmnt - Choose All That Apply Any of the Below Risk Factors Present?: Yes Each Factor Represents 1 point: Obesity (BMI >25) Other Risk Factors: Yes Each Risk Factor Represents 2 Points: Age 61-74 years Other congenital or acquired thrombophilia - If yes, enter type in comment: No Thrombosis Risk Factor Assessment Total Risk Factor Score: 3 Thrombosis Risk Factor Assessment Level: Moderate Risk Assessment and Plan Plan: 1. Atypical chest pain this could be an unstable angina equivalent with known coronary artery disease, multiple admissions related to chest symptoms, patient was seen by cardiology, catheterization is likely would be needed to delineate evaluate pathology on coronaries vessels, continue on, CTA of the chest to evaluate for PE as well as aortic disection has been ordered, 2extensive demyelination with recent brain MRI brrain as he presented with sensory perception of heat or burning sensation {Disturbance in skin condition } Dysesthesia, anterior posterior chest and bilateral thighs, with hyperactive DTRs, currently on tapering prednisone, Dr. Sethi to see as an outpatient and has been scheduled 2 hypertensive cardiovascular disease with prior history of cardiac stents, recent dobutamine stress test is inconclusive secondary to suboptimal images, and baseline EKG changes ontinue metoprolol and lisinopril cardiology is on consult and monitor for troponins, patient had recently had blood work and laboratory workup, 10/27/2017 3 Anxiety/ depression - Stable, with good coping skills, citalopram 10 mg continued 4. Hyperlipidemia, on Lipitor 80 5. Rosacea, stable on maintenance doxycycline 50 mg daily 6. Thyroid nodule stable 7. Current use of prednisone on tapering mode, PPIs will be ordered GI prophylaxis DVT prophylaxis
[2017-11-22] MEDS: PANTOPRAZOLE 40 MG TABLET PO SCH (17:51)
[2017-11-22] MEDS: CLOTRIMAZOLE TROCHE 10 MG TROCHE MUCOUS MEM SCH ×3 (17:51→23:48)
[2017-11-22] MEDS: NITROGLYCERIN OINT 1 INCH/GM PACKET TOPICAL SCH ×2 (17:54→23:48)
--- NOTE | 2017-11-22 18:33 | CT ---
EXAMINATION TYPE: CT angio chest DATE OF EXAM: 11/22/2017 6:06 PM COMPARISON: NONE HISTORY: Chest pain for 1+ months CT DLP: 653.6 mGycm Automated exposure control for dose reduction was used. CONTRAST: CTA scan of the thorax is performed with IV Contrast, patient injected with 125 mL of Isovue 370, pul monary embolism protocol. There are 3-D post processed images.. FINDINGS: The lungs are clear of infiltrate. There is no evidence of a pulmonary mass. There is no pleural effu miguel. There is minimal reticular density at the lung bases. There is no pericardial effusion. I see no filling defects in the pulmonary arteries. Thoracic aorta shows mild atheromatous change. Th ere is no evidence of aneurysm or dissection. Aorta measures 3.5 cm at the arch. There are no hilar masses. There is no mediastinal adenopathy. There are sternal wires. There is some atherosclerotic vascular coronary artery calcification. Bony structures are intact. IMPRESSION: ATHEROSCLEROTIC VASCULAR DISEASE. NO EVIDENCE OF PULMONARY EMBOLISM.
[2017-11-22] MEDS: ATORVASTATIN 80 MG TAB PO SCH (20:45)
[2017-11-22] MEDS: MINOCYCLINE 50 MG CAP PO SCH (20:45)
[2017-11-22] MEDS: METOPROLOL TARTRATE 50 MG TAB PO SCH (20:45)
[2017-11-22 23:53] LABS: Creatine Kinase 77 U/L (55-170)
[2017-11-23 00:07] LABS: Creatine Kinase MB 0.6 ng/mL (0.0-2.4); Troponin I <0.012 ng/mL (0.000-0.034)
[2017-11-23] MEDS: CLOTRIMAZOLE TROCHE 10 MG TROCHE MUCOUS MEM SCH ×5 (06:46→21:14)
[2017-11-23] MEDS: NITROGLYCERIN OINT 1 INCH/GM PACKET TOPICAL SCH ×4 (06:46→21:15)
[2017-11-23 07:25] LABS: Anion Gap 11 mmol/L; Blood Urea Nitrogen 18 mg/dL (9-20); Calcium 8.7 mg/dL (8.4-10.2); Carbon Dioxide 25 mmol/L (22-30); Chloride 101 mmol/L (98-107); Glucose 102 mg/dL (74-99); Sodium 137 mmol/L (137-145)
[2017-11-23] MEDS: CITALOPRAM HYDROBROMIDE 10 MG TAB PO SCH (08:55)
[2017-11-23] MEDS: LISINOPRIL 10 MG TAB PO SCH (08:55)
[2017-11-23] MEDS: ASPIRIN 81 MG PO SCH (08:55)
[2017-11-23] MEDS: predniSONE 20 MG TAB PO SCH (08:55)
[2017-11-23] MEDS: PANTOPRAZOLE 40 MG TABLET PO SCH (08:55)
[2017-11-23] MEDS ORDERED: ASPIRIN 325 MG TAB PO SCH (09:00)
[2017-11-23] MEDS: METOPROLOL TARTRATE 50 MG TAB PO SCH ×2 (09:09→19:58)
--- NOTE | 2017-11-23 09:29 | PN ---
PROGRESS NOTE HISTORY: Mr. Moody is a 67-year-old male with a history of coronary artery disease status post bypass grafting, who was admitted to the hospital with symptoms of chest discomfort. He has underwent coronary bypass grafting a few years ago and had a recent admission with recurrent chest pain. He was supposed to see Dr. Malou Ng as an outpatient, but never made that appointment. He has felt well this morning. He has no chest pain. His breathing is stable. No dizziness. No palpitation. No syncope. No PND. He continues to be on aspirin once a day, Lipitor 80 mg daily, IV heparin, lisinopril 10 mg daily, metoprolol tartrate 50 mg twice a day. Nitro paste 1 inch q.6 hours. PHYSICAL EXAMINATION: Blood pressure 109/60 with a heart in the 60s. LUNGS: Clear. Heart regular rate and rhythm, S1, S2. No S3. No rub. ABDOMEN: Soft, nontender. EXTREMITIES: No edema. LAB DATA: Revealed BUN and creatinine of 18 and 0.9, potassium 4.0. IMPRESSION: 1. Episode of chest discomfort of unclear etiology in a patient with known history of coronary artery disease with recurrent pain. 2. History of coronary artery bypass grafting. 3. Hypertension. 4. Hyperlipidemia. RECOMMENDATION: The plan is to proceed with cardiac catheterization on Saturday to further assess his status and guide his treatment. Depending on his progress, further recommendation will be made. MMODL / IJN: [id number] /
--- NOTE | 2017-11-23 13:07 | P.PN ---
Subjective Progress Note Date: 11/23/17 Principal diagnosis: Chest pain Patient continued to have occasional chest pain and feeding week and fatigue overall patient is denying shortness breath abdominal pain dizziness lightheadedness or dysuria. Patient's tolerating diet without difficulties ambulating to the bathroom on his own without assistance Objective - Vital Signs Vital signs: Vital Signs Temp 98.3 F 11/23/17 12:00 Pulse 51 L 11/23/17 12:00 Resp 16 11/23/17 12:00 BP 135/71 11/23/17 12:00 Pulse Ox 99 11/23/17 12:00 Intake & Output 11/22/17 11/23/17 11/23/17 18:59 06:59 18:59 Intake Total 600 800 396.875 Balance 600 800 396.875 Weight 78.6 kg 78.6 kg Intake: Intake, IV Titration 800 396.875 Amount Heparin Sod,Pork in 0.45% 160 396.875 NaCl 25,000 unit In 0.45 % NaCl 1 500ml.bag @ 12 UNITS/KG/HR 19.05 mls/hr IV .Q24H [facility] Rx#: [id number] Sodium Chloride 0.9% 1, 640 000 ml In Empty Bag 1 bag @ 1 ML/KG/HR 78.6 mls/hr IV .[id number] [facility] Rx#: [id number] Oral 400 Other 200 Other: Voiding Method Toilet # Voids 3 3 - Exam Gen.: in stated age, no acute distress Heart: Normal S1-S2 Lungs: Clear to auscultation bilaterally Abdomen: Soft, no tenderness, positive bowel sounds in all 4 quadrant no guarding or rebound Skin: No new rash Psych: Alert and oriented 3 Neuro: No focal deficit - Labs CBC & Chem 7: 11/22/17 10:05 11/23/17 06:40 Labs: Abnormal Lab Results - Last 24 Hours (Table) 11/22/17 11/23/17 11/23/17 Range/Units 18:40 06:40 06:41 APTT 58.0 H 79.0 H (22.0-30.0) sec Glucose 102 H (74-99) mg/dL Microbiology - Last 24 Hours (Table) 11/22/17 10:05 Blood Culture - Preliminary Blood No Growth after 24 hours Assessment and Plan Assessment: 1. Atypical chest pain. Patient has significant history for coronary artery disease with history of cardiac bypass in the past cardiology would like to continue with heparin drip and plan for cardiac catheterization on Saturday would continue monitoring vital signs closely continue cardioprotective medication and keep nothing by mouth Saturday midnight. 2. Hypertension. Fairly controlled we will continue current medication. 3. Hyperlipidemia. Continue statin. 4. Obesity. Counseled patient regarding weight loss Discharge planning after cardiac catheterization based on results.
[2017-11-23] MEDS: HEPARIN SOD,PORK IN 0.45% NACL 25,000 UNIT in 0.45% NACL 1 500ML.BAG IV SCH (17:24)
[2017-11-23] MEDS: MINOCYCLINE 50 MG CAP PO SCH (19:58)
[2017-11-23] MEDS: ATORVASTATIN 80 MG TAB PO SCH (19:58)
[2017-11-24] MEDS: PANTOPRAZOLE 40 MG TABLET PO SCH (06:13)
[2017-11-24] MEDS: CLOTRIMAZOLE TROCHE 10 MG TROCHE MUCOUS MEM SCH ×5 (06:13→23:46)
[2017-11-24] MEDS: NITROGLYCERIN OINT 1 INCH/GM PACKET TOPICAL SCH ×4 (06:13→23:46)
[2017-11-24] MEDS: CITALOPRAM HYDROBROMIDE 10 MG TAB PO SCH (08:07)
[2017-11-24] MEDS: predniSONE 20 MG TAB PO SCH (08:07)
[2017-11-24] MEDS: ASPIRIN 81 MG PO SCH (08:07)
[2017-11-24] MEDS: METOPROLOL TARTRATE 50 MG TAB PO SCH ×2 (08:07→19:57)
[2017-11-24] MEDS: LISINOPRIL 10 MG TAB PO SCH (08:07)
[2017-11-24 08:35] LABS: HGB 14.2 gm/dL (13.0-17.5); MCHC 33.1 g/dL (31.0-37.0); MCV 84.7 fL (80.0-100.0); Mean Platelet Volume 6.9; Platelet Count 187 k/uL (150-450); RBC 5.08 m/uL (4.30-5.90); RDW 14.8 % (11.5-15.5); WBC 7.4 k/uL (3.8-10.6)
[2017-11-24 09:04] LABS: ALT 36 U/L (21-72); Albumin 3.4 g/dL (3.5-5.0); Alkaline Phosphatase 82 U/L (38-126); Anion Gap 11 mmol/L; Blood Urea Nitrogen 15 mg/dL (9-20); Calcium 8.8 mg/dL (8.4-10.2); Carbon Dioxide 25 mmol/L (22-30); Chloride 99 mmol/L (98-107); Glucose 104 mg/dL (74-99); Magnesium 1.9 mg/dL (1.6-2.3); Potassium 4.2 mmol/L (3.5-5.1); Sodium 135 mmol/L (137-145); Total Bilirubin 0.6 mg/dL (0.2-1.3); Total Protein 5.9 g/dL (6.3-8.2)
[2017-11-24 09:43] LABS: AST 24 U/L (17-59)
--- NOTE | 2017-11-24 10:58 | PN ---
PROGRESS NOTE HISTORY: Mr. Moody is a 67-year-old male with a history of coronary artery disease status post coronary artery bypass grafting, who presented with symptoms of chest discomfort. He has some sharp discomfort on and off today. Otherwise, he is feeling well. His breathing has been stable. He denies any dizziness palpitation. He denies any nausea. He is scheduled to undergo coronary angiography tomorrow. He continues to be on aspirin once a day, Lipitor 80 mg daily, IV heparin, lisinopril 10 mg daily, metoprolol tartrate 50 mg twice a day. Nitro paste 1 inch q.6 hours. PHYSICAL EXAMINATION: Blood pressure 136/70 with a heart in 50. LUNGS: Clear. Regular rate, rhythm S1, S2. No S3. No rub. ABDOMEN: Soft, nontender. EXTREMITIES: No edema. LAB DATA: BUN and creatinine 15 and 0.9. Hemoglobin of 14.2. IMPRESSION: 1. Symptoms of chest discomfort in a patient with known history of coronary artery disease status post coronary artery bypass grafting. Rule out progression of disease. 2. Hypertension. 3. Hyperlipidemia. RECOMMENDATION: Patient will proceed with cardiac catheterization in the morning to further assess the status and guide his treatment. Depending on the results of testing, further recommendations will be made. MMODL / IJN: [id number] /
--- NOTE | 2017-11-24 11:47 | P.PN ---
Subjective Progress Note Date: 11/24/17 Principal diagnosis: Chest pain Patient continued to be modalities stable no major events reported by nursing staff patient is reporting occasional left upper chest that it's results and at sewn. Patient is denying chest pain shortness breath nausea vomiting abdominal pain dizziness lightheadedness or blurry vision Objective - Vital Signs Vital signs: Vital Signs Temp 98.1 F 11/24/17 11:27 Pulse 64 11/24/17 11:28 Resp 20 11/24/17 11:28 BP 138/71 11/24/17 11:27 Pulse Ox 98 11/24/17 09:08 Intake & Output 11/23/17 11/24/17 11/24/17 18:59 06:59 18:59 Intake Total 980.000 280.37 Balance 980.000 280.37 Weight 78.6 kg 78.2 kg Intake: IV 240 .9 @ 20 240 Intake, IV Titration 500.000 280.37 Amount Heparin Sod,Pork in 0.45% 500.000 280.37 NaCl 25,000 unit In 0.45 % NaCl 1 500ml.bag @ 12 UNITS/KG/HR 19.05 mls/hr IV .Q24H [facility] Rx#: [id number] Oral 240 Other: Voiding Method Toilet Toilet Toilet # Voids 3 2 3 # Bowel Movements 2 - Exam Gen.: in stated age, no acute distress Heart: Normal S1-S2 Lungs: Clear to auscultation bilaterally Abdomen: Soft, no tenderness, positive bowel sounds in all 4 quadrant no guarding or rebound Skin: No new rash Psych: Alert and oriented 3 Neuro: No focal deficit - Labs CBC & Chem 7: 11/24/17 08:10 11/24/17 08:10 Labs: Abnormal Lab Results - Last 24 Hours (Table) 11/23/17 11/24/17 11/24/17 Range/Units 15:30 08:10 10:22 APTT 68.3 H 97.9 H* (22.0-30.0) sec Sodium 135 L (137-145) mmol/L Glucose 104 H (74-99) mg/dL Total Protein 5.9 L (6.3-8.2) g/dL Albumin 3.4 L (3.5-5.0) g/dL Microbiology - Last 24 Hours (Table) 11/22/17 10:05 Blood Culture - Preliminary Blood No Growth after 24 hours Assessment and Plan Assessment: 1. Atypical chest pain. Patient has significant history for coronary artery disease with history of cardiac bypass in the past cardiology would like to continue with heparin drip and plan for cardiac catheterization on Saturday would continue monitoring vital signs closely continue cardioprotective medication and keep nothing by mouth Saturday midnight. 2. Hypertension. Fairly controlled we will continue current medication. 3. Hyperlipidemia. Continue statin. 4. Obesity. Counseled patient regarding weight loss I have discussed the case with tool storage attendant would keep patient's nothing by mouth after midnight for cardiac catheterization in the morning. Patient is agreeable to current treatment plan and will consider discharge based on clinical progress
[2017-11-24] MEDS: HEPARIN SOD,PORK IN 0.45% NACL 25,000 UNIT in 0.45% NACL 1 500ML.BAG IV SCH (12:29)
[2017-11-24] MEDS: MINOCYCLINE 50 MG CAP PO SCH (19:57)
[2017-11-24] MEDS: ATORVASTATIN 80 MG TAB PO SCH (19:57)
[2017-11-25] MEDS: PANTOPRAZOLE 40 MG TABLET PO SCH (06:04)
[2017-11-25] MEDS: CITALOPRAM HYDROBROMIDE 10 MG TAB PO SCH (06:04)
[2017-11-25] MEDS: ASPIRIN 81 MG PO SCH (06:04)
[2017-11-25] MEDS: NITROGLYCERIN OINT 1 INCH/GM PACKET TOPICAL SCH ×4 (06:04→23:30)
[2017-11-25] MEDS: predniSONE 20 MG TAB PO SCH (06:05)
[2017-11-25] MEDS: METOPROLOL TARTRATE 50 MG TAB PO SCH ×2 (06:05→20:23)
[2017-11-25] MEDS: LISINOPRIL 10 MG TAB PO SCH (06:05)
[2017-11-25] MEDS: CLOTRIMAZOLE TROCHE 10 MG TROCHE MUCOUS MEM SCH ×5 (08:05→23:30)
[2017-11-25] MEDS ORDERED: IV FLUID CONTINUATION 1,000 ML IV ONE (09:37)
[2017-11-25] MEDS ORDERED: LIDOCAINE 2% INJ 20 MG/ML SQ ONE (10:06)
[2017-11-25] MEDS ORDERED: MIDAZOLAM 2 MG/2 ML VIAL IV ONE (10:07)
[2017-11-25] MEDS ORDERED: IOPAMIDOL-370 100ML BTL INJ ONE ×2 (10:21→10:37)
[2017-11-25] MEDS ORDERED: RX INFO: IV CONTRAST WAS GIVEN 1 EACH MISC MISCELLANE PRN (10:42)
--- NOTE | 2017-11-25 11:17 | CC ---
CARDIAC CATHETERIZATION REPORT INDICATION: Unstable angina in a patient with known CAD, status post prior bypass surgery. PROCEDURE NOTE: After obtaining informed consent, left heart catheterization and coronary angiogram and selective injection of the bypass graft was performed from the right femoral artery using standard Cara catheters. The patient tolerated the procedure well without any obvious immediate complications. The bypass graft to the OM branch was engaged using left venous graft catheter. Patient tolerated the procedure well without any obvious immediate complications. A femoral angiogram was performed and decision was made for manual hemostasis. Patient received moderate conscious sedation and total sedation time was 31 minute. FINDINGS: 1. HEMODYNAMICS: Left ventricular end-diastolic pressure is 12-14 mm. There is no significant gradient across the aortic valve. 2. LEFT VENTRICULOGRAM: Left ventriculogram was not performed. 3. ANGIOGRAPHIC DATA: 4. LEFT MAIN CORONARY ARTERY: Left main coronary artery is a normal-sized vessel and is free of stenosis. Divides into left anterior descending coronary artery and circumflex coronary artery. LAD is totally occluded in its midportion. 5. CIRCUMFLEX CORONARY ARTERY: Gives off an OM branch that shows a 70%-80% stenosis. RIGHT CORONARY ARTERY: Shows severe stenosis in its midportion. Stent within the proximal circumflex coronary artery appears patent. BYPASS GRAFTS: 1. TURNER to LAD is patent, proximal and distal anastomotic sites are free of stenosis. 2. Venous graft to the PDA appears patent. Both the anastomotic sites are free of disease. The body of the graft appears normal. [place] right coronary artery appears normal. 3. Venous graft to the OM branch is patent, free of disease. CONCLUSION: [place] 3-vessel coronary artery disease with patent TURNER to LAD, patent venous graft to PDA and patent venous graft to OM branch. PLAN: I reviewed angiographic data with the patient and told him that his management is going to be in the form medical therapy and aggressive risk-factor modification. MMODL / IJN: [id number] /
--- NOTE | 2017-11-25 11:46 | P.PN ---
Subjective 67 years old male patient one of my patient and Dr. JINA Ng with past history hypertension, hyperlipidemia, coronary artery disease with prior stent placement with history of myocardial infarction status post coronary artery bypass grafting surgery in [facility] in 2010. Patient was admitted last with similar presentation of chest pain in February 2017, underwent Lexiscan stress test which was negative for any reversible ischemia. Patient was recently admitted and discharged 10/27/2017, after chest discomfort episode , and patient underwent a stress dobutamine at that time which was inconclusive secondary to abnormal EKG at baseline, it was a technically difficult dobutamine echo with suboptimal images, however there is no gross evidence to suggest ischemia. Patient was discharged to home with outpatient follow-up, he was started on Citalopram 10 mg daily 4 acute grief persistent anxiety, and aspirin 81 mg daily. During his last admission On 11/18/2017 He presents to the emergency room with 12 hour episode of heat sensation in anterior and posterior chest, as well as heat sensation in the anterior and posterior thigh area, occurred at resting as the patient was getting ready to lay down in bed last night., No chest pressure or chest discomfort, he mentions that this is clammy also, patient was concerned that this might be an angina issue, patient took some nitroglycerin which did not relieve the pain. Patient woke up this morning, and was walking the dog he did fine, when he went home and rested reading a book, the discomfort again started, again with heat sensation anteroposterior, and anteroposterior thigh as well. This is described as a burning sensation without paresthesias, at lunchtime, patient had another episode, subsequent to that, patient decided to go to emergency room. He denies any dyspepsia Ronak Some nausea, no hematuria no melena, patient does not have any headache, she does have some local eye pain without any significant worsening of blurred vision he does have some local blurred vision. Exam significant for hyperactive DTRs, concerning for a possibly multiple sclerosis, he was admitted for 23 hour observation for unstable angina with cardiology consultation. Pertinent imaging studies last time included an MRI of the brain showing extensive demyelination present within the brain, correlate for possible MS chronic small vessel disease, patient was scheduled to see Dr. Vickers outpatient , he was given Solu-Medrol 125 mg every 6 hours during his last admission with tapering oral prednisone starting at 60 mg 3 day taper. Patient currently is on oral prednisone 60 mg Patient mentions that when he had his last cardiac stents several years ago, this is his presentation at that time with heat sensation rather than chest pressure he required 2 stents with cardiac catheterization Patient returns again to the emergency room today November 22, with 4 episodes of sharp pain in the chest, always resting in nature nocturnally by nitroglycerin in, recurrent episodes, he feels right-sided neck pain no dysphagia , similar presentation for his previous [place], other symptoms including leg burning sensation is there however is minimized, patient denies any burning sensation at chest this time. Polysomnography Tech consult, as is a recurrent episode for his discomfort, and a stress test that was inconclusive 10/28/2017 secondary to suboptimal views, cardiology to see with possibility of cardiac cath this admission. 11/23: Patient continued to have occasional chest pain and feeding week and fatigue overall patient is denying shortness breath abdominal pain dizziness lightheadedness or dysuria. Patient's tolerating diet without difficulties ambulating to the bathroom on his own without assistance. 11/24: Patient continued to be modalities stable no major events reported by nursing staff patient is reporting occasional left upper chest that it's results and at sewn. Patient is denying chest pain shortness breath nausea vomiting abdominal pain dizziness lightheadedness or blurry vision 11/25: Patient was evaluated today. He is scheduled for a cardiac catheterization this morning. Troponin's have been negative x3, he did undergo a chest CTA on admission that showed atherosclerotic vascular disease, there is no evidence for pulmonary embolism. Blood cultures show no growth to date, both influenza A and B were negative. Vital signs have been stable. Objective - Vital Signs Vital signs: Vital Signs Temp 98.1 F 11/25/17 08:05 Pulse 53 L 11/25/17 08:05 Resp 16 11/25/17 08:05 BP 177/72 11/25/17 08:05 Pulse Ox 97 11/25/17 08:05 Intake & Output 11/24/17 11/25/17 11/25/17 18:59 06:59 18:59 Intake Total 644.444 79.251 Balance 644.444 79.251 Weight 78.2 kg Intake: Intake, IV Titration 284.444 79.251 Amount Heparin Sod,Pork in 0.45% 284.444 79.251 NaCl 25,000 unit In 0.45 % NaCl 1 500ml.bag @ 12 UNITS/KG/HR 19.05 mls/hr IV .Q24H [facility] Rx#: [id number] Oral 360 0 Other: Voiding Method Toilet Toilet # Voids 1 2 # Bowel Movements 2 - Exam - Constitutional General appearance: average body habitus, cooperative, no acute distress, obese - EENT Eyes: anicteric sclerae, EOMI, dentition normal, normal appearance ENT: NA/AT, normal oropharynx - Neck Neck: normal ROM - Respiratory Respiratory: bilateral: CTA, negative: diminished, dullness, rales, rhonchi - Cardiovascular Rhythm: regular Abnormal Heart Sounds: no systolic murmur, no diastolic murmur, no rub, no S3 Gallop, no S4 Gallop, no click, no other - Gastrointestinal General gastrointestinal: normal bowel sounds, soft - Integumentary Integumentary: normal, normal turgor - Neurologic Hyperactive DTRs mo tor Strength bilateral normal no focal motor deficits Neurologic: CNII-XII intact - Musculoskeletal Musculoskeletal: gait normal, strength equal bilaterally - Psychiatric Psychiatric: A&O x's 3, intact judgment & insight - Labs CBC & Chem 7: 11/24/17 08:10 11/24/17 08:10 Labs: Abnormal Lab Results - Last 24 Hours (Table) 11/24/17 11/24/17 11/24/17 Range/Units 08:10 10:22 18:04 APTT 97.9 H* 45.5 H (22.0-30.0) sec Sodium 135 L (137-145) mmol/L Glucose 104 H (74-99) mg/dL Total Protein 5.9 L (6.3-8.2) g/dL Albumin 3.4 L (3.5-5.0) g/dL 11/25/17 Range/Units 01:21 APTT 61.5 H (22.0-30.0) sec Sodium (137-145) mmol/L Glucose (74-99) mg/dL Total Protein (6.3-8.2) g/dL Albumin (3.5-5.0) g/dL Microbiology - Last 24 Hours (Table) 11/22/17 10:05 Blood Culture - Preliminary Blood No Growth after 48 hours Assessment and Plan Plan: 1. Atypical chest pain this could be an unstable angina equivalent with known coronary artery disease, multiple admissions related to chest symptoms, patient was seen by cardiology, catheterization is scheduled today, CTA of the chest to evaluate for PE was negative. 2. Extensive demyelination with recent brain MRI brrain as he presented with sensory perception of heat or burning sensation {Disturbance in skin condition } Dysesthesia, anterior posterior chest and bilateral thighs, with hyperactive DTRs, currently on tapering prednisone, Dr. Sethi to see as an outpatient and has been scheduled 3. hypertensive cardiovascular disease with prior history of cardiac stents, recent dobutamine stress test is inconclusive secondary to suboptimal images, and baseline EKG changes, continue metoprolol and lisinopril cardiology is on consult, patient had recently had blood work and laboratory workup, 10/27/2017 3 Anxiety/ depression - Stable, with good coping skills, citalopram 10 mg continued and xanax 0.25mg as needed 4. Hyperlipidemia, on Lipitor 80 5. Rosacea, stable on maintenance doxycycline 50 mg daily 6. Thyroid nodule stable 7. Current use of prednisone on tapering mode, PPIs will be ordered GI prophylaxis protonix DVT prophylaxis Heparin The above impression and plan of care have been discussed and directed by signing physician, patient was seen and evaluation by signing physician. Karine Cruz nurse practitioner acting as scribe.
[2017-11-25] MEDS: HEPARIN SOD,PORK IN 0.45% NACL 25,000 UNIT in 0.45% NACL 1 500ML.BAG IV SCH (13:10)
[2017-11-25] MEDS: MINOCYCLINE 50 MG CAP PO SCH (20:23)
[2017-11-25] MEDS: ATORVASTATIN 80 MG TAB PO SCH (20:23)
[2017-11-25 22:28] VITALS: RESP 18
[2017-11-26] MEDS: CLOTRIMAZOLE TROCHE 10 MG TROCHE MUCOUS MEM SCH ×2 (06:30→11:04)
[2017-11-26] MEDS: PANTOPRAZOLE 40 MG TABLET PO SCH (06:30)
[2017-11-26] MEDS: NITROGLYCERIN OINT 1 INCH/GM PACKET TOPICAL SCH ×2 (06:31→11:04)
[2017-11-26] MEDS: predniSONE 20 MG TAB PO SCH (08:50)
[2017-11-26] MEDS: ASPIRIN 81 MG PO SCH (08:50)
[2017-11-26] MEDS: METOPROLOL TARTRATE 50 MG TAB PO SCH (08:50)
[2017-11-26] MEDS: CITALOPRAM HYDROBROMIDE 10 MG TAB PO SCH (08:50)
[2017-11-26] MEDS: LISINOPRIL 10 MG TAB PO SCH (08:50)
[2017-11-26] MEDS: HEPARIN SOD,PORK IN 0.45% NACL 25,000 UNIT in 0.45% NACL 1 500ML.BAG IV SCH (10:23)
[2017-11-26 12:35] VITALS: BP 124/65; PULSE 58; TEMP 99.2
--- NOTE | 2017-11-26 14:43 | P.PN ---
Subjective Progress Note Date: 11/26/17 This pleasant 67-year-old gentleman with history of coronary artery disease and prior bypass surgery who presented to the hospital with symptoms of chest discomfort. He underwent a cardiac catheterization yesterday by Dr. Rodríguez and medical therapy was advised. Patient was seen and examined this morning, denies any chest pain or difficulty in breathing. He has been up ambulating without any difficulty. Heart rate are stable. Objective - Vital Signs Vital signs: Vital Signs Temp 99.2 F 11/26/17 12:00 Pulse 58 L 11/26/17 12:00 Resp 18 11/26/17 12:00 BP 124/65 11/26/17 12:00 Pulse Ox 98 11/26/17 12:00 Intake & Output 11/25/17 11/26/17 11/26/17 18:59 06:59 18:59 Intake Total 530 240 Output Total 600 Balance -70 240 Weight 77.7 kg Intake: IV 50 Oral 480 240 Output: Urine 600 Other: Voiding Method Toilet Toilet # Voids 1 1 - Exam PHYSICAL EXAMINATION: HEENT: Head is atraumatic, normocephalic. Pupils equal, round. Neck is supple. There is no elevated jugular venous pressure. HEART EXAMINATION: Heart S1, S2 normal. No murmur or gallop heard. CHEST EXAMINATION: Lungs are clear to auscultation and precussion. No chest wall tenderness is noted on palpation or with deep breathing. ABDOMEN: Soft, nontender. Bowel sounds are heard. No organomegaly noted. Right groin is soft, no evidence of any hematoma. EXTREMITIES: 2+ peripheral pulses with no evidence of peripheral edema and no calf tenderness noted. NEUROLOGIC patient is awake, alert and oriented -3. . - Labs CBC & Chem 7: 11/24/17 08:10 11/24/17 08:10 Labs: Microbiology - Last 24 Hours (Table) 11/22/17 10:05 Blood Culture - Preliminary Blood No Growth after 96 hours Assessment and Plan Plan: Assessment and plan #1 chest discomfort, status post cardiac catheterization lab yesterday, maximal medical therapy advised. #2 known history of coronary artery disease with prior bypass surgery #3 hypertension #4 hyperlipidemia Plan From cardiology's perspective, patient may be able to be discharged home today. We will make him a follow-up appointment to see Dr. Rosado in the office post discharge. DNP note has been reviewed, I agree with a documented findings and plan of care. Patient was seen and examined.
--- NOTE | 2017-11-27 10:20 | P.DS ---
Providers Date of admission: 11/23/17 15:03 Expected date of discharge: 11/26/17 Attending physician: Sabine Cavazos Consults: 11/22/17 11:41 Consult Physician Urgent Consulting Provider: [facility] Consult Reason/Comments: Unstable angina Do you want consulting provider notified?: Yes Primary care physician: Sabine Cavazos [facility] Course: 67 years old male patient one of my patient and Dr. JINA Ng with past history hypertension, hyperlipidemia, coronary artery disease with prior stent placement with history of myocardial infarction status post coronary artery bypass grafting surgery in [facility] in 2010. Patient was admitted last with similar presentation of chest pain in February 2017, underwent Lexiscan stress test which was negative for any reversible ischemia. Patient was recently admitted and discharged 10/27/2017, after chest discomfort episode , and patient underwent a stress dobutamine at that time which was inconclusive secondary to abnormal EKG at baseline, it was a technically difficult dobutamine echo with suboptimal images, however there is no gross evidence to suggest ischemia. Patient was discharged to home with outpatient follow-up, he was started on Citalopram 10 mg daily 4 acute grief persistent anxiety, and aspirin 81 mg daily. During his last admission On 11/18/2017 He presents to the emergency room with 12 hour episode of heat sensation in anterior and posterior chest, as well as heat sensation in the anterior and posterior thigh area, occurred at resting as the patient was getting ready to lay down in bed last night., No chest pressure or chest discomfort, he mentions that this is clammy also, patient was concerned that this might be an angina issue, patient took some nitroglycerin which did not relieve the pain. Patient woke up this morning, and was walking the dog he did fine, when he went home and rested reading a book, the discomfort again started, again with heat sensation anteroposterior, and anteroposterior thigh as well. This is described as a burning sensation without paresthesias, at lunchtime, patient had another episode, subsequent to that, patient decided to go to emergency room. He denies any dyspepsia Ronak Some nausea, no hematuria no melena, patient does not have any headache, she does have some local eye pain without any significant worsening of blurred vision he does have some local blurred vision. Exam significant for hyperactive DTRs, concerning for a possibly multiple sclerosis, he was admitted for 23 hour observation for unstable angina with cardiology consultation. Pertinent imaging studies last time included an MRI of the brain showing extensive demyelination present within the brain, correlate for possible MS chronic small vessel disease, patient was scheduled to see Dr. Vickers outpatient , he was given Solu-Medrol 125 mg every 6 hours during his last admission with tapering oral prednisone starting at 60 mg 3 day taper. Patient currently is on oral prednisone 60 mg Patient mentions that when he had his last cardiac stents several years ago, this is his presentation at that time with heat sensation rather than chest pressure he required 2 stents with cardiac catheterization Patient returns again to the emergency room today November 22, with 4 episodes of sharp pain in the chest, always resting in nature nocturnally by nitroglycerin in, recurrent episodes, he feels right-sided neck pain no dysphagia , similar presentation for his previous [place], other symptoms including leg burning sensation is there however is minimized, patient denies any burning sensation at chest this time. Studio Designer consult, as is a recurrent episode for his discomfort, and a stress test that was inconclusive 10/28/2017 secondary to suboptimal views, cardiology to see with possibility of cardiac cath this admission. 11/23: Patient continued to have occasional chest pain and feeding week and fatigue overall patient is denying shortness breath abdominal pain dizziness lightheadedness or dysuria. Patient's tolerating diet without difficulties ambulating to the bathroom on his own without assistance. 11/24: Patient continued to be modalities stable no major events reported by nursing staff patient is reporting occasional left upper chest that it's results and at sewn. Patient is denying chest pain shortness breath nausea vomiting abdominal pain dizziness lightheadedness or blurry vision 11/25: Patient was evaluated today. He is scheduled for a cardiac catheterization this morning. Troponin's have been negative x3, he did undergo a chest CTA on admission that showed atherosclerotic vascular disease, there is no evidence for pulmonary embolism. Blood cultures show no growth to date, both influenza A and B were negative. Vital signs have been stable. 11/26: Patient underwent heart catheterization yesterday with Dr. Rosado that showed [place] three-vessel coronary artery disease with patent TURNER to LAD, patent venous graft to PDA and patent venous graft to OM branch. Patient has been cleared for discharge by cardiology. Patient has no new cardiac medications. Patient will be discharged home today in stable condition. Discharge diagnoses: 1. Atypical chest pain this could be an unstable angina equivalent with known coronary artery disease 2. Extensive demyelination with recent brain MRI brrain as he presented with sensory perception of heat or burning sensation {Disturbance in skin condition } Dysesthesia, anterior posterior chest and bilateral thighs, with hyperactive DTRs, currently on tapering prednisone, Dr. Sethi to see as an outpatient 3. hypertensive cardiovascular disease with prior history of cardiac stents and three-vessel CABG 4. Generalized anxiety disorder and recurrent depression 5. Hyperlipidemia 6. Rosacea 7. Thyroid nodule stable 8. Oral thrush Discharge plan: Return home Impression and plan of care have been directed as dictated by the signing physician. Clarita Talley nurse practitioner acting as scribe for signing physician. Patient Condition at Discharge: Good Plan - Discharge Summary Discharge Rx Participant: No New Discharge Prescriptions: New Clotrimazole Migdalia [Mycelex Migdalia] 10 mg MUCOUS MEM 5XD #20 migdalia Isosorbide Mononitrate ER [Imdur] 30 mg PO DAILY #30 tab Continue Nitroglycerin Sl Tabs [Nitrostat] 0.4 mg SUBLINGUAL Q5M PRN PRN Reason: Chest Pain traMADol HCL [Ultram] 50 mg PO Q6H PRN PRN Reason: Pain Minocycline HCl [Minocin] 50 mg PO HS Lisinopril [Prinivil] 10 mg PO DAILY Metoprolol Tartrate [Lopressor] 50 mg PO BID ALPRAZolam [Xanax] 0.25 mg PO DAILY PRN PRN Reason: Anxiety Aspirin 81 mg PO DAILY #30 chew Citalopram Hydrobromide [CeleXA] 10 mg PO DAILY #30 tab Atorvastatin [Lipitor] 80 mg PO HS predniSONE 20 mg PO DAILY #31 tab Discharge Medication List Lisinopril [Prinivil] 10 mg PO DAILY 02/22/17 [History] Minocycline HCl [Minocin] 50 mg PO HS 02/22/17 [History] Nitroglycerin Sl Tabs [Nitrostat] 0.4 mg SUBLINGUAL Q5M PRN 02/22/17 [History] traMADol HCL [Ultram] 50 mg PO Q6H PRN 02/22/17 [History] ALPRAZolam [Xanax] 0.25 mg PO DAILY PRN 09/05/17 [History] Metoprolol Tartrate [Lopressor] 50 mg PO BID 09/05/17 [History] Aspirin 81 mg PO DAILY #30 chew 10/28/17 [Rx] Citalopram Hydrobromide [CeleXA] 10 mg PO DAILY #30 tab 10/28/17 [Rx] Atorvastatin [Lipitor] 80 mg PO HS 11/18/17 [History] predniSONE 20 mg PO DAILY #31 tab 11/19/17 [Rx] Clotrimazole Migdalia [Mycelex Migdalia] 10 mg MUCOUS MEM 5XD #20 migdalia 11/26/17 [ Rx] Isosorbide Mononitrate ER [Imdur] 30 mg PO DAILY #30 tab 11/26/17 [Rx] Follow up Appointment(s)/Referral(s): Sabine Cavazos MD [Primary Care Provider] - 12/03/17 1:00 pm (Saturday) Guillermo Rosado MD [STAFF PHYSICIAN] - 12/02/17 4:30 pm (Saturday) Patient Instructions/Handouts: *Surgery [facility] - After Heart Catheterization - Gis Scientist Instructions, Left Heart Catheterization (DC) Discharge Disposition: HOME SELF-CARE
== END 2017-11-26 12:42 | disposition home or self-care (01) | DRG 287 ==
LOC: EC 09:22 → 3OBS 11:48 → OBSVTOIN 11-23 15:03 → 6SEL 11-23 18:20
PROVIDERS: ADMIT Family Medicine; ATTEND Family Medicine
PROC: B211YZZ Fluoroscopy of Multiple Coronary Arteries using Other Contrast (ICD-10-PCS; 2017-11-25)
PROC: B213YZZ Fluoroscopy of Multiple Coronary Artery Bypass Grafts using Other Contrast (ICD-10-PCS; 2017-11-25)
PROC: B218YZZ Fluoroscopy of Left Internal Mammary Bypass Graft using Other Contrast (ICD-10-PCS; 2017-11-25)
PROC: 4A023N7 Measurement of Cardiac Sampling and Pressure, Left Heart, Percutaneous Approach (ICD-10-PCS; principal; 2017-11-25 09:37)
DX: I25.110 Atherosclerotic heart disease of native coronary artery with unstable angina pectoris (principal); B37.0 Candidal stomatitis; I11.9 Hypertensive heart disease without heart failure; F33.9 Major depressive disorder, recurrent, unspecified; G37.9 Demyelinating disease of central nervous system, unspecified; I35.1 Nonrheumatic aortic (valve) insufficiency; R20.8 Other disturbances of skin sensation; I25.2 Old myocardial infarction; F41.1 Generalized anxiety disorder; E78.5 Hyperlipidemia, unspecified; L71.9 Rosacea, unspecified; F40.240 Claustrophobia; K21.9 Gastro-esophageal reflux disease without esophagitis; E66.9 Obesity, unspecified; Z68.27 Body mass index [BMI] 27.0-27.9, adult; M54.2 Cervicalgia; E04.1 Nontoxic single thyroid nodule; Z79.82 Long term (current) use of aspirin; Z79.52 Long term (current) use of systemic steroids; Z79.899 Other long term (current) drug therapy; Z95.5 Presence of coronary angioplasty implant and graft; Z95.1 Presence of aortocoronary bypass graft; Z87.891 Personal history of nicotine dependence; Z90.49 Acquired absence of other specified parts of digestive tract; Z82.49 Family history of ischemic heart disease and other diseases of the circulatory system; Z83.3 Family history of diabetes mellitus
CPT/HCPCS: 36415; 71046; 71275; 80048; 80053; 81001; 82550; 82553; 83605; 83735; 84484; 85025; 85027; 85610; 85730; 87040; 87502; 93005; 93459; 94760; 96365; 96375; 96376; 99291

== ENCOUNTER 2018-02-27 08:01 | Day surgery (SDC) | payer MEDICARE, OTHER ==
[2018-02-25 14:03] VITALS: BMI 29.0
[~2018-02-27 08:01] MED LIST: LACTATED RINGERS 1,000 ML IV SCH
[2018-02-27 08:29] VITALS: RESP 18; TEMP 98
--- NOTE | 2018-02-27 09:11 | P.PCN ---
Date of Procedure: 02/27/18 Surgeon: Jose Roberto Marion Description of Procedure: Procedure=lumbar puncture . Preoperative diagnoses= multiple sclerosis Postoperative diagnosis= same Anesthesia= local lidocaine infiltration 1% 2 mL for skin and subcutaneous infiltration. Condition= stable. Complications=none. Indication for the procedure= this is a very pleasant 60-year-old gentleman who has been suffering from intermittent bilateral leg numbness and weakness who presents today for a lumbar puncture and collection of cerebral spinal fluid as ordered by his neurologist. Procedure: Lumbar puncture and collection of cerebral spinal fluid Description of the procedure= patient in the procedure room sitting position and monitors applied, the back prepped with chlorhexidine -3, sterile technique , local infiltration of the skin and subcutaneous tissue with lidocaine 1% 5 mL , then 22-gauge quickie Needle advanced slowly at the L4 5 interlaminar space, the cerebrospinal fluid was clear, and no heme no paresthesia, a total of 12 mL of clear cerebrospinal fluid collected in 4 different tubes, the needle removed, Band-Aid applied , patient tolerated the procedure well without any complications, and further management as per the patient's neurologist
[2018-02-27] MEDS ORDERED: IV FLUID CONTINUATION 1,000 ML IV ONE (09:15)
[2018-02-27 09:19] VITALS: PULSE 55
[2018-02-27 09:40] VITALS: BP 173/78
[2018-02-27 10:43] LABS: Glucose,CSF 50 mg/dL (40-70); Total Protein,CSF 79 mg/dL (12-60)
[2018-02-27 11:03] LABS: T4, Free (Free Thyroxine) 0.95 ng/dL (0.78-2.19)
[2018-02-27 11:27] LABS: Appearance,CSF Clear
[2018-02-27 11:28] LABS: CSF Tube Number 4; Nucleated Cells, CSF 0 u/L (0-5); Red Blood Cell,CSF 0 u/L (0-10)
[2018-02-27 18:56] LABS: Rheumatoid Factor 6 IU/mL (0-15)
[2018-02-27 19:22] LABS: Anti-DNA, DS unit <1.0 IU/mL; DNA Double-Stranded NEGATIVE (NEGATIVE); RNP <0.2 AI
[2018-02-28 04:33] LABS: Angiotensin-1 Converting Enz. 15 U/L (8-52)
[2018-02-28 10:22] LABS: Lyme IgG/IgM 0.1 Index
[2018-02-28 10:44] LABS: VDRL, Qualitative CSF Nonreactive (Nonreactive)
[2018-02-28 12:39] LABS: APTT 45 Sec(s) (<43); APTT 1:1 Mix 40 Sec(s) (<43); Dilute Russell Viper Venom 34 Sec(s) (<44)
[2018-02-28 14:30] LABS: IgG - CSF 6.4 mg/dL (0.0 - 3.4); IgG Synthesis Rate 2.92 mg/day (0.00 - 3.00); IgG/Albumin Index (CSF) 0.55 (0.00 - 0.77); Immunoglobulin G 975 mg/dL (700 - 1600)
== END 2018-02-27 09:47 | disposition home or self-care (01) ==
LOC: ORPAIN 08:01
PROVIDERS: ATTEND Pain Medicine Pain Medicine
DX: G35 Multiple sclerosis (principal); I25.10 Atherosclerotic heart disease of native coronary artery without angina pectoris; Z95.1 Presence of aortocoronary bypass graft
CPT/HCPCS: 87476; 86592; 86235 ×3; 84439; 88108; 84157; 82945; 82040; 82042; 82784; 83916; 82164 ×2; 83873; 84443; 84450; 84460; 85730; 86431; 85613; 89050; 86618; 86780; 86038; 86225; 62270; J2001; 85732

== ENCOUNTER 2018-06-25 10:33 | Inpatient (IN) | payer MEDICARE, OTHER ==
[2018-06-25] MEDS ORDERED: PANTOPRAZOLE 40 MG/10 ML VIAL IVP STA ×2 (11:05→11:11)
[2018-06-25] MEDS ORDERED: SODIUM CHLORIDE 0.9% 1,000 ML IV STA (11:05)
--- NOTE | 2018-06-25 11:16 | ED ---
General Adult HPI - General Chief complaint: Recheck/Abnormal Lab/Rx Stated complaint: dr scruggs, abnormal labs Time Seen by Provider: 06/25/18 10:43 Source: patient, family, RN notes reviewed Mode of arrival: ambulatory Limitations: no limitations - History of Present Illness Initial comments: Patient is a pleasant 68-year-old male presenting to the emergency department after being seen in the office. There was concern for abnormal labs. Patient states over the past month or so has lost approximately 20 pounds. Patient has abdominal fullness especially with eating. Decreased appetite and decreased oral intake. Patient is so drinking fluids. Patient has had a couple of dark stools. Stool appeared normal this morning. No vomiting. Patient has been somewhat fatigued. No chest pain or dyspnea. No abdominal pain except while eating. No history of similar symptoms prior to the past month or so. - Related Data Home Medications Medication Instructions Recorded Confirmed Lisinopril [Prinivil] 10 mg PO DAILY 02/22/17 06/25/18 Minocycline HCl [Minocin] 50 mg PO HS 02/22/17 06/25/18 Nitroglycerin Sl Tabs [Nitrostat] 0.4 mg SUBLINGUAL Q5M PRN 02/22/17 06/25/18 traMADol HCL [Ultram] 50 mg PO Q6H PRN 02/22/17 06/25/18 Atorvastatin [Lipitor] 80 mg PO HS 11/18/17 06/25/18 Gabapentin [Neurontin] 300 mg PO DAILY 06/25/18 06/25/18 Metoprolol Succinate (ER) [Toprol 25 mg PO BID 06/25/18 06/25/18 Xl] Previous Rx's Medication Instructions Recorded Aspirin 81 mg PO DAILY #30 chew 10/28/17 Isosorbide Mononitrate ER [Imdur] 30 mg PO DAILY #30 tab 11/26/17 Allergies Allergy/AdvReac Type Severity Reaction Status Date / Time No Known Allergies Allergy Verified 06/25/18 11:24 Review of Systems ROS Statement: Those systems with pertinent positive or pertinent negative responses have been documented in the HPI. ROS Other: All systems not noted in ROS Statement are negative. Constitutional: Denies: fever Eyes: Denies: eye pain ENT: Denies: ear pain Respiratory: Denies: cough, dyspnea Cardiovascular: Denies: chest pain Endocrine: Reports: fatigue Gastrointestinal: Reports: nausea Genitourinary: Denies: dysuria Musculoskeletal: Denies: back pain Skin: Denies: rash Neurological: Denies: headache Past Medical History Past Medical History: Coronary Artery Disease (CAD), Chest Pain / Angina, GERD/ Reflux, Hyperlipidemia, Hypertension, Myocardial Infarction ([place]), Skin Disorder , Thyroid Disorder Additional Past Medical History / Comment(s): Pt recently admitted to [facility] on with heat sensation anterior/posterior chest. Other hx: Stable thyroid nodule, rosacia, past shingelles. Last Myocardial Infarction Date:: 1997 History of Any Multi-Drug Resistant Organisms: None Reported Past Surgical History: Cholecystectomy, Coronary Bypass/CABG, Heart Catheterization With Stent Additional Past Surgical History / Comment(s): Pt thinks he's had 3 heart caths and 6 stents then in 2010 triple vessel CABG (done in [place]), thyroid bx Past Anesthesia/Blood Transfusion Reactions: No Reported Reaction Additional Past Anesthesia/Blood Transfusion Reaction / Comment(s): No previous blood transfusions that he is aware of. Hx of clausterphobia. Date of Last Stent Placement:: ? Past Psychological History: Anxiety, Depression Smoking Status: Former smoker Past Alcohol Use History: None Reported Past Drug Use History: None Reported - Past Family History Mother Family Medical History: Coronary Artery Disease (CAD), Diabetes Mellitus Father Family Medical History: No Reported History Sister(s) Family Medical History: Coronary Artery Disease (CAD), Diabetes Mellitus General Exam Limitations: no limitations General appearance: alert, in no apparent distress Head exam: Present: atraumatic Eye exam: Present: normal appearance, PERRL ENT exam: Present: normal oropharynx Neck exam: Present: normal inspection Respiratory exam: Present: normal lung sounds bilaterally Cardiovascular Exam: Present: regular rate, normal rhythm GI/Abdominal exam: Present: soft, tenderness (Minimal epigastric tenderness to palpation), normal bowel sounds. Absent: distended, guarding, rebound, rigid, pulsatile mass Extremities exam: Present: normal inspection. Absent: pedal edema, calf tenderness Neurological exam: Present: alert Psychiatric exam: Present: normal affect, normal mood Skin exam: Present: normal color Course Vital Signs 06/25/18 06/25/18 10:38 11:40 Temperature 99.0 F Pulse Rate 98 75 Respiratory 18 16 Rate Blood Pressure 148/73 129/61 O2 Sat by Pulse 99 Oximetry - Reevaluation(s) Reevaluation #1: 06/25/18 11:13 Case was discussed with Karine, practitioner with Dr. Nair states patient has had weight loss. Hemoglobin was 7.4 and liver enzymes are elevated. She did feel patient would need to be admitted and will make Dr. Cavazos aware. She states hepatitis panel was negative. Medical Decision Making - Medical Decision Making Patient reevaluated and updated. Case was discussed in detail with Dr. Cavazos who was previous he made aware of this patient. She will admit and recommends consult with Dr. Rodríguez as well as computed tomography scan. - Lab Data Result diagrams: 06/25/18 11:25 06/25/18 11:25 Lab Results 06/25/18 06/25/18 06/25/18 Range/Units 11:25 11:25 11:25 WBC 7.3 (3.8-10.6) k/uL RBC 3.47 L (4.30-5.90) m/uL Hgb 7.9 L (13.0-17.5) gm/dL Hct 25.9 L (39.0-53.0) % MCV 74.7 L (80.0-100.0) fL MCH 22.8 L (25.0-35.0) pg MCHC 30.5 L (31.0-37.0) g/dL RDW 18.0 H (11.5-15.5) % Plt Count 323 (150-450) k/uL Neutrophils % 85 % Lymphocytes % 5 % Monocytes % 6 % Eosinophils % 1 % Basophils % 1 % Neutrophils # 6.2 (1.3-7.7) k/uL Lymphocytes # 0.4 L (1.0-4.8) k/uL Monocytes # 0.5 (0-1.0) k/uL Eosinophils # 0.1 (0-0.7) k/uL Basophils # 0.0 (0-0.2) k/uL Hypochromasia Marked Poikilocytosis Slight Anisocytosis Slight Microcytosis Moderate PT 10.7 (9.0-12.0) sec INR 1.1 (<1.2) APTT 24.5 (22.0-30.0) sec Sodium 135 L (137-145) mmol/L Potassium 4.8 (3.5-5.1) mmol/L Chloride 103 (98-107) mmol/L Carbon Dioxide 23 (22-30) mmol/L Anion Gap 9 mmol/L BUN 19 (9-20) mg/dL Creatinine 1.01 (0.66-1.25) mg/dL Est GFR (CKD-EPI)AfAm 88 (>60 ml/min/1.73 sqM) Est GFR (CKD-EPI)NonAf 76 (>60 ml/min/1.73 sqM) Glucose 101 H (74-99) mg/dL Calcium 9.0 (8.4-10.2) mg/dL Total Bilirubin 1.2 (0.2-1.3) mg/dL AST 161 H (17-59) U/L ALT 75 H (21-72) U/L Alkaline Phosphatase 619 H (38-126) U/L Total Protein 6.1 L (6.3-8.2) g/dL Albumin 3.2 L (3.5-5.0) g/dL Amylase 56 (30-110) U/L Lipase 188 (23-300) U/L Stool Occult Blood (Negative) Blood Type Blood Type Recheck Antibody Screen Spec Expiration Date 06/25/18 06/25/18 Range/Units 11:25 11:25 WBC (3.8-10.6) k/uL RBC (4.30-5.90) m/uL Hgb (13.0-17.5) gm/dL Hct (39.0-53.0) % MCV (80.0-100.0) fL MCH (25.0-35.0) pg MCHC (31.0-37.0) g/dL RDW (11.5-15.5) % Plt Count (150-450) k/uL Neutrophils % % Lymphocytes % % Monocytes % % Eosinophils % % Basophils % % Neutrophils # (1.3-7.7) k/uL Lymphocytes # (1.0-4.8) k/uL Monocytes # (0-1.0) k/uL Eosinophils # (0-0.7) k/uL Basophils # (0-0.2) k/uL Hypochromasia Poikilocytosis Anisocytosis Microcytosis PT (9.0-12.0) sec INR (<1.2) APTT (22.0-30.0) sec Sodium (137-145) mmol/L Potassium (3.5-5.1) mmol/L Chloride (98-107) mmol/L Carbon Dioxide (22-30) mmol/L Anion Gap mmol/L BUN (9-20) mg/dL Creatinine (0.66-1.25) mg/dL Est GFR (CKD-EPI)AfAm (>60 ml/min/1.73 sqM) Est GFR (CKD-EPI)NonAf (>60 ml/min/1.73 sqM) Glucose (74-99) mg/dL Calcium (8.4-10.2) mg/dL Total Bilirubin (0.2-1.3) mg/dL AST (17-59) U/L ALT (21-72) U/L Alkaline Phosphatase (38-126) U/L Total Protein (6.3-8.2) g/dL Albumin (3.5-5.0) g/dL Amylase (30-110) U/L Lipase (23-300) U/L Stool Occult Blood Negative (Negative) Blood Type O Positive Blood Type Recheck CABO Indicated Antibody Screen NEGATIVE Spec Expiration Date 06/28/2018 - 1271 - Radiology Data Radiology results: report reviewed (Ultrasound shows liver lesions, consider possible metastasis), image reviewed (Abdominal x-ray shows possible ileus) Disposition Clinical Impression: Liver lesion, Abdominal pain Disposition: ADMITTED IP TO THIS [facility] Condition: Serious Is patient prescribed a controlled substance at d/c from ED?: No Referrals: Sabine Cavazos MD [Primary Care Provider] - 1-2 days Decision Time: 13:14
[2018-06-25 12:22] LABS: Albumin 3.2 g/dL (3.5-5.0); Potassium 4.8 mmol/L (3.5-5.1); Total Bilirubin 1.2 mg/dL (0.2-1.3); Total Protein 6.1 g/dL (6.3-8.2)
--- NOTE | 2018-06-25 12:25 | XR ---
Abdomen HISTORY: Abdominal pain and abnormal laboratory results Frontal view of the abdomen on 2 images Patient is post median sternotomy. Surgical clips are present in the right upper quadrant. Probable p hleboliths are noted in the pelvis. Degenerative disc changes are present in the visualized spine. Th ere is a spinal curvature. There is no evident bowel obstruction or pneumoperitoneum. Some air-fluid levels are noted. IMPRESSION: Findings may represent an ileus or enteritis, follow-up as indicated.
[2018-06-25 12:32] LABS: INR 1.1 (<1.2); Prothrombin Time 10.7 sec (9.0-12.0)
[2018-06-25 12:33] LABS: Partial Thromboplastin Time 24.5 sec (22.0-30.0)
[2018-06-25 12:46] LABS: Anisocytosis Slight; Basophils % (A) 1 %; Eosinophils # (A) 0.1 k/uL (0-0.7); Eosinophils % (A) 1 %; HCT 25.9 % (39.0-53.0); HGB 7.9 gm/dL (13.0-17.5); Hypochromasia Marked; Lymphocytes # (A) 0.4 k/uL (1.0-4.8); Lymphocytes % (A) 5 %; MCH 22.8 pg (25.0-35.0); MCHC 30.5 g/dL (31.0-37.0); MCV 74.7 fL (80.0-100.0); Mean Platelet Volume 6.6; Microcytosis Moderate; Monocytes # (A) 0.5 k/uL (0-1.0); Monocytes % (A) 6 %; Neutrophils # (A) 6.2 k/uL (1.3-7.7); Neutrophils % (A) 85 %; Platelet Count 323 k/uL (150-450); Poikilocytosis Slight; RBC 3.47 m/uL (4.30-5.90); WBC 7.3 k/uL (3.8-10.6)
--- NOTE | 2018-06-25 13:11 | US ---
EXAMINATION TYPE: US gallbladder DATE OF EXAM: 06/25/2018 COMPARISON: 11/22/2017 CTA chest CLINICAL HISTORY: Evaluate liver and pancreas and gallbladder. sent by physician to due to elevate d labs, patient states no symptoms. Cholecystectomy EXAM MEASUREMENTS: Liver Length: 16.1 cm Gallbladder Wall: Surgically absent CBD: 0.6 cm Right Kidney: 9.6 x 4.9 x 4.9 cm Pancreas: unable to see due to bowel gas Liver: diffusely heterogeneous with innumerable lesion seen Gallbladder: Surgically absent Evidence for sonographic Finn's sign: no CBD: wnl Right Kidney: wnl IMPRESSION: 1. Multiple hyperdense scattered lesions throughout the liver. Correlation with patient's history is recommended. Metastatic lesion should be considered. Infectious etiologies such as a fungal infection could be considered. Recommend contrast CT abdomen pelvis for additional evaluation.
[2018-06-25] MEDS ORDERED: IOPAMIDOL-300 CONTRAST 30 ML VIAL (ORAL USE) PO PRN (13:14)
[2018-06-25] MEDS ORDERED: MORPHINE SULFATE 4 MG/ML SYRINGE IV PRN (13:15)
[2018-06-25] MEDS ORDERED: ONDANSETRON 4 MG/2 ML VIAL IVP PRN (13:15)
[2018-06-25] MEDS ORDERED: NALOXONE 0.4 MG/ML 1 ML VIAL IV PRN (13:15)
[2018-06-25 14:00] LABS: Appearance,Urine Clear (Clear); Bilirubin,Urine Negative (Negative); Blood,Urine Negative (Negative); Color,Urine Yellow; Glucose,Urine (UA) Negative (Negative); Ketones,Urine Negative (Negative); Leukocyte Esterase,Urine Negative (Negative); Mucus,Urine Occasional /hpf; Nitrite,Urine Negative (Negative); Protein,Urine 1+ (Negative); Specific Gravity,Urine 1.017 (1.001-1.035); Squamous Epithelial Cell,Urine <1 /hpf (0-4); Urobilinogen,Urine <2.0 mg/dL (<2.0); WBC,Urine 1 /hpf (0-5)
[2018-06-25] MEDS ORDERED: traMADol 50 MG TAB PO PRN (15:42)
[2018-06-25] MEDS ORDERED: NITROGLYCERIN SL TABS 0.4 MG TAB SUBLINGUAL PRN (15:42)
--- NOTE | 2018-06-25 15:52 | P.HPIM ---
History of Present Illness H&P Date: 06/25/18 68 years old male patient one of my patient and Dr. JINA Ng with past history hypertension, hyperlipidemia, coronary artery disease with prior stent placement with history of myocardial infarction status post coronary artery bypass grafting surgery in [facility] in 2010. Recent cardiac workup in February 2017, underwent Lexiscan stress test which was negative for any reversible ischemia. Patient was recently admitted and discharged , after chest discomfort episode, and patient underwent a stress dobutamine at that time which was inconclusive secondary to abnormal EKG at baseline, it was a technically difficult dobutamine echo with suboptimal images , however there is no gross evidence to suggest ischemia. Cardiac cath performed 11/23/2017 Dr. Rodríguez, for unstable angina, LAD is chronically occluded in its midportion, severe stenosis of the RCA, midportion, stent within the proximal circumflex artery appears patent obtuse marginal branch 70-80% stenosis bypass graft TURNER to LAD is patent proximal and distal anastomoses sites are free of stenosis venous graft to PDA patent, venous graft to OM branch free of disease patient has hopi three-vessel CAD with patent TURNER to LAD patent venous graft to PDA and patent venous graft to OM branch Pertinent imaging studies last time included an MRI of the brain showing extensive demyelination present within the brain, correlate for possible MS chronic small vessel disease, patient sees Dr. Vickers outpatient Patient was subsequently today sent to the emergency room after was seen by our nurse practitioner and office secondary to abdominal fullness especially after eating, decreased appetite, decreased oral intake, couple of dark stools, increasing fatigue, patient has weight loss of 20 pounds over the past one month , labs were abnormal to include elevation of liver function tests and alkaline phosphatase, normal hepatitis panel, hemoglobin was 7.4, consult would be made with Dr. Rodríguez, imaging studies to be done while in the hospital. Abdominal ultrasound shows multiple hyperdense Radiation throughout the liver, metastatic lesion should be considered, infectious etiologies such as fungal infection could be considered, contrast abdomen and pelvis is requested, gallbladder is surgically absent, and bile that 0.6 cm. Review of imaging studies November 2017 CTA chest, did not show any liver abnormalities at that time except for minimal reticular density at the lung bases. Labs in the ER shows alkaline phosphatase 619 ALT 75 AST 161 and lipase normal 188 creatinine 1.01 urinalysis negative occult blood negative Review of Systems Constitutional: Reports as per HPI, Reports anorexia, Reports fatigue, Reports weight loss, Denies chills, Denies chronic headaches, Denies chronic pain, Denies daytime sleepiness, Denies fever, Denies lethargy, Denies malaise, Denies night sweats, Denies poor appetite, Denies sweats, Denies weakness, Denies weight gain Ears, nose, mouth and throat: Reports as per HPI Cardiovascular: Reports as per HPI, Denies chest pain, Denies claudication, Denies decreased exercise tolerance, Denies dyspnea on exertion, Denies edema, Denies high blood pressure, Denies irregular heart beat, Denies leg edema, Denies lightheadedness, Denies orthopnea, Denies palpitations, Denies paroxysmal nocturnal dyspnea, Denies phlebitis, Denies rapid heart beat, Denies shortness of breath, Denies syncope Respiratory: Reports as per HPI, Denies congestion, Denies cough, Denies cough with sputum, Denies dyspnea, Denies excessive sputum, Denies hemoptysis, Denies home oxygen, Denies pain, Denies pain on inspiration, Denies pleurisy, Denies respiratory infections, Denies sleep apnea, Denies snoring, Denies wheezing Gastrointestinal: Reports as per HPI, Denies abdominal pain, Denies belching, Denies bloating, Denies BRBPR, Denies change in bowel habits, Denies coffee ground emesis, Denies constipation, Denies diarrhea, Denies dyspepsia, Denies early satiety, Denies excessive gas, Denies heartburn, Denies hematemesis, Denies hematochezia, Denies indigestion, Denies jaundice, Denies lactose intolerance, Denies loss of appetite, Denies melena, Denies nausea, Denies vomiting Genitourinary: Reports as per HPI, Denies decreased libido, Denies difficulties fathering child, Denies discharge, Denies dysuria, Denies erectile dysfunction, Denies flank pain, Denies genital pain, Denies genital sores, Denies hematuria, Denies impotence, Denies incontinence, Denies kidney stones, Denies nocturia, Denies polyuria, Denies testicular lump, Denies testicular pain, Denies urinary frequency, Denies urinary hesitancy, Denies urinary retention Musculoskeletal: Reports as per HPI, Denies arm numbness/tingling, Denies atrophy, Denies fractures, Denies frequent falls, Denies gait dysfunction, Denies hot joints, Denies leg numbness/tingling, Denies limitation of motion, Denies loss of height, Denies low back pain, Denies morning stiffness, Denies muscle cramps, Denies muscle weakness, Denies myalgias, Denies neck pain, Denies neck stiffness, Denies prior amputations, Denies redness of joints, Denies shooting arm pain, Denies shooting leg pain Integumentary: Reports as per HPI, Denies acne, Denies boils, Denies brittle nails, Denies change in hair/nails, Denies color changes, Denies darkening of skin, Denies depigmentation, Denies dryness, Denies foot/leg ulcers, Denies growths, Denies hirsutism, Denies lesions, Denies onychomycosis, Denies pruritus , Denies rash, Denies sores, Denies striae, Denies unusual bruising, Denies wounds Neurological: Reports as per HPI, Reports weakness Psychiatric: Reports as per HPI, Reports change in appetite, Reports insomnia, Reports sleep disturbances, Denies anhedonia, Denies anxiety, Denies change in sleep habits, Denies confusion, Denies depression, Denies difficulty concentrating, Denies disorientation, Denies hallucinations, Denies hopelessness , Denies hypersomnia, Denies irritability, Denies memory loss, Denies mood swings, Denies paranoia, Denies sadness/tearfulness, Denies suicidal ideation Endocrine: Reports as per HPI, Reports weight change Hematologic/Lymphatic: Reports as per HPI, Denies easy bleeding, Denies easy bruising, Denies lymphadenopathy, Denies lymphedema, Denies thrombophilia Allergic/Immunologic: Reports as per HPI, Denies allergic rhinitis, Denies anaphylaxis, Denies angioedema, Denies gluten intolerance, Denies persistent infections, Denies seasonal allergies, Denies urticaria, Denies wheezing Past Medical History Past Medical History: Coronary Artery Disease (CAD), Chest Pain / Angina, GERD/ Reflux, Hyperlipidemia, Hypertension, Myocardial Infarction (CA), Skin Disorder , Thyroid Disorder Additional Past Medical History / Comment(s): Pt recently admitted to [facility] on with heat sensation anterior/posterior chest. Other hx: Stable thyroid nodule, rosacia, past shingelles. Last Myocardial Infarction Date:: 1997 History of Any Multi-Drug Resistant Organisms: None Reported Past Surgical History: Cholecystectomy, Coronary Bypass/CABG, Heart Catheterization With Stent Additional Past Surgical History / Comment(s): Pt thinks he's had 3 heart caths and 6 stents then in 2010 triple vessel CABG (done in [place]), thyroid bx Past Anesthesia/Blood Transfusion Reactions: No Reported Reaction Additional Past Anesthesia/Blood Transfusion Reaction / Comment(s): No previous blood transfusions that he is aware of. Hx of clausterphobia. Date of Last Stent Placement:: ? Past Psychological History: Anxiety, Depression Smoking Status: Former smoker Past Alcohol Use History: None Reported Past Drug Use History: None Reported - Past Family History Mother Family Medical History: Coronary Artery Disease (CAD), Diabetes Mellitus Father Family Medical History: No Reported History Sister(s) Family Medical History: Coronary Artery Disease (CAD), Diabetes Mellitus Medications and Allergies Home Medications Medication Instructions Recorded Confirmed Type Lisinopril [Prinivil] 10 mg PO DAILY 02/22/17 06/25/18 History Minocycline HCl [Minocin] 50 mg PO HS 02/22/17 06/25/18 History Nitroglycerin Sl Tabs [Nitrostat] 0.4 mg SUBLINGUAL Q5M PRN 02/22/17 06/25/18 History traMADol HCL [Ultram] 50 mg PO Q6H PRN 02/22/17 06/25/18 History Aspirin 81 mg PO DAILY #30 chew 10/28/17 06/25/18 Rx Atorvastatin [Lipitor] 80 mg PO HS 11/18/17 06/25/18 History Isosorbide Mononitrate ER [Imdur] 30 mg PO DAILY #30 tab 11/26/17 06/25/18 Rx Gabapentin [Neurontin] 300 mg PO DAILY 06/25/18 06/25/18 History Metoprolol Succinate (ER) [Toprol 25 mg PO BID 06/25/18 06/25/18 History Xl] Allergies Allergy/AdvReac Type Severity Reaction Status Date / Time No Known Allergies Allergy Verified 06/25/18 11:24 Physical Exam Vitals: Vital Signs Temp Pulse Resp BP Pulse Ox 06/25/18 13:40 99.5 F 81 16 126/65 99 06/25/18 11:40 75 16 129/61 99 06/25/18 10:38 99.0 F 98 18 148/73 Intake and Output 06/25/18 06/25/18 06/25/18 06:59 14:59 22:59 Other: Weight 73.936 kg - Constitutional General appearance: average body habitus, cooperative, no acute distress - EENT Eyes: anicteric sclerae, EOMI, PERRLA, dentition normal ENT: NA/AT, normal oropharynx - Respiratory Respiratory: bilateral: CTA, negative: diminished, dullness, rales - Cardiovascular Rhythm: regular Heart sounds: normal: S1, S2 Abnormal Heart Sounds: no systolic murmur, no diastolic murmur, no rub, no S3 Gallop, no S4 Gallop, no click, no other - Gastrointestinal General gastrointestinal: normal bowel sounds, soft, tenderness - Integumentary Integumentary: decreased turgor, normal - Neurologic Neurologic: CNII-XII intact - Musculoskeletal Musculoskeletal: gait normal, strength equal bilaterally - Psychiatric Psychiatric: A&O x's 3, appropriate affect, intact judgment & insight Results CBC & Chem 7: 06/25/18 11:25 06/25/18 11:25 Labs: Abnormal Lab Results - Last 24 Hours (Table) 06/25/18 06/25/18 06/25/18 Range/Units 11:25 11:25 12:58 RBC 3.47 L (4.30-5.90) m/uL Hgb 7.9 L (13.0-17.5) gm/dL Hct 25.9 L (39.0-53.0) % MCV 74.7 L (80.0-100.0) fL MCH 22.8 L (25.0-35.0) pg MCHC 30.5 L (31.0-37.0) g/dL RDW 18.0 H (11.5-15.5) % Lymphocytes # 0.4 L (1.0-4.8) k/uL Sodium 135 L (137-145) mmol/L Glucose 101 H (74-99) mg/dL AST 161 H (17-59) U/L ALT 75 H (21-72) U/L Alkaline Phosphatase 619 H (38-126) U/L Total Protein 6.1 L (6.3-8.2) g/dL Albumin 3.2 L (3.5-5.0) g/dL Urine Protein 1+ H (Negative) Urine Mucus Occasional H (None) /hpf Laboratory Results WBC 7.3 k/uL (3.8-10.6) 06/25/18 11:25 RBC 3.47 m/uL (4.30-5.90) L 06/25/18 11:25 Hgb 7.9 gm/dL (13.0-17.5) L 06/25/18 11:25 Hct 25.9 % (39.0-53.0) L 06/25/18 11:25 MCV 74.7 fL (80.0-100.0) L 06/25/18 11:25 MCH 22.8 pg (25.0-35.0) L 06/25/18 11:25 MCHC 30.5 g/dL (31.0-37.0) L 06/25/18 11:25 RDW 18.0 % (11.5-15.5) H 06/25/18 11:25 Plt Count 323 k/uL (150-450) 06/25/18 11:25 Neutrophils % 85 % 06/25/18 11:25 Lymphocytes % 5 % 06/25/18 11:25 Monocytes % 6 % 06/25/18 11:25 Eosinophils % 1 % 06/25/18 11:25 Basophils % 1 % 06/25/18 11:25 Neutrophils # 6.2 k/uL (1.3-7.7) 06/25/18 11:25 Lymphocytes # 0.4 k/uL (1.0-4.8) L 06/25/18 11:25 Monocytes # 0.5 k/uL (0-1.0) 06/25/18 11:25 Eosinophils # 0.1 k/uL (0-0.7) 06/25/18 11:25 Basophils # 0.0 k/uL (0-0.2) 06/25/18 11:25 Hypochromasia Marked 06/25/18 11:25 Poikilocytosis Slight 06/25/18 11:25 Anisocytosis Slight 06/25/18 11:25 Microcytosis Moderate 06/25/18 11:25 PT 10.7 sec (9.0-12.0) 06/25/18 11:25 INR 1.1 (<1.2) 06/25/18 11:25 APTT 24.5 sec (22.0-30.0) 06/25/18 11:25 Sodium 135 mmol/L (137-145) L 06/25/18 11:25 Potassium 4.8 mmol/L (3.5-5.1) 06/25/18 11:25 Chloride 103 mmol/L (98-107) 06/25/18 11:25 Carbon Dioxide 23 mmol/L (22-30) 06/25/18 11:25 Anion Gap 9 mmol/L 06/25/18 11:25 BUN 19 mg/dL (9-20) 06/25/18 11:25 Creatinine 1.01 mg/dL (0.66-1.25) 06/25/18 11:25 Est GFR (CKD-EPI)AfAm 88 (>60 ml/min/1.73 sqM) 06/25/18 11:25 Est GFR (CKD-EPI)NonAf 76 (>60 ml/min/1.73 sqM) 06/25/18 11:25 Glucose 101 mg/dL (74-99) H 06/25/18 11:25 Calcium 9.0 mg/dL (8.4-10.2) 06/25/18 11:25 Total Bilirubin 1.2 mg/dL (0.2-1.3) 06/25/18 11:25 AST 161 U/L (17-59) H 06/25/18 11:25 ALT 75 U/L (21-72) H 06/25/18 11:25 Alkaline Phosphatase 619 U/L (38-126) H 06/25/18 11:25 Total Protein 6.1 g/dL (6.3-8.2) L 06/25/18 11:25 Albumin 3.2 g/dL (3.5-5.0) L 06/25/18 11:25 Amylase 56 U/L (30-110) 06/25/18 11:25 Lipase 188 U/L (23-300) 06/25/18 11:25 Urine Color Yellow 06/25/18 12:58 Urine Appearance Clear (Clear) 06/25/18 12:58 Urine pH 6.0 (5.0-8.0) 06/25/18 12:58 Ur Specific [place] 1.017 (1.001-1.035) 06/25/18 12:58 Urine Protein 1+ (Negative) H 06/25/18 12:58 Urine Glucose (UA) Negative (Negative) 06/25/18 12:58 Urine Ketones Negative (Negative) 06/25/18 12:58 Urine Blood Negative (Negative) 06/25/18 12:58 Urine Nitrite Negative (Negative) 06/25/18 12:58 Urine Bilirubin Negative (Negative) 06/25/18 12:58 Urine Urobilinogen <2.0 mg/dL (<2.0) 06/25/18 12:58 Ur Leukocyte Esterase Negative (Negative) 06/25/18 12:58 Urine WBC 1 /hpf (0-5) 06/25/18 12:58 Ur Squamous Epith Cells <1 /hpf (0-4) 06/25/18 12:58 Urine Mucus Occasional /hpf (None) H 06/25/18 12:58 Stool Occult Blood Negative (Negative) 06/25/18 11:25 Blood Type O Positive 06/25/18 11:25 Blood Type Confirm O Positive 06/25/18 13:06 Blood Type Recheck CABO Indicated 06/25/18 11:25 Antibody Screen NEGATIVE 06/25/18 11:25 Spec Expiration Date 06/28/2018 9544 06/25/18 11:25 Thrombosis Risk Factor Assmnt - DVT/VTE Prophylaxis DVT/VTE Prophylaxis: Mechanical Prophylaxis ordered, Contraindicated - See note Assessment and Plan Plan: 1. 1. Anorexia with elevated alkaline phosphatase liver function tests, abnormal imaging studies in the ultrasound, metastatic disease against fungal infection, consult with Dr. Joseph and Dr. Rosado, CAT scan of the abdomen and pelvis IV oral contrast, PSA and CEA, AFP CA 199 to be done, 2. 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 Hyperlipidemia, on Lipitor 80 5. Rosacea, stable on maintenance doxycycline 50 mg daily 6. Thyroid nodule stable DVT prophylaxis GI prophylaxis
--- NOTE | 2018-06-25 15:55 | CT ---
EXAMINATION TYPE: CT abdomen pelvis w con DATE OF EXAM: 06/25/2018 COMPARISON: Ultrasound 06/25/2018 INDICATION: PAIN, ELEVATED LIVER ENZYMES DLP: 984.3 mGycm, Automated exposure control for dose reduction was used. CONTRAST: 100 mL of Isovue 300. Study performed without Oral Contrast TECHNIQUE: Axial images were obtained from above the diaphragm to the pubic rami in the axial plane a t 5 mm thick sections. Reconstructed images are reviewed on the computer in the coronal plane. FINDINGS: Limited CT sections are obtained the lung bases. There are multiple small nodules present throughout the bilateral lung bases. These measure approximately 0.[address] chest is recommende d for further evaluation.. Coronary artery calcification is noted. Small hiatal hernia present. CT ABDOMEN: Liver: There is extensive hypodense lesions throughout the liver near complete replacement highly sug gestive for metastatic disease. Spleen: Normal Pancreas: Normal Adrenal glands: The adrenal glands are normal. Gallbladder: Correlate for prior cholecystectomy. There appears to be a surgical clip adjacent to a p rominent duct. Kidneys: No masses are evident. No hydronephrosis is present. No cysts are present. Delayed images were obtained through the kidneys, which remain unremarkable. Aorta: Vascular calcification is within the aorta. There is fusiform prominence of the mid abdominal aorta. This measures 3.1 cm in AP dimension and terminates above the bifurcation. Common iliac vesse ls are slightly prominent. Inferior vena cava: Normal. CT PELVIS: Loops of bowel within the abdomen and pelvis are normal. There are loops of bowel which are incom pletely distended or lack oral contrast limiting their evaluation. Diverticular changes are within th e sigmoid colon. No acute diverticulitis is evident. The distal sigmoid colon appears somewhat tubula r. Appendix: Not identified. There are some vague increased markings in the mesentery in the right lower quadrant. Typical suspicious changes for acute appendicitis however not identified. No suspicious tu bular structures are evident. Urinary bladder: Normal. Genitourinary structures: Prostate is prominent contains calcification. Osseous structures: No suspicious lytic or sclerotic lesions. Spondylolysis of L5 is evident. Some fa cet degenerative changes present. IMPRESSIONS: 1. Numerous small subcentimeter nodules within the bilateral lung bases suspicious for metastatic le sions. 2. Extensive metastatic type lesions through the liver. Primary is unknown. 3. Mild fusiform prominence mid abdominal aorta 4. Mild diverticulosis without acute diverticulitis. 5. Prominent prostate. #6 small hiatal hernia.
[2018-06-25] MEDS: SODIUM CHLORIDE 0.9% 1,000 ML IV SCH (17:06)
[2018-06-25] MEDS: METOPROLOL SUCCINATE (ER) 25 MG TAB.ER.24H PO SCH (20:27)
[2018-06-25] MEDS: MINOCYCLINE 50 MG CAP PO SCH (20:27)
[2018-06-25] MEDS ORDERED: ATORVASTATIN 80 MG TAB PO SCH (21:00)
[2018-06-26] MEDS: SODIUM CHLORIDE 0.9% 1,000 ML IV SCH ×2 (02:19→07:38)
[2018-06-26 02:37] LABS: Iron Saturation 5.08 (15.00-50.00)
[2018-06-26 03:21] LABS: Alpha Fetoprotein, Tumor Mkr <2.5 ng/mL (0.0-7.9); Cancer Antigen 19-9 <1.2 U/mL (0.0-34.9)
[2018-06-26] MEDS: METOPROLOL SUCCINATE (ER) 25 MG TAB.ER.24H PO SCH ×2 (07:38→21:03)
[2018-06-26] MEDS: GABAPENTIN 300 MG CAP PO SCH (07:38)
[2018-06-26] MEDS: PANTOPRAZOLE 40 MG/10 ML VIAL IV SCH (07:38)
[2018-06-26] MEDS: ISOSORBIDE MONONITRATE ER 30 MG TAB.ER.24H PO SCH (07:39)
[2018-06-26] MEDS ORDERED: LISINOPRIL 10 MG TAB PO SCH (09:00)
[2018-06-26 09:34] LABS: Anisocytosis Slight; HCT 22.3 % (39.0-53.0); Hypochromasia Marked; MCH 23.2 pg (25.0-35.0); MCHC 30.9 g/dL (31.0-37.0); MCV 75.1 fL (80.0-100.0); Mean Platelet Volume 7.1; Microcytosis Moderate; Platelet Count 264 k/uL (150-450); Poikilocytosis Slight; RBC 2.97 m/uL (4.30-5.90); RDW 18.2 % (11.5-15.5); WBC 6.8 k/uL (3.8-10.6)
[2018-06-26 09:37] LABS: HGB 6.9 gm/dL (13.0-17.5)
--- NOTE | 2018-06-26 09:39 | CONS ---
CONSULTATION DATE OF SERVICE: 06/25/2018. REASON FOR CONSULTATION: Abnormal ultrasound and CT liver and concern for possible fungal infection. HISTORY OF PRESENT ILLNESS: The patient is a 68-year-old male who recently has been evaluated in the outpatient setting with the patient's symptoms has been low appetite, fullness, feeling nauseous and decreased oral intake. The patient's symptoms have been going on for almost a month and apparently has lost almost 20 pounds. The patient denies having any dysphagia. The patient denies having any fever with rigors or chills or any night sweats. The patient apparently did have a blood work done in outpatient setting noticed to have elevated liver enzymes. His hepatitis panel has been negative. He was noticed to have a low hemoglobin 7.4. Subsequently has been advised to be evaluated in the ER. The patient did have a ultrasound of the gallbladder and liver area which did shows multiple lesions in the liver with concern for possible METS versus fungal infection. A CT of abdomen and pelvis was done which did shows bilateral pulmonary base nodules in addition to the multiple nodules in the liver with concern for possible metastatic disease. Infectious Disease was consulted for further recommendations with concern for possible fungal infection as per suspicions raised by the radiologist. The patient denies having any travel outside [place] or any sick contacts. REVIEW OF SYSTEMS: CONSTITUTIONAL: Positive for weakness but no fever. Eyes no complaint. ENT no complaint. Respiratory no complaint. Cardiovascular no complaint. Genitourinary no complaint. Gastrointestinal: As per HPI. Musculoskeletal no complaint. Integument no complaint. Psychological no complaint. Endocrine no complaint. Neurologic no complaint. PAST MEDICAL HISTORY: Coronary artery disease, chest pain, angina, gastroesophageal reflux disease, hypothyroidism, hypertension, hyperlipidemia, MT. PAST SURGICAL HISTORY: Cholecystectomy, coronary bypass grafting, PTCA with stent. PAST PSYCHOLOGICAL HISTORY: Anxiety/depression. SOCIAL HISTORY: Remote history of smoking. No drinking or any drug use. FAMILY HISTORY: Mother with history of coronary artery disease and diabetes. Father with history of coronary artery disease and diabetes as well. ALLERGIES: No known drug allergies. MEDICATIONS: Currently include the patient is on Lipitor, Neurontin, Imdur, Zestril, Toprol-XL, minocycline, morphine sulfate, Narcan, Zofran, Protonix, Ultram. PHYSICAL EXAMINATION: Blood pressure is 139/71 with a pulse of 85, temperature 98.8. He is 100% on room air. General description is an male lying in bed in no distress. No tachypnea or accessory muscles of respiration use. HEENT: Shows pallor. No scleral icterus. Oral mucous membranes dry. No pharyngeal erythema or thrush. Neck: Trachea central. No thyromegaly. LUNGS: Unlabored breathing. Clear to auscultation anteriorly. No wheeze or crackles. Heart S1, S2. Regular rate and rhythm. ABDOMEN: Soft, no tenderness. No guarding or rigidity. EXTREMITIES: No edema of the feet. Skin examination: No rash or mass palpable. Neurological: Patient is awake, alert, oriented times three. Mood and affect normal. LABS: Hemoglobin 7.9, white count of 7.3. BUN of 19, creatinine 1.01. Electrolytes have been normal. Liver enzymes are elevated with AST of LDH 2089. CT ultrasound report as mentioned above. DIAGNOSTIC IMPRESSION AND PLAN: Patient with abnormal liver enzymes with abnormality seen both on ultrasound and the CT of the abdomen and pelvis, highly suspicious for metastatic disease. Clinically doubt infectious etiology with bacterial or fungal in this patient currently not running any fever, did not have elevated white count, does not look toxic. PLAN: 1. Blood cultures have been obtained check a sed rate and CRP. 2. We will hold on any systemic antibiotic therapy, clinical suspicion of underlying bacterial or fungal infection. 3. We will cover for possible underlying malignancy for which Gastroenterology has been consulted with predominantly upper gastrointestinal symptoms may benefit from an EGD. 4. We will follow up on clinical condition and further adjust medication if needed. Thank you for this consultation. We will follow this patient along with you. MMODL / IJN: [id number] /
[2018-06-26 13:01] VITALS: BMI 26.3
[2018-06-26] MEDS ORDERED: MIRTAZAPINE 15 MG TAB PO SCH ×2 (18:00→22:00)
--- NOTE | 2018-06-26 18:45 | P.PN ---
Subjective Progress Note Date: 06/26/18 Principal diagnosis: Anemia increased liver function past anorexia weight loss liver metastatic lesion against fungal infection 68 years old male patient one of my patient and Dr. JINA Ng with past history hypertension, hyperlipidemia, coronary artery disease with prior stent placement with history of myocardial infarction status post coronary artery bypass grafting surgery in [facility] in 2010. Recent cardiac workup in February 2017, underwent Lexiscan stress test which was negative for any reversible ischemia. Patient was recently admitted and discharged , after chest discomfort episode, and patient underwent a stress dobutamine at that time which was inconclusive secondary to abnormal EKG at baseline, it was a technically difficult dobutamine echo with suboptimal images , however there is no gross evidence to suggest ischemia. Cardiac cath performed 11/23/2017 Dr. Rodríguez, for unstable angina, LAD is chronically occluded in its midportion, severe stenosis of the RCA, midportion, stent within the proximal circumflex artery appears patent obtuse marginal branch 70-80% stenosis bypass graft TURNER to LAD is patent proximal and distal anastomoses sites are free of stenosis venous graft to PDA patent, venous graft to OM branch free of disease patient has rincon three-vessel CAD with patent TURNER to LAD patent venous graft to PDA and patent venous graft to OM branch Pertinent imaging studies last time included an MRI of the brain showing extensive demyelination present within the brain, correlate for possible MS chronic small vessel disease, patient sees Dr. Vickers outpatient Patient was subsequently today sent to the emergency room after was seen by our nurse practitioner and office secondary to abdominal fullness especially after eating, decreased appetite, decreased oral intake, couple of dark stools, increasing fatigue, patient has weight loss of 20 pounds over the past one month , labs were abnormal to include elevation of liver function tests and alkaline phosphatase, normal hepatitis panel, hemoglobin was 7.4, consult would be made with Dr. Rodríguez, imaging studies to be done while in the hospital. Abdominal ultrasound shows multiple hyperdense Radiation throughout the liver, metastatic lesion should be considered, infectious etiologies such as fungal infection could be considered, contrast abdomen and pelvis is requested, gallbladder is surgically absent, and bile that 0.6 cm. Review of imaging studies November 2017 CTA chest, did not show any liver abnormalities at that time except for minimal reticular density at the lung bases. Labs in the ER shows alkaline phosphatase 619 ALT 75 AST 161 and lipase normal 188 creatinine 1.01 urinalysis negative occult blood negative 06/26: Patient still has anorexia, MAXIMUM TEMPERATURE of 99.9, blood cultures are currently pending, hemoglobin currently is 6.9, requires one unit of packed red blood cell, patient denies any abdominal discomfort, no blood in stool, patient wants to go home tomorrow to celebrate with family members, sorting Shawn Chatterjee. I studies are low, very Ferrlecit to be given tomorrow liver function test to follow in a.m., CEA slightly elevated 134, AFP normal, lipase normal, CA 199 normal, PSA currently pending at times the pain added 7.5 mg for anorexia, hold Lipitor secondary to elevated liver function test. Blood pressure has been running on the low normal, we'll going to decrease this in the pill to 2.5 mg daily instead of 10. Patient can't remember the last colonoscopy. Objective - Vital Signs Vital signs: Vital Signs Temp 97.9 F 06/26/18 14:35 Pulse 63 06/26/18 14:39 Resp 16 06/26/18 14:39 BP 105/53 06/26/18 14:39 Pulse Ox 98 06/26/18 14:39 Intake & Output 06/25/18 06/26/18 06/26/18 18:59 06:59 18:59 Intake Total 660 450 Balance 660 450 Weight 73.936 kg 73.936 kg 73.936 kg Intake: Oral 660 450 Blood Product 0 Rc Pheresis 2 As3 Unit 0 [id number] Other: Voiding Method Toilet Toilet Toilet # Voids 1 2 - Constitutional General appearance: Present: cooperative, no acute distress - EENT Eyes: Present: anicteric sclerae, EOMI, dentition normal ENT: Present: hearing grossly normal, normal oropharynx - Neck Neck: Present: normal ROM - Respiratory Respiratory: bilateral: CTA, negative: diminished, dullness, rales - Cardiovascular Rhythm: regular Heart sounds: normal: S1, S2 Abnormal Heart Sounds: Absent: systolic murmur, diastolic murmur, rub, S3 Gallop , S4 Gallop, click, other - Gastrointestinal General gastrointestinal: Present: normal bowel sounds, soft - Integumentary Integumentary: Present: normal, normal turgor - Neurologic Neurologic: Present: CNII-XII intact - Musculoskeletal Musculoskeletal: Present: gait normal, strength equal bilaterally - Psychiatric Psychiatric: Present: A&O x's 3, appropriate affect, intact judgment & insight - Labs CBC & Chem 7: 06/27/18 08:06 06/27/18 08:06 Labs: Abnormal Lab Results - Last 24 Hours (Table) 06/25/18 06/25/18 06/26/18 Range/Units 11:15 11:25 09:09 RBC 2.97 L (4.30-5.90) m/uL Hgb 6.9 L* (13.0-17.5) gm/dL Hct 22.3 L (39.0-53.0) % MCV 75.1 L (80.0-100.0) fL MCH 23.2 L (25.0-35.0) pg MCHC 30.9 L (31.0-37.0) g/dL RDW 18.2 H (11.5-15.5) % Iron 18 L (65-175) ug/dL Iron Saturation 5.08 L (15.00-50.00) Carcinoembryonic Ag 134.7 H (0.0-4.9) ng/mL Crossmatch See Detail Assessment and Plan Plan: 1. 1. Anorexia with elevated alkaline phosphatase liver function tests, abnormal imaging studies in the ultrasound, metastatic disease against fungal infection, consult with Dr. Joseph and Dr. Rosado, CAT scan of the abdomen and pelvis IV oral contrast, PSA and CEA, AFP CA 199 to be done, 2. 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 Hyperlipidemia, on Lipitor 80 5. Rosacea, stable on maintenance doxycycline 50 mg daily 6. Thyroid nodule stable DVT prophylaxis GI prophylaxis
[2018-06-26] MEDS: MINOCYCLINE 50 MG CAP PO SCH ×2 (21:04→21:17)
[2018-06-26 22:28] VITALS: RESP 18
[2018-06-27] MEDS: SODIUM CHLORIDE 0.9% 1,000 ML IV SCH (05:33)
[2018-06-27 05:57] VITALS: BP 121/62; PULSE 74; TEMP 98.4
[2018-06-27] MEDS: ISOSORBIDE MONONITRATE ER 30 MG TAB.ER.24H PO SCH (08:12)
[2018-06-27] MEDS: METOPROLOL SUCCINATE (ER) 25 MG TAB.ER.24H PO SCH (08:12)
[2018-06-27] MEDS: GABAPENTIN 300 MG CAP PO SCH (08:12)
[2018-06-27] MEDS: PANTOPRAZOLE 40 MG/10 ML VIAL IV SCH (08:13)
[2018-06-27] MEDS ORDERED: LISINOPRIL 2.5 MG TAB PO SCH (09:00)
[2018-06-27 09:09] LABS: Albumin 2.7 g/dL (3.5-5.0); Calcium 8.4 mg/dL (8.4-10.2); Potassium 4.3 mmol/L (3.5-5.1); Total Bilirubin 1.5 mg/dL (0.2-1.3); Total Protein 5.4 g/dL (6.3-8.2)
[2018-06-27 09:12] LABS: Anisocytosis Slight; Basophils % (A) 0 %; Eosinophils # (A) 0.2 k/uL (0-0.7); Eosinophils % (A) 4 %; HCT 26.7 % (39.0-53.0); HGB 8.2 gm/dL (13.0-17.5); Hypochromasia Marked; Lymphocytes # (A) 0.6 k/uL (1.0-4.8); Lymphocytes % (A) 9 %; MCHC 30.7 g/dL (31.0-37.0); MCV 78.2 fL (80.0-100.0); Mean Platelet Volume 6.6; Microcytosis Slight; Monocytes # (A) 0.5 k/uL (0-1.0); Monocytes % (A) 7 %; Neutrophils # (A) 4.9 k/uL (1.3-7.7); Neutrophils % (A) 78 %; Platelet Count 275 k/uL (150-450); Poikilocytosis Slight; RBC 3.41 m/uL (4.30-5.90); RDW 18.4 % (11.5-15.5); WBC 6.3 k/uL (3.8-10.6)
--- NOTE | 2018-06-27 09:36 | PN ---
PROGRESS NOTE DATE OF SERVICE: 06/26/2018. REASON FOR FOLLOWUP: Abnormal CT of the liver with concern for possible infection. INTERVAL HISTORY: The patient is afebrile. He has been breathing comfortably. The patient mentioned that overall oral intake remains to be poor. Denies having any chest pain or shortness of breath or cough. No abdominal pain or any diarrhea. PHYSICAL EXAMINATION: On examination, blood pressure 123/61 with a pulse of 73, temperature 99. He is 99% on room air. General description is an elderly male lying in bed in no distress. RESPIRATORY SYSTEM: Unlabored breathing, clear to auscultation anteriorly. HEART: S1, S2. Regular rate and rhythm. ABDOMEN: Soft, no tenderness. LABS: Culture has been negative so far. Hemoglobin 6.9, white count 6.8. DIAGNOSTIC IMPRESSION AND PLAN: Patient with multiple lesions to his liver with concern for possible metastatic disease. Clinically doubt infectious etiology. The patient at this time to continue to monitor closely off antibiotic therapy while awaiting further workup to finalize. Continue supportive care. MMODL / IJN: [id number] /
[2018-06-27] MEDS ORDERED: RX INFO: IV CONTRAST WAS GIVEN 1 EACH MISC MISCELLANE PRN (10:16)
--- NOTE | 2018-06-27 11:16 | P.CONS ---
History of Present Illness - Reason for Consult Consult date: 06/26/18 Abnormal liver tests and liver lesions. - History of Present Illness Patient is a pleasant 68-year-old male presenting to the emergency department after being seen in the office. There was concern for abnormal labs. Patient states over the past month or so has lost approximately 20 pounds. Patient has abdominal fullness especially with eating. Decreased appetite and decreased oral intake. Patient is so drinking fluids. Patient has had a couple of dark stools. Stool appeared normal this morning. No vomiting. Patient has been somewhat fatigued. No chest pain or dyspnea. No abdominal pain except while eating. No history of similar symptoms prior to the past month or so. Review of Systems Constitutional: Denies fever, chills or unintentional weight loss Neurologic: No history of headaches, double vision or sensory or motor changes Cardiopulmonary: No chest pains, shortness of breath or palpitations Gastrointestinal: See present illness above Genitourinary: No hematuria, dysuria or frequency Skin: No rashes Endocrine: No polyuria or polydipsia Musculoskeletal: No joint complaints or swelling Hematologic: No bleeding tendency Psychiatric: No history of anxiety or depression Past Medical History Past Medical History: Coronary Artery Disease (CAD), Chest Pain / Angina, GERD/ Reflux, Hyperlipidemia, Hypertension, Myocardial Infarction (ND), Skin Disorder , Thyroid Disorder Additional Past Medical History / Comment(s): Pt recently admitted to [facility] on with heat sensation anterior/posterior chest. Other hx: Stable thyroid nodule, rosacia, past shingelles. Last Myocardial Infarction Date:: 1997 History of Any Multi-Drug Resistant Organisms: None Reported Past Surgical History: Cholecystectomy, Coronary Bypass/CABG, Heart Catheterization With Stent Additional Past Surgical History / Comment(s): Pt thinks he's had 3 heart caths and 6 stents then in 2010 triple vessel CABG (done in [place]), thyroid bx Past Anesthesia/Blood Transfusion Reactions: No Reported Reaction Additional Past Anesthesia/Blood Transfusion Reaction / Comm: No previous blood transfusions that he is aware of. Hx of clausterphobia. Date of Last Stent Placement:: 2005/2006? Past Psychological History: Anxiety, Depression Additional Psychological History / Comment(s): Pt lives with son, brayan. Pt is independant. He moved from [place] to [place], December 2016 d/t 's illness and to be closer to their son. Spouse 07/2017. Smoking Status: Former smoker Past Alcohol Use History: None Reported Additional Past Alcohol Use History / Comment(s): Started smoking at age 15(1965 ) and quit 1996. Smoked 1 ppd. Past Drug Use History: None Reported Additional Drug Use History / Comment(s): s - Past Family History Mother Family Medical History: Coronary Artery Disease (CAD), Diabetes Mellitus Father Family Medical History: No Reported History Sister(s) Family Medical History: Coronary Artery Disease (CAD), Diabetes Mellitus Medications and Allergies Home Medications Medication Instructions Recorded Confirmed Type Lisinopril [Prinivil] 10 mg PO DAILY 02/22/17 06/25/18 History Minocycline HCl [Minocin] 50 mg PO HS 02/22/17 06/25/18 History Nitroglycerin Sl Tabs [Nitrostat] 0.4 mg SUBLINGUAL Q5M PRN 02/22/17 06/25/18 History traMADol HCL [Ultram] 50 mg PO Q6H PRN 02/22/17 06/25/18 History Aspirin 81 mg PO DAILY #30 chew 10/28/17 06/25/18 Rx Atorvastatin [Lipitor] 80 mg PO HS 11/18/17 06/25/18 History Isosorbide Mononitrate ER [Imdur] 30 mg PO DAILY #30 tab 11/26/17 06/25/18 Rx Gabapentin [Neurontin] 300 mg PO DAILY 06/25/18 06/25/18 History Metoprolol Succinate (ER) [Toprol 25 mg PO BID 06/25/18 06/25/18 History Xl] Allergies Allergy/AdvReac Type Severity Reaction Status Date / Time No Known Allergies Allergy Verified 06/25/18 11:24 Physical Exam Vitals: Vital Signs Temp Pulse Pulse Resp BP BP Pulse Ox 06/26/18 07:30 98.3 F 82 16 115/59 98 06/25/18 22:40 99.9 F H 75 16 109/57 98 06/25/18 16:50 98.8 F 85 18 139/71 100 06/25/18 16:18 98.7 F 77 15 128/68 100 06/25/18 13:40 99.5 F 81 16 126/65 99 06/25/18 11:40 75 16 129/61 99 06/25/18 10:38 99.0 F 98 18 148/73 Intake and Output 06/25/18 06/26/18 06/26/18 22:59 06:59 14:59 Intake Total 660 300 Balance 660 300 Intake: Oral 660 300 Other: Voiding Method Toilet Toilet # Voids 1 1 Weight 73.936 kg 73.936 kg General: Appeared stated age, very pleasant in no acute distress Head and neck: Normocephalic and atraumatic, conjunctivae pink and sclerae not icteric, mucous membranes moist and pink. No masses in the neck or clavicular shifts Lungs: Clear to auscultation with no dullness to percussion Heart: Regular, no abnormal sounds, murmurs, gallops or friction Abdomen: Soft, no masses or organomegalies. No tenderness, bowel sounds present Extremities: No clubbing, cyanosis or edema Neurologic: Alert and oriented 3. Cranial nerves grossly intact. No gross sensory or motor abnormalities Results CBC & Chem 7: 06/27/18 08:06 06/27/18 08:06 Labs: Abnormal Lab Results - Last 24 Hours (Table) 06/25/18 06/25/18 06/25/18 Range/Units 11:15 11:25 11:25 RBC 3.47 L (4.30-5.90) m/uL Hgb 7.9 L (13.0-17.5) gm/dL Hct 25.9 L (39.0-53.0) % MCV 74.7 L (80.0-100.0) fL MCH 22.8 L (25.0-35.0) pg MCHC 30.5 L (31.0-37.0) g/dL RDW 18.0 H (11.5-15.5) % Lymphocytes # 0.4 L (1.0-4.8) k/uL Sodium 135 L (137-145) mmol/L Glucose 101 H (74-99) mg/dL Iron 18 L (65-175) ug/dL Iron Saturation 5.08 L (15.00-50.00) AST 161 H (17-59) U/L ALT 75 H (21-72) U/L Alkaline Phosphatase 619 H (38-126) U/L Lactate Dehydrogenase (313-618) U/L Total Protein 6.1 L (6.3-8.2) g/dL Albumin 3.2 L (3.5-5.0) g/dL Carcinoembryonic Ag 134.7 H (0.0-4.9) ng/mL Urine Protein (Negative) Urine Mucus (None) /hpf Crossmatch 06/25/18 06/25/18 06/25/18 Range/Units 11:25 11:25 12:58 RBC (4.30-5.90) m/uL Hgb (13.0-17.5) gm/dL Hct (39.0-53.0) % MCV (80.0-100.0) fL MCH (25.0-35.0) pg MCHC (31.0-37.0) g/dL RDW (11.5-15.5) % Lymphocytes # (1.0-4.8) k/uL Sodium (137-145) mmol/L Glucose (74-99) mg/dL Iron (65-175) ug/dL Iron Saturation (15.00-50.00) AST (17-59) U/L ALT (21-72) U/L Alkaline Phosphatase (38-126) U/L Lactate Dehydrogenase 2089 H (313-618) U/L Total Protein (6.3-8.2) g/dL Albumin (3.5-5.0) g/dL Carcinoembryonic Ag (0.0-4.9) ng/mL Urine Protein 1+ H (Negative) Urine Mucus Occasional H (None) /hpf Crossmatch See Detail 06/26/18 Range/Units 09:09 RBC 2.97 L (4.30-5.90) m/uL Hgb 6.9 L* (13.0-17.5) gm/dL Hct 22.3 L (39.0-53.0) % MCV 75.1 L (80.0-100.0) fL MCH 23.2 L (25.0-35.0) pg MCHC 30.9 L (31.0-37.0) g/dL RDW 18.2 H (11.5-15.5) % Lymphocytes # (1.0-4.8) k/uL Sodium (137-145) mmol/L Glucose (74-99) mg/dL Iron (65-175) ug/dL Iron Saturation (15.00-50.00) AST (17-59) U/L ALT (21-72) U/L Alkaline Phosphatase (38-126) U/L Lactate Dehydrogenase (313-618) U/L Total Protein (6.3-8.2) g/dL Albumin (3.5-5.0) g/dL Carcinoembryonic Ag (0.0-4.9) ng/mL Urine Protein (Negative) Urine Mucus (None) /hpf Crossmatch Assessment and Plan Assessment: Abnormal CT of the abdomen and chest and abnormal liver chemistries possibly related to metastatic liver disease. Plan: I will discuss with you further workup. Options include upper and lower endoscopy in light of his elevated CEA. Ultrasound-guided biopsy by the interventional radiologist could be considered as well. As per my discussion with you, would be also awaiting infectious disease input for possible infectious etiology that could explain his lung and liver lesions.
--- NOTE | 2018-06-27 12:14 | CT ---
EXAMINATION TYPE: CT chest w con DATE OF EXAM: 06/27/2018 COMPARISON: CT abdomen pelvis 06/25/2018, CT chest or 11/22/2017 HISTORY: Liver mets, primary unknown. CT DLP: 656 mGycm Automated exposure control for dose reduction was used. CONTRAST: CT scan of the chest is performed with IV Contrast, patient injected with 100 mL of Isovue M300. FINDINGS: LUNGS: There are multiple bilateral lung nodules present which of developed in the interval also subc entimeter in size, approximately 10 nodules are present, the largest in the left lower lobe measures 9 mm. Abnormal density is present in the posterior lateral trachea possibly related to retained secre tions. MEDIASTINUM: There are no greater than 1 cm hilar or mediastinal lymph nodes. No pericardial effusi on is seen. Patient is post median sternotomy. Dense coronary artery calcifications are present. The re may be a small hiatal hernia. AORTA: No additional significant abnormality is seen. OTHER: Multiple enhancing liver masses nearly completely replaced the liver parenchyma. Surgical cli ps present in the right upper quadrant. Suspect there is cystic duct remnant which is prominent in th e gallbladder fossa. IMPRESSION: Metastatic disease. Postop changes. Possible retained secretions within the trachea, den sity is indeterminate however. Additional findings above.
--- NOTE | 2018-06-27 13:19 | PN ---
PROGRESS NOTE DATE OF SERVICE: 06/27/2018 REASON FOR FOLLOWUP: Abnormal CT liver with question of possible infection. INTERVAL HISTORY: The patient is still feeling slightly weak, low appetite and slight tender in the right upper quadrant area, but no chest pain or shortness of breath or cough. PHYSICAL EXAMINATION: On examination, blood pressure 121/62 with a pulse of 74, temperature 98.4. He is 98% on room air. General description is an elderly male lying in bed in no distress. RESPIRATORY SYSTEM: Unlabored breathing, clear to auscultation anteriorly. HEART: S1, S2. Regular rate and rhythm. ABDOMEN: Soft, no tenderness. LABS: Hemoglobin 8.2, white count 6.3. Creatinine is 1.0. Blood cultures have been negative. DIAGNOSTIC IMPRESSION AND PLAN: Patient with multiple nodules into the liver as well as the lung base, more likely related to underlying malignancy. Clinically doubt bacterial fungal infection. Blood cultures have been negative. No need for any systemic antibiotic therapy at this point. Continue supportive care. MMODL / IJN: [id number] /
== END 2018-06-27 12:51 | disposition home or self-care (01) | DRG 436 ==
LOC: EC 10:33 → 4MS4W 13:17 → OBSVTOIN 06-27 08:44
PROVIDERS: ADMIT Family Medicine; ATTEND Family Medicine
DX: C78.7 Secondary malignant neoplasm of liver and intrahepatic bile duct (principal); C78.02 Secondary malignant neoplasm of left lung; C78.01 Secondary malignant neoplasm of right lung; D64.9 Anemia, unspecified; E03.9 Hypothyroidism, unspecified; E04.1 Nontoxic single thyroid nodule; E78.5 Hyperlipidemia, unspecified; F32.9 Major depressive disorder, single episode, unspecified; F41.9 Anxiety disorder, unspecified; I10 Essential (primary) hypertension; I25.10 Atherosclerotic heart disease of native coronary artery without angina pectoris; K21.9 Gastro-esophageal reflux disease without esophagitis; I25.2 Old myocardial infarction; L71.9 Rosacea, unspecified; Z79.82 Long term (current) use of aspirin; Z79.899 Other long term (current) drug therapy; Z82.49 Family history of ischemic heart disease and other diseases of the circulatory system; Z83.3 Family history of diabetes mellitus; Z87.891 Personal history of nicotine dependence; Z90.49 Acquired absence of other specified parts of digestive tract; Z95.1 Presence of aortocoronary bypass graft; Z95.5 Presence of coronary angioplasty implant and graft; C80.1 Malignant (primary) neoplasm, unspecified
CPT/HCPCS: 36415; 71260; 74018; 74177; 76705; 80053; 81001; 82105; 82150; 82272; 82378; 82728; 83540; 83550; 83615; 83690; 84153; 84154; 85025; 85027; 85610; 85730; 86301; 86850; 86900; 86901; 86920; 87040; 96361; 96374; 99285

== ENCOUNTER → 2018-07-08 | Day surgery (SDC) | payer MEDICARE, OTHER ==
[2018-07-07 11:26] VITALS: BMI 26.6
[~2018-07-08] MED LIST changes: +DEXAMETHASONE SOD PHOSPHATE 10 MG/ML 1 ML VIAL IV ONE; +HYDROmorphone 0.5 MG/0.5 ML SYRINGE IVP PRN; +LIDOCAINE 1% 20 ML VIAL (10MG/ML) FOR IV START INTRADERMA PRN; +LIDOCAINE 1% INJ 10MG/ML (20 ML MDV) ONE; +ONDANSETRON 4 MG/2 ML VIAL IVP ONE; +PROPOFOL 10 MG/ML 20 ML VIAL IV ONE; +SCOPOLAMINE 1.5MG/72HR PATCH TRANSDERM ONE
[2018-07-08 12:22] VITALS: TEMP 97
--- NOTE | 2018-07-08 13:20 | P.PCN ---
Date of Procedure: 07/08/18 Procedure(s) Performed: Procedures: 1. Esophagogastroduodenoscopy and biopsy. 2. Total colonoscopy. Preoperative diagnosis: Iron deficiency anemia and metastatic liver disease with liver biopsy pointing to a source in the GI tract. Postoperative diagnosis: 1. Esophageal mass consistent with cancer multiple biopsies obtained. 2. Left sided diverticulosis with no evidence of acute diverticulitis, strictures, polyps or cancer. Preparation: HalfLytely prep. Sedation: Was provided by anesthesia. Brief clinical history: The patient is a 68-year-old male who is scheduled for this evaluation for the above reasons. He was briefly hospitalized late last month for metastatic liver disease and there was found to have elevated CEA. The patient has upper GI complaints and had no colonoscopy for many years. He underwent CT-guided liver biopsy as outpatient on July 01 and that showed metastatic disease with possible GI primary. Procedure: With the patient on his left lateral decubitus position and after informed consent and adequate sedation, I passed the Olympus GIF 160 video upper endoscope through the cricopharyngeus down the esophagus. There was an esophageal mass that starts at around 35 cm from the incisors that continue in a ridge fashion terminating with more widespread involvement at the level of the GE junction around 40 cm. It did not obstruct the advancement of the endoscope. It was exophytic and friable consistent with cancer. Multiple biopsies were obtained. The stomach and duodenum were examined including the retroflex view in the cardia and no obvious abnormalities were noted. The esophageal mass can be seen in the retroflex view in the cardia. I also obtained an esophageal biopsy and adequate view. The endoscope was then withdrawn and I proceeded with the colonoscopy. Perianal area did not show any fissures or fistulas. There were no masses felt on digital rectal examination. The Olympus CFH 190L video colonoscope was then inserted in the rectum in the usual fashion and advanced to the cecum. Multiple diverticular orifices were seen in the sigmoid and left colon but there was no evidence of acute diverticulitis or strictures. No polyps or tumors were seen. I retroflexed the endoscope in the rectum before the endoscope was withdrawn. The patient tolerated the procedure well. Plan: I summarized the findings to the patient and his family. Will await biopsy results. He will follow up with you and with oncology. Further plans will be made accordingly.
[2018-07-08 13:23] VITALS: RESP 16
[2018-07-08 13:41] VITALS: BP 117/80; PULSE 66
== END ==
LOC: ORWHC2ENDO 12:12
DX: C15.9 Malignant neoplasm of esophagus, unspecified (principal); C78.7 Secondary malignant neoplasm of liver and intrahepatic bile duct; K57.30 Diverticulosis of large intestine without perforation or abscess without bleeding; D50.9 Iron deficiency anemia, unspecified; K21.9 Gastro-esophageal reflux disease without esophagitis; I25.10 Atherosclerotic heart disease of native coronary artery without angina pectoris; I10 Essential (primary) hypertension; E78.5 Hyperlipidemia, unspecified; Z95.1 Presence of aortocoronary bypass graft; Z95.5 Presence of coronary angioplasty implant and graft; Z79.891 Long term (current) use of opiate analgesic; Z79.899 Other long term (current) drug therapy
CPT/HCPCS: 88305; 45378; 43239; J2001; J2704

== ENCOUNTER 2018-07-24 10:45 | Inpatient (IN) | payer MEDICARE, OTHER ==
[2018-07-24] MEDS ORDERED: ONDANSETRON 4 MG/2 ML VIAL IVP STA ×2 (11:29→13:07)
[2018-07-24] MEDS ORDERED: SODIUM CHLORIDE 0.9% 1,000 ML IV STA (11:29)
[2018-07-24] MEDS ORDERED: FAMOTIDINE 20 MG/2 ML VIAL IV STA (11:30)
--- NOTE | 2018-07-24 11:34 | ED ---
General Adult HPI - General Chief complaint: Nausea/Vomiting/Diarrhea Stated complaint: Vomiting Time Seen by Provider: 07/24/18 11:24 Source: patient, family, RN notes reviewed Mode of arrival: wheelchair Limitations: no limitations - History of Present Illness Initial comments: Patient is a pleasant 68-year-old male presenting to the emergency department with nausea vomiting. Onset of symptoms was earlier this morning. Patient has vomited multiple times since 9 AM. Patient feels generally weak. No pain. No isolated area of weakness. No confusion. did receive chemotherapy for the first time yesterday. Patient is on chemotherapy secondary to stage IV esophageal cancer that was recently diagnosed. - Related Data Home Medications Medication Instructions Recorded Confirmed Minocycline HCl [Minocin] 50 mg PO HS 02/22/17 07/07/18 Nitroglycerin Sl Tabs [Nitrostat] 0.4 mg SUBLINGUAL Q5M PRN 02/22/17 07/07/18 traMADol HCL [Ultram] 50 mg PO Q6H PRN 02/22/17 07/07/18 Gabapentin [Neurontin] 300 mg PO BID 06/25/18 07/07/18 ALPRAZolam [Xanax] 0.25 mg PO DAILY PRN 06/30/18 07/07/18 Aspirin [Adult Low Dose Aspirin EC] 81 mg PO DAILY 07/01/18 07/07/18 Acetaminophen Tab [Tylenol Tab] 325 - 650 mg PO Q4H PRN 07/07/18 07/08/18 Metoprolol Tartrate [Lopressor] 50 mg PO DAILY 07/07/18 07/07/18 Previous Rx's Medication Instructions Recorded Isosorbide Mononitrate ER [Imdur] 30 mg PO DAILY #30 tab 11/26/17 Famotidine [Pepcid] 20 mg PO DAILY #30 tablet 06/27/18 Ferrous Sulfate [Feosol] 325 mg PO DAILY #30 tab 06/27/18 Lisinopril [Zestril] 2.5 mg PO DAILY #30 tab 06/27/18 Mirtazapine [Remeron] 7.5 mg PO 2200 #30 tab 06/27/18 Allergies Allergy/AdvReac Type Severity Reaction Status Date / Time No Known Allergies Allergy Verified 07/24/18 12:04 Review of Systems ROS Statement: Those systems with pertinent positive or pertinent negative responses have been documented in the HPI. ROS Other: All systems not noted in ROS Statement are negative. Constitutional: Denies: fever, chills Eyes: Denies: eye pain ENT: Denies: ear pain Respiratory: Denies: cough Cardiovascular: Denies: chest pain Endocrine: Reports: fatigue Gastrointestinal: Denies: abdominal pain Genitourinary: Denies: dysuria Musculoskeletal: Denies: back pain Skin: Denies: rash Neurological: Reports: weakness (Generalized). Denies: headache Past Medical History Past Medical History: Coronary Artery Disease (CAD), Chest Pain / Angina, GERD/ Reflux, Hyperlipidemia, Hypertension, Myocardial Infarction ([place]), Skin Disorder , Thyroid Disorder Additional Past Medical History / Comment(s): Stable thyroid nodule, Rosacea, past shingles. RECENT FATIGUE, ANEMIA, N/V, WGT LOSS, UNABLE TO KEEP SOME FOOD AND RX DOWN FOR PAST 2 MONTHS EST; RECENT VISIT TO [facility] FOR SAME. LIVER LESIONS FOUND ON CT SCAN, BIOPSY DONE. Last Myocardial Infarction Date:: 1997 History of Any Multi-Drug Resistant Organisms: None Reported Past Surgical History: Cholecystectomy, Coronary Bypass/CABG, Heart Catheterization With Stent Additional Past Surgical History / Comment(s): Pt thinks he's had 3 heart caths , and 6 stents then in 2010 triple vessel CABG (done in [place]), thyroid bx Past Anesthesia/Blood Transfusion Reactions: No Reported Reaction Additional Past Anesthesia/Blood Transfusion Reaction / Comment(s): No previous blood transfusions that he is aware of. Hx of claustrophobia. Date of Last Stent Placement:: 2005/2006? Past Psychological History: Anxiety, Depression Smoking Status: Former smoker Past Alcohol Use History: None Reported - Past Family History Mother Family Medical History: Coronary Artery Disease (CAD), Diabetes Mellitus Father Family Medical History: No Reported History Sister(s) Family Medical History: Coronary Artery Disease (CAD), Diabetes Mellitus General Exam Limitations: no limitations General appearance: alert, in no apparent distress Head exam: Present: atraumatic Eye exam: Present: normal appearance ENT exam: Present: normal oropharynx Neck exam: Present: normal inspection Respiratory exam: Present: normal lung sounds bilaterally Cardiovascular Exam: Present: regular rate, normal rhythm GI/Abdominal exam: Present: soft. Absent: tenderness Extremities exam: Present: normal inspection Neurological exam: Present: alert Expanded Motor strength exam: RUE: 5, LUE: 5, RLE: 5, LLE: 5 Psychiatric exam: Present: normal affect, normal mood Skin exam: Present: normal color Course Vital Signs 07/24/18 11:13 Temperature 97.1 F L Pulse Rate 95 Respiratory 18 Rate Blood Pressure 175/91 O2 Sat by Pulse 100 Oximetry Medical Decision Making - Medical Decision Making Patient reevaluated and resting comfortably in bed. Patient remains alert and oriented 3. Son and nurse both state patient did have some confusion earlier. Son states this has been somewhat intermittent. Patient and family updated on results and plan. Patient still feels generally weak. Patient and family are not comfortable with discharge home. Case was discussed in detail with Dr. Rosenbaum who is familiar with this patient. He will consult. He will send nursing staff down to hold the infusion. Case was also discussed in detail with Dr. Cavazos who is family with this patient and will admit. - Lab Data Result diagrams: 07/24/18 11:44 07/24/18 11:44 Lab Results 07/24/18 07/24/18 Range/Units 11:44 11:44 WBC 10.0 (3.8-10.6) k/uL RBC 3.87 L (4.30-5.90) m/uL Hgb 9.5 L (13.0-17.5) gm/dL Hct 31.7 L (39.0-53.0) % MCV 81.9 (80.0-100.0) fL MCH 24.7 L (25.0-35.0) pg MCHC 30.1 L (31.0-37.0) g/dL RDW 22.7 H (11.5-15.5) % Plt Count 263 (150-450) k/uL Neutrophils % 88 % Lymphocytes % 4 % Monocytes % 6 % Eosinophils % 0 % Basophils % 0 % Neutrophils # 8.9 H (1.3-7.7) k/uL Lymphocytes # 0.4 L (1.0-4.8) k/uL Monocytes # 0.6 (0-1.0) k/uL Eosinophils # 0.0 (0-0.7) k/uL Basophils # 0.0 (0-0.2) k/uL Hypochromasia Marked Anisocytosis Moderate Microcytosis Slight Sodium 138 (137-145) mmol/L Potassium 5.7 H (3.5-5.1) mmol/L Chloride 106 (98-107) mmol/L Carbon Dioxide 17 L (22-30) mmol/L Anion Gap 15 mmol/L BUN 26 H (9-20) mg/dL Creatinine 1.38 H (0.66-1.25) mg/dL Est GFR (CKD-EPI)AfAm 60 (>60 ml/min/1.73 sqM) Est GFR (CKD-EPI)NonAf 52 (>60 ml/min/1.73 sqM) Glucose 109 H (74-99) mg/dL Calcium 9.4 (8.4-10.2) mg/dL Total Bilirubin 1.4 H (0.2-1.3) mg/dL AST 196 H (17-59) U/L ALT 83 H (21-72) U/L Alkaline Phosphatase 749 H (38-126) U/L Total Protein 6.3 (6.3-8.2) g/dL Albumin 3.2 L (3.5-5.0) g/dL Amylase 97 (30-110) U/L Lipase 238 (23-300) U/L Disposition Clinical Impression: Weakness, Intractable vomiting Disposition: ADMITTED IP TO THIS HOSP Is patient prescribed a controlled substance at d/c from ED?: No Referrals: Sabine Cavazos MD [Primary Care Provider] - 1-2 days Decision Time: 13:25
[2018-07-24 12:05] LABS: Anisocytosis Moderate; Basophils % (A) 0 %; Eosinophils % (A) 0 %; HCT 31.7 % (39.0-53.0); HGB 9.5 gm/dL (13.0-17.5); Hypochromasia Marked; Lymphocytes # (A) 0.4 k/uL (1.0-4.8); Lymphocytes % (A) 4 %; MCH 24.7 pg (25.0-35.0); MCHC 30.1 g/dL (31.0-37.0); MCV 81.9 fL (80.0-100.0); Mean Platelet Volume 6.8; Microcytosis Slight; Monocytes # (A) 0.6 k/uL (0-1.0); Monocytes % (A) 6 %; Neutrophils # (A) 8.9 k/uL (1.3-7.7); Neutrophils % (A) 88 %; Platelet Count 263 k/uL (150-450); RBC 3.87 m/uL (4.30-5.90); RDW 22.7 % (11.5-15.5)
[2018-07-24 12:16] LABS: Albumin 3.2 g/dL (3.5-5.0); Calcium 9.4 mg/dL (8.4-10.2); Potassium 5.7 mmol/L (3.5-5.1); Total Bilirubin 1.4 mg/dL (0.2-1.3); Total Protein 6.3 g/dL (6.3-8.2)
[2018-07-24] MEDS: LORazepam 2 MG/ML INJ IV STA ×2 (13:00→15:46)
[2018-07-24] MEDS ORDERED: SODIUM CHLORIDE 0.9% 1,000 ML IV ONE (13:06)
[2018-07-24] MEDS ORDERED: ONDANSETRON 4 MG/2 ML VIAL IVP PRN (13:26)
[2018-07-24] MEDS ORDERED: NALOXONE 0.4 MG/ML 1 ML VIAL IV PRN (13:26)
--- NOTE | 2018-07-24 14:51 | XR ---
EXAMINATION TYPE: XR chest 2V DATE OF EXAM: 07/24/2018 COMPARISON: Chest x-ray November 22, 2017. CT chest June 27, 2018. HISTORY: Dyspnea. TECHNIQUE: Frontal and lateral views of the chest are obtained. FINDINGS: Elevated right hemidiaphragm is redemonstrated not significantly changed from most recent CT. Overlying sternal wires and mediastinal clips are redemonstrated. There is new right internal jug ular Mediport catheter terminating in SVC. There is cardiomegaly with central vascular congestion on current study. Left lung is clear. No pleural effusion or pneumothorax is evident bilaterally. Osseou s structures are intact. IMPRESSION: Elevated right hemidiaphragm felt to reflect product of enlarged liver related to hepati c metastatic disease. There is cardiomegaly with mild central vascular congestion. Correlate for CHF exacerbation or fluid overload state.
--- NOTE | 2018-07-24 14:58 | CT ---
EXAMINATION TYPE: CT brain wo/w con DATE OF EXAM: 07/24/2018 COMPARISON: None HISTORY: Altered mental status. History of esophageal CA with vomiting and confusion. CT DLP: 4512.4 mGycm Automated exposure control for dose reduction was used. CONTRAST: CT scan of the head is performed without and with IV Contrast, patient injected with 100 mL of Isovue 300. FINDINGS: Exam is suboptimal as there is motion artifact degradation present, repeat sequences show persistent motion due to patient confusion area Noncontrast images show no acute intracranial hemorrhage or midl ine shift. Mild ventricular and sulcal prominence is identified. Post contrast images show no convin cing enhancing intraparenchymal mass. There is dominant right vertebral artery with tortuous course o f the proximal basilar artery identified there is hypoplastic left A1 segment with filling of the lef t A2 segment due to patent anterior communicating artery incidentally seen. The globes are intact and the visualized sinuses are clear. IMPRESSION: Suboptimal study without acute intracranial hemorrhage or suspicious enhancing intraparen chymal mass clearly identified. Mild age-related atrophy is noted.
[2018-07-24] MEDS ORDERED: LORazepam 2 MG/ML INJ IV STA ×2 (15:19→15:37)
[2018-07-24] MEDS ORDERED: LEVOFLOXACIN 750MG-D5W PMX 750 MG in DEXTROSE/WATER 1 150ML.BAG IVPB STA (15:31)
[2018-07-24] MEDS ORDERED: PIPERACILLIN-TAZOBACTAM 3.375 GM in SODIUM CHLORIDE 0.9% 100 ML IVPB STA (15:31)
[2018-07-24] MEDS ORDERED: PNEUMONIA PROTOCOL UTILIZED 1 EACH MISC PO PRN (15:31)
[2018-07-24] MEDS ORDERED: HEPARIN SODIUM,PORCINE 5,000 UNIT/ML 1 ML VIAL IV PRN (15:36)
[2018-07-24] MEDS ORDERED: HEPARIN SODIUM,PORCINE 10,000 UNIT/ML 1 ML VIAL IV ONE (15:36)
[2018-07-24] MEDS: SODIUM CHLORIDE 0.9% 1,000 ML IV SCH ×2 (15:39→23:53)
[2018-07-24] MEDS ORDERED: HEPARIN SOD,PORK IN 0.45% NACL 25,000 UNIT in 0.45% NACL 1 250ML.BAG IV SCH (15:45)
[2018-07-24 15:50] LABS: Lactic Acid, Venous 14.2 mmol/L (0.7-2.0)
[2018-07-24 16:04] LABS: ABG Oxygen Saturation 91.7 % (94-97); ABG PCO2 20 mmHg (35-45); ABG PO2 79 mmHg (83-108); ABG TCO2 8 mmol/L (19-24)
[2018-07-24 16:09] LABS: ABG HCO3 7 mmol/L (21-25); ABG PH 7.15 (7.35-7.45)
[2018-07-24] MEDS ORDERED: LACTULOSE 200 GM/300 ML (FROM 1/2 GAL JUG) RECTAL SCH (16:30)
[2018-07-24] MEDS ORDERED: SODIUM BICARB 8.4% 50 ML SYR (1 MEQ/ML) IV ONE (16:31)
--- NOTE | 2018-07-24 16:45 | ED ---
Medical Decision Making - Medical Decision Making There is concern for possible aspiration and septic shock diagnosed at 1530. Focused exam completed. Blood culture and lactic acid and IV antibiotics have all been ordered. Patient has metabolic acidosis which is likely cause of tachypnea. Bicarb drip has been ordered. Lactulose has been ordered. - Lab Data Result diagrams: 07/24/18 11:44 07/24/18 11:44 Lab Results 07/24/18 07/24/18 Range/Units 11:44 11:44 WBC 10.0 (3.8-10.6) k/uL RBC 3.87 L (4.30-5.90) m/uL Hgb 9.5 L (13.0-17.5) gm/dL Hct 31.7 L (39.0-53.0) % MCV 81.9 (80.0-100.0) fL MCH 24.7 L (25.0-35.0) pg MCHC 30.1 L (31.0-37.0) g/dL RDW 22.7 H (11.5-15.5) % Plt Count 263 (150-450) k/uL Neutrophils % 88 % Lymphocytes % 4 % Monocytes % 6 % Eosinophils % 0 % Basophils % 0 % Neutrophils # 8.9 H (1.3-7.7) k/uL Lymphocytes # 0.4 L (1.0-4.8) k/uL Monocytes # 0.6 (0-1.0) k/uL Eosinophils # 0.0 (0-0.7) k/uL Basophils # 0.0 (0-0.2) k/uL Hypochromasia Marked Anisocytosis Moderate Microcytosis Slight Sodium 138 (137-145) mmol/L Potassium 5.7 H (3.5-5.1) mmol/L Chloride 106 (98-107) mmol/L Carbon Dioxide 17 L (22-30) mmol/L Anion Gap 15 mmol/L BUN 26 H (9-20) mg/dL Creatinine 1.38 H (0.66-1.25) mg/dL Est GFR (CKD-EPI)AfAm 60 (>60 ml/min/1.73 sqM) Est GFR (CKD-EPI)NonAf 52 (>60 ml/min/1.73 sqM) Glucose 109 H (74-99) mg/dL Calcium 9.4 (8.4-10.2) mg/dL Total Bilirubin 1.4 H (0.2-1.3) mg/dL AST 196 H (17-59) U/L ALT 83 H (21-72) U/L Alkaline Phosphatase 749 H (38-126) U/L Total Protein 6.3 (6.3-8.2) g/dL Albumin 3.2 L (3.5-5.0) g/dL Amylase 97 (30-110) U/L Lipase 238 (23-300) U/L Critical Care Time Critical Care Time: Yes Total Critical Care Time: 45 Disposition Clinical Impression: Weakness, Intractable vomiting Disposition: ADMITTED IP TO THIS HOSP Procedures - Sepsis Sepsis Focused Exam #1 Time Sepsis Criteria Met: 15:30 Sepsis Focused Exam Date: 07/24/18 Sepsis Focused Exam Time: 16:44 Sepsis Focused Exam Complete: Yes Vital Signs & RN Notes Reviewed: Yes Capillary Refill: < 2 Seconds: Fingers, Toes Peripheral Pulses: Normal: Radial (R), Radial (L), Dorsalis Pedis (R), Dorsalis Pedis (L) Skin Color: Normal for Patient Respiratory Exam: respiratory distress Cardiovascular Exam: tachycardia
[2018-07-24 17:07] LABS: Appearance,Urine Clear (Clear); Bilirubin,Urine Negative (Negative); Blood,Urine Negative (Negative); Color,Urine Yellow; Glucose,Urine (UA) Negative (Negative); Hyaline Casts,Urine 4 /lpf (0-2); Ketones,Urine Trace (Negative); Leukocyte Esterase,Urine Negative (Negative); Mucus,Urine Rare /hpf; Nitrite,Urine Negative (Negative); PH, Urine 6.5 (5.0-8.0); Protein,Urine 1+ (Negative); Specific Gravity,Urine 1.014 (1.001-1.035); Urobilinogen,Urine <2.0 mg/dL (<2.0); WBC,Urine 1 /hpf (0-5)
[2018-07-24 17:37] LABS: Glucose,Whole Blood 92 mg/dL (75-99)
--- NOTE | 2018-07-24 17:53 | P.CONS ---
History of Present Illness - Reason for Consult Consult date: 07/24/18 Esophageal cancer Requesting physician: Konrad Philip - Chief Complaint Acute Hypoxic resp failure and persistent nausea and vomting. - History of Present Illness This is a very nice patient who went for a physical in June/2018,was found to be severely anemic,hemoglobin was 6.9gm/dl,he was sent to ER and admitted to [facility],laboratory work up revealed significant iron deficiency anemia,his LFT and ALK were significantly elevated,had an U//S of the liver which revealed suspicious lesions on his liver,CT scan of abdomen/pelvis on 06/25/2018 revealed extensive metastatic lesions in his liver,multiple bilateral suspicious nodules in bases of lungs. On 07/01/2018,he underwent core biopsy of liver lesion,pathology was positive for metastatic adenocarcinoma consistent with GI primary. He was discharged home and underwent EGD/colonoscopy on 07/08/2018 which revealed a mass at GE junction,biopsies taken results are PENDING. He recently was seen in office and felt tired but remains relatively active, ambulates well,walks his dog every day,lost about 25 pounds in the last 2 months ,no appetite,fullness when he eats but no significant dysphagia,able to tolerate solid food well,no nausea/vomiting/no melena or hematochezia,normal bowel movement. On 07/23/18 he began his first treatment with FOLFOX, today presenting to the emergency department with persistent nausea vomiting. Onset of symptoms was earlier this morning. Patient has vomited multiple times since 9 AM. Patient feels very weak. He was tachycardic and tachypneic, lactic acid 14, and with respiratory distress therefore transferred to ICU for close monitoring. A complete septic work-up has been completed, IV abx initiated. There was concern for aspiration related to his symptoms. During evaluation in ICU patient was intubated in mild distress, this was shortly after intubation. Nursing, Two sons and daughter at bedside. Son Nicholas states he was doing well after his chemotherapy yesterday, then around 9am he was nauseated and once he started to vomit he did not stop, he attempted to take antiemetic although did not hold down. His son states he became progressively weaker and they rushed him to emergency for further evaluation. In EMergency the son states his eyes became blank and he was not responding appropriately. He expressed more difficulty in breathing, and there was concern of sepsis, aspiration, or embolic event. CT with and without contrast was attempted but difficult study was noted secondary to movement, although no acute bleeding or embolic event identified. There was initial concern for potential PE although with the acute respiratory distress they opted to intubate and start IV heparin. During evaluation there was blood tinged urine and ET, therefore heparin discontinued and SQ lovenox was ordered. Review of Systems ROS unobtainable: due to endotracheal tube Past Medical History Past Medical History: Coronary Artery Disease (CAD), Chest Pain / Angina, GERD/ Reflux, Hyperlipidemia, Hypertension, Myocardial Infarction ([place]), Skin Disorder , Thyroid Disorder Additional Past Medical History / Comment(s): Stable thyroid nodule, Rosacea, past shingles. RECENT FATIGUE, ANEMIA, N/V, WGT LOSS, UNABLE TO KEEP SOME FOOD AND RX DOWN FOR PAST 2 MONTHS EST; RECENT VISIT TO [facility] FOR SAME. LIVER LESIONS FOUND ON CT SCAN, BIOPSY DONE. Last Myocardial Infarction Date:: 1997 History of Any Multi-Drug Resistant Organisms: None Reported Past Surgical History: Cholecystectomy, Coronary Bypass/CABG, Heart Catheterization With Stent Additional Past Surgical History / Comment(s): Pt thinks he's had 3 heart caths , and 6 stents then in 2010 triple vessel CABG (done in [place]), thyroid bx Past Anesthesia/Blood Transfusion Reactions: No Reported Reaction Additional Past Anesthesia/Blood Transfusion Reaction / Comm: No previous blood transfusions that he is aware of. Hx of claustrophobia. Date of Last Stent Placement:: 2005/2006? Past Psychological History: Anxiety, Depression Smoking Status: Former smoker Past Alcohol Use History: None Reported - Past Family History Mother Family Medical History: Coronary Artery Disease (CAD), Diabetes Mellitus Father Family Medical History: No Reported History Sister(s) Family Medical History: Coronary Artery Disease (CAD), Diabetes Mellitus Medications and Allergies Home Medications Medication Instructions Recorded Confirmed Type Minocycline HCl [Minocin] 50 mg PO HS 02/22/17 07/24/18 History traMADol HCL [Ultram] 50 mg PO Q6H PRN 02/22/17 07/24/18 History Isosorbide Mononitrate ER [Imdur] 30 mg PO DAILY #30 tab 11/26/17 07/24/18 Rx Gabapentin [Neurontin] 300 mg PO DAILY 06/25/18 07/24/18 History Famotidine [Pepcid] 20 mg PO DAILY #30 tablet 06/27/18 07/24/18 Rx Lisinopril [Zestril] 2.5 mg PO DAILY #30 tab 06/27/18 07/24/18 Rx ALPRAZolam [Xanax] 0.25 mg PO DAILY 06/30/18 07/24/18 History Aspirin [Adult Low Dose Aspirin EC] 81 mg PO DAILY 07/01/18 07/24/18 History Ferrous Sulfate [Feosol] 325 mg PO BID 07/24/18 07/24/18 History Hydrocodone/Acetaminophen [[place] 1 tab PO Q6HR PRN 07/24/18 07/24/18 History 5-325] Megestrol Acetate 20 mg PO DAILY 07/24/18 07/24/18 History Metoprolol Succinate [Toprol Xl] 50 mg PO BID 07/24/18 07/24/18 History Allergies Allergy/AdvReac Type Severity Reaction Status Date / Time No Known Allergies Allergy Verified 07/24/18 12:04 Physical Exam Vitals: Vital Signs Temp Pulse Resp BP Pulse Ox 07/24/18 16:51 117 H 30 H 107/68 98 07/24/18 15:36 120 H 30 H 98 07/24/18 15:00 123 H 30 H 140/90 98 07/24/18 14:00 97.5 F L 124 H 30 H 152/89 98 07/24/18 13:00 145 H 30 H 157/81 98 07/24/18 11:13 97.1 F L 95 18 175/91 100 Intake and Output 07/24/18 07/24/18 07/24/18 06:59 14:59 22:59 Output Total 700 Balance -700 Output: Urine 700 Uretheral ([place]) 700 Other: Weight 68.039 kg Intubated, Mild distress Increased respiratory effort Tachycardia Bloody secretions ET tube and green[place] No edema, no apparent lymphadenopathy Abdmen without distention Results CBC & Chem 7: 07/24/18 21:48 07/24/18 20:24 Labs: Abnormal Lab Results - Last 24 Hours (Table) 07/24/18 07/24/18 07/24/18 Range/Units 11:44 11:44 15:17 RBC 3.87 L (4.30-5.90) m/uL Hgb 9.5 L (13.0-17.5) gm/dL Hct 31.7 L (39.0-53.0) % MCH 24.7 L (25.0-35.0) pg MCHC 30.1 L (31.0-37.0) g/dL RDW 22.7 H (11.5-15.5) % Neutrophils # 8.9 H (1.3-7.7) k/uL Lymphocytes # 0.4 L (1.0-4.8) k/uL ABG pH (7.35-7.45) ABG pCO2 (35-45) mmHg ABG pO2 (83-108) mmHg ABG HCO3 (21-25) mmol/L ABG Total CO2 (19-24) mmol/L ABG O2 Saturation (94-97) % Potassium 5.7 H (3.5-5.1) mmol/L Carbon Dioxide 17 L (22-30) mmol/L BUN 26 H (9-20) mg/dL Creatinine 1.38 H (0.66-1.25) mg/dL Glucose 109 H (74-99) mg/dL Plasma Lactic Acid Gomez 14.2 H* (0.7-2.0) mmol/L Total Bilirubin 1.4 H (0.2-1.3) mg/dL AST 196 H (17-59) U/L ALT 83 H (21-72) U/L Alkaline Phosphatase 749 H (38-126) U/L Ammonia 212 H (<30) umol/L Albumin 3.2 L (3.5-5.0) g/dL Urine Protein (Negative) Urine Ketones (Negative) Hyaline Casts (0-2) /lpf Urine Mucus (None) /hpf 07/24/18 07/24/18 Range/Units 15:59 16:16 RBC (4.30-5.90) m/uL Hgb (13.0-17.5) gm/dL Hct (39.0-53.0) % MCH (25.0-35.0) pg MCHC (31.0-37.0) g/dL RDW (11.5-15.5) % Neutrophils # (1.3-7.7) k/uL Lymphocytes # (1.0-4.8) k/uL ABG pH 7.15 L* (7.35-7.45) ABG pCO2 20 L (35-45) mmHg ABG pO2 79 L (83-108) mmHg ABG HCO3 7 L* (21-25) mmol/L ABG Total CO2 8 L (19-24) mmol/L ABG O2 Saturation 91.7 L (94-97) % Potassium (3.5-5.1) mmol/L Carbon Dioxide (22-30) mmol/L BUN (9-20) mg/dL Creatinine (0.66-1.25) mg/dL Glucose (74-99) mg/dL Plasma Lactic Acid Gomez (0.7-2.0) mmol/L Total Bilirubin (0.2-1.3) mg/dL AST (17-59) U/L ALT (21-72) U/L Alkaline Phosphatase (38-126) U/L Ammonia (<30) umol/L Albumin (3.5-5.0) g/dL Urine Protein 1+ H (Negative) Urine Ketones Trace H (Negative) Hyaline Casts 4 H (0-2) /lpf Urine Mucus Rare H (None) /hpf Chest x-ray: report reviewed CT Scan - head: report reviewed Assessment and Plan Plan: Assessment and Recommendations: 1. Metastatic Esophageal Cancer - - Status post cycle 1, day 1 of 3 of FOLFOX - Chemo on Hold 2. Acute Respiratory Failure: with hypoxemic respiratory failure: *Presenting with significant tachycardia and tachypnea after persistent episodes of vomting. - Likely secondary to Aspiration Pneumonia during persistent episodic emesis - Pulmonary EMbolism should also be considered and ruled out when stable to undergo diagnstic - Per ICU and Pulmonary - Intubated and supportive Care 3. Acute Metabolic Encephalopathy - COmponent of hepatic encephalopathy - Complete Septic work-up Completed, cultures pending - Chest xray does show concern consistent with aspiration - CT Brain Suboptimal secondary to movement although did not show any acute embolic event or bleed - Lactic Acidosis 4. Aspiration Pneumonia - IV antibiotics and ICU management 5. Unilateral Right sided Weakness, this was acute: - Further evaluation for with MRI of brain once patient stabilizes is resonable 6. Increased Uric Acid 7. Hyperkalemia 8. Acute Kidney Injury 9. Normocytic anemia 10. Increase Liver function: worsening with acute event - Known underlying liver metastasis Plan: COntiniue with ICU supportive care - Check Coags, monitor bleeding, and transfuse if indicated - Monitor CBC and Transfuse PRN Hgb less than 7, plt less than 50K if bleeding - Monitor platlets closely. - Await samayoa cultures, continue abx and ICU care - Discussed with family supportive care given
[2018-07-24] MEDS: DEXTROSE 5% IN WATER 1,000 ML with SODIUM BICARB (1 MEQ/ML) 150 ML IV SCH (18:00)
[2018-07-24] MEDS: PROPOFOL 1,000 MG in EMPTY BAG 1 BAG IV SCH ×2 (18:12→22:18)
--- NOTE | 2018-07-24 18:18 | ED ---
Medical Decision Making - Medical Decision Making Called by ICU to intubate patient. [employer] is unavailable. Dr. Davis has requested intubation. Patient is tachypneic and restless again during evaluation. Patient given versed and succinylcholine. Unable to pass 8.0 ET tube. Patient then suctioned and 7.0 ET tube passed without any difficulty. - Lab Data Result diagrams: 07/24/18 11:44 07/24/18 11:44 Lab Results 07/24/18 07/24/18 Range/Units 11:44 11:44 WBC 10.0 (3.8-10.6) k/uL RBC 3.87 L (4.30-5.90) m/uL Hgb 9.5 L (13.0-17.5) gm/dL Hct 31.7 L (39.0-53.0) % MCV 81.9 (80.0-100.0) fL MCH 24.7 L (25.0-35.0) pg MCHC 30.1 L (31.0-37.0) g/dL RDW 22.7 H (11.5-15.5) % Plt Count 263 (150-450) k/uL Neutrophils % 88 % Lymphocytes % 4 % Monocytes % 6 % Eosinophils % 0 % Basophils % 0 % Neutrophils # 8.9 H (1.3-7.7) k/uL Lymphocytes # 0.4 L (1.0-4.8) k/uL Monocytes # 0.6 (0-1.0) k/uL Eosinophils # 0.0 (0-0.7) k/uL Basophils # 0.0 (0-0.2) k/uL Hypochromasia Marked Anisocytosis Moderate Microcytosis Slight Sodium 138 (137-145) mmol/L Potassium 5.7 H (3.5-5.1) mmol/L Chloride 106 (98-107) mmol/L Carbon Dioxide 17 L (22-30) mmol/L Anion Gap 15 mmol/L BUN 26 H (9-20) mg/dL Creatinine 1.38 H (0.66-1.25) mg/dL Est GFR (CKD-EPI)AfAm 60 (>60 ml/min/1.73 sqM) Est GFR (CKD-EPI)NonAf 52 (>60 ml/min/1.73 sqM) Glucose 109 H (74-99) mg/dL Calcium 9.4 (8.4-10.2) mg/dL Total Bilirubin 1.4 H (0.2-1.3) mg/dL AST 196 H (17-59) U/L ALT 83 H (21-72) U/L Alkaline Phosphatase 749 H (38-126) U/L Total Protein 6.3 (6.3-8.2) g/dL Albumin 3.2 L (3.5-5.0) g/dL Amylase 97 (30-110) U/L Lipase 238 (23-300) U/L Disposition Clinical Impression: Weakness, Intractable vomiting Disposition: ADMITTED IP TO THIS HOSP Is patient prescribed a controlled substance at d/c from ED?: No Procedures - Intubation Time Out Performed: Yes Sedative: Versed Paralytic: Succinylcholine Laryngoscope: Francis Size: 3 ET Tube Size: 7 Tube Secured Depth (cm): 22 Tube Secured Location: lips Tube Placement Confirmation: visualized tube passing through cords, equal breath sounds bilaterally, no breath sounds over epigastrium, confirmation by capnometry Intubation Complications: unable to intubate (Unable to intubate with 8.0 ET tube. Easily able to pass 7.0) - Sepsis Sepsis Focused Exam #1 Time Sepsis Criteria Met: 15:30
--- NOTE | 2018-07-24 18:40 | XR ---
EXAMINATION TYPE: XR chest 1V DATE OF EXAM: 07/24/2018 COMPARISON: Today HISTORY: Check tube placement TECHNIQUE: Single frontal view of the chest is obtained. FINDINGS: Heart is enlarged. There is nasogastric tube in good position. There is endotracheal tube with the tip 4 cm from the colette. There is right central venous catheter with the tip in the superio r vena cava. There are chest leads. There is some patchy infiltrate in the lower lobes and more on th e right side. There are sternal wires. No pneumothorax. IMPRESSION: Probably in good position. There is increasing right lower lobe pneumonia compared to ex am earlier today. Mild heart failure.
--- NOTE | 2018-07-24 19:12 | P.HPIM ---
History of Present Illness H&P Date: 07/24/18 68 years old male patient one of my patient and Dr. JINA Ng with past history hypertension, hyperlipidemia, coronary artery disease with prior stent placement with history of myocardial infarction status post coronary artery bypass grafting surgery in [facility] in 2010. Recent cardiac workup in February 2017, underwent Lexiscan stress test which was negative for any reversible ischemia. Patient was recently admitted and discharged , after chest discomfort episode, and patient underwent a stress dobutamine at that time which was inconclusive secondary to abnormal EKG at baseline, it was a technically difficult dobutamine echo with suboptimal images , however there is no gross evidence to suggest ischemia. Cardiac cath performed 11/23/2017 Dr. Rodríguez, for unstable angina, LAD is chronically occluded in its midportion, severe stenosis of the RCA, midportion, stent within the proximal circumflex artery appears patent obtuse marginal branch 70-80% stenosis bypass graft TURNER to LAD is patent proximal and distal anastomoses sites are free of stenosis venous graft to PDA patent, venous graft to OM branch free of disease patient has [place] three-vessel CAD with patent TURNER to LAD patent venous graft to PDA and patent venous graft to OM branch Pertinent imaging studies last time included an MRI of the brain showing extensive demyelination present within the brain, correlate for possible MS chronic small vessel disease, patient sees Dr. Vickers outpatient Patient comes in to the emergency room secondary to acute respiratory distress , mental status changes, patient cannot move the right upper extremity, has been listless and restless, tachypneic. prior to these patient has had vomiting , patient had underwent chemotherapy with Dr. Costa on 07/23/2018 first dose. Upon arrival at home, patient had several episodes of nausea and vomiting, and was subsequently seen in emergency room secondary to mental status changes. upon my evaluation the emergency room, patient is in severe respiratory distress, aspiration pneumonia is in differential, along with pulmonary emboli and possible right hemiplegic stroke. Involving right upper extremity. Serum ammonia is very high at 200, lactic acid is 14, patient has severe metabolic acidosis, Patient underwent imaging studies including CT of the brain, IV antibiotics Levaquin and Zosyn to cover for aspirate the pneumonia , IV sodium bicarb, and and would be admitted to ICU Consult with pulmonary doctor magazine filler Dr. Camarena, consult with Dr. Marroquin from oncology. patient is intubated upon arrival to ICU. Past Medical History Past Medical History: Coronary Artery Disease (CAD), Chest Pain / Angina, GERD/ Reflux, Hyperlipidemia, Hypertension, Myocardial Infarction ([place]), Skin Disorder , Thyroid Disorder Additional Past Medical History / Comment(s): Stable thyroid nodule, Rosacea, past shingles. RECENT FATIGUE, ANEMIA, N/V, WGT LOSS, UNABLE TO KEEP SOME FOOD AND RX DOWN FOR PAST 2 MONTHS EST; RECENT VISIT TO [facility] FOR SAME. LIVER LESIONS FOUND ON CT SCAN, BIOPSY DONE. Last Myocardial Infarction Date:: 1997 History of Any Multi-Drug Resistant Organisms: None Reported Past Surgical History: Cholecystectomy, Coronary Bypass/CABG, Heart Catheterization With Stent Additional Past Surgical History / Comment(s): Pt thinks he's had 3 heart caths , and 6 stents then in 2010 triple vessel CABG (done in [place]), thyroid bx Past Anesthesia/Blood Transfusion Reactions: No Reported Reaction Additional Past Anesthesia/Blood Transfusion Reaction / Comment(s): No previous blood transfusions that he is aware of. Hx of claustrophobia. Date of Last Stent Placement:: ? Past Psychological History: Anxiety, Depression Smoking Status: Former smoker Past Alcohol Use History: None Reported - Past Family History Mother Family Medical History: Coronary Artery Disease (CAD), Diabetes Mellitus Father Family Medical History: No Reported History Sister(s) Family Medical History: Coronary Artery Disease (CAD), Diabetes Mellitus Medications and Allergies Home Medications Medication Instructions Recorded Confirmed Type Minocycline HCl [Minocin] 50 mg PO HS 02/22/17 07/24/18 History traMADol HCL [Ultram] 50 mg PO Q6H PRN 02/22/17 07/24/18 History Isosorbide Mononitrate ER [Imdur] 30 mg PO DAILY #30 tab 11/26/17 07/24/18 Rx Gabapentin [Neurontin] 300 mg PO DAILY 06/25/18 07/24/18 History Famotidine [Pepcid] 20 mg PO DAILY #30 tablet 06/27/18 07/24/18 Rx Lisinopril [Zestril] 2.5 mg PO DAILY #30 tab 06/27/18 07/24/18 Rx ALPRAZolam [Xanax] 0.25 mg PO DAILY 06/30/18 07/24/18 History Aspirin [Adult Low Dose Aspirin EC] 81 mg PO DAILY 07/01/18 07/24/18 History Ferrous Sulfate [Feosol] 325 mg PO BID 07/24/18 07/24/18 History Hydrocodone/Acetaminophen [[place] 1 tab PO Q6HR PRN 07/24/18 07/24/18 History 5-325] Megestrol Acetate 20 mg PO DAILY 07/24/18 07/24/18 History Metoprolol Succinate [Toprol Xl] 50 mg PO BID 07/24/18 07/24/18 History Allergies Allergy/AdvReac Type Severity Reaction Status Date / Time No Known Allergies Allergy Verified 07/24/18 12:04 Physical Exam Vitals: Vital Signs Temp Pulse Resp BP Pulse Ox 07/24/18 18:20 122 H 31 H 122/76 98 07/24/18 18:10 128 H 19 122/76 98 07/24/18 18:00 130 H 31 H 137/85 98 07/24/18 17:50 131 H 33 H 137/85 98 07/24/18 17:40 129 H 29 H 137/85 99 07/24/18 17:30 130 H 32 H 130/85 100 07/24/18 17:28 126 H 31 H 07/24/18 17:00 98.1 F 137 H 38 H 107/68 07/24/18 16:51 117 H 30 H 107/68 98 07/24/18 16:50 118 H 24 107/68 07/24/18 16:40 107 H 24 107/68 100 07/24/18 16:30 110 H 25 H 110/65 100 07/24/18 16:22 115 H 28 H 99 07/24/18 15:36 120 H 30 H 98 07/24/18 15:00 123 H 30 H 140/90 98 07/24/18 14:00 97.5 F L 124 H 30 H 152/89 98 07/24/18 13:00 145 H 30 H 157/81 98 07/24/18 11:13 97.1 F L 95 18 175/91 100 Intake and Output 07/24/18 07/24/18 07/24/18 06:59 14:59 22:59 Output Total 800 Balance -800 Output: Urine 800 Uretheral ([place]) 700 Other: Weight 68.039 kg Results CBC & Chem 7: 07/25/18 10:47 12/21/18 10:47 Labs: Abnormal Lab Results - Last 24 Hours (Table) 07/24/18 07/24/18 07/24/18 Range/Units 11:44 11:44 15:17 RBC 3.87 L (4.30-5.90) m/uL Hgb 9.5 L (13.0-17.5) gm/dL Hct 31.7 L (39.0-53.0) % MCH 24.7 L (25.0-35.0) pg MCHC 30.1 L (31.0-37.0) g/dL RDW 22.7 H (11.5-15.5) % Neutrophils # 8.9 H (1.3-7.7) k/uL Lymphocytes # 0.4 L (1.0-4.8) k/uL ABG pH (7.35-7.45) ABG pCO2 (35-45) mmHg ABG pO2 (83-108) mmHg ABG HCO3 (21-25) mmol/L ABG Total CO2 (19-24) mmol/L ABG O2 Saturation (94-97) % Potassium 5.7 H (3.5-5.1) mmol/L Carbon Dioxide 17 L (22-30) mmol/L BUN 26 H (9-20) mg/dL Creatinine 1.38 H (0.66-1.25) mg/dL Glucose 109 H (74-99) mg/dL Plasma Lactic Acid Gomez 14.2 H* (0.7-2.0) mmol/L Total Bilirubin 1.4 H (0.2-1.3) mg/dL AST 196 H (17-59) U/L ALT 83 H (21-72) U/L Alkaline Phosphatase 749 H (38-126) U/L Ammonia 212 H (<30) umol/L Albumin 3.2 L (3.5-5.0) g/dL Urine Protein (Negative) Urine Ketones (Negative) Hyaline Casts (0-2) /lpf Urine Mucus (None) /hpf 07/24/18 07/24/18 Range/Units 15:59 16:16 RBC (4.30-5.90) m/uL Hgb (13.0-17.5) gm/dL Hct (39.0-53.0) % MCH (25.0-35.0) pg MCHC (31.0-37.0) g/dL RDW (11.5-15.5) % Neutrophils # (1.3-7.7) k/uL Lymphocytes # (1.0-4.8) k/uL ABG pH 7.15 L* (7.35-7.45) ABG pCO2 20 L (35-45) mmHg ABG pO2 79 L (83-108) mmHg ABG HCO3 7 L* (21-25) mmol/L ABG Total CO2 8 L (19-24) mmol/L ABG O2 Saturation 91.7 L (94-97) % Potassium (3.5-5.1) mmol/L Carbon Dioxide (22-30) mmol/L BUN (9-20) mg/dL Creatinine (0.66-1.25) mg/dL Glucose (74-99) mg/dL Plasma Lactic Acid Gomez (0.7-2.0) mmol/L Total Bilirubin (0.2-1.3) mg/dL AST (17-59) U/L ALT (21-72) U/L Alkaline Phosphatase (38-126) U/L Ammonia (<30) umol/L Albumin (3.5-5.0) g/dL Urine Protein 1+ H (Negative) Urine Ketones Trace H (Negative) Hyaline Casts 4 H (0-2) /lpf Urine Mucus Rare H (None) /hpf Assessment and Plan Plan: 1. Acute metabolic/hepatic encephalopathy with , acute right upper extremity paralysis, tachypnea, hyperammonemia impending respiratory failure with significant respiratory distress upon my evaluation emergency room, I have requested the patient to be admitted in ICU, aspiration pneumonia is concerning as well as pulmonary emboli, and or CVA with the right upper extremity hemiparesis. Patient was seen with multiple specialties including Dr. Germain from pulmonary medicine magazine filler, Dr. Taylor from neurology, and oncology services. Computed tomography scan of the brain without contrast to evaluate for bleed, CAT scan imaging was suboptimal without any acute intracranial hemorrhage, no suspicious enhancing intraparenchymal mass identified 2. Recently diagnosed esophageal cancer invasive well-differentiated adenocarcinoma diagnosed 07/08/2018 underwent first chemotherapy session yesterday under the service of Dr. Aiken. He was started on FOLFOX He does have metastatic disease to the liver and lung with lung nodules on initial presentation 3. Acute respiratory failure with hypoxemic respiratory failure, significant tachypnea, SIRS is in the differential for aspiration pneumonia as the patient has been vomiting significantly, as long as well as a pulmonary emboli needs to be ruled out. Patient is not currently stable for any VQ scan, I discussed this with the ER physician, patient would be receiving an initial dose of IV heparin PE protocol, this has been this has to be discontinued as the patient has blood in the OG tube risk for bleeding is high Zosyn and Levaquin IV dosaging, sputum culture, patient is currently full code 4Acute ventilatory dependent respiratory failure secondary to sepsis SIRS pneumonia, intubated 07/24/[address] Camarena pulmonary IV antibiotic as above 4. Right upper extremity paralysis acute, possibly related to CVA patient would have an MRI of the brain, CAT scan of the brain failed to reveal any bleed , neurology is to see the patient 5. Sepsis with significant metabolic acidosis, aspiration pneumonia is considered secondary to several episodes of vomiting prior to presentation, patient's on IV antibiotic, IV hydration, correction of respiratory causes, IV sodium bicarb drip was initiated in the emergency room, 6. Hepatic encephalopathy secondary to liver metastatic lesions along with jaundice, lactulose 200 mg rectally every 4 hours was initiated 7. History of CAD with prior CABG TURNER to the LAD was patent, venous graft PDA is patent, three-vessel disease with cardiac cath performed November 2017 7 Anemia negative for Hemoccult, patient had blood transfusion last June 2018, we will transfuse under 7, 8 history of extensive demyelination with recent brain MRI brrain as per previous workup this summer negative for multiple sclerosis by spinal tap 8 hypertensive cardiovascular disease with prior history of cardiac stents continue metoprolol IV 2.5 mg every 6 hours 9 Anxiety/ depression - Stable, with good coping skills, citalopram 10 mg continued 010. Hyperlipidemia, on Lipitor 80 on hold secondary to significant liver function test elevation 11 Rosacea, stable on maintenance doxycycline 50 mg daily will discontinue while on IV antibiotics 12 Thyroid nodule stable DVT prophylaxis currently on IV heparin GI prophylaxis Patient's critically ill CODE STATUS full
[2018-07-24 19:22] LABS: ABG Base Excess -19.4 mmol/L; ABG PCO2 28 mmHg (35-45); ABG PO2 188 mmHg (83-108); ABG TCO2 10 mmol/L (19-24)
[2018-07-24 19:25] LABS: ABG HCO3 10 mmol/L (21-25); ABG PH 7.14 (7.35-7.45)
[2018-07-24] MEDS: HYDROmorphone 1 MG/ML 1 ML SYRINGE IVP PRN (20:00)
[2018-07-24 21:09] LABS: Albumin 3.1 g/dL (3.5-5.0); Calcium 8.5 mg/dL (8.4-10.2); Total Bilirubin 1.2 mg/dL (0.2-1.3); Total Protein 6.1 g/dL (6.3-8.2)
[2018-07-24 21:13] LABS: Phosphorus 9.1 mg/dL (2.5-4.5); Potassium 6.7 mmol/L (3.5-5.1)
[2018-07-24] MEDS ORDERED: SODIUM CHLORIDE 0.9% 2,000 ML IV ONE (21:33)
[2018-07-24] MEDS ORDERED: INSULIN REGULAR 100 UNIT/ML VIAL IV ONE (21:37)
[2018-07-24] MEDS ORDERED: SODIUM POLYSTYRENE SULFONATE 15 GM/60 ML BOTTLE PO ONE (21:37)
[2018-07-24] MEDS ORDERED: DEXTROSE 50%-WATER 50 ML SYRINGE IVP ONE (21:37)
[2018-07-24] MEDS ORDERED: CALCIUM GLUCONATE 1,000 MG in SODIUM CHLORIDE 0.9% 100 ML IVPB ONE (21:44)
[2018-07-24 22:20] LABS: Anisocytosis Moderate; Basophils % (A) 0 %; Eosinophils # (A) 0.1 k/uL (0-0.7); Eosinophils % (A) 1 %; HCT 28.4 % (39.0-53.0); HGB 8.4 gm/dL (13.0-17.5); Hypochromasia Marked; Lymphocytes # (A) 0.4 k/uL (1.0-4.8); Lymphocytes % (A) 4 %; MCH 24.7 pg (25.0-35.0); MCHC 29.7 g/dL (31.0-37.0); MCV 82.9 fL (80.0-100.0); Mean Platelet Volume 7.2; Microcytosis Slight; Monocytes # (A) 0.5 k/uL (0-1.0); Monocytes % (A) 4 %; Neutrophils # (A) 10.9 k/uL (1.3-7.7); Neutrophils % (A) 91 %; Platelet Count 246 k/uL (150-450); RBC 3.43 m/uL (4.30-5.90); RDW 22.3 % (11.5-15.5)
[2018-07-24] MEDS ORDERED: LACTULOSE 20 GM/30 ML CUP PO SCH (23:15)
[2018-07-24] MEDS: PIPERACILLIN-TAZOBACTAM 3.375 GM in SODIUM CHLORIDE 0.9% 100 ML IVPB SCH (23:42)
[2018-07-24] MEDS ORDERED: NOREPINEPHRINE 4 MG in SODIUM CHLORIDE 0.9% 250 ML IV SCH (23:45)
--- NOTE | 2018-07-24 23:57 | XR ---
EXAM: XR Chest, 1 View CLINICAL HISTORY: ITS.REASON XR Reason: Tube placement TECHNIQUE: Frontal view of the chest. COMPARISON: Chest radiograph on 07/24/2018 at 1821 hrs. FINDINGS: Hardware: Stable right-sided Port-A-Cath. Endotracheal tube terminates in the region of the mid thoracic trachea. Enteric tube is coursing past the diaphragm and out of the field of view. Lungs/pleura: Low lung volumes. Decreased airspace opacities with persistent bibasilar opacities. Small right pleural effusion. Elevation of the right hemidiaphragm. Persistent probable pulmonary vascular congestion. Heart/mediastinum: Stable mild enlargement of the cardiac silhouette. Median sternotomy and CABG changes. Soft tissues: Unremarkable. Bones: No acute fracture. Upper abdomen: Normal. IMPRESSION: 1. Stable right-sided Port-A-Cath. Endotracheal tube terminates in the region of the mid thoracic trachea. Enteric tube is coursing past the diaphragm and out of the field of view. 2. Low lung volumes. Decreased airspace opacities with persistent bibasilar opacities. Small right pleural effusion. Probably pulmonary vascular congestion.
[2018-07-25] MEDS ORDERED: METOPROLOL TARTRATE 5 MG/5 ML VIAL IVP SCH
[2018-07-25 00:31] LABS: Glucose,Whole Blood 117 mg/dL (75-99)
[2018-07-25 02:39] LABS: Anisocytosis Moderate; Basophils % (A) 0 %; Eosinophils # (A) 0.1 k/uL (0-0.7); Eosinophils % (A) 1 %; HGB 8.4 gm/dL (13.0-17.5); Hypochromasia Marked; Lymphocytes # (A) 0.5 k/uL (1.0-4.8); Lymphocytes % (A) 5 %; MCV 82.6 fL (80.0-100.0); Mean Platelet Volume 7.1; Microcytosis Slight; Monocytes # (A) 0.3 k/uL (0-1.0); Monocytes % (A) 2 %; Neutrophils # (A) 9.5 k/uL (1.3-7.7); Neutrophils % (A) 92 %; Platelet Count 252 k/uL (150-450); RBC 3.51 m/uL (4.30-5.90); RDW 22.5 % (11.5-15.5); WBC 10.3 k/uL (3.8-10.6)
[2018-07-25 02:52] LABS: Albumin 2.9 g/dL (3.5-5.0); Calcium 8.2 mg/dL (8.4-10.2); Total Bilirubin 1.1 mg/dL (0.2-1.3); Total Protein 5.7 g/dL (6.3-8.2)
[2018-07-25 03:01] LABS: Potassium 6.1 mmol/L (3.5-5.1)
[2018-07-25 03:27] LABS: INR 1.1 (<1.2); Partial Thromboplastin Time 24.1 sec (22.0-30.0); Prothrombin Time 11.9 sec (9.0-12.0)
[2018-07-25] MEDS: PROPOFOL 1,000 MG in EMPTY BAG 1 BAG IV SCH ×3 (04:26→14:07)
[2018-07-25] MEDS ORDERED: DEXTROSE 50%-WATER 50 ML SYRINGE IVP ONE (04:48)
[2018-07-25] MEDS ORDERED: INSULIN REGULAR 100 UNIT/ML VIAL IV ONE (04:48)
[2018-07-25] MEDS ORDERED: RASBURICASE 6 MG in SODIUM CHLORIDE 0.9% 46 ML IV ONE (05:00)
[2018-07-25 05:01] LABS: ABG HCO3 17 mmol/L (21-25); ABG PCO2 28 mmHg (35-45); ABG PO2 155 mmHg (83-108); ABG TCO2 18 mmol/L (19-24)
[2018-07-25] MEDS: HYDROmorphone 1 MG/ML 1 ML SYRINGE IVP PRN ×2 (05:07→09:35)
[2018-07-25 06:26] LABS: Glucose,Whole Blood 125 mg/dL (75-99)
--- NOTE | 2018-07-25 07:57 | XR ---
EXAMINATION TYPE: XR chest 1V DATE OF EXAM: 07/25/2018 COMPARISON: 07/24/2018 HISTORY: SOB, Follow Up FINDINGS: Indwelling tubes and catheters are unchanged. No change in bibasilar opacities. Stable appearance of the cardio-mediastinal structures at this time. Pleural effusion unchanged. IMPRESSION: 1. Stable portable chest. Clinical correlation and follow up until resolution is recommended.
[2018-07-25] MEDS ORDERED: LACTULOSE 20 GM/30 ML CUP PO SCH (09:00)
[2018-07-25] MEDS ORDERED: ENOXAPARIN 30 MG/0.3 ML SYRINGE SQ SCH (09:00)
[2018-07-25] MEDS ORDERED: PANTOPRAZOLE 40 MG/10 ML VIAL IV SCH (09:00)
[2018-07-25] MEDS ORDERED: CHLORHEXIDINE GLUCONATE 15 ML CUP MUCOUS MEM SCH (09:00)
[2018-07-25] MEDS: SODIUM CHLORIDE 0.9% 1,000 ML IV SCH ×2 (09:23→14:07)
[2018-07-25] MEDS: PIPERACILLIN-TAZOBACTAM 3.375 GM in SODIUM CHLORIDE 0.9% 100 ML IVPB SCH ×2 (09:34→16:57)
[2018-07-25] MEDS: LACTULOSE 20 GM/30 ML CUP PO SCH ×2 (09:35→14:07)
[2018-07-25] MEDS: DEXTROSE 5% IN WATER 1,000 ML with SODIUM BICARB (1 MEQ/ML) 150 ML IV SCH (10:57)
[2018-07-25 11:10] LABS: Anisocytosis Moderate; Basophils % (A) 0 %; Eosinophils % (A) 0 %; HCT 27.9 % (39.0-53.0); HGB 8.6 gm/dL (13.0-17.5); Hypochromasia Marked; Lymphocytes # (A) 0.5 k/uL (1.0-4.8); Lymphocytes % (A) 6 %; MCH 25.2 pg (25.0-35.0); MCHC 30.9 g/dL (31.0-37.0); MCV 81.5 fL (80.0-100.0); Mean Platelet Volume 7.4; Microcytosis Slight; Monocytes # (A) 0.2 k/uL (0-1.0); Monocytes % (A) 3 %; Neutrophils # (A) 7.2 k/uL (1.3-7.7); Neutrophils % (A) 91 %; Platelet Count 231 k/uL (150-450); RBC 3.42 m/uL (4.30-5.90); RDW 22.7 % (11.5-15.5); WBC 7.9 k/uL (3.8-10.6)
[2018-07-25 11:18] LABS: Albumin 2.6 g/dL (3.5-5.0); Calcium 7.9 mg/dL (8.4-10.2); Phosphorus 6.2 mg/dL (2.5-4.5); Potassium 5.7 mmol/L (3.5-5.1); Total Bilirubin 1.2 mg/dL (0.2-1.3); Total Protein 5.4 g/dL (6.3-8.2)
[2018-07-25 11:47] VITALS: BMI 29.0
[2018-07-25 12:04] LABS: Glucose,Whole Blood 128 mg/dL (75-99)
--- NOTE | 2018-07-25 12:51 | P.PN ---
Subjective Progress Note Date: 07/25/18 Principal diagnosis: Acute Respiratory Failure, Septic Shock, Metastatic Esophageal Cancer No Improvements noted overnight. Required presor support, remains on full supportive care per ICU, Ventilated. I spoke with Pulmonary regarding the critical status of patient. unable to undergo further ev Objective - Vital Signs Vital signs: Vital Signs Temp 98.0 F 07/25/18 08:30 Pulse 80 07/25/18 11:30 Resp 17 07/25/18 11:30 BP 87/52 07/25/18 11:30 Pulse Ox 100 07/25/18 12:00 Intake & Output 07/24/18 07/25/18 07/25/18 18:59 06:59 18:59 Intake Total 3840.103 1047.813 Output Total 830 1205 240 Balance -830 2635.103 807.813 Weight 68.039 kg 79 kg 79 kg Intake: IV 3575 850 Calcium Gluconate 1,000 100 mg In Sodium Chloride 0.9 % 100 ml @ 100 mls/hr IVPB ONCE ONE Rx#: [id number] Dextrose 5% in Water 1, 825 450 000 ml @ 75 mls/hr IV . [id number] DEON with Sodium Bicarb (1 Meq/ml) 150 ml Rx#:[id number] Piperacillin-Tazobactam 3 100 100 .375 gm In Sodium Chloride 0.9% 100 ml @ 25 mls/hr IVPB Q8HR DEON Rx# :[id number] Sodium Chloride 0.9% 1, 550 300 000 ml @ 50 mls/hr IV . Q20H DEON Rx#:[id number] Sodium Chloride 0.9% 2, 2000 000 ml @ 999 mls/hr IV . Q2H1M ONE Rx#:[id number] Intake, IV Titration 265.103 197.813 Amount Dextrose 5% in Water 1, 75 000 ml @ 75 mls/hr IV . [id number] DEON with Sodium Bicarb (1 Meq/ml) 150 ml Rx#:[id number] Norepinephrine 4 mg In 15.375 97.813 Sodium Chloride 0.9% 250 ml @ Titrate IV .Q0M DEON Rx#:[id number] Propofol 1,000 mg In 124.728 100 Empty Bag 1 bag @ Titrate IV .Q0M DEON Rx#: [id number] Sodium Chloride 0.9% 1, 50 000 ml @ 120 mls/hr IV . Q8H20M [facility] Rx#:[id number] Output: Gastric Drainage 500 Urine 830 705 240 Uretheral ([place]) 700 Other: Voiding Method Indwelling Catheter Indwelling Catheter - Exam Intubated, Mild distress Increased respiratory effort Tachycardia Bloody secretions ET tube and greenwood No edema, no apparent lymphadenopathy Abdmen without distention - Labs CBC & Chem 7: 07/25/18 10:47 07/25/18 10:47 Labs: Abnormal Lab Results - Last 24 Hours (Table) 07/24/18 07/24/18 07/24/18 Range/Units 15:17 15:59 16:16 WBC (3.8-10.6) k/uL RBC (4.30-5.90) m/uL Hgb (13.0-17.5) gm/dL Hct (39.0-53.0) % MCH (25.0-35.0) pg MCHC (31.0-37.0) g/dL RDW (11.5-15.5) % Neutrophils # (1.3-7.7) k/uL Lymphocytes # (1.0-4.8) k/uL ABG pH 7.15 L* (7.35-7.45) ABG pCO2 20 L (35-45) mmHg ABG pO2 79 L (83-108) mmHg ABG HCO3 7 L* (21-25) mmol/L ABG Total CO2 8 L (19-24) mmol/L ABG O2 Saturation 91.7 L (94-97) % Sodium (137-145) mmol/L Potassium (3.5-5.1) mmol/L Chloride (98-107) mmol/L Carbon Dioxide (22-30) mmol/L BUN (9-20) mg/dL Creatinine (0.66-1.25) mg/dL Glucose (74-99) mg/dL POC Glucose (mg/dL) (75-99) mg/dL Plasma Lactic Acid Gomez 14.2 H* (0.7-2.0) mmol/L Uric Acid (3.5-8.5) mg/dL Calcium (8.4-10.2) mg/dL Phosphorus (2.5-4.5) mg/dL AST (17-59) U/L ALT (21-72) U/L Alkaline Phosphatase (38-126) U/L Ammonia 212 H (<30) umol/L Lactate Dehydrogenase (313-618) U/L Total Protein (6.3-8.2) g/dL Albumin (3.5-5.0) g/dL Urine Protein 1+ H (Negative) Urine Ketones Trace H (Negative) Hyaline Casts 4 H (0-2) /lpf Urine Mucus Rare H (None) /hpf 07/24/18 07/24/18 07/24/18 Range/Units 19:07 19:08 20:24 WBC (3.8-10.6) k/uL RBC (4.30-5.90) m/uL Hgb (13.0-17.5) gm/dL Hct (39.0-53.0) % MCH (25.0-35.0) pg MCHC (31.0-37.0) g/dL RDW (11.5-15.5) % Neutrophils # (1.3-7.7) k/uL Lymphocytes # (1.0-4.8) k/uL ABG pH 7.14 L* (7.35-7.45) ABG pCO2 28 L (35-45) mmHg ABG pO2 188 H (83-108) mmHg ABG HCO3 10 L* (21-25) mmol/L ABG Total CO2 10 L (19-24) mmol/L ABG O2 Saturation 100.0 H (94-97) % Sodium 136 L (137-145) mmol/L Potassium 6.7 H* (3.5-5.1) mmol/L Chloride (98-107) mmol/L Carbon Dioxide 13 L (22-30) mmol/L BUN 33 H (9-20) mg/dL Creatinine 1.55 H (0.66-1.25) mg/dL Glucose 111 H (74-99) mg/dL POC Glucose (mg/dL) (75-99) mg/dL Plasma Lactic Acid Gomez 10.7 H* (0.7-2.0) mmol/L Uric Acid (3.5-8.5) mg/dL Calcium (8.4-10.2) mg/dL Phosphorus 9.1 H* (2.5-4.5) mg/dL AST 212 H (17-59) U/L ALT 92 H (21-72) U/L Alkaline Phosphatase 647 H (38-126) U/L Ammonia (<30) umol/L Lactate Dehydrogenase (313-618) U/L Total Protein 6.1 L (6.3-8.2) g/dL Albumin 3.1 L (3.5-5.0) g/dL Urine Protein (Negative) Urine Ketones (Negative) Hyaline Casts (0-2) /lpf Urine Mucus (None) /hpf 07/24/18 07/24/18 07/25/18 Range/Units 21:48 21:48 00:20 WBC 12.0 H (3.8-10.6) k/uL RBC 3.43 L (4.30-5.90) m/uL Hgb 8.4 L (13.0-17.5) gm/dL Hct 28.4 L (39.0-53.0) % MCH 24.7 L (25.0-35.0) pg MCHC 29.7 L (31.0-37.0) g/dL RDW 22.3 H (11.5-15.5) % Neutrophils # 10.9 H (1.3-7.7) k/uL Lymphocytes # 0.4 L (1.0-4.8) k/uL ABG pH (7.35-7.45) ABG pCO2 (35-45) mmHg ABG pO2 (83-108) mmHg ABG HCO3 (21-25) mmol/L ABG Total CO2 (19-24) mmol/L ABG O2 Saturation (94-97) % Sodium (137-145) mmol/L Potassium (3.5-5.1) mmol/L Chloride (98-107) mmol/L Carbon Dioxide (22-30) mmol/L BUN (9-20) mg/dL Creatinine (0.66-1.25) mg/dL Glucose (74-99) mg/dL POC Glucose (mg/dL) 117 H (75-99) mg/dL Plasma Lactic Acid Gomez (0.7-2.0) mmol/L Uric Acid 13.2 H (3.5-8.5) mg/dL Calcium (8.4-10.2) mg/dL Phosphorus (2.5-4.5) mg/dL AST (17-59) U/L ALT (21-72) U/L Alkaline Phosphatase (38-126) U/L Ammonia (<30) umol/L Lactate Dehydrogenase (313-618) U/L Total Protein (6.3-8.2) g/dL Albumin (3.5-5.0) g/dL Urine Protein (Negative) Urine Ketones (Negative) Hyaline Casts (0-2) /lpf Urine Mucus (None) /hpf 07/25/18 07/25/18 07/25/18 Range/Units 02:18 02:18 04:59 WBC (3.8-10.6) k/uL RBC 3.51 L (4.30-5.90) m/uL Hgb 8.4 L (13.0-17.5) gm/dL Hct 29.0 L (39.0-53.0) % MCH 24.0 L (25.0-35.0) pg MCHC 29.0 L (31.0-37.0) g/dL RDW 22.5 H (11.5-15.5) % Neutrophils # 9.5 H (1.3-7.7) k/uL Lymphocytes # 0.5 L (1.0-4.8) k/uL ABG pH (7.35-7.45) ABG pCO2 28 L (35-45) mmHg ABG pO2 155 H (83-108) mmHg ABG HCO3 17 L (21-25) mmol/L ABG Total CO2 18 L (19-24) mmol/L ABG O2 Saturation 100.0 H (94-97) % Sodium (137-145) mmol/L Potassium 6.1 H* (3.5-5.1) mmol/L Chloride 108 H (98-107) mmol/L Carbon Dioxide 17 L (22-30) mmol/L BUN 35 H (9-20) mg/dL Creatinine 1.56 H (0.66-1.25) mg/dL Glucose 111 H (74-99) mg/dL POC Glucose (mg/dL) (75-99) mg/dL Plasma Lactic Acid Gomez (0.7-2.0) mmol/L Uric Acid (3.5-8.5) mg/dL Calcium 8.2 L (8.4-10.2) mg/dL Phosphorus 7.0 H (2.5-4.5) mg/dL AST 367 H (17-59) U/L ALT 131 H (21-72) U/L Alkaline Phosphatase 619 H (38-126) U/L Ammonia (<30) umol/L Lactate Dehydrogenase 3807 H (313-618) U/L Total Protein 5.7 L (6.3-8.2) g/dL Albumin 2.9 L (3.5-5.0) g/dL Urine Protein (Negative) Urine Ketones (Negative) Hyaline Casts (0-2) /lpf Urine Mucus (None) /hpf 07/25/18 07/25/18 07/25/18 Range/Units 06:15 08:41 10:47 WBC (3.8-10.6) k/uL RBC 3.42 L (4.30-5.90) m/uL Hgb 8.6 L (13.0-17.5) gm/dL Hct 27.9 L (39.0-53.0) % MCH (25.0-35.0) pg MCHC 30.9 L (31.0-37.0) g/dL RDW 22.7 H (11.5-15.5) % Neutrophils # (1.3-7.7) k/uL Lymphocytes # 0.5 L (1.0-4.8) k/uL ABG pH (7.35-7.45) ABG pCO2 (35-45) mmHg ABG pO2 (83-108) mmHg ABG HCO3 (21-25) mmol/L ABG Total CO2 (19-24) mmol/L ABG O2 Saturation (94-97) % Sodium (137-145) mmol/L Potassium 5.6 H (3.5-5.1) mmol/L Chloride (98-107) mmol/L Carbon Dioxide (22-30) mmol/L BUN (9-20) mg/dL Creatinine (0.66-1.25) mg/dL Glucose (74-99) mg/dL POC Glucose (mg/dL) 125 H (75-99) mg/dL Plasma Lactic Acid Gomez (0.7-2.0) mmol/L Uric Acid (3.5-8.5) mg/dL Calcium (8.4-10.2) mg/dL Phosphorus (2.5-4.5) mg/dL AST (17-59) U/L ALT (21-72) U/L Alkaline Phosphatase (38-126) U/L Ammonia (<30) umol/L Lactate Dehydrogenase (313-618) U/L Total Protein (6.3-8.2) g/dL Albumin (3.5-5.0) g/dL Urine Protein (Negative) Urine Ketones (Negative) Hyaline Casts (0-2) /lpf Urine Mucus (None) /hpf 07/25/18 07/25/18 Range/Units 10:47 11:52 WBC (3.8-10.6) k/uL RBC (4.30-5.90) m/uL Hgb (13.0-17.5) gm/dL Hct (39.0-53.0) % MCH (25.0-35.0) pg MCHC (31.0-37.0) g/dL RDW (11.5-15.5) % Neutrophils # (1.3-7.7) k/uL Lymphocytes # (1.0-4.8) k/uL ABG pH (7.35-7.45) ABG pCO2 (35-45) mmHg ABG pO2 (83-108) mmHg ABG HCO3 (21-25) mmol/L ABG Total CO2 (19-24) mmol/L ABG O2 Saturation (94-97) % Sodium 136 L (137-145) mmol/L Potassium 5.7 H (3.5-5.1) mmol/L Chloride 108 H (98-107) mmol/L Carbon Dioxide 20 L (22-30) mmol/L BUN 38 H (9-20) mg/dL Creatinine 1.70 H (0.66-1.25) mg/dL Glucose 114 H (74-99) mg/dL POC Glucose (mg/dL) 128 H (75-99) mg/dL Plasma Lactic Acid Gomez (0.7-2.0) mmol/L Uric Acid (3.5-8.5) mg/dL Calcium 7.9 L (8.4-10.2) mg/dL Phosphorus 6.2 H (2.5-4.5) mg/dL AST 626 H (17-59) U/L ALT 180 H (21-72) U/L Alkaline Phosphatase 575 H (38-126) U/L Ammonia (<30) umol/L Lactate Dehydrogenase (313-618) U/L Total Protein 5.4 L (6.3-8.2) g/dL Albumin 2.6 L (3.5-5.0) g/dL Urine Protein (Negative) Urine Ketones (Negative) Hyaline Casts (0-2) /lpf Urine Mucus (None) /hpf Microbiology - Last 24 Hours (Table) 07/24/18 23:50 Sputum Culture - Preliminary Sputum Assessment and Plan Plan: Assessment and Recommendations: 1. Metastatic Esophageal Cancer - - Status post cycle 1, day 1 of 3 of FOLFOX - Chemo on Hold 2. Acute Respiratory Failure: with hypoxemic respiratory failure: *Presenting with significant tachycardia and tachypnea after persistent episodes of vomting. - Likely secondary to Aspiration Pneumonia during persistent episodic emesis - Pulmonary Embolism should also be considered and ruled out when stable to undergo diagnstic - Per ICU and Pulmonary - Intubated and supportive Care 3. Acute Metabolic Encephalopathy - COmponent of hepatic encephalopathy - Complete Septic work-up Completed, cultures pending - Chest xray does show concern consistent with aspiration - CT Brain Suboptimal secondary to movement although did not show any acute embolic event or bleed - Lactic Acidosis 4. Aspiration Pneumonia - IV antibiotics and ICU management 5. Unilateral Right sided Weakness, this was acute: - Further evaluation for with MRI of brain once patient stabilizes is resonable 6. Increased Uric Acid: - Sepsis versus TUmor Lysis - Agree with Raswburicase and monitoring, should resolve if related to acute infection 7. Hyperkalemia 8. Acute Kidney Injury 9. Normocytic anemia 10. Increase Liver function: worsening with acute event - Known underlying liver metastasis - After initial 12 hours of chemotherapy this could have increased the inflammatory response of liver, attacking liver mets at a rapid rate causing the symptoms of nausea and vomiting. Also symptoms of increased LFTS, Uric Acid , and acute renal insufficiency. Unfortunetly during his symptoms he likely aspirated which worsened symptoms (when stabilizes still must rule out PE) Plan: - Continiue with ICU supportive care - Aggree with Rasburicase - This may likely be Aspitation pneumonia msecondary to nausea from quick activation of inflammation in liver mets. Should improve in next 48-72 hours along with treatment of underlying infection. Must continue supportive care to maintain organ viabilty. - Monitor CBC and Transfuse PRN Hgb less than 7, plt less than 50K if bleeding - Monitor platlets closely. - Await samayoa cultures, continue abx and ICU care - Discussed with family supportive care given
[2018-07-25] MEDS ORDERED: NOREPINEPHRINE 16 MG in SODIUM CHLORIDE 0.9% 250 ML IV SCH (13:00)
[2018-07-25] MEDS ORDERED: SODIUM CHLORIDE 0.9% 1,000 ML IV ONE ×2 (15:27→17:08)
--- NOTE | 2018-07-25 15:34 | P.PN ---
Subjective Progress Note Date: 07/25/18 Principal diagnosis: Aspirin aspiration pneumonia and metabolic encephalopathy hyperammonemia 68 years old male patient one of my patient and Dr. JINA Ng with past history hypertension, hyperlipidemia, coronary artery disease with prior stent placement with history of myocardial infarction status post coronary artery bypass grafting surgery in [place], Located [facility] in 2010. Recent cardiac workup in February 2017, underwent Lexiscan stress test which was negative for any reversible ischemia. Patient was recently admitted and discharged , after chest discomfort episode, and patient underwent a stress dobutamine at that time which was inconclusive secondary to abnormal EKG at baseline, it was a technically difficult dobutamine echo with suboptimal images , however there is no gross evidence to suggest ischemia. Cardiac cath performed 11/23/2017 Dr. Rodríguez, for unstable angina, LAD is chronically occluded in its midportion, severe stenosis of the RCA, midportion, stent within the proximal circumflex artery appears patent obtuse marginal branch 70-80% stenosis bypass graft TURNER to LAD is patent proximal and distal anastomoses sites are free of stenosis venous graft to PDA patent, venous graft to OM branch free of disease patient has [place] three-vessel CAD with patent TURNER to LAD patent venous graft to PDA and patent venous graft to OM branch Patient comes in to the emergency room secondary to acute respiratory distress , mental status changes, patient cannot move the right upper extremity, has been listless and restless, tachypneic. prior to these patient has had vomiting upon my evaluation the emergency room, patient is in severe respiratory distress, aspiration pneumonia is in differential, along with pulmonary emboli and possible right hemiplegic stroke. Involving right upper extremity. Serum ammonia is very high at 200, lactic acid is 14, patient has severe metabolic acidosis, Patient underwent imaging studies including CT of the brain, IV antibiotics Levaquin and Zosyn to cover for aspirate the pneumonia , IV sodium bicarb, and and would be admitted to ICU Consult with pulmonary doctor casing cooker Dr. Camarena, consult with Dr. Marroquin from oncology. patient is intubated upon arrival to ICU. 1221: Patient remains in ICU, ventilated, sedated family is at bedside, creatinine is are at 1.7 ammonia level currently pending, liver function test is still elevated on 575 alkaline phosphatase ALT 626 AST 180 bilirubin 1.2, albumin level at 2.6 hemoglobin 8.6, double basic count of 7.9. Chest x-ray shows bibasilar infiltrates T-max at 19.5, pressors are currently low with systolic of 82 to 89, on Levophed, we'll going to add Albumin infusion, 2 doses of 50 g every 12 hhrs cortisol levels to be drawn, consult nutrition for tube feedings Objective - Vital Signs Vital signs: Vital Signs Temp 98.5 F 07/25/18 14:00 Pulse 104 H 07/25/18 15:00 Resp 27 H 07/25/18 15:00 BP 82/53 07/25/18 15:00 Pulse Ox 100 07/25/18 15:00 Intake & Output 07/24/18 07/25/18 07/25/18 18:59 06:59 18:59 Intake Total 3840.103 1516.019 Output Total 830 1205 470 Balance -830 2635.103 1046.019 Weight 68.039 kg 79 kg 79 kg Intake: IV 3575 1225 Calcium Gluconate 1,000 100 mg In Sodium Chloride 0.9 % 100 ml @ 100 mls/hr IVPB ONCE ONE Rx#: [id number] Dextrose 5% in Water 1, 825 675 000 ml @ 75 mls/hr IV . [id number] DEON with Sodium Bicarb (1 Meq/ml) 150 ml Rx#:[id number] Piperacillin-Tazobactam 3 100 100 .375 gm In Sodium Chloride 0.9% 100 ml @ 25 mls/hr IVPB Q8HR DEON Rx# :[id number] Sodium Chloride 0.9% 1, 550 450 000 ml @ 50 mls/hr IV . Q20H DEON Rx#:[id number] Sodium Chloride 0.9% 2, 2000 000 ml @ 999 mls/hr IV . Q2H1M ONE Rx#:[id number] Intake, IV Titration 265.103 291.019 Amount Dextrose 5% in Water 1, 75 000 ml @ 75 mls/hr IV . [id number] DEON with Sodium Bicarb (1 Meq/ml) 150 ml Rx#:[id number] Norepinephrine 4 mg In 15.375 97.813 Sodium Chloride 0.9% 250 ml @ Titrate IV .Q0M DEON Rx#:[id number] Propofol 1,000 mg In 124.728 193.206 Empty Bag 1 bag @ Titrate IV .Q0M DEON Rx#: [id number] Sodium Chloride 0.9% 1, 50 000 ml @ 120 mls/hr IV . Q8H20M [facility] Rx#:[id number] Output: Gastric Drainage 500 Urine 830 705 470 Uretheral (Turk) 700 Other: Voiding Method Indwelling Catheter Indwelling Catheter ABP, PAP, CO, CI - Last Documented Arterial Blood Pressure 84/52 - Exam Sedated on the vent - EENT Eyes: Present: anicteric sclerae, EOMI, PERRLA, dentition normal, normal appearance ENT: Present: NA/AT, normal oropharynx - Neck Neck: Present: normal ROM - Respiratory Respiratory: bilateral: CTA, negative: diminished, dullness, rales - Cardiovascular Rhythm: regular Heart sounds: normal: S1, S2 - Gastrointestinal General gastrointestinal: Present: normal bowel sounds - Integumentary Integumentary: Present: normal, normal turgor - Neurologic Neurologic: Present: CNII-XII intact - Musculoskeletal Musculoskeletal: Present: gait normal - Psychiatric Psychiatric: Present: A&O x's 3 - Labs CBC & Chem 7: 07/25/18 10:47 07/25/18 10:47 Labs: Abnormal Lab Results - Last 24 Hours (Table) 07/24/18 07/24/18 07/24/18 Range/Units 15:17 15:59 16:16 WBC (3.8-10.6) k/uL RBC (4.30-5.90) m/uL Hgb (13.0-17.5) gm/dL Hct (39.0-53.0) % MCH (25.0-35.0) pg MCHC (31.0-37.0) g/dL RDW (11.5-15.5) % Neutrophils # (1.3-7.7) k/uL Lymphocytes # (1.0-4.8) k/uL Haptoglobin (31.2-198.0) mg/dL ABG pH 7.15 L* (7.35-7.45) ABG pCO2 20 L (35-45) mmHg ABG pO2 79 L (83-108) mmHg ABG HCO3 7 L* (21-25) mmol/L ABG Total CO2 8 L (19-24) mmol/L ABG O2 Saturation 91.7 L (94-97) % Sodium (137-145) mmol/L Potassium (3.5-5.1) mmol/L Chloride (98-107) mmol/L Carbon Dioxide (22-30) mmol/L BUN (9-20) mg/dL Creatinine (0.66-1.25) mg/dL Glucose (74-99) mg/dL POC Glucose (mg/dL) (75-99) mg/dL Plasma Lactic Acid Gomez 14.2 H* (0.7-2.0) mmol/L Uric Acid (3.5-8.5) mg/dL Calcium (8.4-10.2) mg/dL Phosphorus (2.5-4.5) mg/dL AST (17-59) U/L ALT (21-72) U/L Alkaline Phosphatase (38-126) U/L Ammonia 212 H (<30) umol/L Lactate Dehydrogenase (313-618) U/L Total Protein (6.3-8.2) g/dL Albumin (3.5-5.0) g/dL Urine Protein 1+ H (Negative) Urine Ketones Trace H (Negative) Hyaline Casts 4 H (0-2) /lpf Urine Mucus Rare H (None) /hpf 07/24/18 07/24/18 07/24/18 Range/Units 19:07 19:08 20:24 WBC (3.8-10.6) k/uL RBC (4.30-5.90) m/uL Hgb (13.0-17.5) gm/dL Hct (39.0-53.0) % MCH (25.0-35.0) pg MCHC (31.0-37.0) g/dL RDW (11.5-15.5) % Neutrophils # (1.3-7.7) k/uL Lymphocytes # (1.0-4.8) k/uL Haptoglobin (31.2-198.0) mg/dL ABG pH 7.14 L* (7.35-7.45) ABG pCO2 28 L (35-45) mmHg ABG pO2 188 H (83-108) mmHg ABG HCO3 10 L* (21-25) mmol/L ABG Total CO2 10 L (19-24) mmol/L ABG O2 Saturation 100.0 H (94-97) % Sodium 136 L (137-145) mmol/L Potassium 6.7 H* (3.5-5.1) mmol/L Chloride (98-107) mmol/L Carbon Dioxide 13 L (22-30) mmol/L BUN 33 H (9-20) mg/dL Creatinine 1.55 H (0.66-1.25) mg/dL Glucose 111 H (74-99) mg/dL POC Glucose (mg/dL) (75-99) mg/dL Plasma Lactic Acid Gomez 10.7 H* (0.7-2.0) mmol/L Uric Acid (3.5-8.5) mg/dL Calcium (8.4-10.2) mg/dL Phosphorus 9.1 H* (2.5-4.5) mg/dL AST 212 H (17-59) U/L ALT 92 H (21-72) U/L Alkaline Phosphatase 647 H (38-126) U/L Ammonia (<30) umol/L Lactate Dehydrogenase (313-618) U/L Total Protein 6.1 L (6.3-8.2) g/dL Albumin 3.1 L (3.5-5.0) g/dL Urine Protein (Negative) Urine Ketones (Negative) Hyaline Casts (0-2) /lpf Urine Mucus (None) /hpf 07/24/18 07/24/18 07/25/18 Range/Units 21:48 21:48 00:20 WBC 12.0 H (3.8-10.6) k/uL RBC 3.43 L (4.30-5.90) m/uL Hgb 8.4 L (13.0-17.5) gm/dL Hct 28.4 L (39.0-53.0) % MCH 24.7 L (25.0-35.0) pg MCHC 29.7 L (31.0-37.0) g/dL RDW 22.3 H (11.5-15.5) % Neutrophils # 10.9 H (1.3-7.7) k/uL Lymphocytes # 0.4 L (1.0-4.8) k/uL Haptoglobin (31.2-198.0) mg/dL ABG pH (7.35-7.45) ABG pCO2 (35-45) mmHg ABG pO2 (83-108) mmHg ABG HCO3 (21-25) mmol/L ABG Total CO2 (19-24) mmol/L ABG O2 Saturation (94-97) % Sodium (137-145) mmol/L Potassium (3.5-5.1) mmol/L Chloride (98-107) mmol/L Carbon Dioxide (22-30) mmol/L BUN (9-20) mg/dL Creatinine (0.66-1.25) mg/dL Glucose (74-99) mg/dL POC Glucose (mg/dL) 117 H (75-99) mg/dL Plasma Lactic Acid Gomez (0.7-2.0) mmol/L Uric Acid 13.2 H (3.5-8.5) mg/dL Calcium (8.4-10.2) mg/dL Phosphorus (2.5-4.5) mg/dL AST (17-59) U/L ALT (21-72) U/L Alkaline Phosphatase (38-126) U/L Ammonia (<30) umol/L Lactate Dehydrogenase (313-618) U/L Total Protein (6.3-8.2) g/dL Albumin (3.5-5.0) g/dL Urine Protein (Negative) Urine Ketones (Negative) Hyaline Casts (0-2) /lpf Urine Mucus (None) /hpf 07/25/18 07/25/18 07/25/18 Range/Units 02:18 02:18 02:18 WBC (3.8-10.6) k/uL RBC 3.51 L (4.30-5.90) m/uL Hgb 8.4 L (13.0-17.5) gm/dL Hct 29.0 L (39.0-53.0) % MCH 24.0 L (25.0-35.0) pg MCHC 29.0 L (31.0-37.0) g/dL RDW 22.5 H (11.5-15.5) % Neutrophils # 9.5 H (1.3-7.7) k/uL Lymphocytes # 0.5 L (1.0-4.8) k/uL Haptoglobin 211.0 H (31.2-198.0) mg/dL ABG pH (7.35-7.45) ABG pCO2 (35-45) mmHg ABG pO2 (83-108) mmHg ABG HCO3 (21-25) mmol/L ABG Total CO2 (19-24) mmol/L ABG O2 Saturation (94-97) % Sodium (137-145) mmol/L Potassium 6.1 H* (3.5-5.1) mmol/L Chloride 108 H (98-107) mmol/L Carbon Dioxide 17 L (22-30) mmol/L BUN 35 H (9-20) mg/dL Creatinine 1.56 H (0.66-1.25) mg/dL Glucose 111 H (74-99) mg/dL POC Glucose (mg/dL) (75-99) mg/dL Plasma Lactic Acid Gomez (0.7-2.0) mmol/L Uric Acid (3.5-8.5) mg/dL Calcium 8.2 L (8.4-10.2) mg/dL Phosphorus 7.0 H (2.5-4.5) mg/dL AST 367 H (17-59) U/L ALT 131 H (21-72) U/L Alkaline Phosphatase 619 H (38-126) U/L Ammonia (<30) umol/L Lactate Dehydrogenase 3807 H (313-618) U/L Total Protein 5.7 L (6.3-8.2) g/dL Albumin 2.9 L (3.5-5.0) g/dL Urine Protein (Negative) Urine Ketones (Negative) Hyaline Casts (0-2) /lpf Urine Mucus (None) /hpf 07/25/18 07/25/18 07/25/18 Range/Units 04:59 06:15 08:41 WBC (3.8-10.6) k/uL RBC (4.30-5.90) m/uL Hgb (13.0-17.5) gm/dL Hct (39.0-53.0) % MCH (25.0-35.0) pg MCHC (31.0-37.0) g/dL RDW (11.5-15.5) % Neutrophils # (1.3-7.7) k/uL Lymphocytes # (1.0-4.8) k/uL Haptoglobin (31.2-198.0) mg/dL ABG pH (7.35-7.45) ABG pCO2 28 L (35-45) mmHg ABG pO2 155 H (83-108) mmHg ABG HCO3 17 L (21-25) mmol/L ABG Total CO2 18 L (19-24) mmol/L ABG O2 Saturation 100.0 H (94-97) % Sodium (137-145) mmol/L Potassium 5.6 H (3.5-5.1) mmol/L Chloride (98-107) mmol/L Carbon Dioxide (22-30) mmol/L BUN (9-20) mg/dL Creatinine (0.66-1.25) mg/dL Glucose (74-99) mg/dL POC Glucose (mg/dL) 125 H (75-99) mg/dL Plasma Lactic Acid Gomez (0.7-2.0) mmol/L Uric Acid (3.5-8.5) mg/dL Calcium (8.4-10.2) mg/dL Phosphorus (2.5-4.5) mg/dL AST (17-59) U/L ALT (21-72) U/L Alkaline Phosphatase (38-126) U/L Ammonia (<30) umol/L Lactate Dehydrogenase (313-618) U/L Total Protein (6.3-8.2) g/dL Albumin (3.5-5.0) g/dL Urine Protein (Negative) Urine Ketones (Negative) Hyaline Casts (0-2) /lpf Urine Mucus (None) /hpf 07/25/18 07/25/18 07/25/18 Range/Units 10:47 10:47 11:52 WBC (3.8-10.6) k/uL RBC 3.42 L (4.30-5.90) m/uL Hgb 8.6 L (13.0-17.5) gm/dL Hct 27.9 L (39.0-53.0) % MCH (25.0-35.0) pg MCHC 30.9 L (31.0-37.0) g/dL RDW 22.7 H (11.5-15.5) % Neutrophils # (1.3-7.7) k/uL Lymphocytes # 0.5 L (1.0-4.8) k/uL Haptoglobin (31.2-198.0) mg/dL ABG pH (7.35-7.45) ABG pCO2 (35-45) mmHg ABG pO2 (83-108) mmHg ABG HCO3 (21-25) mmol/L ABG Total CO2 (19-24) mmol/L ABG O2 Saturation (94-97) % Sodium 136 L (137-145) mmol/L Potassium 5.7 H (3.5-5.1) mmol/L Chloride 108 H (98-107) mmol/L Carbon Dioxide 20 L (22-30) mmol/L BUN 38 H (9-20) mg/dL Creatinine 1.70 H (0.66-1.25) mg/dL Glucose 114 H (74-99) mg/dL POC Glucose (mg/dL) 128 H (75-99) mg/dL Plasma Lactic Acid Gomez (0.7-2.0) mmol/L Uric Acid (3.5-8.5) mg/dL Calcium 7.9 L (8.4-10.2) mg/dL Phosphorus 6.2 H (2.5-4.5) mg/dL AST 626 H (17-59) U/L ALT 180 H (21-72) U/L Alkaline Phosphatase 575 H (38-126) U/L Ammonia (<30) umol/L Lactate Dehydrogenase (313-618) U/L Total Protein 5.4 L (6.3-8.2) g/dL Albumin 2.6 L (3.5-5.0) g/dL Urine Protein (Negative) Urine Ketones (Negative) Hyaline Casts (0-2) /lpf Urine Mucus (None) /hpf Microbiology - Last 24 Hours (Table) 07/24/18 23:50 Gram Stain - Preliminary Sputum Sputum Culture - Preliminary Assessment and Plan Plan: 1. Acute metabolic/hepatic encephalopathy with , acute right upper extremity paralysis, tachypnea, hyperammonemia impending respiratory failure with significant respiratory distress upon my evaluation emergency room, I have requested the patient to be admitted in ICU, aspiration pneumonia is concerning as well as pulmonary emboli, and or CVA with the right upper extremity hemiparesis. Patient was seen with multiple specialties including Dr. Germain from pulmonary medicine casing cooker, Dr. Shuayto from neurology, and oncology services. Computed tomography scan of the brain without contrast to evaluate for bleed, CAT scan imaging was suboptimal without any acute intracranial hemorrhage, no suspicious enhancing intraparenchymal mass identified 2. Recently diagnosed esophageal cancer invasive well-differentiated adenocarcinoma diagnosed 07/08/2018 underwent first chemotherapy session yesterday under the service of Dr. Aiken. He was started on FOLFOX He does have metastatic disease to the liver and lung with lung nodules on initial presentation 3. Acute respiratory failure with hypoxemic respiratory failure, significant tachypnea, SIRS is in the differential for aspiration pneumonia as the patient has been vomiting significantly, as long as well as a pulmonary emboli needs to be ruled out. Patient is not currently stable for any VQ scan, I discussed this with the ER physician, patient would be receiving an initial dose of IV heparin PE protocol, this has been this has to be discontinued as the patient has blood in the OG tube risk for bleeding is high Zosyn and Levaquin IV dosaging, sputum culture, patient is currently full code 4Acute ventilatory dependent respiratory failure secondary to sepsis SIRS pneumonia, intubated 07/24/[address] Camarena pulmonary IV antibiotic as above 5. Right upper extremity paralysis acute, possibly related to CVA patient would have an MRI of the brain, CAT scan of the brain failed to reveal any bleed , neurology is to see the patient 6. Hypovolemic shock from septic shock, patient currently is on Levophed, albumin infusion is going to be added at 50 g every 12 hours 3 doses were ordered, cortisol level to be drawn to evaluate for adrenal insufficiency 7 Sepsis with significant metabolic acidosis, aspiration pneumonia is considered secondary to several episodes of vomiting prior to presentation, patient's on IV antibiotic, IV hydration, correction of respiratory causes, IV sodium bicarb drip was initiated in the emergency room, 8. Hepatic encephalopathy secondary to liver metastatic lesions along with jaundice, lactulose 200 mg rectally every 4 hours was initiated 9. History of CAD with prior CABG TURNER to the LAD was patent, venous graft PDA is patent, three-vessel disease with cardiac cath performed November 2017 10 Anemia negative for Hemoccult, patient had blood transfusion last June 2018, we will transfuse under 7, 11history of extensive demyelination with recent brain MRI brrain as per previous workup this summer negative for multiple sclerosis by spinal tap 12 hypertensive cardiovascular disease with prior history of cardiac stents continue metoprolol IV 2.5 mg every 6 hours 13 Anxiety/ depression - Stable, with good coping skills, citalopram 10 mg continued 14. Hyperlipidemia, on Lipitor 80 on hold secondary to significant liver function test elevation 15 Rosacea, stable on maintenance doxycycline 50 mg daily will discontinue while on IV antibiotics 16 Thyroid nodule stable DVT prophylaxis currently on IV heparin GI prophylaxis Patient's critically ill CODE STATUS full
[2018-07-25 15:42] LABS: Anisocytosis Moderate; Basophils % (A) 0 %; Eosinophils # (A) 0.1 k/uL (0-0.7); Eosinophils % (A) 1 %; HCT 30.1 % (39.0-53.0); HGB 8.8 gm/dL (13.0-17.5); Hypochromasia Marked; Lymphocytes # (A) 0.9 k/uL (1.0-4.8); Lymphocytes % (A) 9 %; MCHC 29.4 g/dL (31.0-37.0); MCV 84.9 fL (80.0-100.0); Mean Platelet Volume 7.6; Microcytosis Slight; Monocytes # (A) 0.3 k/uL (0-1.0); Monocytes % (A) 3 %; Neutrophils # (A) 8.1 k/uL (1.3-7.7); Neutrophils % (A) 86 %; Platelet Count 259 k/uL (150-450); RBC 3.54 m/uL (4.30-5.90); RDW 22.9 % (11.5-15.5); WBC 9.4 k/uL (3.8-10.6)
[2018-07-25 15:59] LABS: Albumin 2.6 g/dL (3.5-5.0); Calcium 7.6 mg/dL (8.4-10.2); Phosphorus 6.1 mg/dL (2.5-4.5); Potassium 5.5 mmol/L (3.5-5.1); Total Bilirubin 1.2 mg/dL (0.2-1.3); Total Protein 5.4 g/dL (6.3-8.2); Uric Acid 4.4 mg/dL (3.5-8.5)
[2018-07-25 16:38] VITALS: BP 93/62
--- NOTE | 2018-07-25 16:40 | CONS ---
CONSULTATION This is a 68-year-old otherwise. This is a pulmonary critical care consultation. DATE OF SERVICE: 07/25/2018. This is a 68-year-old male who presented to the emergency department with nausea , vomiting, and diarrhea. The patient has a history of relatively recently diagnosed esophageal cancer with metastasis to liver and lungs. He apparently underwent chemo 2 days ago, was thought to be having a reaction to the chemotherapy. He apparently vomited multiple times on the day of visit to the emergency room. He was fairly weak. The patient was feeling dehydrated. He was not having any pain. There was no confusion or mental status change. The patient was initially being evaluated for the possibility of chemotherapy induced side effects including nausea, vomiting, diarrhea. Apparently, according to the ER doctor, Dr. Philip, the patient has a history of multiple sclerosis, CABG, [place] with stents, hypertension, hyperlipidemia, GERD, esophageal cancer, started have a change in his overall clinical appearance and apparently became short of breath. Seemed to have a mental status change and became very confused and disoriented. Dr. Philip called me about this patient and I agreed to admit the patient to the unit for observation. The patient when he got to the unit here was very unstable. He has very poor initial blood gases which showed a PO2 188, pCO2 of 28, and pH 7.14. It was at 100% oxygen. Because of impending respiratory failure and instability, we chose to intubate the patient electively. This was done by Anesthesia. Currently, the patient is on the volume assist-control mode with a rate of 20, tidal volume 450, FiO2 50%, PEEP of 5. Blood gases this morning show PO2 155, a PA CO2 of 28, and pH is 7.40. His blood gases were done on 60% and the FiO2 was turned down to 50%. He is currently on norepinephrine 6 mics per minute. He is getting D5W with 3 amps of sodium bicarbonate at 75 mL an hour. normal saline IV at 50 mL an hour and Diprivan at 50 mcg/kg per minute. The chest x-ray shows some bilateral and bibasilar atelectasis and/or infiltrates. The patient was admitted on the and intubated on the as well. HOME MEDICATIONS: Included minocycline, nitroglycerin, tramadol, gabapentin, Xanax, aspirin, Tylenol, metoprolol, Imdur, famotidine, iron, lisinopril, and Remeron. ALLERGIES: DENIED. MEDICAL HISTORY: Includes a history of coronary artery disease with previous [place] and stents, angina pectoris, GERD, hyperlipidemia, hypertension, myocardial infarction. Recently diagnosed stage IV adenocarcinoma of the esophagus with METS to the liver and lungs. The patient also has a previous history of shingles and has a history of rosacea. SURGICAL HISTORY: Includes among other things a cholecystectomy, bypass grafting, heart catheterization with stents. SOCIAL HISTORY: Positive for previous tobacco use. No alcohol use. No illicit drug use. FAMILY HISTORY: Positive for coronary artery disease and diabetes. REVIEW OF SYSTEMS: Unobtainable as the patient is currently sedated on the mechanical ventilator. PHYSICAL EXAMINATION: Vital signs are reviewed, include temperature 98, heart rate 75, respiratory rate 21, blood pressure 90/58, mean 69, and saturation 100% on 50% FiO2 and 5 of PEEP. Currently sedated on propofol. No acute distress. There is an orally placed endotracheal tube and NG tube. HEENT examination is grossly unremarkable. NECK: Supple. Full range of motion. No adenopathy or thyromegaly. Neck veins are flat. Cardiovascular examination reveals regular rhythm and rate. Heart rate about mid 70s. S1, S2 normal. Heart sounds are distant. LUNGS: Some coarse rhonchi. Breath sounds are diminished. There is some crackles bilaterally. Abdomen is soft. No bowel sounds are heard. Extremities are intact. No cyanosis, clubbing, or edema. Skin without rash. Neurologic examination could not be assessed because the patient is currently sedated. LABS: Reviewed. White count 10.3, hemoglobin 8.4, hematocrit 29.0, platelet count 352 ,000, PT/INR PTT and fibrinogen all normal. Blood gases have been noted. Sodium 138, potassium 5.6, chloride 108, CO2 17, anion gap is 13. BUN and creatinine were 35, 1.56. His lactic acid yesterday was 10.7. Calcium 8.2, phosphorus is 7, AST 367, ALT 131, alk phosphatase is 619, LDH is 3807. Urine is essentially negative. Chest x-ray shows bibasilar atelectasis and/or infiltrates. Medications are reviewed. The patient is on a whole host of medications. I will review those and discontinue all unnecessary medications. ASSESSMENT: 1. Hypoxemic respiratory failure, of unclear etiology in a patient who was initially stable in the emergency room complaining of nausea, vomiting, diarrhea. 2. Nausea, vomiting, diarrhea, thought to be related to recent chemotherapy administered 2 days ago. 3. Rule out tumor lysis syndrome. 4. Recently diagnosed esophageal cancer, stage IV adenocarcinoma, with mets metastasis to the liver and lungs. 5. Possible chronic obstructive pulmonary disease from previous tobacco use. 6. Questionable multiple sclerosis. 7. Coronary artery disease with previous coronary artery bypass grafting surgery. 8. Previous myocardial infarction with stent placement. 9. Hypertension. 10.Hyperlipidemia. 11.History of gastroesophageal reflux disease. 12.History of shingles. 13.History of rosacea. 14.Possible Sepsis syndrome PLAN: The patient will need a art line. He does have adequate IV access and a port in place. The patient's medications will be reviewed. Additional recommendations and suggestions are forthcoming. I will have a discussion with the family about code status. His overall situation is guarded given his severe disease including his stage IV disease with METS to the liver and lungs. The FiO2 was turned down from 60 to 50%. We will continue to monitor blood gases. We will continue to monitor his fluids. The patient will get some additional IV fluids and if necessary can wean down the norepinephrine. He is currently on a bicarb drip. Additional recommendations and suggestions are forthcoming. Prognosis is very guarded. SOLL / LOTUSN: [id number] / DEAN
[2018-07-25] MEDS ORDERED: HYDROCORTISONE SUCCINATE 100 MG/2 ML VIAL IV SCH (16:45)
[2018-07-25 17:06] VITALS: TEMP 99.1
[2018-07-25 18:06] LABS: Glucose,Whole Blood 133 mg/dL (75-99)
[2018-07-25 18:46] LABS: ABG Base Excess -12.9 mmol/L; ABG HCO3 13 mmol/L (21-25); ABG Oxygen Saturation 99.6 % (94-97); ABG PCO2 26 mmHg (35-45); ABG PH 7.32 (7.35-7.45); ABG PO2 143 mmHg (83-108); ABG TCO2 14 mmol/L (19-24)
--- NOTE | 2018-07-25 18:59 | CONS ---
CONSULTATION REASON FOR CONSULT: Renal failure. HISTORY OF PRESENT ILLNESS: Patient is a 68-year-old male who was admitted to the hospital yesterday with weakness and nausea, vomiting, diarrhea and not feeling well. The patient has an underlying history of esophageal cancer with mets to the liver and possibly to the lungs as well. He is status post chemotherapy on 07/23/2018. The patient was hypotensive. He is currently on Levophed at about 6 mics. He is maintained on IV fluids. The patient was also acidotic. Serum creatinine was at 1.7 mg/dL. Previous creatinine was 1.0 on 06/27/2018. Uric acid was elevated at 13.2 yesterday. The patient has received rasburicase. His potassium was also elevated at 6.7. It is now decreased to 5.7. The patient is maintained on bicarb drip for metabolic acidosis. He currently has urine output about 40-45 mL/hour. PAST MEDICAL HISTORY: Significant for esophageal cancer with metastasis, status post first chemotherapy, coronary artery disease, gastroesophageal reflux disease, hypothyroidism, history of anemia, history of shingles, thyroid nodule. PAST SURGICAL HISTORY: Cholecystectomy, coronary artery bypass surgery with coronary stent placement, thyroid biopsy. SOCIAL HISTORY: The patient is a former smoker. No history of drug abuse or alcohol abuse. He does have history of anxiety and depression. MEDICATIONS: Included: 1. Minocycline. 2. Ultram. 3. Imdur. 4. Neurontin. 5. Pepcid. 6. Zestril. 7. Iron. 8. Toprol. 9. Megace. ALLERGIES: None. REVIEW OF SYSTEMS: As per HPI. Other systems negative. PHYSICAL EXAMINATION: Patient is currently sedated. He is on the vent. Examination of the heart S1, S2. Examination of the lungs bilateral breath sounds are heard. Abdomen is soft, nontender. Exam of lower extremities shows no evidence of edema. [employer] exam cannot be performed. LAB: Show sodium 138, potassium 5.5, chloride 109, CO2 is 18, BUN 38, serum creatinine 1.75, glucose 122. Hemoglobin 8.8 g/dL. Cortisol of 18. UA shows 1+ protein and trace ketones. ASSESSMENT: 1. Acute kidney injury secondary to hypotension, hypoperfusion and acute tubular necrosis as well as an element of tumor lysis syndrome. Currently nonoliguric. Continue with IV fluids. 2. Metabolic acidosis associated with renal failure as well as lactic acidosis, currently maintained on bicarb drip. 3. Hyperkalemia associated with acute kidney injury, use of EILEEN inhibitors prior to admission. Tumor lysis syndrome and acidosis, currently improved. 4. Metastatic esophageal cancer, status post first chemotherapy on July 23. 5. Vent dependent respiratory failure. PLAN: Continue with bicarb drip, increase bicarb if the patient remains acidotic. Repeat labs this evening. Continue with rasburicase. Uric acid is now down to 4.4. Avoid any other nephrotoxic agents. Thank you for this consultation. We will continue to follow the patient with you during his hospitalization. MMODL / IJN: [id number] /
[2018-07-25] MEDS ORDERED: SODIUM CHLORIDE 0.9% 99 ML with VASOPRESSIN 20 UNIT IV SCH ×2 (19:00)
--- NOTE | 2018-07-25 19:41 | P.DS ---
Providers Date of admission: 07/24/18 13:26 Attending physician: Sabine Cavazos Consults: 07/24/18 13:26 Consult Physician Stat Consulting Provider: Macho Marroquin Consult Reason/Comments: Oncological care Do you want consulting provider notified?: Already Contacted 07/24/18 15:03 Consult Physician Urgent Consulting Provider: Nicholas Camarena Consult Reason/Comments: critical care Do you want consulting provider notified?: Yes 07/24/18 15:31 Consult Physician Urgent Consulting Provider: Janett Taylor Consult Reason/Comments: ams Do you want consulting provider notified?: Yes 07/25/18 04:14 Consult Physician Urgent Consulting Provider: Rosalinda Reese Consult Reason/Comments: Elevated Creat and K Do you want consulting provider notified?: Yes Primary care physician: Sabine Cavazos [facility] Hospital Course: 68 years old male patient one of my patient and Dr. JINA Ng with past history hypertension, hyperlipidemia, coronary artery disease with prior stent placement with history of myocardial infarction status post coronary artery bypass grafting surgery in [facility] in 2010. Recent cardiac workup in February 2017, underwent Lexiscan stress test which was negative for any reversible ischemia. Patient was recently admitted and discharged , after chest discomfort episode, and patient underwent a stress dobutamine at that time which was inconclusive secondary to abnormal EKG at baseline, it was a technically difficult dobutamine echo with suboptimal images , however there is no gross evidence to suggest ischemia. Cardiac cath performed 11/23/2017 Dr. Rodríguez, for unstable angina, LAD is chronically occluded in its midportion, severe stenosis of the RCA, midportion, stent within the proximal circumflex artery appears patent obtuse marginal branch 70-80% stenosis bypass graft TUNRER to LAD is patent proximal and distal anastomoses sites are free of stenosis venous graft to PDA patent, venous graft to OM branch free of disease patient has grand traverse three-vessel CAD with patent TURNER to LAD patent venous graft to PDA and patent venous graft to OM branch Patient comes in to the emergency room secondary to acute respiratory distress , mental status changes, patient cannot move the right upper extremity, has been listless and restless, tachypneic. prior to these patient has had vomiting upon my evaluation the emergency room, patient is in severe respiratory distress, aspiration pneumonia is in differential, along with pulmonary emboli and possible right hemiplegic stroke. Involving right upper extremity. Serum ammonia is very high at 200, lactic acid is 14, patient has severe metabolic acidosis, Patient underwent imaging studies including CT of the brain, IV antibiotics Levaquin and Zosyn to cover for aspirate the pneumonia , IV sodium bicarb, and and would be admitted to ICU Consult with pulmonary doctor sliver chopper Dr. Camarena, consult with Dr. Marroquin from oncology. patient is intubated upon arrival to ICU. 1221: Patient remains in ICU, ventilated, sedated family is at bedside, creatinine is are at 1.7 ammonia level currently pending, liver function test is still elevated on 575 alkaline phosphatase ALT 626 AST 180 bilirubin 1.2, albumin level at 2.6 hemoglobin 8.6, double basic count of 7.9. Chest x-ray shows bibasilar infiltrates T-max at 19.5, pressors are currently low with systolic of 82 to 89, on Levophed, we'll going to add Albumin infusion, 2 doses of 50 g every 12 hhrs cortisol levels to be drawn, consult nutrition for tube feedings Patient passed tonight at 1905. code was changed to DNAR by Dr. Camarena and has was not coded. Dischage diagnosis 1. Acute metabolic/hepatic encephalopathy with , acute right upper extremity paralysis 2. Recently diagnosed esophageal cancer invasive well-differentiated adenocarcinoma diagnosed 07/08/2018 3. Acute respiratory failure with hypoxemic respiratory failure 4Acute ventilatory dependent respiratory failure secondary to sepsis SIRS pneumonia, 5. Right upper extremity paralysis acute, possibly related to CVA 6. Hypovolemic shock from septic shock, 7 Sepsis with significant metabolic acidosis, aspiration pneumonia is considered 8. Hepatic encephalopathy secondary to liver metastatic 9. History of CAD with prior CABG TURNER to the LAD 10 Anemia 11history of extensive demyelination 12 hypertensive cardiovascular disease with prior history of cardiac stents continue metoprolol IV 2.5 mg every 6 hours 13 Anxiety/ depression 14. Hyperlipidemia 15 Rosacea 16 Thyroid nodule stable Plan - Discharge Summary Discharge Rx Participant: No New Discharge Prescriptions: No Action traMADol HCL [Ultram] 50 mg PO Q6H PRN PRN Reason: Pain Minocycline HCl [Minocin] 50 mg PO HS Isosorbide Mononitrate ER [Imdur] 30 mg PO DAILY #30 tab Gabapentin [Neurontin] 300 mg PO DAILY Famotidine [Pepcid] 20 mg PO DAILY #30 tablet Lisinopril [Zestril] 2.5 mg PO DAILY #30 tab ALPRAZolam [Xanax] 0.25 mg PO DAILY Aspirin [Adult Low Dose Aspirin EC] 81 mg PO DAILY Megestrol Acetate 20 mg PO DAILY Hydrocodone/Acetaminophen [Anthony 5-325] 1 tab PO Q6HR PRN PRN Reason: Pain Ferrous Sulfate [Feosol] 325 mg PO BID Metoprolol Succinate [Toprol Xl] 50 mg PO BID Discharge Medication List Minocycline HCl [Minocin] 50 mg PO HS 02/22/17 [History] traMADol HCL [Ultram] 50 mg PO Q6H PRN 02/22/17 [History] Isosorbide Mononitrate ER [Imdur] 30 mg PO DAILY #30 tab 11/26/17 [Rx] Gabapentin [Neurontin] 300 mg PO DAILY 06/25/18 [History] Famotidine [Pepcid] 20 mg PO DAILY #30 tablet 06/27/18 [Rx] Lisinopril [Zestril] 2.5 mg PO DAILY #30 tab 06/27/18 [Rx] ALPRAZolam [Xanax] 0.25 mg PO DAILY 06/30/18 [History] Aspirin [Adult Low Dose Aspirin EC] 81 mg PO DAILY 07/01/18 [History] Ferrous Sulfate [Feosol] 325 mg PO BID 07/24/18 [History] Hydrocodone/Acetaminophen [Anthony 5-325] 1 tab PO Q6HR PRN 07/24/18 [History] Megestrol Acetate 20 mg PO DAILY 07/24/18 [History] Metoprolol Succinate [Toprol Xl] 50 mg PO BID 07/24/18 [History] Follow up Appointment(s)/Referral(s): Sabine Cavazos MD [Primary Care Provider] - 1-2 days
--- NOTE | 2018-07-25 19:49 | PCN ---
PROCEDURE NOTE ARTERIAL LINE PLACEMENT: Indications: Hemodynamic monitoring. A time-out was completed verifying correct patient, procedure, site, positioning, and implant(s) or special equipment if applicable. Fredis's test was performed to ensure adequate perfusion. The patient's right wrist was prepped and draped in sterile fashion. 1% Lidocaine was used to anesthetize the area. An 18G Arrow arterial line was introduced into the right radial artery. The catheter was threaded over the guide wire and the needle was removed with appropriate pulsatile blood return. Blood loss was minimal. The catheter was then sutured in place to the skin and a sterile dressing applied. Perfusion to the extremity distal to the point of catheter insertion was checked and found to be adequate. The patient tolerated the procedure well and there were no immediate complications. Blood return was obtained. Line was sutured in place. Sterile dressing was applied by the nurse. Patient tolerated the procedure well. MMODL / IJN: [id number] /
[2018-07-25] MEDS ORDERED: LEVOFLOXACIN 750MG-D5W PMX 750 MG in DEXTROSE/WATER 1 150ML.BAG IVPB SCH (20:00)
[2018-07-25 20:10] VITALS: PULSE 114; RESP 38
[2018-07-25] MEDS ORDERED: ALBUMIN HUMAN 25% 50 ML in EMPTY BAG 1 BAG IVPB SCH ×2 (21:00→21:30)
== END 2018-07-25 23:47 | disposition expired | DRG 871 ==
LOC: EC 10:45 → 3NMEDONC 13:26 → 2SICU 15:00
PROVIDERS: ADMIT Family Medicine; ATTEND Family Medicine
PROC: 5A1935Z Respiratory Ventilation, Less than 24 Consecutive Hours (ICD-10-PCS; principal; 2018-07-24)
PROC: 0BH17EZ Insertion of Endotracheal Airway into Trachea, Via Natural or Artificial Opening (ICD-10-PCS; 2018-07-24)
PROC: 4A133BC Monitoring of Arterial Pressure, Coronary, Percutaneous Approach (ICD-10-PCS; 2018-07-25)
PROC: 03HY32Z Insertion of Monitoring Device into Upper Artery, Percutaneous Approach (ICD-10-PCS; 2018-07-25)
DX: A41.9 Sepsis, unspecified organism (principal); E88.3 Tumor lysis syndrome; G93.41 Metabolic encephalopathy; I26.99 Other pulmonary embolism without acute cor pulmonale; J69.0 Pneumonitis due to inhalation of food and vomit; J96.01 Acute respiratory failure with hypoxia; K72.00 Acute and subacute hepatic failure without coma; N17.0 Acute kidney failure with tubular necrosis; R65.21 Severe sepsis with septic shock; I63.9 Cerebral infarction, unspecified; C15.9 Malignant neoplasm of esophagus, unspecified; C78.00 Secondary malignant neoplasm of unspecified lung; C78.7 Secondary malignant neoplasm of liver and intrahepatic bile duct; Z66 Do not resuscitate; E87.2 Acidosis; G35 Multiple sclerosis; E87.5 Hyperkalemia; I11.9 Hypertensive heart disease without heart failure; E03.9 Hypothyroidism, unspecified; E04.1 Nontoxic single thyroid nodule; E78.5 Hyperlipidemia, unspecified; E86.0 Dehydration; F32.9 Major depressive disorder, single episode, unspecified; F40.240 Claustrophobia; G83.21 Monoplegia of upper limb affecting right dominant side; I25.10 Atherosclerotic heart disease of native coronary artery without angina pectoris; I25.2 Old myocardial infarction; K21.9 Gastro-esophageal reflux disease without esophagitis; L71.9 Rosacea, unspecified; D50.9 Iron deficiency anemia, unspecified; R19.7 Diarrhea, unspecified; R11.2 Nausea with vomiting, unspecified; F41.9 Anxiety disorder, unspecified; Z79.82 Long term (current) use of aspirin; Z79.899 Other long term (current) drug therapy; Z86.19 Personal history of other infectious and parasitic diseases; Z87.891 Personal history of nicotine dependence; Z95.1 Presence of aortocoronary bypass graft; Z95.5 Presence of coronary angioplasty implant and graft; Z90.49 Acquired absence of other specified parts of digestive tract; Z82.49 Family history of ischemic heart disease and other diseases of the circulatory system; Z83.3 Family history of diabetes mellitus
CPT/HCPCS: 36415; 36600; 51702; 70470; 71045; 71046; 80053; 81001; 82140; 82150; 82533; 82805; 83010; 83605; 83615; 83690; 83735; 84100; 84132; 84550; 85025; 85384; 85610; 85730; 87040; 87070; 87205; 94002; 94003; 94660; 96361; 96365; 96366; 96368; 96375; 96376; 99291